=== PATIENT | female | born 2000 | race Caucasian/White ===

== ENCOUNTER 2023-03-11 11:03 | Emergency (ER) | payer OTHER, MEDICAID, SELFPAY ==
[2023-03-11 11:04] VITALS: BP 136/69; PULSE 98; RESP 18; TEMP 36.6; O2SAT 97; BMI 34.5
--- NOTE | 2023-03-11 11:38 | EX.ED.VIS.UR ---
HPI HPI - URI History of Present Illness Chief Complaint: Cough Informant: patient Narrative Narrative: 2-3 days of illness that she and her fianc? both have involving headache, sore throat mostly. Minor occasional cough. Subjective fevers present. No dyspnea. Presents with baby who has a fever this morning and decreased feeding, who is also being evaluated as a patient. Did home COVID test, both she and her fianc?, both negative. ROS ROS ED Constitutional Constitutional ED: Reports fever(s) and subjective; Denies chills ENT ENT ED: Reports sore throat; Denies ear pain, nasal congestion or rhinorrhea Cardiovascular Cardiovascular: Denies chest pain or palpitations Respiratory/Chest Respiratory/Chest: Reports cough; Denies dyspnea Gastrointestinal Gastrointestinal: Reports nausea; Denies abdominal pain, diarrhea or vomiting Genitourinary Genitourinary ED: Denies dysuria or hematuria Musculoskeletal Musculoskeletal: Denies myalgias or neck pain Integumentary Denies abscess or rash Neurologic Neurologic: Reports headache(s); Denies paresthesias or weakness Psychiatric Psychiatric: Denies depression or suicidal thoughts Endocrine Endocrinology: Denies polydipsia or polyuria PFSH PFSH Medical History no medical history Allergy/AdvReac Type Severity Reaction Status Date / Time No Known Allergies Allergy Verified 03/11/23 11:04 Social History Smoking Status: Current some day smoker tobacco type: e-cigarettes EXAM Physical Exam Const Vital Signs: 03/11/23 11:04 03/11/23 11:59 Temperature 97.8 F Temperature Source Temporal Pulse Rate 98 Respiratory Rate 18 Respiratory Effort Normal Non-Labored Respiratory Depth Normal Respiratory Pattern Normal Blood Pressure 136/69 H Blood Pressure Mean 91 Pulse Ox 97 Oxygen Delivery Method Nasal Cannula Positive well nourished and well developed General Appearance ED: well developed and NAD HEENT Reports moist mucous membranes HEENT Narrative: Soft palate and posterior oropharyngeal erythema with petechiae. No exudates. No trismus. No asymmetry. No stridor. normocephalic and atraumatic Throat: posterior oropharynx abnormal Eyes PERRL and EOMs intact bilaterally Neck no lymphadenopathy, supple and no meningeal signs Neck Narrative: No palpable lymphadenopathy but submandibular bilateral tenderness/prominence Resp normal respiratory effort and clear to auscultation bilaterally Cardio no murmurs Rate: regular rate Rhythm: regular rhythm Neuro oriented x3, CN's II-XII intact bilaterally and no sensory deficits noted Sensorium / Orientation: alert Motor Exam: strength 5/5 throughout Skin Lesions: no lesions Rashes: no rashes MDM MDM MDM Narrative Medical decision making narrative: Given the petechia in the back of her throat and minimal coughing, rapid strep was obtained and is negative. Therefore more likely to be viral, culture is sent I recommend supportive care for now unless the culture comes back positive. Performed COVID on the patient's daughter who is also hears patient simultaneously it was negative, patient did home COVID test on her and her fianc? and they are both negative I do not think those need to be repeated. Discharge Plan Triage Chief Complaint: Cough Other Complaint: Sore Throat ED Provider: Maco Brito Dx/Rx/DC Orders Clinical Impression: Acute viral pharyngitis Instructions: ED Pharyngitis, Viral Primary Care Provider: Care Physician,No Primary Referrals: Doctor,Your [Non-Staff] - 1 Week if not improving Activity Restrictions/Additional Instructions: Your strep swab was negative, culture is sent and will take a couple days to come back, if positive you will get a call from us regarding further treatment. Disposition Disposition: Home, Self Care
== END 2023-03-11 13:30 | disposition home or self-care (01) ==
PROVIDERS: Emergency Provider Emergency Medicine; Visit Provider Emergency Medicine
DX: J02.8 Acute pharyngitis due to other specified organisms (principal); R51.9 Headache, unspecified; F17.290 Nicotine dependence, other tobacco product, uncomplicated; R11.0 Nausea
CPT/HCPCS: 87880; 99283

== ENCOUNTER 2025-01-06 14:16 | Emergency (ER) | payer OTHER, MEDICAID, SELFPAY ==
[2025-01-06 14:18] VITALS: BP 144/90; PULSE 119; RESP 18; TEMP 36.8; O2SAT 98; BMI 33.5
--- NOTE | 2025-01-06 15:10 | EX.ED.VIS.PS ---
HPI <STEPHAN Park - Last Filed: 01/06/25 18:05> HPI - Psych History of Present Illness Chief Complaint: Mental Health Narrative Narrative: 24-year-old female presents for mental health evaluation. She has a history of depression. Her fianc? wanted to leave her so she acted out by cutting both her thighs. She has a history of self-harm with cutting. She states she is not suicidal or homicidal but she called her friend for help regarding the situation and they called PD so she was brought in for evaluation. She states she has not seen a counselor or been on medications for mental health for about 5 years because they did not help. PFSH <STEPHAN Park - Last Filed: 01/06/25 18:05> [facility] Medical History (Updated 01/06/25 @ 18:05 by STEPHAN Park) Anxiety Depression Home Medications ?Medication ?Instructions ?Recorded ?Last Taken ?Type NK 01/06/25 Unknown History Allergy/AdvReac Type Severity Reaction Status Date / Time peach Allergy Mild Hives Verified 01/06/25 14:18 chocolate AdvReac Mild Nausea Verified 01/06/25 14:18 Surgical History (Updated 01/06/25 @ 14:24 by Sofia Doan) Ducor teeth extracted History of bilateral fallopian tube excision Social History Smoking Status: Current every day smoker tobacco type: cigarettes ROS <STEPHAN Park - Last Filed: 01/06/25 18:05> ROS ED ROS Narrative Skin: Positive for lacerations. Musc: Negative for joint pain. Heme: Negative for easy bruising, bleeding. EXAM <STEPHAN Park - Last Filed: 01/06/25 18:05> Physical Exam Narrative Exam Narrative: CONST: Patient sitting in no acute distress. EYES: Normal inspection. NECK: Normal inspection. RESP: No respiratory distress, CTAB. CVS: Regular rate and rhythm, no murmur, no gallop. SKIN: Multiple linear lacerations on both anterior thighs, 1 on the right thigh is 12 cm in length and deep enough to the subcutaneous tissue to require sutures. EXTREMITIES: Normal appearance, 2+ PT pulses. NEURO: Alert and answering questions appropriately. PSYCH: Normal affect. Const Vital Signs: 01/06/25 14:18 01/06/25 15:17 01/06/25 16:00 Temperature 98.2 F Temperature Source Oral Pulse Rate 119 H 76 71 Respiratory Rate 18 16 16 Blood Pressure 144/90 H 133/84 H 126/81 H Blood Pressure Mean 108 100 96 Pulse Ox 98 99 98 Oxygen Delivery Method Room Air 01/06/25 17:10 Temperature 98.7 F Temperature Source Pulse Rate 75 Respiratory Rate 16 Blood Pressure 122/84 H Blood Pressure Mean 96 Pulse Ox 99 Oxygen Delivery Method <Dr. Everton Vidales MD - Last Filed: 01/06/25 16:28> Physical Exam Const Vital Signs: 01/06/25 14:18 01/06/25 15:17 01/06/25 16:00 Temperature 98.2 F Temperature Source Oral Pulse Rate 119 H 76 71 Respiratory Rate 18 16 16 Blood Pressure 144/90 H 133/84 H 126/81 H Blood Pressure Mean 108 100 96 Pulse Ox 98 99 98 Oxygen Delivery Method Room Air 01/06/25 17:10 Temperature 98.7 F Temperature Source Pulse Rate 75 Respiratory Rate 16 Blood Pressure 122/84 H Blood Pressure Mean 96 Pulse Ox 99 Oxygen Delivery Method MDM <STEPHAN Park - Last Filed: 01/06/25 18:05> [facility] Narrative Medical decision making narrative: 24-year-old female, large stress at home with her fianc? stating was break-up with her. She has a history of self-harm cutting and cut both her thighs multiple times. Most of them are superficial but there is one on the right thigh that will require suture repair. She is not suicidal or homicidal. She is calm and cooperative during the exam and her mom and multiple friends are here for support. I consulted social science instructor and after discussion with her they do not feel she needs inpatient placement. She was provided outpatient resources for counseling. I repaired 1 laceration on her right thigh, she states her tetanus is already up-to-date, and she was given wound care instructions and discharged in stable condition. Consults: Social work I have personally performed a face to face assessment of the patient and have reviewed the [facility] Note. I performed a substantive portion of the visit including all aspects of the following. My valladares findings include: History is 24-year-old female doing a lot of stress at home with her significant other. Today cut both her upper thighs multiple times. She has done cutting in the past. She denies any other suicide attempts or prior admissions. Currently is not under any psychiatric care nor medications. Exam is [well-appearing 24-year-old female. Vital signs are stable afebrile. No acute distress. H EENT exam pupils are reactive light. Moist mucous membranes. Neck nontender no lymphadenopathy. No trauma. Back nontender. Lungs clear to auscultation bilaterally. Heart regular rhythm no murmur. Rate about 70. Chest wall ribs nontender. Abdomen soft nontender. Moving all 4 extremities. Normal customer care professional strength. Normal dorsi plantarflexion. Patient has bilateral anterior thigh parallel lacerations dried blood. None are actively bleeding nor need repaired. There will be cleaned and dressed. By nursing staff. Neurologically patient is awake alert. Answering questions following commands. She will make eye contact.] Medical Decision Making [24-year-old female to cut her thighs bilaterally. Patient was evaluated by her social science instructor bill and INR patient assisted greeted patient can be treated as an outpatient for depression and she was given follow-up with the counseling center.] Other additions or changes: [None] History & Record Review Discussion w/independent historian: Family <Dr. Everton Vidales MD - Last Filed: 01/06/25 16:28> [facility] MDM Narrative Medical decision making narrative: I have personally performed a face to face assessment of the patient and have reviewed the HAYDEN Note. I performed a substantive portion of the visit including all aspects of the following. My valladares findings include: History is 24-year-old female doing a lot of stress at home with her significant other. Today cut both her upper thighs multiple times. She has done cutting in the past. She denies any other suicide attempts or prior admissions. Currently is not under any psychiatric care nor medications. Exam is [well-appearing 24-year-old female. Vital signs are stable afebrile. No acute distress. H EENT exam pupils are reactive light. Moist mucous membranes. Neck nontender no lymphadenopathy. No trauma. Back nontender. Lungs clear to auscultation bilaterally. Heart regular rhythm no murmur. Rate about 70. Chest wall ribs nontender. Abdomen soft nontender. Moving all 4 extremities. Normal customer care professional strength. Normal dorsi plantarflexion. Patient has bilateral anterior thigh parallel lacerations dried blood. None are actively bleeding nor need repaired. There will be cleaned and dressed. By nursing staff. Neurologically patient is awake alert. Answering questions following commands. She will make eye contact.] Medical Decision Making [24-year-old female to cut her thighs bilaterally. Patient was evaluated by her social science instructor she and INR patient assisted greeted patient can be treated as an outpatient for depression and she was given follow-up with the counseling center.] Other additions or changes: [None] History & Record Review Discussion w/independent historian: Patient Procedures <STEPHAN Park - Last Filed: 01/06/25 18:05> Lacerations Right anterior thigh: Length: 12 cm Depth: Sub Q Shape: Linear Prep: Sterile Conditions Laceration repair: Irrigated, Lidocaine, Local and Wound explored Suture Information: Ethilon and 5-0 Comment: 1 continuous running suture with 5-0 Ethilon approximately 22 loops. Tolerated procedure well without complication. Discharge Plan Triage Chief Complaint: Mental Health ED Midlevel Provider: Junie Briones ED Provider: Everton Vidales Dx/Rx/DC Orders Clinical Impression: Deliberate self-cutting, History of depression, Laceration of right thigh Instructions: Crisis Intervention Teams Prescriptions: No Action NK Primary Care Provider: Care Physician,No Primary Referrals: Care Physician,No Primary [Primary Care Provider] - Activity Restrictions/Additional Instructions: The social science instructor provided you with resources for counseling. I recommend you follow-up with them or with your primary care doctor. At any time if you feel your symptoms worsen or you are suicidal you can call the crisis team listed in this paperwork or you can return to the the closest ER. Print Language: Afghan Disposition Disposition: Home, Self Care Discharge Date/Time: 01/06/25 17:11
[2025-01-06 15:17] VITALS: BP 133/84; PULSE 76; RESP 16; O2SAT 99
[2025-01-06 16:00] VITALS: BP 126/81; PULSE 71; RESP 16; O2SAT 98
[2025-01-06] MEDS: Lidocaine 1% (20 ml mdv) 20 ML Vial INFILT (16:10)
[2025-01-06 17:10] VITALS: BP 122/84; PULSE 75; RESP 16; TEMP 37.1; O2SAT 99
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
--- NOTE | 2025-01-07 10:28 | CM.ED ---
Social Work SW contacted patient as a follow up from visit yesterday where a safety plan was completed. Patient stated she was doing well today and felt better than yesterday. Patient was reminded to return to the ED should her symptoms increase or if she felt unsafe. Patient voiced understanding and thanked ZACHARIAH for the call. Dian Longoria, UTILIZATION REVIEW SPECIALIST, COMPUTER NETWORK AND SYSTEMS ENGINEER
== END 2025-01-06 17:11 | disposition home or self-care (01) ==
PROVIDERS: Emergency Provider Emergency Medicine; Visit Provider Emergency Medicine
DX: S71.112A Laceration without foreign body, left thigh, initial encounter (principal); S71.111A Laceration without foreign body, right thigh, initial encounter; F17.210 Nicotine dependence, cigarettes, uncomplicated; X58.XXXA Exposure to other specified factors, initial encounter
CPT/HCPCS: 12004; 99284

== ENCOUNTER 2025-01-17 17:10 | Emergency (ER) | payer OTHER, MEDICAID, SELFPAY ==
[2025-01-17 17:12] VITALS: BP 128/70; PULSE 98; RESP 16; TEMP 36.5; O2SAT 99; BMI 34.0
--- NOTE | 2025-01-17 17:53 | ED.RN ---
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 PT INFORMED THE ER IS OPEN 24/ AND WE WOULD SEE HER AT ANY HOUR. PT LEAVES INDEPENDENTLY WITHOUT FURTHER QUESTIONS
== END 2025-01-17 17:40 | disposition left against medical advice (07) ==
LOC: ED 18:01
DX: Z48.02 Encounter for removal of sutures (principal)

== ENCOUNTER 2025-01-18 10:09 | Emergency (ER) | payer OTHER, MEDICAID, SELFPAY ==
[2025-01-18 10:10] VITALS: BP 155/89; PULSE 100; RESP 16; TEMP 36.6; O2SAT 98; BMI 33.7
--- NOTE | 2025-01-18 11:01 | EX.ED.DYSGE1 ---
HPI History of Present Illness Chief Complaint: Suture Remv Informant: patient Narrative Narrative: 24-year-old female self-inflicted laceration right thigh about 10 days ago. With suture repair at this facility. Came today to have her sutures out. She denies any redness or discharge. No discomfort. Prior similar symptoms: No Recent Illness/Hospitalization: No [facility] Medical History Anxiety Depression Home Medications ?Medication ?Instructions ?Recorded ?Last Taken ?Type NK 01/06/25 Unknown History Allergy/AdvReac Type Severity Reaction Status Date / Time peach Allergy Mild Hives Verified 01/18/25 10:11 chocolate AdvReac Mild Nausea Verified 01/18/25 10:11 Surgical History [place] teeth extracted History of bilateral fallopian tube excision Social History Smoking Status: Current every day smoker tobacco type: cigarettes ROS ROS ED ROS Narrative No recent illness. Constitutional Constitutional ED: Denies chills or fever(s) Eyes Eyes: Denies blurry vision ENT ENT ED: Denies ear pain Cardiovascular Cardiovascular: Denies chest pain Respiratory/Chest Respiratory/Chest: Denies cough Gastrointestinal Gastrointestinal: Denies abdominal pain Genitourinary Genitourinary ED: Denies dysuria Musculoskeletal Musculoskeletal: Denies arthralgias Integumentary Denies abscess Neurologic Neurologic: Denies headache(s) Psychiatric Psychiatric: Denies suicidal ideation Endocrine Endocrinology: Denies cold intolerance Hematologic/Lymphatic Hematologic/Lymphatic: Reports none Allergic/Immunologic Allergic/Immunologic ED: Denies mouth swelling, tongue swelling or urticaria EXAM Physical Exam Narrative Exam Narrative: Well-appearing 24-year-old female. Vital signs stable afebrile. HEENT exam pupils round reactive light. Moist mucous membranes. Neck nontender. Lungs clear. Heart regular rhythm rate about 95 no murmur. Chest wall ribs nontender. Abdomen soft nontender. Moving all 4 extremities. She has a well-healing right proximal anterior thigh laceration with repair we will remove the sutures. There is no signs of infection or wound separation. Right lower extremity is neurovascularly intact. She is awake alert. Answering questions following commands. Benign exam. Const Vital Signs: 01/18/25 10:10 Temperature 97.9 F Temperature Source Oral Pulse Rate 100 Respiratory Rate 16 Blood Pressure 155/89 H Blood Pressure Mean 111 Pulse Ox 98 Oxygen Delivery Method Room Air Positive well nourished and well developed; Negative for cachectic, contractures or unkempt General Appearance ED: well developed; Negative for unkempt, cachectic, contractures, cyanotic, diaphoretic or pallor Nutritional Appearance: Negative for cachectic HEENT Reports moist mucous membranes Eyes PERRL and EOMs intact bilaterally Neck no lymphadenopathy, supple and no JVD Chest Wall inspection of chest normal Resp normal respiratory effort and clear to auscultation bilaterally Cardio regular rate, regular rhythm, S1 normal heart sound, S2 normal heart sound and no murmurs GI normal to inspection, nondistended, normoactive bowel sounds, non-tender, non-distended and no masses Back/Spine no CVA tenderness Extremity normal to inspection Extremity Narrative: Well-healed right proximal anterior thigh laceration. Running suture. No infection. Sutures will be removed. General Extremety ED: Negative for edema or tenderness General Extremity: Negative for edema Neuro CN's II-XII intact bilaterally Sensorium / Orientation: alert Motor Exam: strength 5/5 throughout Psych mental status grossly normal Appearance: Negative for unkempt Skin no rashes or lesions noted, no wounds and skin turgor normal General Skin Exam: elasticity normal; Negative for jaundice or pallor Lesions: No lesion noted Rashes: No rashes noted MDM MDM MDM Narrative Medical decision making narrative: 24-year-old female self-inflicted right thigh laceration repair and return for suture removal. Wound looks good. Healing nicely. No infection. Discharge Plan Triage Chief Complaint: Suture Remv ED Provider: Everton Vidales Dx/Rx/DC Orders Clinical Impression: Visit for suture removal Instructions: Sutr or Stap Removal Prescriptions: No Action NK Primary Care Provider: Care Physician,No Primary Referrals: Care Physician,No Primary [Primary Care Provider] - Activity Restrictions/Additional Instructions: The laceration looks good. Watch for any signs of infection. If seen return. Print Language: Citizen Of [place] Disposition Disposition: Home, Self Care
[2025-01-18 12:22] VITALS: BP 140/78; PULSE 77; RESP 16; TEMP 36.3; O2SAT 100
--- NOTE | 2025-01-18 12:23 | ED.RN ---
SUTURES REMOVED, HEALING WITHIN NORMAL LIMITS
== END 2025-01-18 12:24 | disposition home or self-care (01) ==
LOC: ED 11:07
PROVIDERS: Emergency Provider Emergency Medicine; Visit Provider Emergency Medicine
DX: S71.111D Laceration without foreign body, right thigh, subsequent encounter (principal); X78.9XXD Intentional self-harm by unspecified sharp object, subsequent encounter; F17.210 Nicotine dependence, cigarettes, uncomplicated
CPT/HCPCS: 99282

== ENCOUNTER 2025-05-25 11:25 | Emergency (ER) | payer OTHER, MEDICAID, SELFPAY ==
[2025-05-25] VITALS (9 sets, daily range): BP systolic 92–142; BP diastolic 49–93; PULSE 62–137; RESP 16–24; TEMP 36.9–39.1; O2SAT 97–100; BMI 35.2
--- OUTSIDE RECORDS SUMMARY | 2025-05-25 11:52 | XMS RPT_ITS | CCD ---
Author Organization [facility] Care Team Providers Care Office Equipment Technician Name Role Phone Db, Sandhya L Unavailable Unavailable Sokari, Telemate Unavailable Unavailable Sokari, Telemate Unavailable Unavailable Db, Sandhya L Unavailable Unavailable Db, Sandhya L Unavailable Unavailable Db, Sandhya L Unavailable Unavailable Db, Sandhya L Unavailable Unavailable Michael, Loree A Unavailable Unavailable [place], Loree A Unavailable Unavailable Db, Sandhya L Unavailable Unavailable Db, Sandhya L Unavailable Unavailable Db, Sandhya L Unavailable Unavailable Db, Sandhya L Unavailable Unavailable Unavailable Unavailable Unavailable Db, Sandhya Unavailable Charles Harrison Unavailable Unavailable Maggy Sauceda Unavailable Schulte, Jenise Unavailable Unavailable Dr. Charles Harrison Attending Unava ilable Db, Mrs. Sandhya Pereira Primary Care Unavail able Schulte, Jenise Attending Unavailable Db, Mrs. Sandhya Pereira Primary Care Unavail able Schulte, Jenise Referring Unavailable Schulte, Jenise Attending Unavailable Db, Mrs. Sandhya Pereira Primary Care Unavail able Schulte, Jenise Referring Unavailable Schulte, Jenise Attending Unavailable Db, Mrs. Sandhya Pereira Primary Care Unavail able Schulte, Jenise Referring Unavailable Db, Mrs. Sandhya Pereira Primary Care Unavail able Schulte, Jenise Attending Unavailable Schulte, Jenise Admitting Unavailable Schulte, Jenise Attending Unavailable Db, Mrs. Sandhya Pereira Primary Care Unavail able Schulte, Jenise Admitting Unavailable Schulte, Jenise Attending Unavailable Db, Mrs. Sandhya Pereira Primary Care Unavail able Schulte, Jenise Admitting Unavailable Schulte, Jenise Attending Unavailable Db, Mrs. Sandhya Pereira Primary Care Unavail able Sohail, Dr. Maggy Varghese Referring Unavai lable Sohail, Dr. Maggy Varghese Attending Unavai lable Db, Mrs. Sandhya Pereira Primary Care Unavail able Mcneal, Hope Attending Unavailable Mcneal, Hope Referring Unavailable Db, Mrs. Sandhya Pereira Primary Care Unavail able Schulte, Jenise Referring Unavailable Db, Mrs. Sandhya Pereira Primary Care Unavail able Schulte, Jenise Attending Unavailable Sohail, Dr. Maggy Varghese Referring Unavai lable Sohail, Dr. Maggy Varghese Admitting Unavai lable Sohail, Dr. Maggy Varghese Attending Unavai lable Db, Mrs. Sandhya Pereira Primary Care Unavail able MD JENISE SCHULTE Attending Unava ilable SCHULTE, MD JENISE WEBSTER Referring Unava ilable Db, Mrs. Sandhya Pereira Primary Care Unavail able MD JENISE SCHULTE Attending Unava ilable SCHULTE, MD JENISE WEBSTER Referring Unava ilable Db, Mrs. Sandhya Pereira Primary Care Unavail able MD JENISE SCHULTE Attending Unava ilable SCHULTE, MD JENISE WEBSTER Referring Unava ilable Db, Mrs. Sandhya Pereira Primary Care Unavail able MD JENISE SCHULTE Attending Unava ilable SCHULTE, MD JENISE WEBSTER Referring Unava ilable Db, Mrs. Sandhya Pereira Primary Care Unavail able MD JENISE SCHULTE Attending Unava ilable SCHULTE, MD JENISE WEBSTER Referring Unava ilable Db, Mrs. Sandhya Pereira Primary Care Unavail able MD JENISE SCHULTE Attending Unava ilable LUKE, MD JENISE WEBSTER Referring Unava ilable Db, Mrs. Sandhya Pereira Primary Care Unavail able MD JENISE SCHULTE Attending Unava ilable SCHULTE, MD JENISE WEBSTER Referring Unava ilable Db, Mrs. Sandhya Pereira Primary Care Unavail able SCHULTE, MD JENISE WEBSTER Attending Unava ilable Db, Mrs. Sandhya Pereira Primary Care Unavail able MD JENISE SCHULTE Referring Unava ilable SCHULTE, MD JENISE WEBSTER Attending Unava ilable Db, Mrs. Sandhya Pereira Primary Care Unavail able SCHULTE, MD JENISE WEBSTER Referring Unava ilable SCHULTE, MD JENISE WEBSTER Attending Unava ilable Db, Mrs. Sandhya Pereira Primary Care Unavail able LUKE, MD JENISE WEBSTER Referring Unava ilable SCHULTE, MD JENISE WEBSTER Referring Unava ilable SCHULTE, MD JENISE WEBSTER Attending Unava ilable Db, Mrs. Sandhya Pereira Primary Care Unavail able Db, Mrs. Sandhya Pereira Primary Care Unavail able LUKE, MD JENISE WEBSTER Attending Unava ilable SCHULTE, MD JENISE WEBSTER Referring Unava ilable SCHULTE, MD JENISE WEBSTER Attending Unava ilable Db, Mrs. Sandhya Pereira Primary Care Unavail able LUKE, MD JENISE WEBSTER Attending Unava ilable SCHULTE, MD JENISE WEBSTER Referring Unava ilable Db, Mrs. Sandhya Pereira Primary Care Unavail able Db PRODUCT REPRESENTATIVESandhya DRUMMOND Primary Care Provider SANDHYA ACE Primary Care Unavailable SANDHYA ACE Primary Care Unavailable MAGGY SAUCEDA Referring Unavailable SANDHYA ACE Primary Care Unavailable MAGGY SAUCEDA Admitting Unavailable MAGGY SAUCEDA Attending Unavailable SANDHYA ACE Primary Care Unavailable MAGGY SAUCEDA Attending Unavailable SANDHYA ACE Primary Care Unavailable MAGGY SAUCEDA Attending Unavailable SANDHYA ACE Primary Care Unavailable MAGGY SAUCEDA Attending Unavailable SANDHYA ACE Primary Care Unavailable MAGGY SAUCEDA Attending Unavailable SANDHYA ACE Primary Care Unavailable MAGGY SAUCEDA Attending Unavailable SANDHYA ACE Primary Care Unavailable MAGGY SAUCEDA Attending Unavailable SANDHYA ACE Primary Care Unavailable Care Physician, No Primary Primary Care Provider Unavailable Dr. Everton Vidales MD Attending Provider Dr. Everton Vidales MD Emergency Provider Provider, Ed Physician Emergency Provider Everton Ferrer Attending Unavailable Care Physician, No Primary Primary Care Unava ilable Everton Vidales Attending Unavailable Care Physician, No Primary Primary Care Unava ilable Provider, Ed Physician Attending Unavailab le Care Physician, No Primary Primary Care Unava ilable Allergies Allergy Classification Reported Allergen(s) Allergy Type Date of Onset Reaction(s) Facility Chocolate (6 sources) Chocolate Food Allergy [facility] [address] Work Phone: [place]aches (6 sources) peach Food Allergy [facility] [address] Work Phone: (20 sources) Chocolate; Translations: [Chocolate] Propensity to adverse reactions (disorder) 5 Itching, Hives, Nausea [facility] Repository (20 sources) [place]; Translations: [[place]aches] Propensity to adverse reactions to drug (disorder) AOF, Itching, Hives [facility] Repository Comment on above: [place] (12 sources) chocolate allergenic extract; Translations: [COCOA] Drug Allergy 0 Diarrhea, Hives, Itching [facility] (15 sources) peach allergenic extract; Translations: [PEACH] Drug Allergy 0 Diarrhea, Hives [facility] Work Phone: Medications Current Medications Medication Drug Class(es) Dates Sig (Normalized) Sig (Original) acetaminophen 300 mg / codeine phosphate 30 mg oral tablet (3 sources) Opioid Agonist Start: 05-06-2024 take 1 tablet by mouth every six hours for pain acetaminophen-codei ne (Tylenol w/ Codeine #3) 300-30 mg tablet Indications: Encounter for female sterilization procedure Take 1 tablet by mouth every 6 hours if needed for moderate pain (4 - 6) or severe pain (7 - 10) for up to 10 doses. 10 tablet 05/06/2024 Active calcium chloride 0.0014 meq/ml / potassium chloride 0.004 meq/ml / sodium chloride 0.103 meq/ml / sodium lactate 0.028 meq/ml injectable solution (1 source) Start: 05-06-2024 End: 05-07-2024 take 100 mL intravenously every hour 100 mL/hr, intravenous, Continuous, Starting on [place] 05/06/24 at 0830, For 1 day, Recovery (only) 0.5 ml HYDROmorphone hydrochloride 1 mg/ml prefilled syringe (2 sources) Opioid Agonist Start: 05-06-2024 0.5 mg, intravenous, Every 5 min PRN, pain severe (7-10), first line, Starting on Yanira 05/06/24 at 1010, Recovery (only), Max total of 4 mg regardless of dose. Start: 05-06-2024 0.2 mg, intrav enous, Every 5 min PRN, pain moderate (4-6), first line, Starting on Yanira 05/06/24 at 1009, Recovery (only), Max total of 4 mg regardless of dose. labetalol hydrochloride 5 mg/ml injectable solution (1 source) beta-Adrenergic Sonido Start: 05-06-2024 5 mg, intravenous, Administer over 1 Minutes, Once as needed, systolic blood pressure greater than 180 mmHg, dystolic blood pressure greater than 100 mmHg and heart rate greater than 60 BPM, Starting on Yanira 05/06/24 at 1010, For 1 dose, Recovery (only) metroNIDAZOLE 500 mg oral tablet (1 source) Nitroimidazole Antimicrobial Start: 05-28-2023 End: 06-04-2023 take 1 tablet by mouth twice daily metroNIDAZOLE (Flagyl) 500 mg tablet Indications: Acute vaginitis , Bacterial vaginosis Take 1 tablet (500 mg) by mouth 2 times a day for 7 days. 14 tablet 0 05/28/2023 06/04/2023 Active 1 ml morphine sulfate 4 mg/ml prefilled syringe (2 sources) Opioid Agonist Start: 05-06-2024 4 mg, intravenous, Every 5 min PRN, pain severe (7-10), first line, Starting on Yanira 24 at 1010, Recovery (only), Max total of 20 mg regardless of dose. Start: 05-06-2024 2 mg, intraven ous, Every 5 min PRN, pain moderate (4-6), first line, Starting on Yanira 05/06/24 at 1010, Recovery (only), Max total of 20 mg regardless of dose. 2 ml ondansetron 2 mg/ml injection (2 sources) Serotonin-3 Receptor Antagonist Start: 05-06-2024 End: 05-06-2024 4 mg, intravenous, Once as needed, nausea/vomiting, first line, Starting on Yanira 05/06/24 at 1010, For 1 dose, Recovery (only), When administering via IV Push, administer over 3-5 minutes. oxyCODONE hydrochloride 5 mg oral tablet (2 sources) Opioid Agonist Start: 05-06-2024 take 1 tablet by mouth every four hours as needed 5 mg, oral, Every 4 hours PRN, pain mild (1-3), first line, Starting on Yanira 05/06/24 at 1010, Recovery (only), When able to take oral medications., If ordered PRN for pain, nurse is permitted to administer this medication for higher pain scores based on patient preference? Yes penicillin v potassium 500 mg oral tablet (1 source) Start: 06-24-2022 End: 06-30-2022 take 1 tablet by mouth four times daily 1 hour(s) after mealtime penicillin V potassium 500 mg oral tablet ; 1 tab(s) orally 4 times a day Quantity: 28 Refills: 0 Ordered: 24-Jun-2022 Charles Harrison Start: 24-Jun-2022 End: 30-Jun-2022 Generic Substitution Allowed Comments: Finish all this medication unless otherwise directed by prescriber.Take medication on an empty stomach 1 hour before or 2 to 3 hours after a meal unless otherwise directed by your doctor. Comment on above: Finish all this medi cation unless otherwise directed by prescriber.Take medication on an empty stomach 1 hour before or 2 to 3 hours after a meal unless otherwise directed by your doctor. Completed/Discontinued Medications Medication Drug Class(es) Dates Sig (Normalized) Sig (Original) acetaminophen 325 mg oral tablet (19 sources) Start: 05-06-2024 End: 05-06-2024 take 975 mg by mouth once as needed for pain 975 mg, oral, Once, On Yanira 05/06/24 at 0830, For 1 dose, Preprocedure, Administer with small amount of water preoperatively., If ordered PRN for pain, nurse is permitted to administer this medication for higher pain scores based on patient preference? Yes Tylenol TABS Aakash ntity: 0 Refills: 0 Ordered: 13-Oct-2020 DO Active Amethia 0.15-0.03 &0.01 MG Oral Tablet (1 source) Start: 11-25-2022 take 1 tablet by mouth once daily Amethia 0.15-0.03 &0.01 MG Oral Tablet TAKE 1 TABLET DAILY. Quantity: 1 Refills: 1 Ordered: 25-Nov-2022 Jenise Schulte MD Start : 25-Nov-2022 Active azithromycin 500 mg oral tablet (14 sources) Macrolide Antimicrobial Start: 01-08-2021 take 2 tablets by mouth once Azithromycin 500 MG Oral Tablet TAKE 2 TABLET ONCE Quantity: 2 Refills: 0 Ordered: 08-Jan-2021 Joesph Joe DO Start : 08-Jan-2021 Active celecoxib 200 mg oral capsule (1 source) Nonsteroidal Anti-inflammatory Drug Start: 05-06-2024 End: 05-06-2024 take 1 capsule by mouth once 400 mg, oral, Once, On Yanira 05/06/24 at 0830, For 1 dose, Preprocedure, Capsules may be opened and sprinkled on a spoonful of cold or room temperature applesauce. Start: 05-06-2024 End: 05-06-2024 take 1 capsule by mouth once 400 mg, oral, Once, On Th u 05/06/24 at 0830, For 1 dose, Preprocedure, Capsules may be opened and sprinkled on a spoonful of cold or room temperature applesauce. 1 ml dexamethasone phosphate 10 mg/ml injection (1 source) Corticosteroid Start: 05-06-2024 End: 05-06-2024 8 mg, intravenous, Once, On Yanira 05/06/24 at 0830, For 1 dose, Preprocedure Start: 05-06-2024 End: 05-06-2024 8 mg, intravenous, Once, On Yanira 05/06/24 at 0830, For 1 dose, Preprocedure ferrous sulfate 325 mg oral tablet (10 sources) Start: 07-30-2022 take 1 tablet by mouth twice daily at mealtime Ferrous Sulfate 325 (65 Fe) MG Oral Tablet TAKE 1 TABLET TWICE DAILY WITH MEALS. Quantity: 60 Refills: 11 Ordered: 30-Jul-2022 Jenise Schulte MD Start : 30-Jul-2022 Active Start: 05-20-2021 End: 06-18-2021 take 1 tablet by mouth twice daily ferrous sulfate 325 mg (65 mg elemental iron) oral tablet ; 1 tab(s) orally 2 times a day Quantity: 60 Refills: 0 Ordered: 20-May-2021 Jenise Schulte Start: 20-May-2021 End: 18-Jun-2021 Generic Substitution Allowed gabapentin 300 mg oral capsule (1 source) Anti-epileptic Agent Start: 05-06-2024 End: 05-06-2024 take 1 capsule by mouth once 600 mg, oral, Once, On Fri05/06/24 at 0830, For 1 dose, Preprocedure, Capsules may be opened and sprinkled on food (eg, applesauce, orange juice, pudding). Capsules may be opened and sprinkled on food (eg, applesauce, orange juice, pudding Start: 05-06-2024 End: 05-06-2024 take 1 capsule by mouth once 600 mg, oral, Once, On u 05/06/24 at 0830, For 1 dose, Preprocedure, Capsules may be opened and sprinkled on food (eg, applesauce, orange juice, pudding). Capsules may be opened and sprinkled on food (eg, applesauce, orange juice, pudding ibuprofen 800 mg oral tablet (1 source) Nonsteroidal Anti-inflammatory Drug Start: 05-20-2021 End: 06-02-2021 take 1 tablet by mouth every eight hours ibuprofen 800 mg oral tablet ; 1 tab(s) orally every 8 hours Quantity: 60 Refills: 0 Ordered: 20-May-2021 Jenise Schulte Start: 20-May-2021 End: 02-Jun-2021 Generic Substitution Allowed Comments: Do not take this drug if you are .It is very important that you take or use this exactly as directed. Do not skip doses or discontinue unless directed by your doctor.May cause drowsiness or dizziness.Obtain medical advice before taking any non-prescription drugs as some may affect the action of this medication.Take with food or milk. Comment on above: Do not take this flory g if you are .It is very important that you take or use this exactly as directed. Do not skip doses or discontinue unless directed by your doctor.May cause drowsiness or dizziness.Obtain medical advice before taking any non-prescription drugs as some may affect the action of this medication.Take with food or milk. magnesium oxide 400 mg oral tablet (14 sources) Start: 04-05-2022 take 1 tablet by mouth twice daily Magnesium Oxide 400 MG Oral Tablet Take 1 tablet twice daily Quantity: 60 Refills: 10 Ordered: 05-Apr-2022 Jenise Schulte MD Start : 05-Apr-2022 Active 5 ml midazolam 1 mg/ml injection (1 source) Benzodiazepine Start: 05-06-2024 End: 05-06-2024 1 mg, intravenous, Once, On Yanira 05/06/24 at 0830, For 1 dose, Preprocedure nitrofurantoin, macrocrystals 100 mg oral capsule (14 sources) Nitrofuran Antibacterial Start: 01-08-2021 take 1 capsule by mouth once daily Nitrofurantoin Macrocrystal 100 MG Oral Capsule TAKE 1 CAPSULE EVERY 12 HOURS DAILY. Quantity: 10 Refills: 0 Ordered: 08-Jan-2021 Joesph Joe DO Start : 08-Jan-2021 Active PNV Plus Multivitamin TABS (20 sources) PNV Plu s Multivitamin TABS Quantity: 0 Refills: 0 Ordered: 13-Oct-2020 DO Active Multivitamins with Folic Acid 1.25 mg oral capsule (1 source) Start: 09-17-2020 End: 10-16-2020 Multivitamins with Folic Acid 1.25 mg oral capsule ; 1 cap(s) orally once a day Quantity: 30 Refills: 0 Ordered: 17-Sep-2020 Uche Arroyo Start: 17-Sep-2020 End: 16-Oct-2020 Generic Substitution Allowed Comments: May discolor urine or feces. Comment on above: May discolor urine o r feces. promethazine (Phenergan) 6.25 mg in sodium chloride 0.9% 50 mL IV (1 source) Start: 05-06-2024 End: 05-06-2024 6.25 mg, intravenous, Administer over 15 Minutes, Once as needed, Nausea/vomiting, second line, Starting on Yanira 05/06/24 at 1010, For 1 dose, Recovery (only) NEGATED: Highlighted row has not occurred!No Current Medications (1 source) No Current Medications Problems Active Problems Problem Classification Problem Date Documented Date Episodic/Chronic Abdominal pain (10 sources) Pain in female pelvis; Translations: [Unspecified symptom associated with female genital organs] Episodic Asthma (6 sources) Unspecified asthma, uncomplicated; Translations: [Uncomplicated asthma] Onset: 10-07-2022 10-08-2022 Chronic Bacterial infection; unspecified site (20 sources) Chlamydial infection; Translations: [Unspecified chlamydial infection] Episodic Contraceptive and procreative management (6 sources) Encounter for sterilization; Translations: [Encounter for sterilization] Onset: 03-30-2024 Episodic Deficiency and other anemia (13 sources) Anemia; Translations: [Anemia, unspecified] 08-27-2022 Episodic Deficiency and other anemia (1 source) Anemia, unspecified; Translations: [Anemia, unspecified] Onset: 10-07-2022 Episodic Early or threatened labor (4 sources) False labor before 37 completed weeks of gestation, third trimester; Translations: [False labor at or after 37 completed weeks of gestation] Onset: 10-04-2022 10-08-2022 Episodic distress and abnormal forces of labor (3 sources) Abnormality of forces of labor, unspecified; Translations: [Abnormality of forces of labor] Onset: 10-07-2022 10-08-2022 Episodic Genitourinary symptoms and ill-defined conditions (1 source) Dysuria; Translations: [Dysuria] 05-28-2023 Episodic Immunizations and screening for infectious disease (20 sources) Patient encounter status; Translations: [Screening examination for venereal disease] Onset: 03-30-2024 05-28-2023 Episodic Inflammatory diseases of female pelvic organs (2 sources) Acute vaginitis; Translations: [Acute vaginitis] 05-28-2023 Episodic Menstrual disorders (2 sources) Oligomenorrhea, unspecified; Translations: [Oligomenorrhea, unspecified] Onset: 05-28-2023 Chronic OB-related trauma to perineum and vulva (1 source) First degree perineal laceration during delivery; Translations: [First degree perineal laceration during delivery] Onset: 10-10-2022 Episodic Open wounds of extremities (2 sources) Laceration of right thigh; Translations: [Laceration without foreign body, right thigh, initial encounter] 01-14-2025 Episodic Open wounds of extremities (1 source) Laceration without foreign body, left thigh, initial encounter; Translations: [Laceration without foreign body, left thigh, initial encounter] Onset: 01-11-2025 Episodic Other aftercare (1 source) Postoperative visit; Translations: [Encounter for other specified surgical aftercare] 05-21-2024 Episodic Other aftercare (1 source) Surgical follow-up; Translations: [Encounter for removal of sutures] 01-18-2025 Episodic Other aftercare (1 source) Encounter for removal of sutures; Translations: [Encounter for removal of sutures] Onset: 01-23-2025 Episodic Other complications of ; puerperium affecting management of mother (3 sources) Obesity complicating childbirth; Translations: [Obesity complicating childbirth] Onset: 10-08-2022 Chronic Other complications of ; puerperium affecting management of mother (16 sources) Large for gestation age fetus; Translations: [LGA (large for gestational age) fetus] Episodic Other complications of ; puerperium affecting management of mother (1 source) Smoking (tobacco) complicating childbirth; Translations: [Smoking (tobacco) complicating childbirth] Onset: 10-10-2022 Episodic Other complications of (1 source) Anemia complicating , third trimester; Translations: [Anemia complicating , third trimester] Onset: 10-07-2022 Chronic Other complications of (3 sources) Anemia in mother complicating , childbirth AND/OR puerperium; Translations: [Anemia complicating , third trimester] 08-27-2022 Chronic Other complications of (20 sources) RhD negative; Translations: [Other specified complications of , antepartum condition or complication] 10-08-2022 Episodic Other complications of (20 sources) Asymptomatic bacteriuria in - not delivered; Translations: [Asymptomatic bacteriuria in , antepartum condition or complication] Episodic Other complications of (1 source) Diseases of the respiratory system complicating , third trimester; Translations: [Diseases of the resp sys comp , third trimester] Onset: 10-07-2022 Episodic Other complications of (2 sources) Other specified related conditions, third trimester; Translations: [Oth related conditions, third trimester] Onset: 08-26-2022 Episodic Other complications of (1 source) Maternal care for excessive growth, third trimester, not applicable or unspecified; Translations: [Maternal care for excess growth, third trimester, unsp] Onset: 10-04-2022 Episodic Other complications of (2 sources) Finding related to ; Translations: [Other specified related conditions, third trimester] 08-27-2022 Episodic Other complications of (1 source) Disease of respiratory system complicating ; Translations: [Diseases of the respiratory system complicating , third trimester] 10-08-2022 Episodic Other female genital disorders (3 sources) Pain in female genitalia on intercourse; Translations: [Unspecified dyspareunia] 03-08-2024 Chronic Other female genital disorders (4 sources) Unspecified dyspareunia; Translations: [Unspecified dyspareunia] Onset: 03-11-2024 Chronic Other female genital disorders (2 sources) Other specified noninflammatory disorders of vagina; Translations: [Other specified noninflammatory disorders of vagina] Onset: 08-26-2022 Episodic Other female genital disorders (1 source) Noninflammatory disorder of the vagina; Translations: [Other specified noninflammatory disorders of vagina] 08-27-2022 Episodic Other female genital disorders (1 source) Vaginal discharge; Translations: [Other specified noninflammatory disorders of vagina] 03-08-2024 Episodic Other conditions (1 source) Other heavy for gestational age ; Translations: [Other heavy for gestational age ] Onset: 09-13-2022 Episodic Other and delivery including normal (20 sources) care status; Translations: [Supervision of other normal ] Onset: 05-31-2022 10-08-2022 Episodic Comment on above: 05/18/2021_39weeks 1 day_Male_7# 7oz; Other screening for suspected conditions (not mental disorders or infectious disease) (20 sources) Urine test negative; Translations: [ examination or test, negative result] Onset: 06-01-2024 Resolved: 11-25-2022 05-28-2023 Episodic Other upper respiratory infections (2 sources) Acute viral pharyngitis; Translations: [Acute pharyngitis, unspecified] 2023 Episodic Residual codes; unclassified (18 sources) Gestation period, 12 weeks; Translations: [ state, incidental] Onset: 04-05-2022 Episodic Residual codes; unclassified (1 source) Gestation period, 16 weeks; Translations: [ state, incidental] Episodic Residual codes; unclassified (3 sources) Gestation period, 20 weeks; Translations: [ state, incidental] Episodic Residual codes; unclassified (2 sources) Gestation period, 24 weeks; Translations: [ state, incidental] Episodic Residual codes; unclassified (3 sources) Gestation period, 27 weeks; Translations: [ state, incidental] Episodic Residual codes; unclassified (1 source) Gestation period, 30 weeks; Translations: [ state, incidental] Episodic Residual codes; unclassified (2 sources) Gestation period, 32 weeks; Translations: [ state, incidental] 08-27-2022 Episodic Residual codes; unclassified (1 source) Gestation period, 34 weeks; Translations: [ state, incidental] Episodic Residual codes; unclassified (8 sources) Gestation period, 36 weeks; Translations: [ state, incidental] Episodic Residual codes; unclassified (1 source) Gestation period, 37 weeks; Translations: [ state, incidental] Episodic Residual codes; unclassified (3 sources) Gestation period, 38 weeks; Translations: [ state, incidental] 10-08-2022 Episodic Residual codes; unclassified (14 sources) Gestation period, 17 weeks; Translations: [ state, incidental] Onset: 05-31-2022 Episodic Residual codes; unclassified (11 sources) Gestation period, 26 weeks; Translations: [ state, incidental] Episodic Residual codes; unclassified (2 sources) 38 weeks gestation of ; Translations: [38 weeks gestation of ] Onset: 10-04-2022 Episodic Residual codes; unclassified (1 source) Unspecified blood type, Rh negative; Translations: [Unspecified blood type, Rh negative] Onset: 10-07-2022 Episodic Residual codes; unclassified (1 source) 39 weeks gestation of ; Translations: [39 weeks gestation of ] Onset: 10-04-2022 Episodic Residual codes; unclassified (1 source) 37 weeks gestation of ; Translations: [37 weeks gestation of ] Onset: 09-13-2022 Episodic Residual codes; unclassified (1 source) 32 weeks gestation of ; Translations: [32 weeks gestation of ] Onset: 08-26-2022 Episodic Residual codes; unclassified (2 sources) Deliberate self-cutting; Translations: [Other problems related to lifestyle] 01-14-2025 Episodic Screening and history of mental health and substance abuse codes (5 sources) Personal history of nicotine dependence; Translations: [Personal history of tobacco use] Onset: 10-07-2022 10-08-2022 Episodic Unclassified (2 sources) TOOTH PAIN 06-24-2022 Comment on above: TOOTH PAIN Unclassified (1 source) BC REFILL 07-13-2021 Comment on above: BC REFILL Unclassified (1 source) 4 WK OB 05-31-2022 Comment on above: 4 WK OB Unclassified (1 source) Pain, dental 06-24-2022 Unclassified (2 sources) 39 WEEKS GESTATION OF 10-08-2022 Comment on above: 39 WEEKS GESTATION O F Unclassified (1 source) PP 10-10-2022 Comment on above: PP Unclassified (1 source) 38 weeks gestation of 10-08-2022 Unclassified (2 sources) Post-op Visit; Translations: [Post-op Visit] Onset: 05-21-2024 Unclassified (2 sources) Vaginitis/Bacterial Vaginosis; Translations: [Vaginitis/Bacterial Vaginosis] Onset: 03-08-2024 Past or Other Problems Problem Classification Problem Date Documented Da te Episodic/Chronic Disorders of teeth and jaw (4 sources) Toothache; Translations: [Unspecified disorder of the teeth and supporting structures] Onset: 06-24-2022 06-24-2022 Episodic Other complications of (2 sources) Diseases of the digestive system complicating , unspecified trimester; Translations: [Diseases of the dgstv sys comp , unsp trimester] Onset: 06-24-2022 Episodic Residual codes; unclassified (1 source) Weeks of gestation of not specified; Translations: [Weeks of gestation of not specified] Onset: 06-24-2022 Episodic Residual codes; unclassified (2 sources) 17 weeks gestation of ; Translations: [17 weeks gestation of ] Onset: 05-31-2022 Episodic Residual codes; unclassified (1 source) 20 weeks gestation of ; Translations: [20 weeks gestation of ] Onset: 05-31-2022 Episodic Residual codes; unclassified (1 source) 12 weeks gestation of ; Translations: [12 weeks gestation of ] Onset: 04-05-2022 Episodic Unclassified (20 sources) Finding of menstrual bleeding; Translations: [Menstruation] Comment on above: AGE 13; Unclassified (1 source) CONTRACTIONS 10-08-2022 Comment on above: CONTRACTIONS Results Test Name Value Interpretation Reference Range Facility Emergency Department Summary on 01-18-2025 Emergency Department Summary [facility] Medical Records Department [address] [facility] [place] [address] Emergency Department Summary 01/18/25 MR#: [id number] Acct: [id number] Name: JEFF WHITE Rep #: [id number] : 2000 24 From: Everton Vidales MD PCP: Care Physician,No Primary Status:PRE ER Location: ED HPI History of Present Illness Chief Complaint: Suture Remv Informant: patient Narrative Narrative: 24-year-old female self-inflicted laceration right thigh about 10 days ago. With suture repair at this facility. Came today to have her sutures out. She denies any redness or discharge. No discomfort. Prior similar symptoms: No Recent Illness/Hospitalization: No PFSH PFS Medical History Anxiety Depression Home Medications ???Medication ???Instructions ???Recorded ???Last Taken ???Type NK 01/06/25 Unknown History Allergy/AdvReac Type Severity Reaction Status Date / Time peach Allergy Mild Hives Verified 01/18/25 10:11 chocolate AdvReac Mild Nausea Verified 01/18/25 10:11 Surgical History Eagan teeth extracted History of bilateral fallopian tube excision Social History Smoking Status: Current every day smoker tobacco type: cigarettes ROS ROS ED ROS Narrative No recent illness. Constitutional Constitutional ED: Denies chills or fever(s) Eyes Eyes: Denies blurry vision ENT ENT ED: Denies ear pain Cardiovascular Cardiovascular: Denies chest pain Respiratory/Chest Respiratory/Chest: Denies cough Gastrointestinal Gastrointestinal: Denies abdominal pain Genitourinary Genitourinary ED: Denies dysuria Musculoskeletal Musculoskeletal: Denies arthralgias Integumentary Denies abscess Neurologic Neurologic: Denies headache(s) Psychiatric Psychiatric: Denies suicidal ideation Endocrine Endocrinology: Denies cold intolerance Hematologic/Lymphatic Hematologic/Lymphatic: Reports none Allergic/Immunologic Allergic/Immunologic ED: Denies mouth swelling, tongue swelling or urticaria EXAM Physical Exam Narrative Exam Narrative: Well-appearing 24-year-old female. Vital signs stable afebrile. HEENT exam pupils round reactive light. Moist mucous membranes. Neck nontender. Lungs clear. Heart regular rhythm rate about 95 no murmur. Chest wall ribs nontender. Abdomen soft nontender. Moving all 4 extremities. She has a well-healing right proximal anterior thigh laceration with repair we will remove the sutures. There is no signs of infection or wound separation. Right lower extremity is neurovascularly intact. She is awake alert. Answering questions following commands. Benign exam. Const Vital Signs: 01/18/25 10:10 Temperature 97.9 F Temperature Source Oral Pulse Rate 100 Respiratory Rate 16 Blood Pressure 155/89 H Blood Pressure Mean 111 Pulse Ox 98 Oxygen Delivery Method Room Air Positive well nourished and well developed; Negative for cachectic, contractures or unkempt General Appearance ED: well developed; Negative for unkempt, cachectic, contractures, cyanotic, diaphoretic or pallor Nutritional Appearance: Negative for cachectic HEENT Reports moist mucous membranes Eyes PERRL and EOMs intact bilaterally Neck no lymphadenopathy, supple and no JVD Chest Wall inspection of chest normal Resp normal respiratory effort and clear to auscultation bilaterally Cardio regular rate, regular rhythm, S1 normal heart sound, S2 normal heart sound and no murmurs GI normal to inspection, nondistended, normoactive bowel sounds, non-tender, non-distended and no masses Back/Spine no CVA tenderness Extremity normal to inspection Extremity Narrative: Well-healed right proximal anterior thigh laceration. Running suture. No infection. Sutures will be removed. General Extremety ED: Negative for edema or tenderness General Extremity: Negative for edema Neuro CN's II-XII intact bilaterally Sensorium / Orientation: alert Motor Exam: strength 5/5 throughout Psych mental status grossly normal Appearance: Negative for unkempt Skin no rashes or lesions noted, no wounds and skin turgor normal General Skin Exam: elasticity normal; Negative for jaundice or pallor Lesions: No lesion noted Rashes: No rashes noted MDM MDM MDM Narrative Medical decision making narrative: 24-year-old female self-inflicted right thigh laceration repair and return for suture removal. Wound looks good. Healing nicely. No infection. Discharge Plan Triage Chief Complaint: Suture Remv ED Provider: Everton Vidales Dx/Rx/DC Orders Clinical Impression: Visit for suture removal Instructions: Sutr or Stap Removal Prescriptions: No Action N (more content not included)... Normal [facility] Emergency Department Summary on 01-06-2025 Emergency Department Summary [facility] Medical Records Department [address] [place] [address] Emergency Department Summary 01/06/25 MR#: [id number] Acct: [id number] Name: JEFF WHITE Rep #: [id number] : 2000 24 From: Everton Vidales MD PCP: Care Physician,No Primary Status:DEP ER Location: ED HPI HPI - Psych History of Present Illness Chief Complaint: Mental Health Narrative Narrative: 24-year-old female presents for mental health evaluation. She has a history of depression. Her fianc??? wanted to leave her so she acted out by cutting both her thighs. She has a history of self- harm with cutting. She states she is not suicidal or homicidal but she called her friend for help regarding the situation and they called PD so she was brought in for evaluation. She states she has not seen a counselor or been on medications for mental health for about 5 years because they did not help. [facility] Medical History (Updated 01/06/25 @ 18:05 by STEPHAN Park) Anxiety Depression Home Medications ???Medication ???Instructions ???Recorded ???Last Taken ???Type NK 01/06/25 Unknown History Allergy/AdvReac Type Severity Reaction Status Date / Time peach Allergy Mild Hives Verified 01/06/25 14:18 chocolate AdvReac Mild Nausea Verified 01/06/25 14:18 Surgical History (Updated 01/06/25 @ 14:24 by Sofia Doan) Eagan teeth extracted History of bilateral fallopian tube excision Social History Smoking Status: Current every day smoker tobacco type: cigarettes ROS ROS ED ROS Narrative Skin: Positive for lacerations. Musc: Negative for joint pain. Heme: Negative for easy bruising, bleeding. EXAM Physical Exam Narrative Exam Narrative: CONST: Patient sitting in no acute distress. EYES: Normal inspection. NECK: Normal inspection. RESP: No respiratory distress, CTAB. CVS: Regular rate and rhythm, no murmur, no gallop. SKIN: Multiple linear lacerations on both anterior thighs, 1 on the right thigh is 12 cm in length and deep enough to the subcutaneous tissue to require sutures. EXTREMITIES: Normal appearance, 2+ PT pulses. NEURO: Alert and answering questions appropriately. PSYCH: Normal affect. Const Vital Signs: 01/06/25 14:18 01/06/25 15:17 01/06/25 16:00 Temperature 98.2 F Temperature Source Oral Pulse Rate 119 H 76 71 Respiratory Rate 18 16 16 Blood Pressure 144/90 H 133/84 H 126/81 H Blood Pressure Mean 108 100 96 Pulse Ox 98 99 98 Oxygen Delivery Method Room Air 01/06/25 17:10 Temperature 98.7 F Temperature Source Pulse Rate 75 Respiratory Rate 16 Blood Pressure 122/84 H Blood Pressure Mean 96 Pulse Ox 99 Oxygen Delivery Method Physical Exam Const Vital Signs: 01/06/25 14:18 01/06/25 15:17 01/06/25 16:00 Temperature 98.2 F Temperature Source Oral Pulse Rate 119 H 76 71 Respiratory Rate 18 16 16 Blood Pressure 144/90 H 133/84 H 126/81 H Blood Pressure Mean 108 100 96 Pulse Ox 98 99 98 Oxygen Delivery Method Room Air 01/06/25 17:10 Temperature 98.7 F Temperature Source Pulse Rate 75 Respiratory Rate 16 Blood Pressure 122/84 H Blood Pressure Mean 96 Pulse Ox 99 Oxygen Delivery Method MDM MDM MDM Narrative Medical decision making narrative: 24-year-old female, large stress at home with her fianc??? stating was break-up with her. She has a history of self-harm cutting and cut both her thighs multiple times. Most of them are superficial but there is one on the right thigh that will require suture repair. She is not suicidal or homicidal. She is calm and cooperative during the exam and her mom and multiple friends are here for support. I consulted social services technician and after discussion with her they do not feel she needs inpatient placement. She was provided outpatient resources for counseling. I repaired 1 laceration on her right thigh, she states her tetanus is already up-to-date, and she was given wound care instructions and discharged in stable condition. Consults: Social work I have personally performed a face to face assessment of the patient and have reviewed the HAYDEN Note. I performed a substantive portion of the visit including all aspects of the following. My valladares findings include: History is 24-year-old female doing a lot of stress at home with her significant other. Today cut both her upper thighs multiple times. She has done cutting in the past. She denies any other suicide attempts or prior admissions. Currently is not under any psychiatric care nor medications. Exam is [well-appearing 24-year-old female. Vital signs are stable afebrile. No acute distress. H EENT exam pupils are reactive light. Moist mucous membranes. Neck nontender no lymphade (more content not included)... Normal [facility] Cervical AND or Vaginal cyto logy studyon 06-01-2024 Cytology Cervical or vaginal smear or scraping study Pathology report.total SEE COMMENT Gynecologic Cytology Case: [id number] Authorizing Provider: Maggy Sauceda MD Collected: 06/01/2024 1102 Ordering Location: [facility] Received: 06/01/2024 1102 Office Building First Screen: ADAM Bae Specimen: ThinPrep Liquid-Based Pap-Imaging System Screen, CERVIX, SCREENING Cytology study comment SEE COMMENT A. THINPREP PAP CERVIX, SCREENING - Specimen Adequacy Satisfactory for evaluation; absence of endocervical/transformat ion zone component General Categorization Negative for intraepithelial lesion or malignancy. Descriptive Interpretation Negative for intraepithelial lesion or malignancy Specimen does not meet the requisition-stated criteria for HPV testing. See Pap test interpretation above. Laboratory comment SEE COMMENT Slide(s) initially screened by ADAM Bae at [address] [address] By the signature on this report, the individual or group listed as making the Final Interpretation/Diagnosis certifies that they have reviewed this case. This specimen has been analyzed by the ThinPrep Imaging System ([employer] an automated imaging and review system, which assists the laboratory in evaluating cells on ThinPrep Pap tests. Following automated imaging, selected sloan from every slide were reviewed by a woolen tester and/or pathologist. Cervical cytology is a screening procedure primarily for squamous cancers and precursors and has associated false-negative and false-positives results as evidenced by published data. Your patient's test should be interpreted in this context, together with the patient's history and clinical findings. Regular sampling and follow-up of unexplained clinical signs and symptoms are recommended to minimize false negative results. LAB AP HPV HR Reflex if ASCUS only LAB AP HPV GENOTYPE QUESTION Yes Date last menstrual period 04/29/2024 [facility] Ambulatory Surgical pathology studyon 1 07-07-2023 Surgical pathology study Pathology report.total SEE COMMENT Surgical Pathology Case: [id number] Authorizing Provider: Maggy Sauceda MD Collected: 05/06/2024 0934 Ordering Location: [facility] Received: 05/06/2024 1632 Center OR Pathologist: Mary Alice Gonzales MD Specimen: FALLOPIAN TUBE SALPINGECTOMY LEFT AND RIGHT, BILATERAL FALLOPIAN TUBES Path report.final diagnosis SEE COMMENT A. FALLOPIAN TUBES, SALPINGECTOMY, LEFT AND RIGHT: -- Complete cross sections of Fallopian tubes are identified. Laboratory comment By the signature on this report, the individual or group listed as making the Final Interpretation/Diagnosis certifies that they have reviewed this case. Path report.relevant Hx SEE COMMENT Pre-op diagnosis: Encounter for female sterilization procedure [Z30.2] Path report.gross observation SEE COMMENT A: Received in formalin, labeled with the patient's name and hospital number and bilateral fallopian tubes, are two unoriented fallopian tubes. Fallopian tube #1 measures 5.2 cm in length by 1.0 cm in diameter and has a pink-celaya, smooth, glistening, hyperemic serosal surface. The fimbriated end is unremarkable. The cut surface reveals a pinpoint lumen. Fallopian tube #2 measures 4.9 cm in length by 1.0 cm in diameter and has a pink-celaya, smooth, glistening, hyperemic serosal surface. The fimbriated end is unremarkable. The cut surface reveals a pinpoint lumen. Silk Spreader sections are submitted in 4 cassettes. LMP Summary of Cassettes: Specimen Label Site A 1 fallopian tube #1 (largest segment), entire fimbriated end 2 fallopian tube #1 (largest segment), outside industrial sales representative sections 3 fallopian tube #2 (smaller segment), entire fimbriated end 4 fallopian tube #2 (smaller segment), outside industrial sales representative sections. Normal [facility] Comment on above: Order Comment: Pre-o p diagnosis: Encounter for female sterilization procedure [Z30.2] CBC panel Auto (Bld)on 05-03 Erythrocyte distribution width (RBC) [Ratio] 12.3 % Normal 11.5-14.5 [facility] Comment on above: Performed By: #### 5 8410-2 #### GERRI GARRISON ([id number]) [facility] ([facility]) [address] [place] [address]076 Hematocrit (Bld) [Volume fraction] 41.1 % Normal 36.0-46.0 [facility] Comment on above: Performed By: #### 5 8410-2 #### GERRI GARRISON ([id number]) [facility] ([facility]) [address] [place] [address] 08215 Hemoglobin (Bld) [Mass/Vol] 13.8 g/dL Normal 12.0-16.0 [facility] Comment on above: Performed By: #### 5 8410-2 #### GERRI GARRISON ([id number]) [facility] ([facility]) [address] [place] [address] 97712 MCH (RBC) [Entitic mass] 29.3 pg Normal 26.0-34.0 [facility] Comment on above: Performed By: #### 5 8410-2 #### GERRI GARRISON ([id number]) [facility] ([facility]) [address] [place] [address] 10470 MCHC (RBC) [Mass/Vol] 33.6 g/dL Normal 32.0-36.0 [facility] Comment on above: Performed By: #### 5 8410-2 #### GERRI GARRISON ([id number]) [facility] ([facility]) [address] [place] [address] 76341 MCV (RBC) [Entitic vol] 87 fL Normal 80-100 [facility] Comment on above: Performed By: #### 5 8410-2 #### GERRI GARRISON ([id number]) [facility] ([facility]) [address] [place] [address] 57020 Nucleated RBC/100 WBC (Bld) [Ratio] 0.0 /100 WBCs Normal 0.0-0.0 [facility] Comment on above: Performed By: #### 5 8410-2 #### GERRI GARRISON ([id number]) [facility] ([facility]) [address] [place] [address] 01776 Platelets (Bld) [#/Vol] 262 x10*3/uL Normal 150-450 [facility] Comment on above: Performed By: #### 5 8410-2 #### GERRI GARRISON ([id number]) [facility] ([facility]) [address] [place] [address] 12351 RBC (Bld) [#/Vol] 4.71 x10*6/uL Normal 4.00-5.20 [facility] Comment on above: Performed By: #### 5 8410-2 #### GERRI GARRISON ([id number]) [facility] ([facility]) [address] [place] [address] 27237 WBC (Bld) [#/Vol] 6.3 x10*3/uL Normal 4.4-11.3 [facility] Comment on above: Performed By: #### 5 8410-2 #### GERRI GARRISON ([id number]) [facility] ([facility]) [address] [place] [address] 51462 HCG ( test) IAangelique d Ql (U)on 05-03-2024 HCG ( test) Ql (U) Negative Normal NEGATIVE [facility] Comment on above: Performed By: #### 8 0384-1 #### GERRI GARRISON ([id number]) [facility] ([facility]) [address] [place] [address] [place] [address] US PELVIS TRANSABDOMINAL WIT H TRANSVAGINALon 03-11-2024 US PELVIS TRANSABDOMINAL WITH TRANSVAGINAL Interpreted By: Concha Jimenez, STUDY: US PELVIS TRANSABDOMINAL WITH TRANSVAGINAL; 03/11/2024 9:23 am INDICATION: Dyspareunia for 1 year COMPARISON: None. ACCESSION NUMBER(S): [id number] ORDERING CLINICIAN: MAGGY SAUCEDA TECHNIQUE: Grayscale and color Doppler imaging of the pelvis were performed. Transabdominal technique was utilized as well as transvaginal ultrasound to better visualize the adnexa. FINDINGS: Uterus: Size: 10.4 cm x 3.5 cm x 5.3 cm. No uterine masses noted. Endometrial Thickness: 8 mm Ovaries: There is normal color-flow with no sign of ovarian torsion. Right ovary: 4.5 cm x 3.4 cm x 3.3 cm. There is a 2.6 x 2.6 x 2.8 cm right ovarian cyst. Right ovary volume: 26.5 ml Left ovary: 3.3 cm x 1.7 cm x 1.9 cm. Left ovary volume: 5.4 ml There is no free fluid in the pelvis. IMPRESSION: 2.6 x 2.6 x 2.8 cm right ovarian cyst. Normal uterus and left ovary. MACRO: None. Signed by: Concha Jimenez 03/12/2024 7:15 PM Dictation workstation: [id number] [facility] POCT Wet Mount manually resu ltedon 03-08-2024 POC Clue Cell Wet Prep None Seen None Seen [facility] Work Phone: POC Trichomonas Wet Prep None Seen None Seen [facility] Work Phone: POC WBC Wet Prep NONE SEEN NONE SEEN [facility] Work Phone: POC Yeast Cells Wet Prep None Seen None Seen [facility] Work Phone: [facility] Work Phone: 17-Hydroxyprogesteroneon 17-Hydroxyprogesterone [Mass/Vol] 82.68 ng/dL Normal <=206.00 [facility] Comment on above: Result Comment: INTERPRETIVE INFORMATION for 17-Hydroxyprogesterone in females: Follicular 15 to 70 ng/dL Luteal 35 to 290 ng/dL REFERENCE INTERVAL: 17-Hydroxyprogesterone Qnt, HPLC-MS/MS Access complete set of age- and/or gender-specific reference intervals for this test in the [employer] Test Directory ([employer]). This test was developed and its performance characteristics determined by [facility]. It has not been cleared or approved by the [place] Food and Drug Administration. This test was performed in a CLIA certified laboratory and is intended for clinical purposes. Performed By: [facility] [address] [place] [address] Ambulatory Care: Nilton Castañeda MD, PhD CLIA Number: [id number] Performed By: #### 1 668-3 #### [facility]) ([id number]) [address] [place] [address] Dehydroepiandrosterone sulfa lasha 05-28-2023 DHEA-S [Mass/Vol] 217 ug/dL Normal 65-395 [facility] Comment on above: Order Comment: [facility] REFERENCE RANGES: PUBERTAL (MANDO) STAGE MALE FEMALE I 5 - 265 5 - 125 II 15 - 380 15 - 150 III 60 - 505 20 - 535 IV 65 - 560 35 - 485 V 165 - 500 75 - 530 Biotin interference may cause falsely elevated results. Patients taking a Biotin dose of up to 5 mg/day should refrain from taking Biotin for 24 hours before sample collection. Providers may contact their local laboratory for further information. Performed By: #### 2 191-5 #### MICHAEL Alonso ([id number]) [facility] ([facility]) [address] [place] [address] HbA1c (Bld) [Mass fraction]o n 05-28-2023 Average glucose Estimated from glycated hemoglobin (Bld) [Mass/Vol] 91 mg/dL Normal Not Established [facility] Comment on above: Order Comment: Diagn osis of Diabetes-Adults Non-Diabetic: < or = 5.6% Increased risk for developing diabetes: 5.7-6.4% Diagnostic of diabetes: > or = 6.5% Monitoring of Diabetes Age (y)....................... Therapeutic Goal (%) Adults: >18.........................<7.0 Pediatrics: 13-18...................<7.5 Pediatrics: 7-12....................<8.0 Pediatrics: 0-6..................... 7.5-8.5 [place]. Diabetes Care 33(S1)Jun 2009 Performed By: #### 4 548-4 #### TALLEY BLADIMIR ([id number]) [facility] ([facility]) [address] [place] [address] Hemoglobin A1c/Hemoglobin.to amada 05-28-2023 HbA1c (Bld) [Mass fraction] 4.8 % Normal see below [facility] Comment on above: Order Comment: Diagn osis of Diabetes-Adults Non-Diabetic: < or = 5.6% Increased risk for developing diabetes: 5.7-6.4% Diagnostic of diabetes: > or = 6.5% Monitoring of Diabetes Age (y)....................... Therapeutic Goal (%) Adults: >18.........................<7.0 Pediatrics: 13-18...................<7.5 Pediatrics: 7-12....................<8.0 Pediatrics: 0-6..................... 7.5-8.5 [place] [employer]. Diabetes Care 33(S1), Jun 2009 Performed By: #### 4 548-4 #### GERRI GARRISON ([id number]) [facility] ([facility]) [address] [place] [address] Prolactinon 05-28-2023 Prolactin [Mass/Vol] 6.4 ug/L Normal 3.0-20.0 [facility] Comment on above: Performed By: #### 2 842-3 #### MICHAEL Alonso ([id number]) [facility] ([facility]) [id number] [place] [id number] TSH WITH REFLEX TO FREE T4 I F ABNORMALon 05-28-2023 TSH Qn 0.98 m[IU]/L Normal 0.44-3.98 [facility] Comment on above: Order Comment: TSH t esting is performed using different testing methodology at [facility] than at [facility]. Direct result comparisons should only be made within the same method. Performed By: #### T HYDS #### GERRI GARRISON ([id number]) [facility] ([facility]) [address] [place] [id number] Testosterone Free/Testostero ne.total [Mass fraction]on 05-28-2023 Testosterone [Mass/Vol] 23 ng/dL Normal 2-45 U [facility] Comment on above: Result Comment: For additional information, please refer to http://education.Cytocentrics.CAILabs/faq/ [email or web address] (This link is being provided for informational/ educational purposes only.) This test was developed and its analytical performance characteristics have been determined by [facility] [place], [place]. It has not been cleared or approved by the U.S. Food and Drug Administration. This assay has been validated pursuant to the CLIA regulations and is used for clinical purposes. Performed By: #### 1 5432-8 #### QUEST CODEY ([id number]) [address] [place], [place] Testosterone Free [Mass/Vol] 4.3 pg/mL Normal 0.1-6.4 [facility] Comment on above: Result Comment: This test was developed and its analytical performance characteristics have been determined by [employer] [facility] [place], [place]. It has not been cleared or approved by the U.S. Food and Drug Administration. This assay has been validated pursuant to the CLIA regulations and is used for clinical purposes. Performed By: #### 1 5432-8 #### ALBERTO ALEGRE ([id number]) [address] [place], [place] IO HCG, Urine Test on 11-25-2022 HCG ( test) Ql (U) Negative [facility] Work Phone: AUDIT PARTNER - Office Visiton 11-01 AUDIT PARTNER - Office Visit Diagnoses/Problems Assessed Urine test negative (V72.41) (Z32.02) Contraception management (V25.9) (Z30.9) Orders Start: Amethia 0.15-0.03 AND0.01 MG Oral Tablet; TAKE 1 TABLET DAILY Administer: Levonorgest-Eth Estrad -Day 0.15-0.03 AND0.01 MG Oral Tablet (Seasonique); TAKE 1 TABLET Oral 1 tab p.o. daily; To Be Done: 25Nov2022 IO HCG, Urine Test; Status:Resulted - Requires Verification,Retrospecti ve Authorization; Done: 25Nov2022 04:08PM Provider Impressions Chalino is a 22-year-old who comes in for 6-week visit. She is doing well. Patient has resumed sexual activities prior to being released and has not been using any form of contraception. She was advised that she needs to repeat her home test 2 weeks after the last time she had intercourse to confirm she is not . She was also advised that she should wait to start the control pills until the Friday after her next menstrual cycle otherwise we will see her back in 6 months Chief Complaint Patient here today for 6 week post visit. She states she delivered 10/09/2022 Dr Sauceda baby girl. She is bottle feeding, no signs of post depression, Has been sexually active and has not had a period. She is interested in the control pill. History of Present IllnessChalino is a 22-year-old who comes in for a 6-week visit. She is not breast-feeding. She reports that a couple of days ago she had some spotting. She has not had a full menstrual cycle. She has been sexually active without any protection the last time she had intercourse was a couple of days ago. She is concerned that she may be already. Active Problems Problems 12 weeks gestation of (V22.2) (Z3A.12) 17 weeks gestation of (V22.2) (Z3A.17) 26 weeks gestation of (V22.2) (Z3A.26) 36 weeks gestation of (V22.2) (Z3A.36) Anemia (285.9) (D64.9) Asymptomatic bacteriuria, antepartum (646.53) (O99.891,R82.71) Chlamydia (079.98) (A74.9) Encounter for immunization (V03.89) (Z23) Encounter for initial prescription of contraceptive pills (V25.01) (Z30.011) LGA (large for gestational age) fetus LGA (large for gestational age) (766.1) (P08.1) Pelvic pain in female (625.9) (R10.2) follow-up (V24.2) (Z39.2) Rh negative, maternal (646.83) (O26.899,Z67.91) Screen for STD (sexually transmitted disease) (V74.5) (Z11.3) Past Medical History Problems History of Menstruation AGE 13 History of NVD (normal vaginal delivery) (650) (O80) 05/18/2021_39weeks 1day_Male_7# 7oz History of Urine test negative (V72.41) (Z32.02) Surgical History Problems History of Tonsillectomy Family History Grandmother Family history of diabetes mellitus (V18.0) (Z83.3) Family history of malignant neoplasm of breast (V16.3) (Z80.3) Grandfather Family history of diabetes mellitus (V18.0) (Z83.3) Social History Problems Current every day smoker (305.1) (F17.200) VAPES History of marijuana use (305.23) (F12.91) Rarely consumes alcohol (V49.89) (Z78.9) Sexually active Allergies NonMedication Chocolate Recorded By: May Faith; 10/13/2020 10:43:24 AM Peaches Recorded By: May Faith; 10/13/2020 10:43:24 AM Current Meds Medication NameInstruction PNV Plus Multivitamin TABS Vitals Vital Signs Recorded: 25Nov2022 04:05PM [id number] Jcpxczksf91 Height5 ft 9 in Gwixys630 lb 4 oz BMI Ztrsxlgrsq49.74 kg/m2 BSA Calculated2.21 Physical Exam Constitutional: Healthy appearing in no distress. Head and Face: No obvious lesions. Neck: Good range of motion. Pulmonary: Breathing comfortably. External genitalia revealed no lesions the vagina appeared well estrogenized there was no evidence of any tears or any abnormal discharge Musculoskeletal: Good mobility. Psychiatric: Appropriately oriented with normal mood and affect. Results/Data IO HCG, Urine [id number] 04:08PMJenise Schulte MEDLINE LOT#[id number] EXP: Test NameResultFlagReference IO Urine hCGNegative Signatures Electronically signed by : Jenise Schulte MD; Nov 25 2022 4:20PM EST (Author) Normal Touchworks CBCon 10-10-2022 Erythrocyte distribution width (RBC) [Ratio] 18.6 % High 11.5 - 14.5 [facility] Comment on above: Performed By: #### C BC #### [address] [address] Hematocrit (Bld) [Volume fraction] 33.3 % Low 36.0 - 46.0 [facility] Comment on above: Performed By: #### C BC #### [address] [address] Hemoglobin (Bld) [Mass/Vol] 10.4 g/dL Low 12.0 - 16.0 [facility] Comment on above: Performed By: #### C BC #### [address] [address] MCHC (RBC) [Mass/Vol] 31.2 g/dL Low 32.0 - 36.0 [facility] Comment on above: Performed By: #### C BC #### [address] [address] MCV (RBC) [Entitic vol] 88 fL Normal 80 - 100 [facility] Comment on above: Performed By: #### C BC #### [address] [address] Platelets (Bld) [#/Vol] 165 10*3/uL Normal 150 - 450 [facility] Comment on above: Performed By: #### C BC #### [address] [address] RBC 3.77 x10E12/L Low 4.00 - 5.20 [facility] Comment on above: Performed By: #### C BC #### [address] [address] WBC (Bld) [#/Vol] 9.3 10*3/uL Normal 4.4 - 11.3 [facility] Comment on above: Performed By: #### C BC #### [address] [address] Daily Progress Note - OB-Pos t-partumon 10-10-2022 Daily Progress Note - ZD-Jybt-deebus Current Stage: Stage: Post- Subjective Data: Post : Ambulate: Yes Flatus: Yes Tolerate Diet: Yes : PPD #1 Resting well. Bottlefeeding. Objective Information: Objective Information: T PRBPMAPSpO2 [id number]/[id number]% Date/Time10/10 1: 1: 1: 1: 1: 1:36 Range(36.4C - 37.3C ) (71 - 106 ) (16 - 18 ) (118 - 140 )/ (55 - 74 ) (84 - 95 ) (93% - 100% ) Highest temp of 37.3 C was recorded at 10/09 3:55 Pain reported at 10/10 4:20: 0 = None Physical Exam: Constitutional: alert, oriented Obstetric: Abdomen: Soft and nontender Respiratory/Thorax: normal respiratory effort, lungs clear, no wheezes or rhonchi Cardiovascular: S1 S2 RRR, no murmurs Extremities: no calf tenderness, reflexes 2+ Recent Lab Results: Results: CBC: 10/10/2022 05:26 \ Hgb / \ 10.4 L / WBC Plt 9.3 165 / Hct \ / 33.3 L \ RBC: 3.77 L MCV: 88 Assessment and Plan: Additional Dx: First degree perineal laceration: Entered Date: 18-May-2021 16:24 Single live : Entered Date: 18-May-2021 16:24 Normal spontaneous vaginal delivery: Entered Date: 18-May-2021 16:24 39 weeks gestation of : Entered Date: 16-May-2021 07:36 Assessment: PPD #1 Progressing well. Home today. Will discuss contraception at her checkup. Electronic Signatures: Maggy Sauceda) (Signed 10-Oct-2022 06:59) Authored: Current Stage, Subjective Data, Objective Data, Assessment and Plan, Note Completion Last Updated: 10-Oct-2022 06:59 by Maggy Sauceda) [facility] Discharge [id number] 10-10- 023 Discharge Profile2 Discharge Orders: Anticipated Discharge Date: Anticipated Discharge [id number] Problem List: Additional Dx: First degree perineal laceration: Catalog Name: First degree perineal laceration during delivery Single live : Catalog Name: Single live Normal spontaneous vaginal delivery: Catalog Name: Encounter for full-term uncomplicated delivery 39 weeks gestation of : Catalog Name: 39 weeks gestation of Hospital Providers: Provider RoleProvider Name AttendingMaggy Sauceda DNAR: Code Status at Discharge: Full Code : Activity: Return to normal activity as tolerated. Patient Instructions: Pelvic Rest: DO NOT place anything in vagina until cleared by OB Provider. Diet: Regular. Follow-Up - OB Provider: Physician/Dept/ServiceVee Schulte MD Call to Schedule in6 weeks Hospital Course (Home Care/Gold Form): Hospital Course: Hospital Course: include significant abnormal lab values Patient progressed through labor well and had a normal spontaneous vaginal delivery for viable female on October 09, 2022. Patient is bottlefeeding and was discharged on day 1. Provider FINAL REVIEW of Orders: Final Review: Final Review of Medication Reconciliation and Orders Completedby Physician Reviewing ProviderMaggy Sauceda MD at 10-Oct-2022 07:01:23 Other Clinician Instructions: Other Instructions: Other Clinician InstructionsAny woman can have complications after the of a baby including a blood clot, a heart problem, hypertensive disorder/eclampsia, depression, hemorrhage, or infection. Notify all providers of your delivery date up to one year after .* Call 911 or go to nearest emergency room right away if you have: PAIN or pressure in chest; OBSTRUCTED breathing or shortness of breath; SEIZURES; THOUGHTS of hurting yourself or your baby; heart palpitations/racing; change in alertness/confusion. Call your provider if you have: BLEEDING, soaking through a pad/hour, or blood clots the size of an egg or bigger; INCISION (episiotomy stitches or site) that is not healing (increased redness, pain, drainage/pus, or separation); RED or swollen leg/calf that is painful or warm to touch, especially in one leg more than the other; TEMPERATURE of 100.4 F or higher or chills; HEADACHE that does not get better with medicine, rest or hydration, or bad headache with vision changes like spots or flashing lights; increased swelling of face, hands or legs; severe cramps or upper right belly pain; red or swollen breast that is painful or warm to touch; an unusual, foul odor from your vaginal discharge; pain, burning, or difficulty during urination; severe constipation (more than 5 days); feelings of depression (such as depressed mood, loss of interest in enjoyable things, unable to care for yourself, trouble sleeping, lack of appetite, or feeling worthless). If you cant reach your provider or symptoms worsen, call 911 or go to nearest emergency room. *Information [facility] from [facility]: [facility] Your Life: Get Care for These POST- Warning Signs. On Behalf on the [facility] Maternity Staff, Congratulations on your infant. It was our pleasure to take care of you and your infant during your stay. We hope during this stay that we have exceeded all of your expectations. We will be calling you in a few days to check up on you and your . Please allow us to speak with you and please ask questions or let us know if you have any concerns. If you need any assistance after you go home please give us a call. Also, please join our [facility] Support Group which meets the friday of every month at 10 am in the OB unit. No need to register. If you have any questions please call us at [phone]. Again, Congratulations! Warmest Regards, [facility]'s Maternity Staff. Electronic Signatures: Maggy Sauceda) (Signed 10-Oct-2022 07:01) Authored: Discharge Orders, , Hospital Course (Home Care/Gold Form), Provider FINAL REVIEW of Orders, Gold Form - Design Checker Summary Brian Bowen (RN) (Signed 10-Oct-2022 07:50) Authored: Discharge Orders, Other Clinician Instructions Last Updated: 10-Oct-2022 07:50 by Brian Bowen (RN) [facility] Order Reconciliationon 10-10 Order Reconciliation Page 1 Discharge Reconciliation Document Reconciliation Type: Discharge requested on behalf of Maggy Sauceda (Physician) done by Maggy Sauceda) Discharge - Reconciliation: 10-Oct-2022 07:02 by: Maggy Sauceda) Home Medications EnteredHOME MEDICATIONS AT DISCHARGE DateReconciliation Comment/ Additional Information ibuprofen 800 mg oral tablet 1 tab(s) orally every 8 hours 20-May-2021 11:03 Discontinued; Discontinue from ORM ibuprofen 800 mg oral tablet is not required Current OrdersDateHOME MEDICATIONS AT DISCHARGE DateReconciliation Comment/ Additional Information Acetaminophen Tablet (TYLENOL)DOSE = 975 mg Oral Every 6 HoursClinician Notes: Give with Ibuprofen. 09-Oct-2022 01:16 Acetaminophen is not required Benzocaine 20% - Menthol 0.5% Topical [place] (DERMOPLAST)DOSE = 1 application(s) Topical 4 Times a Day, PRN DiscomfortApply to Perianal Area 09-Oct-2022 01:16 Benzocaine 20% - Menthol 0.5% Topical is not required Bisacodyl Rectal Suppository (DULCOLAX)DOSE = 10 mg Rectal Daily, PRN Severe constipation 09-Oct-2022 01:16 Bisacodyl Rectal is not required Butorphanol Injectable (STADOL)DOSE = 1 mg IntraVenous Push Every 3 Hours, PRN Pain - Severe (7-10) 08-Oct-2022 22:07 Butorphanol Injectable is not required Carboprost IntraMuscular (HEMABATE)DOSE = 250 microgram(s) IntraMuscular Once, PRN post bleeding in non-asthmatic patientClinician Notes: Consult provider prior to administration. 09-Oct-2022 01:16 Carboprost IntraMuscular is not required diphenhydrAMINE Capsule (BENADRYL)DOSE = 25 mg Oral Every 6 Hours, PRN Itching 09-Oct-2022 01:16 diphenhydrAMINE is not required Enoxaparin SubCutaneous (LOVENOX)DOSE = 60 mg SubCutaneous Every 24 HoursClinician Notes: Wait 4 hours after neuraxial catheter removal AND 24 hours after placement of neuraxial catheter. BMI 40-49.9. 09-Oct-2022 01:16 Enoxaparin SubCutaneous is not required hydrALAZINE (APRESOLINE) Injectable DOSE = 5 mg IntraVenous Push Once, PRN Acute-onset, severe HTN w/out known, suspected CADClinician Notes: Consult provider prior to administration. Push over more than 2 minutes. Systolic greater than or equal to 16 09-Oct-2022 01:16 hydrALAZINE (APRESOLINE) Injectable is not required Ibuprofen Tablet (ADVIL, MOTRIN)DOSE = 600 mg Oral Every 6 HoursClinician Notes: Give with Acetaminophen. 09-Oct-2022 01:16 Ibuprofen is not required Labetalol Injectable (TRANDATE)DOSE = 20 mg IntraVenous Push Once, PRN Acute-onset, sev HTN w/o active asthma, matthew<60Clinician Notes: Consult provider prior to administration. Push over more than 2 minutes. Systolic greater than or equal to 160 OR 09-Oct-2022 01:16 Labetalol Injectable is not required Lanolin Topical Ointment (LANSINOH)DOSE = 1 application(s) Topical Every 24 Hours, PRN Dry SkinApply to NippleClinician Notes: After and PRN 09-Oct-2022 01:16 Lanolin Topical is not required Loperamide Capsule (IMODIUM)DOSE = 4 mg Oral Every 2 Hours, PRN If Carboprost given or loose stoolsClinician Notes: Max dose of 16mg / 24 hours 09-Oct-2022 01:16 Loperamide is not required Magnesium Hydroxide -Al Hydrox -Simethicone Oral Liquid (MAALOX)DOSE = 30 mL Oral Every 4 Hours, PRN Indigestion 09-Oct-2022 01:16 Magnesium Hydroxide -Al Hydrox -Simethicone Oral Liquid is not required Methylergonovine Injectable (METHERGINE)DOSE = 0.2 mg IntraMuscular Once, PRN PPH in pts w/o HTN or receiving ART for HIV mgmt.Clinician Notes: Consult provider prior to administration.Notes from Pharmacy: Reproductive Risk - Single Nitrile Glove 09-Oct-2022 01:16 Methylergonovine Injectable is not required Metoclopramide Injectable (REGLAN)DOSE = 10 mg IntraVenous Push Every 6 Hours, PRN persistent PONV if first line ineffective 09-Oct-2022 01:16 Metoclopramide Injectable is not required miSOPROStol Rectal Tablet (Cytotec)DOSE = 800 microgram(s) Rectal Once, PRN post bleedingClinician Notes: Consult provider prior to administration.Notes from Pharmacy: Reproductive Risk - Single Nitrile Glove 09-Oct-2022 01:16 miSOPROStol Rectal is not required NIFEdipine (PROCARDIA) Immediate Release CapsuleDOSE = 10 mg Oral Once, PRN Acute-onset, severe HTN w/out IV access/ pref oralClinician Notes: Consult provider prior to administration. Systolic greater than or equal to 160 OR Diastolic greater than or 09-Oct-2022 01:16 NIFEdipine (PROCARDIA) Immediate Release is not required Ondansetron Injectable (ZOFRAN)DOSE = 4 mg IntraVenous Push Every 6 Hours, PRN PONV, first line 09-Oct-2022 01:16 Ondansetron Injectable is not required Oxytocin 30 units/ NaCL 0.9% 500 mL Infusion with Bolus from Bag IntraVenous (PITOCIN)INITIAL Bolus = 600 milliunits/min infused over 30 minutesDose Rate: 60 milliunits/minAdmin Rate = 60 mL/hrStop After 1 DosesClinician Notes: C 09-Oct-2022 01:16 Oxytocin 30 units/ NaCL 0.9% 500 mL Infusion with Bolus from Bag is not required (more content not included)... Normal [facility] Daily Progress Note - OB-Pos t-partumon 10-09-2022 Daily Progress Note - HG-Kjss-ruoqeo Current Stage: Stage: Post- Subjective Data: Post : Ambulate: Yes Flatus: Yes Tolerate Diet: Yes : PPD #1/2 Resting well. Bottlefeeding. Objective Information: Objective Information: T PRBPMAPSpO2 [id number]/[id number] % Date/Time10/09 3: 3: 3: 3: 3: 3:55 Range(35.7C - 37.3C ) (75 - 155 ) (16 - 24 ) (105 - 143 )/ (52 - 91 ) (72 - 105 ) (90% - 100% ) Highest temp of 37.3 C was recorded at 10/09 3:55 Pain reported at 10/09 3:55: 0 = None Physical Exam: Constitutional: alert, oriented Obstetric: Abdomen: Soft and nontender Respiratory/Thorax: normal respiratory effort, lungs clear, no wheezes or rhonchi Cardiovascular: S1 S2 RRR, no murmurs Extremities: no calf tenderness, reflexes 2+ Recent Lab Results: Results: CBC: 10/08/2022 21:27 \ Hgb / \ 11.9 L / WBC Plt 7.8 181 / Hct \ / 36.4 \ RBC: 4.21 MCV: 87 Assessment and Plan: Additional Dx: First degree perineal laceration: Entered Date: 18-May-2021 16:24 Single live : Entered Date: 18-May-2021 16:24 Normal spontaneous vaginal delivery: Entered Date: 18-May-2021 16:24 39 weeks gestation of : Entered Date: 16-May-2021 07:36 Assessment: PPD #1/2 Progressing well. Encourage ambulation. Electronic Signatures: Maggy Sauceda) (Signed 09-Oct-2022 06:47) Authored: Current Stage, Subjective Data, Objective Data, Assessment and Plan, Note Completion Last Updated: 09-Oct-2022 06:47 by Maggy Sauceda) [facility] Delivery Recordon 10-09-2022 Delivery Record Lab Tests/Results: Labs: Labs: Blood Typed Date: 05-Apr-2022 Blood Type: O negative Blood Type Comments: Selected manually 'O negative' at 08-Oct-2022 21:40 Antibody Screen Results: negative Rhogam Comments: Selected manually 'O negative' at 08-Oct-2022 21:40 Chlamydia Date: 05-Apr-2022 Chlamydia Results: negative Gonorrhea Date: 05-Apr-2022 Gonorrhea Results: negative Group B Strep Date: 13-Sep-2022 Strep Results: negative GCT (dd-mmm-yy): 30-Jul-2022 GCT result: 173 HBsAG Date: 05-Apr-2022 HBsAG Results: negative HIV Date: 05-Apr-2022 HIV Results: negative Rubella Date: 05-Apr-2022 Rubella Results: immune Rubella Comments: Result Value POSITIVE Syphilis (mmm-dd-yyyy): 05-Apr-2022 Syphilis Results: negative Maternal Delivery Information: Vaginal Delivery Information: Counts Correctyes Delivery Information: Applications Systems Analyst Information: Baby's Post Discharge Care Provider (Provider Name, Address and Phone Number) [facility] A Delivery Information: Baby A Delivery: Rupture of Membranes date/[id number] 20:00 Amniotic Fluid Colormeconium staining Delivery Typevaginal delivery Delivery Locationlabor and delivery Delivery Date/[id number]-5663 00:51 Delivery Date/Time Verified ByTian Shields RN Length of Time of ROM (rounded down to nearest hour)4 Sexfemale Identification Band [id number] Electronic Transponder [id number] ID Bands Verified byTian Shields RN 4th ID band Jack Streeter Weight (kg)4.4 kilogram(s) Length (cm)54 centimeter(s) Head Circumference (cm)35.5 centimeter(s) Chest Circumference (cm)36 Delivery of Placenta (hh:mm)00:55 Baby A: Placenta disposaldiscarded 1 Min: Heart Rat[place] than 100 beats/min Respiratory Rategood, crying Muscle Tonewell flexed Reflex Irritabilitycough or sneeze Colorblue, pale 1 Minute Score, Baby A8 Apgars assessed byTian Shields RN 5 Min: Heart [place] than 100 beats/min Respiratory Rategood, crying Muscle Tonewell flexed Reflex Irritabilitycough or sneeze Colorbody pink, extremities blue 5 Minute Score, Baby A9 Apgars assessed byTian Shields RN Resuscitation Efforts: Vigorous at Birthyes Resuscitation Effortsnone required Baby A: Transfer Baby A: Transfer toRemains with mother Baby A: Labs sentCord Blood Workup (Type/Rh/Antibody) Delivery Team: Fly NurseTian SHIELDS RN Electronic Signatures: Valentino GoldbergRN) (Signed 09-Oct-2022 02:45) Authored: Lab Tests/Results, Maternal Delivery Information, Delivery Information Last Updated: 09-Oct-2022 02:45 by Valentino Goldberg (RN) [facility] Discharge Planning [id number] 0 10-09-2022 Discharge Planning Note2 Discharge Planning: Planned Dispositionhome AMPAC < 20no Anticipated Discharge [id number] Discharge Planning Date and Time: 10/08/22 @ 2300 Discharge Planning initiated on admission and formally reevaluated at this time. Patient independent with ambulation and ADL's prior to admission. Additional home going needs anticipated at this time: none identified Handouts given to and reviewed with patient/caregiver per unit folder standards. Patient verbalizes understanding and denies any other post-discharge needs. Plan to continue to assess home going/discharge needs. Coordinate with interdisciplinary team as needed. Signature: Esther Goldberg RN CLC Date and Time: 10-10-2022 @ 1240 According to plan, patient discharged home with and significant other Discharge instructions printed and reviewed. Teaching provided on new medications, self-care, signs and symptoms to report, and follow-up appointments. Patient verbalized understanding and denies any questions at time of discharge. Patient instructed to call provider with any additional questions after discharge. Signature: fernandez gonzalezchurn drill operator: Discharge Planning Assessment [id number] Discharge Planning Assessment Completed byCeleste Goldberg RN Lives Withdependent child(alex); significant other(1) Living Ar[place]ements[place](1) [place] Resource/Environmental Concernsnone(1) [place]ticip[place] Transition [place](1) Services Anticipated at Transitionnon(1) Equipment Needed After Dischargenone Anticipated Discharge Facility/Level of Care Needs.Home Nursing Checklist: Lines/Cathetersremoved/a ppropriate for next level of care Discharge Med Rec Reconciled with eMARyes Patient has Prescriptionsno prescriptions needed Follow up Reviewedyes Discharge Instructions Reviewed WithFamily Discharge Instructions Outcomeverbalize recall/understanding Discharge Instructions Review Completed with Patient/Family (diet, activity, pt instructions)yes Discharge Documentation: Discharge/Transfer Date/[id number]-Qrb-5256 12:40 Discharged Accompanied Bysignificant other/partner Transportation Methodprivate car Discharge Modeambulatory Code StatusCode Status order at time of discharge: Full Code Discharge Order Writtenyes [place] DNR Form Sent with Patient and/or Familyn/a Final Disposition.Home Electronic Signatures: Vandana Raya (RN) (Signed 10-Oct-2022 13:26) Authored: Discharge Planning, Nursing Checklist, Discharge Documentation Valentino Goldberg (RN) (Signed 08-Oct-2022 23:34) Authored: Discharge Planning, Assessment Last Updated: 10-Oct-2022 13:26 by Vandana Raya (RN) References: 1. Data Referenced From Patient Profile - OB v3 08-Oct-2022 20:44 Normal [facility] /MATERN SCRon 3 /MATERN SCR Canceled [facility] Comment on above: Order Comment: TEST /MATERN SCR WAS CANCELLED, 10/09/2022 15:16 Duplicate order-canceled. Performed By: #### F MS #### [place] [id number] /MATERN SCR Negative [facility] Comment on above: Performed By: #### F MS #### [place] [id number] RH IMMUNE GLOB.on 10-09-2022 RH IMMUNE GLOB. ORDER RECD [facility] Comment on above: Performed By: #### R HIG #### [address] [address] SYPHILIS SCREENING WITH REFL EXon 10-09-2022 SYPHILIS TOTAL AB Non-Reactive Normal NONREACTIVE [facility] Comment on above: Result Comment: No s erologic evidence of syphilis infection. If recent exposure is suspected, repeat syphilis testing is recommended in 2 to 4 weeks. Performed By: #### S YPHR #### [facility] [address] [place] [address] Lab Specimen Source [facility] Comment on above: Performed By: #### S YPHR #### [facility] [address] [place] [address] TYPE + SCREENon 10-09-2022 ABO TYPE O [facility] Comment on above: Performed By: #### T +S #### [place] [id number] RH TYPE Negative [facility] Comment on above: Result Comment: Revi ew your Rh Negative female patient's potential need for Rh Immune Globulin (RhIg)administration. Performed By: #### T +S #### [place] [address] Admission Risk Screen - OBon 10-08-2022 Admission Risk Screen - OB Allergies: Allergies: NKDA: Chocolate: Itching, Hives/Urticaria Peaches: Itching, Hives/Urticaria Patient Verification: New W ID Band Applied in my Departmentyes Patient Identity Verified Bypatient ID Band FULL Name, include Middle, spelling matches patient's ID used for verificationyes ID Band Matches Patient ID used for Verficationyes ID Band MRN Matches EMR MRNyes Visitor Restriction: Coronavirus Visitor Restriction: Reasonable restrictions to in-person visitors will be observed due to current coronavirus pandemic. Travel History: COVID-19 Screening Completedno exposure or symptoms Travel or Exposure Past 30 DaysNO travel to International locations in the past 30 days Advance Directive: Advance Directive/DNRno Advance Directive Information Givenpatient/family declined Jones Fall Screen: History of falling (immediate or previous)no (0) Secondary Diagnosisyes (15) Intravenous Therapy/ Heparin/Saline Lockyes (20) Gait/Transferringnormal/ bedrest/wheelchair (0) Ambulatory Aidsnone/bedrest/nurse assist (0) Mental Statusoriented to own ability (0) Score: Low risk (<25). Moderate risk (25-44). High risk (>44).35 Jones InterventionsMODERATE INTERVENTIONS: *Low Interventions Plus: * falls risk band/sticker applied to patient, *yellow non-skid footwear, *instruct to call for assistance before getting out of bed, *bed/chair/bedside commode/toilet alarms, *sensory devices/ambulatory aides available and in reach, *medications reviewed for potential side effects and care planning. Functional screen: Functional Screen: In the recent/past 2-4 weeks, patient or family have noticedno issues that require a rehabilitation consult at this time Learning Assessment (Patient): Patient is Able to be Assessed for Learningyes Factors Influencing Readiness to Learninterest in learning Factors that Impact Ability to Learnnone Devices/Methods Used to Communicatenone Learning Preferencesverbal instruction Cultural Considerationsnone Developmental Considerationsnone Tenriism Considerationsnone Learning Assessment (Other Learner): Other learner availableno Nutrition Risk Screen: Nutrition Risk Screenno indicators present Nutrition Consult needed this visitno Can Patient Participate in Room Serviceyes Pain Screen: Pain Control Method: Laborepidural Pain Control Method: Postpartumcold application; medication Pain Scalenumerical 0-10 Pain Scale Educationteaching provided Acceptable Pain Level6 = Moderate Presence of Painyes Pain Duration/Frequencyinterm ittent Factors that Affect Painctx Expression of Pain (nonverbal)anxious, crying, grimace, moaning, restless Chronic Painno Skin - Keven Scale: Keven Scale (daily): Keven: Sensory Perception (response to environment)(4) no impairment Keven: Moisture (degree skin exposed to moisture)(4) rarely moist Keven: Activity (ability to walk)(4) walks frequently Keven: Mobility (amount/control of body movement)(4) no limitation Keven: Nutrition (quality of food intake)(4) excellent Keven: Friction and Shear(3) no apparent problem Keven: Score23 Pressure Injury Present on Admissionno Spiritual Screen: Are there any cultural, spiritual, worship practices/values/needs that are important for us to knowno Depression Screen: During the past month, have you often been bothered by feeling down, depressed or hopelessyes hx depression During the past month, have you often had little interest or pleasure in doing thingsno Have you had any thoughts of harming anyone elseno Schoolcraft Suicide: Risk Screen Not Applicable/Able to Answerable to be screened In the Past Month: Have you wished you were or could go to sleep and not wake upno In the Past Month: Have you had any actual thoughts of killing yourselfno Lifetime: Have you ever done, started to do, or prepared to do anything to end your lifeno Schoolcraft Suicide Risknegative Family Violence Screen: Are you or have you been threatened or abused physically, emotionally, or sexually by anyoneno Do you feel UNSAFE going back to the place where you are livingno Clinical assessment: Are there any apparent signs of injuries/behaviors that could be related to abuse/neglectno Social Service Consult for abuse/neglect needed this visitno Vaccinations: Vaccination - Influenza Vaccination Screen: Is it flu season (between and August 30)No Vaccination - Pneumonia Vaccination Screen: Patient has received a previous pneumonia vaccine:no/unknown... Immunocompetent persons with underlying chronic conditions or reside in [place] [facility] care facilitiesnone of these conditions Persons with Functional or Anatomic Asplenianone of these conditions Immunocompromised Personsnone of these conditions Pneumonia vaccine NOT indicated due to:patient DOES NOT have a condition that indicates vaccination Vaccin (more content not included)... Normal [facility] CBCon 10-08-2022 Erythrocyte distribution width (RBC) [Ratio] 18.6 % High 11.5 - 14.5 [facility] Comment on above: Performed By: #### C BC ####[place] [address] Hematocrit (Bld) [Volume fraction] 36.4 % Normal 36.0 - 46.0 [facility] Comment on above: Performed By: #### C BC ####[place] [address] Hemoglobin (Bld) [Mass/Vol] 11.9 g/dL Low 12.0 - 16.0 [facility] Comment on above: Performed By: #### C BC ####[place] [id number] MCHC (RBC) [Mass/Vol] 32.7 g/dL Normal 32.0 - 36.0 [facility] Comment on above: Performed By: #### C BC ####[place] [id number] MCV (RBC) [Entitic vol] 87 fL Normal 80 - 100 [facility] Comment on above: Performed By: #### C BC ####[place] [id number] Platelets (Bld) [#/Vol] 181 10*3/uL Normal 150 - 450 [facility] Comment on above: Performed By: #### C BC ####[address] [address] RBC 4.21 x10E12/L Normal 4.00 - 5.20 [facility] Comment on above: Performed By: #### C BC ####[address] [address] WBC (Bld) [#/Vol] 7.8 10*3/uL Normal 4.4 - 11.3 [facility] Comment on above: Performed By: #### C BC ####[address] [address] Order Reconciliationon 10-08 Order Reconciliation Page 1 Admission Reconciliation Document Reconciliation Type: Admission requested on behalf of Maggy Sauceda (Physician) done by Maggy Sauceda) Admission - Reconciliation: 08-Oct-2022 21:31 by: Maggy Sauceda () No Current Medications. Additional Current Orders hydrALAZINE (APRESOLINE) Injectable DOSE = 5 mg IntraVenous Push Once, PRN Acute-onset, severe HTN w/out known, suspected CADClinician Notes: Consult provider prior to administration. Push over more than 2 minutes. Systolic greater than or equal to 160 OR Diastolic greater than or equal to 110. Contraindication: coronary artery disease (CAD); Caution in suspected CAD. Labetalol Injectable (TRANDATE)DOSE = 20 mg IntraVenous Push Once, PRN Acute-onset, sev HTN w/o active asthma/ matthew<60Clinician Notes: Consult provider prior to administration. Push over more than 2 minutes. Systolic greater than or equal to 160 OR Diastolic greater than or equal to 110. Contraindications: active asthma, heart disease, heart failure, maternal bradycardia < 60. Lactated Ringers Infusion IV Bag Volume = 1,000 mL Run at: 125 mL/hr IntraVenous NIFEdipine (PROCARDIA) Immediate Release CapsuleDOSE = 10 mg Oral Once, PRN Acute-onset, severe HTN w/out IV access/ pref oralClinician Notes: Consult provider prior to administration. Systolic greater than or equal to 160 OR Diastolic greater than or equal to 110. Capsules administered orally and swallowed whole; Do not puncture or crush; Do not administer sublingually. Normal [facility] Patient Profile - OB v3on Patient Profile - OB v3 Profile: Initial Info: How to be AddressedNay (1) Spoken Language PreferredEnglish (1) Source of Informationpatient Reason for admission this visitexpected delivery Wants Family/Rep Notified of Admissionn/a; family present Notify PCPdo not notify PCP Informed of Patient Visiting Rightsyes Limitations on Visitors/Phone Callsnone Temporary Family Living Arrangements (While Hospitalized)none needed Arrived Fromhome Was Admitted To in Past 90 Daysnone Patient Belongingsremains with patient Patient Belongings Remaining with Patientcell phone/electronics; clothing Home Meds have been Reviewed and Verified with Patient/Familyyes Medications Brought to Hospitalno Info: Gravida2 (1) Term Deliveries1 (1) Deliveries0 (1) Abortions0 (1) Living Children1 (1) Patient stated [id number] Calculation of EGA based on patient stated EDD38.6 Records availableyes Trimester Care Initiatedfirst Care ProviderCarmona Current Risksnone Previous live (any gestational age)yes Most Recent Live [id number] All Previous Delivery Type(s)vaginal delivery All Previous /Delivery Complicationsnone [place] Childbirth Education Classes Planned or Attendednone Contraceptionnone Baby's Post Discharge Care Provider (Provider Name, Address and Phone Number) [facility] Blood/Tissue Banking Plannednone Feedingbreastmilk Benefits of Breast Milk DiscussionThe benefits of exclusive breast milk feeding and the risk of adding formula have been discussed with patient / mother. Discussion Date / [id number] 23:30 Previous Experienceno Feeding Plan Commentlack of milk supply last pregancy General Health: Current Weight in kg125 kilogram(s) Current Weight in xfc981.5 pound(s) Weight Methodactual (measured) Scale Typestanding Pre Weight (lb)210 pound(s) Total Weight Gain (lb)65 pound(s) Height in feet5 feet Height in inches8.98 inch(es) Height in cm175.2 centimeter(s) Height Methodstated BMI (kg/m2)40.723 square meter Patient or Family Member Reaction to Anesthesiano previous reaction Blood Avoidance/Restrictionsno ne Previous Transfusion Reactionnot applicable Rsp Based Care: How would you like to participate in your careMake my own choices, be informed What is the number one concern for you during this hospitalizationwant an epidural for pain What is the most important thing we can do to support you during this hospitalizationkeep me informed and able to make my own choices Is there anything we need to know to best care for youI want an epidural Substance: Smoking Statusnever smoker Alcohol Usedenies Drug Usedenies Health Mgmt: Symptoms/Conditions Managed at Homenone Barriers to Managing Healthnone Relationship/Environ: Primary Source of Support/Comfortsignifica nt other Lives Withdependent child(alex); significant other Living Arrangementshouse Significant Exposurenone Resource/Environmental Concernsnone [facility] Anticipated at Transitionnone Additional Information: Information Review: Allergies and Significant Events have been Reviewed and Verified with Patient/Familyyes Allergy, Intolerance, Adverse Event: Allergies: NKDA: Active Chocolate: Food, Itching, Hives/Urticaria, Active Peaches: Food, Itching, Hives/Urticaria, Active Electronic Signatures: Valentino Goldberg (RAUL) (Signed 08-Oct-2022 23:55) Authored: Initial Info, Info, General Health, Rsp Based Care, Substance, Health Mgmt, Relationship/Environ, Additional Information Last Updated: 08-Oct-2022 23:55 by Valentino Goldberg (RAUL) References: 1. Data Referenced From Triage Note - OB v4 07-Oct-2022 12:22 Normal [facility] Daily Progress Note - OB-Tri ageon 10-07-2022 Daily Progress Note - OB-Triage Current Stage: Stage: Triage OB Dating: EDC/EGA: Final [id number] EGA38.5 Subjective Data: Antepartum: Vaginal Bleeding: No Movement: Good Antepartum: Patient presents to labor and delivery to rule out labor. Objective Information: Objective Information: T PRBPMAPSpO2 Value36.25020816/553420% Date/Time10/07 12:2858 12:285 12:285 12:285 12:285 12:25 Range(36.8C - 36.8C ) (96 - 108 ) (18 - 18 ) (133 - 133 )/ (66 - 66 ) (91 - 91 ) (96% - 97% ) Pain reported at 10/07 12:28: 0 = None Physical Exam: Obstetric: Vaginal exam per nurse is 4 to 5 cm dilated which is unchanged from the office visit earlier today. Noted some uterine irritability. Testing: NST Interpretation - Baby A: InterpretationReactive (2 15x15 accels) Assessment and Plan: Assessment: 1. Intrauterine at 38 weeks 5 days 2. Reactive NST 3. False labor Follow-up in 2 days for induction of labor as previously scheduled. Electronic Signatures: Maggy Sauceda) (Signed 07-Oct-2022 13:37) Authored: Current Stage, OB Dating, Subjective Data, Objective Data, Testing, Assessment and Plan, Note Completion Last Updated: 07-Oct-2022 13:37 by Maggy Sauceda) [facility] Discharge [id number] Discharge Profile2 Discharge Orders: DNAR: Code Status at Discharge: Full Code Triage OB: Activity: Return to normal activity as tolerated. Asses movements daily. Call Provider If: Contractions or cramps become more frequent than 8 in one hour or 4 in 20 minutes. Regular painful contractions every 5 minutes or less for one hour. Time your contractions from the beginning of one to the beginning of the next.. Pressure in your vagina or lower abdomen that may feel like the baby is pushing down. Period-like cramps or low dull backache that may come and go. Abdominal cramps that may be accompanied by diarrhea. Gush of fluid or blood from your vagina (it is normal to have spotting after vaginal exam or intercourse). Change in the type or amount of vaginal discharge. Your baby is not moving as much as usual. Temperature greater than 100.4(F) orally. Severe headache which is not relieved in 30 minutes after taking Tylenol (Acetaminophen). Blurry vision or spots before your eyes. Severe heartburn or pain on the upper right side of your abdomen that is not relieved by an antacid. Signs of Depression. Examples include: 1. Persistent sadness 2. Frequent crying 3. Sleep problems 4. Excessive worrying 5. Feeling unable to cope. Diet: Regular. Follow-Up - OB Provider: LocationScheduled for induction on 10/09/22 Provider FINAL REVIEW of Orders: Final Review: Final Review of Medication Reconciliation and Orders Completedby Physician Electronic Signatures: Neeta Dodd (CLIN COOR) (Signed 07-Oct-2022 13:43) Authored: Discharge Orders, Triage OB, Provider FINAL REVIEW of Orders, Gold Form - Design Checker Summary Last Updated: 07-Oct-2022 13:43 by Neeta Dodd (CLIN COOR) [facility] Risk Screen - OB Triageon Risk Screen - OB Triage Allergies: Allergies: Allergies: NKDA: Chocolate: Itching, Hives/Urticaria Peaches: Itching, Hives/Urticaria Patient Verification: Patient Verification: New W ID Band Applied in my Departmentyes Patient Identity Verified Bydriver's license/state ID; patient ID Band FULL Name, include Middle, spelling matches patient's ID used for verificationyes ID Band Matches Patient ID used for Verficationyes ID Band MRN Matches EMR MRNyes Travel History: Travel History: COVID-19 Screening Completedno exposure or symptoms Travel or Exposure Past 30 DaysNO travel to International locations in the past 30 days Advance Directives: Advance Directive: Advance Directive/DNRno Advance Directive Information Givenpatient/family declined Falls Risk: Jones Fall Screen: History of falling (immediate or previous)no (0) Secondary Diagnosisno (0) Intravenous Therapy/ Heparin/Saline Lockno (0) Gait/Transferringnormal/ bedrest/wheelchair (0) Ambulatory Aidsnone/bedrest/nurse assist (0) Mental Statusoriented to own ability (0) Score: Low risk (<25). Moderate risk (25-44). High risk (>44).0 Jones InterventionsLOW INTERVENTIONS: *patient oriented to surroundings and call system, * patient/family falls education completed and documented, *patients fall status communicated during bedside handoff, *whiteboard updated, *mode of toileting discussed with patient, *bed in low position with brakes locked, *call light in reach, * non-skid footwear Learning Assessment (Patient): Learning Assessment (Patient): Patient is Able to be Assessed for Learningyes Factors Influencing Readiness to Learninterest in learning; motivation to learn Factors that Impact Ability to Learnvisual problems, glasses/contacts Devices/Methods Used to Communicateglasses, contacts Learning Preferenceswritten material; verbal instruction; skill demonstration; individual instruction Cultural Considerationsnone Developmental Considerationsnone Tenriism Considerationsnone Learning Assessment (Other Learner): Other learner availableno Depression/Suicide: Depression Screen: During the past month, have you often been bothered by feeling down, depressed or hopelessno During the past month, have you often had little interest or pleasure in doing thingsno Have you had any thoughts of harming anyone elseno Schoolcraft Suicide: Risk Screen Not Applicable/Able to Answerable to be screened In the Past Month: Have you wished you were or could go to sleep and not wake upno In the Past Month: Have you had any actual thoughts of killing yourselfno Lifetime: Have you ever done, started to do, or prepared to do anything to end your lifeno Schoolcraft Suicide Risknegative Family Violence: Abuse Screen: Are you or have you been threatened or abused physically, emotionally, or sexually by anyoneno Do you feel UNSAFE going back to the place where you are livingno Clinical assessment: Are there any apparent signs of injuries/behaviors that could be related to abuse/neglectno Electronic Signatures: Neeta Dodd (CLIN COOR) (Signed 07-Oct-2022 12:22) Authored: Allergies, Patient Verification, Travel History, Advance Directives, Jones Fall Screen, Learning Assessment (Patient), Learning Assessment (Other Learner), Depression/Suicide, Family Violence Last Updated: 07-Oct-2022 12:22 by Neeta Dodd (CLIN COOR) [facility] Triage Note - OB v4on 2022 Triage Note - OB v4 Triage: General Info: Time of Arrival on [id number]-3208 12:09 Patient arrived viaambulatory Arrived Fromphysician office Acuity Level4 Time Acuity Level [id number]-2864 12:09 Modified Acuity Level4 Time Modified Acuity Level Ldmcyqai65-Voy-6687 12:15 Chief ComplaintR/O labor How to be AddressedNay Spoken Language PreferredEnglish (1) Source of Informationpatient; health record Weight in kg125.8 kilogram(s) Weight in jhp955.3 pound(s) Weight Methodactual (measured) Scale Typestanding Height in feet5 feet Height in inches9 inch(es) Height in cm175.2 centimeter(s) Height Methodstated BMI (kg/m2)40.983 square meter Blood Avoidance/Restrictionsno ne(1) Previous Transfusion Reactionnot applicable Patient Belongingsnone Home Meds have been Reviewed and Verified with Patient/Familyyes Info: Gravida2 Term Deliveries1 Deliveries0 Abortions0 Living Children1 Patient stated [id number] Calculation of EGA based on patient stated EDD38.5 Records availableyes Care ProviderDr. Schulte Current Risksanemia, asthma, Rh negative, Iron transfusions x3 this Substance: Smoking Statusformer smoker Alcohol Usedenies Drug Usedenies Drug 2 Usedenies Disposition/Disch: Dispositiondischarged from facility, home with own care Patient Meets Criteria for Home Blood Pressure Monitorno Admission/Observation/Di scharge/Transfer Date/Ueaa94-Vyo-6452 13:52 Discharged Accompanied Bysignificant other/partner Discharge Modeambulatory Transportation Methodprivate car Travel History: Travel or ExposureNO travel to International locations in the past 30 days Additional Information: Information Review: Allergies have been Reviewed and Verified with Patient/Familyyes Allergy, Intolerance, Adverse Event: Allergies: NKDA: Active Chocolate: Food, Itching, Hives/Urticaria, Active Peaches: Food, Itching, Hives/Urticaria, Active Electronic Signatures: Neeta Dodd (CLIN COOR) (Signed 07-Oct-2022 13:56) Authored: General Info, Info, Substance, Disposition/Disch, Travel History, Additional Information Last Updated: 07-Oct-2022 13:56 by Neeta Dodd (CLIN COOR) References: 1. Data Referenced From Triage Note - OB v4 04-Oct-2022 17:53 Normal [facility] Daily Progress Note - OB-Tri ageon 10-04-2022 Daily Progress Note - OB-Triage Current Stage: Stage: Triage OB Dating: EDC/EGA: Final [id number] EGA38.2 Subjective Data: Antepartum: Vaginal Bleeding: No Contractions/Abdominal Pain: Yes every 10 min for 2 hours Discharge/Loss of Fluid: No Movement: Good Fevers/Chills: No Preeclampsia Symptoms: No Antepartum: Patient presents for ctx. Is scheduled for IOL on 10/09. No other complaints. Objective Information: Objective Information: T PRBPMAPSpO2 [id number]/252957% Date/Time10/04 17: 17: 17: 17: 17:44 Range (106 - 106 ) (18 - 18 ) (134 - 134 )/ (70 - 70 ) (96 - 96 ) (98% - 98% ) Physical Exam: Constitutional: AOx3, NAD Head/Neck: normocephalic Respiratory/Thorax: no increased work of breathing Genitourinary: cervix: 3/50/-2 Musculoskeletal: normal ROM Extremities: no edema Psychological: appropriate affect Skin: normal, no lesions Testing: Indications: Indicationtriage, rule out labor NST Interpretation - Baby A: Baseline TEM545 Variabilitymoderate (amplitude range 6 to 25 bpm) InterpretationReactive (2 15x15 accels) Accelerationspresent Decelerationsabsent Assessment and Plan: Admitting Dx: Uterine contractions: Entered Date: 04-Oct-2022 18:00 Assessment: 22 y/o at 38w2d who presents to triage for contractions Contractions - cervix 3/50/-2, unchanged from office visit 1 week ago - ctx clinically spaced out per patient - not in labor FHT - category 1, reactive Reviewed return precautions. Advised increasing water intake. Dispo: discharge to home, f/u for office visit on 10/07 and IOL on 10/09 Chiquis Mcneal MD Electronic Signatures: Chiquis Mcneal) (Signed 04-Oct-2022 18:14) Authored: Current Stage, OB Dating, Subjective Data, Objective Data, Testing, Assessment and Plan, Note Completion Last Updated: 04-Oct-2022 18:14 by Chiquis Mcneal) [facility] Discharge [id number] Discharge Profile2 Discharge Orders: Anticipated Discharge Date: Anticipated Discharge [id number] Problem List: Admitting Dx: Uterine contractions: Catalog Name: False labor, unspecified Hospital Providers: Provider RoleProvider Name AttendingChiquis Mcneal DNAR: Code Status at Discharge: Full Code Activity: activity as tolerated. May shower. May return to school/work Instructions: May drive. Diet: Dietresume normal diet Triage OB: Call Provider If: Contractions or cramps become more frequent than 8 in one hour or 4 in 20 minutes. Regular painful contractions every 5 minutes or less for one hour. Time your contractions from the beginning of one to the beginning of the next.. Pressure in your vagina or lower abdomen that may feel like the baby is pushing down. Period-like cramps or low dull backache that may come and go. Abdominal cramps that may be accompanied by diarrhea. Gush of fluid or blood from your vagina (it is normal to have spotting after vaginal exam or intercourse). Change in the type or amount of vaginal discharge. Your baby is not moving as much as usual. Temperature greater than 100.4(F) orally. Severe headache which is not relieved in 30 minutes after taking Tylenol (Acetaminophen). Blurry vision or spots before your eyes. Severe heartburn or pain on the upper right side of your abdomen that is not relieved by an antacid. Provider FINAL REVIEW of Orders: Final Review: Final Review of Medication Reconciliation and Orders Completedby Physician Reviewing ProviderChiquis Mcneal MD at 04-Oct-2022 18:18:25 Appointments: Follow-Up Appointment 01: Physician/Dept/Faiza Schulte Reason for ReferralOB visit Scheduled Date/[id number] 11:30 Other Clinician Instructions: Other Instructions: Other Clinician InstructionsCall Provider If: Regular painful contractions every 5 min or less for one hour. Time your contractions from the beginning of one to the beginning of another. Pressure in your vagina or lower abdomen that may feel like the baby is pushing down. Gush of fluid or blood from the vagina (it is normal to have spotting after vaginal exam or intercourse). Your baby is not moving as much as usual. Electronic Signatures: Chiquis Mcneal) (Signed 04-Oct-2022 18:18) Authored: Discharge Orders, Provider FINAL REVIEW of Orders, Appointments Co-Signer: Discharge Orders, Triage OB, Other Clinician Instructions, Gold Form - Design Checker Summary Meron Pisano (RN) (Signed 04-Oct-2022 18:13) Authored: Discharge Orders, Triage OB, Other Clinician Instructions, Gold Form - Design Checker Summary Last Updated: 04-Oct-2022 18:18 by Chiquis Mcneal) [facility] No Panel Informationon 10-04 Normal [facility] [employer] [place] Work Phone: Risk Screen - OB Triageon Risk Screen - OB Triage Allergies: Allergies: Allergies: NKDA: Chocolate: Itching, Hives/Urticaria Peaches: Itching, Hives/Urticaria Patient Verification: Patient Verification: New W ID Band Applied in my Departmentyes Patient Identity Verified Bypatient ID Band FULL Name, include Middle, spelling matches patient's ID used for verificationyes ID Band Matches Patient ID used for Verficationyes ID Band MRN Matches EMR MRNyes Travel History: Travel History: COVID-19 Screening Completedno exposure or symptoms Travel or Exposure Past 30 DaysNO travel to International locations in the past 30 days Advance Directives: Advance Directive: Advance Directive/DNRno Advance Directive Information Givenpatient/family declined Falls Risk: Jones Fall Screen: History of falling (immediate or previous)no (0) Secondary Diagnosisno (0) Intravenous Therapy/ Heparin/Saline Lockno (0) Gait/Transferringnormal/ bedrest/wheelchair (0) Ambulatory Aidsnone/bedrest/nurse assist (0) Mental Statusoriented to own ability (0) Score: Low risk (<25). Moderate risk (25-44). High risk (>44).0 Jones InterventionsLOW INTERVENTIONS: *patient oriented to surroundings and call system, * patient/family falls education completed and documented, *patients fall status communicated during bedside handoff, *whiteboard updated, *mode of toileting discussed with patient, *bed in low position with brakes locked, *call light in reach, * non-skid footwear Learning Assessment (Patient): Learning Assessment (Patient): Patient is Able to be Assessed for Learningyes Factors Influencing Readiness to Learnfatigue; pain Factors that Impact Ability to Learnnone Devices/Methods Used to Communicatenone Learning Preferencesskill demonstration; verbal instruction; written material Cultural Considerationsnone Developmental Considerationsnone Tenriism Considerationsnone Learning Assessment (Other Learner): Other learner availableyes... Learnersignificant other Factors Influencing Readiness to Learnanxiety Factors that Impact Ability to Learnnone Devices/Methods Used to Communicatenone Learning Preferencesskill demonstration, verbal instruction, written material Cultural Considerationsnone Developmental Considerationsnone Tenriism Considerationsnone Depression/Suicide: Depression Screen: During the past month, have you often been bothered by feeling down, depressed or hopelessyes During the past month, have you often had little interest or pleasure in doing thingsno Have you had any thoughts of harming anyone elseno School[place] Suicide: Risk Screen Not Applicable/Able to Answerable to be screened In the Past Month: Have you wished you were or could go to sleep and not wake upno In the Past Month: Have you had any actual thoughts of killing yourselfno Lifetime: Have you ever done, started to do, or prepared to do anything to end your lifeno Schoolcraft Suicide Risknegative Family Violence: Abuse Screen: Are you or have you been threatened or abused physically, emotionally, or sexually by anyoneno Do you feel UNSAFE going back to the place where you are livingno Clinical assessment: Are there any apparent signs of injuries/behaviors that could be related to abuse/neglectno Electronic Signatures: Meron Pisano (RAUL) (Signed 04-Oct-2022 17:53) Authored: Allergies, Patient Verification, Travel History, Advance Directives, Jones Fall Screen, Learning Assessment (Patient), Learning Assessment (Other Learner), Depression/Suicide, Family Violence Last Updated: 04-Oct-2022 17:53 by Meron Pisano (RAUL) [facility] US AGE FOL-UP PER FETU Son 10-04-2022 US AGE FOL-UP PER FETUS Patient Name: JEFF WHITE STUDY: US AGE FOL-UP PER FETUS 10/04/2022 3:22 pm INDICATION: Large for gestational age. COMPARISON: None. ACCESSION NUMBER(S): [id number] ORDERING CLINICIAN: JENISE SCHULTE TECHNIQUE: Routine ultrasound of the pelvis was performed. Evaluation of the female pelvis was performed by transabdominal technique. FINDINGS: There is a single live intrauterine gestation in vertex position. BPD 96mm, 39 weeks, 0 days HC 343mm, 39 weeks, 4 days AC 363mm, 40 weeks, 2 days FL 78mm, 39 weeks, 6 days This results in a composite gestational age of 39 weeks, 5 days, + / -19 days. The estimated date of delivery by ultrasound is 10/06/2022. By dates the fetus should be 38 weeks, 2 days, which is concordant with the ultrasound dating. There is an estimated weight of 3929 g + / -589 g (94th percentile). heart rate measures 142 beats per minute. Evaluation of anatomy is limited as the study was done for the evaluation of growth. The placenta is and anterior position. No evidence of placenta previa is seen. The amniotic fluid volume is within normal limits, with the amniotic fluid index measuring at up to 14.8 cm. Maternal anatomy: The cervix is not well visualized. IMPRESSION: Single live intrauterine gestation corresponding to 39 weeks, 5 days, + / -19 days. Evaluation of anatomy was not performed. Recommend continued routine follow-up imaging evaluation. Electronically signed by: ИВАН CORBETT MD [facility] Note - Intakeon 09-20 Clinic Note - Intake Patient Visit Information: Visit TypeFollow Up Visit, iron Source of Informationpatient Admission Information: Admission Since Last VisitNo Vital Signs: Temp (degrees C)36.9 degrees C Temperatureskin Heart Rate (beats/min)93 beats per minute Respiration (breaths/min)16 breath per minute BP Systolic (mm Hg)116 mmHg BP Diastolic (mm Hg)72 mmHg BP Mean (mm Hg)86 mmHg Height in cm175.3 centimeter(s) Weight in kg123.2 kilogram(s) Weightstanding BMI (kg/m2)40 kg/M2 BSA (m2)2.44 M2 SpO2 (%)98 % SpO2 Patient Onroom air Pain Screening: Patient States Painno (0) Allergies: NKDA: Active Chocolate: Food, Itching, Hives/Urticaria, Active Peaches: Food, Itching, Hives/Urticaria, Active Outpatient Medication Profile: * Patient Currently Takes Medications as of 25-Aug-2022 20:53 documented in Structured Notes ferrous sulfate 325 mg (65 mg elemental iron) oral tablet: 1 tab(s) orally 2 times a day, Start Date: 20-May-2021 Notification: NotificationsAll annual screens currently due. Travel History: COVID-19 Screening Completedno exposure or symptoms Travel or ExposureNO travel to International locations in the past 30 days Falls: Have you fallen in the last 6 monthsno Do you have a fear of fallingno Do you feel you need assistanceno Is the patient using an assistive deviceno Not a falls riskimplement environmental risk factors interventions Electronic Signatures: Anita Nielsen (JOSE ZAIDI) (Signed 20-Sep-2022 10:55) Authored: Patient Visit Information, Vital Signs, Allergies, Outpatient Medication Profile, Notification, Travel History, Falls Last Updated: 20-Sep-2022 10:55 by Anita Nielsen (JOSE ZAIDI) [facility] Note - Intakeon 09-13 Clinic Note - Intake Patient Visit Information: Visit TypeFollow Up Visit Source of Informationpatient Accompanied bysignificant other Vital Signs: Temp (degrees C)36.4 degrees C Heart Rate (beats/min)107 beats per minute Respiration (breaths/min)16 breath per minute BP Systolic (mm Hg)140 mmHg BP Diastolic (mm Hg)78 mmHg BP Mean (mm Hg)98 mmHg Height in cm175.3 centimeter(s) Weight in kg120.8 kilogram(s) Weightstanding BMI (kg/m2)39.3 kg/M2 BSA (m2)2.42 M2 SpO2 (%)96 % SpO2 Patient Onroom air Pain Screening: Patient States Painno (0) Allergies: NKDA: Active Chocolate: Food, Itching, Hives/Urticaria, Active Peaches: Food, Itching, Hives/Urticaria, Active Outpatient Medication Profile: * Patient Currently Takes Medications as of 25-Aug-2022 20:53 documented in Structured Notes ferrous sulfate 325 mg (65 mg elemental iron) oral tablet: 1 tab(s) orally 2 times a day, Start Date: 20-May-2021 Notification: NotificationsAll annual screens currently due. Travel History: COVID-19 Screening Completedno exposure or symptoms Travel or ExposureNO travel to International locations in the past 30 days Falls: Have you fallen in the last 6 monthsno Do you have a fear of fallingno Do you feel you need assistanceno Is the patient using an assistive deviceno Spiritual/Procedural: Spiritual/cultural/relig ious practices important for us to knowno Electronic Signatures: Olimpia Acosta) (Signed 13-Sep-2022 11:04) Authored: Patient Visit Information, Vital Signs, Allergies, Outpatient Medication Profile, Notification, Travel History, Falls, Spiritual/Procedural Last Updated: 13-Sep-2022 11:04 by Olimpia Acosta (RN) Normal [facility] GROUP B STREP SCREENon 09-13 GROUP B STREP SCREEN PAT[place]: Narda WHITE [place] [facility] [id number] : [birth year] AGE: SEX: F ORDERED BY: JENISE SCHULTE SOURCE: VAGINAL COLLECTED: 09/13/22 14:34 ANTIBIOTICS AT ESME.: RECEIVED : 09/14/22 01:01 SITE: R E S U L T S GROUP B STREP SCREEN FINAL 09/16/22 11:48 NEGATIVE FOR GROUP B BETA STREP. Normal [facility] Comment on above: Performed By: #### H IV #### [facility] [address] [place] [address] Laboratory - Microbiology an d Antimicrobial susceptibilityon 09-13-2022 Bacteria identified Aer cx Nom (Genital specimen) [facility] Work Phone: No Panel Informationon 09-13 Normal [facility] Work Phone: Clinic Note - Intakeon 09-06 Clinic Note - Intake Patient Visit Information: Visit TypeNew Visit, iron Source of Informationpatient Vital Signs: Temp (degrees C)36.7 degrees C Temperatureskin Heart Rate (beats/min)104 beats per minute Respiration (breaths/min)16 breath per minute BP Systolic (mm Hg)118 mmHg BP Diastolic (mm Hg)69 mmHg BP Mean (mm Hg)85 mmHg Height in cm175.3 centimeter(s) Weight in kg119.1 kilogram(s) Weightstanding BMI (kg/m2)38.7 kg/M2 BSA (m2)2.4 M2 SpO2 (%)97 % SpO2 Patient Onroom air Pain Screening: Patient States Painyes Current Pain Score (0-10)3 Pain Description/Locationleft hip Pain Scale UsedNumeric (0-10) Allergies: NKDA: Active Chocolate: Food, Itching, Hives/Urticaria, Active Peaches: Food, Itching, Hives/Urticaria, Active Outpatient Medication Profile: * Patient Currently Takes Medications as of 25-Aug-2022 20:53 documented in Structured Notes ferrous sulfate 325 mg (65 mg elemental iron) oral tablet: 1 tab(s) orally 2 times a day, Start Date: 20-May-2021 Notification: NotificationsAll annual screens currently due. Travel History: COVID-19 Screening Completedno exposure or symptoms Travel or ExposureNO travel to International locations in the past 30 days Falls: Have you fallen in the last 6 monthsno Do you have a fear of fallingno Do you feel you need assistanceno Is the patient using an assistive deviceno Not a falls riskimplement environmental risk factors interventions Electronic Signatures: Anita Nielsen (JOSE II) (Signed 06-Sep-2022 10:58) Authored: Patient Visit Information, Vital Signs, Allergies, Outpatient Medication Profile, Notification, Travel History, Falls Last Updated: 06-Sep-2022 10:58 by Anita Nielsen (JOSE II) Normal [facility] FERRITIN, PREGNANCYon 2022 FERRITIN, 22 ug/L Normal > 15 [facility] Comment on above: Performed By: #### F ERRP #### [facility] [address] [place] [address] FOLATE, SERUM, PREGNANCYon 0 08-28-2022 FOLATE, SERUM, 14.7 ng/mL Normal >5.0 [facility] Comment on above: Result Comment: Low <3.4 Borderline 3.4-5.0 Normal >5.0 . Biotin interference may cause falsely elevated results. Patients taking a Biotin dose of up to 5 mg/day should refrain from taking Biotin for 24 hours before sample collection. Providers may contact their local laboratory for further information. Performed By: #### F OLPR #### [facility] [address] [place] [address] IRON + TIBC PREGNANCYon 03- % SATURATION, 65 % Normal [facility] Comment on above: Result Comment: . Non- 25 - 45 % First Trimester 7 - 57 % Second Trimester 10 - 44 % Third Trimester 5 - 37 % Please note results will not flag based on reference ranges above. Performed By: #### I RNPR #### [facility] [address] [place] [address] IRON, 338 ug/dL Normal [facility] Comment on above: Result Comment: . Non- Female 14-17y 28 - 175 ug/dL Non- Female >=18y 35 - 150 ug/dL . First Trimester 72 - 143 ug/dL Second Trimester 44 - 178 ug/dL Third Trimester 30 - 193 ug/dL Please note results will not flag based on reference ranges above. Performed By: #### I RNPR #### [facility] [address] [place] [address] TIBC, 522 ug/dL Normal [facility] Comment on above: Result Comment: . Non- 240 - 445 ug/dL First Trimester 278 - 403 ug/dL Second Trimester 325 - 514 ug/dL Third Trimester 359 - 609 ug/dL Please note results will not flag based on reference ranges above. Performed By: #### I RNPR #### [facility] [address] [place] [address] VITAMIN B12, PREGNANCYon Cobalamin (Vitamin B12) [Mass/Vol] 245 pg/mL Normal [facility] Comment on above: Result Comment: Non- 211 - 911 pg/mL First Trimester >=118 pg/mL Second Trimester >=130 pg/mL Third Trimester >= 99 pg/mL Please note results will not flag based on reference ranges above. Performed By: #### V 12PR #### [facility] [address] [place] [address] CBC ANEMIA PANEL WITH REFLEX ,PREGNANCYon 08-27-2022 Erythrocyte distribution width (RBC) [Ratio] 15.0 % High 11.5 - 14.5 [facility] Comment on above: Performed By: #### A NEMI #### [address] [address] Hematocrit (Bld) [Volume fraction] 32.6 % Low 36.0 - 46.0 [facility] Comment on above: Performed By: #### A NEMI #### [address] [address] Hemoglobin (Bld) [Mass/Vol] 10.3 g/dL Low 12.0 - 16.0 [facility] Comment on above: Performed By: #### A NEMI #### [address] [address] MCHC (RBC) [Mass/Vol] 31.6 g/dL Low 32.0 - 36.0 [facility] Comment on above: Performed By: #### A NEMI #### [address] [address] MCV (RBC) [Entitic vol] 85 fL Normal 80 - 100 U [facility] Comment on above: Performed By: #### A NEMI #### [address] [address] Platelets (Bld) [#/Vol] 195 10*3/uL Normal 150 - 450 [facility] Comment on above: Performed By: #### A NEMI #### [address] [address] RBC 3.83 x10E12/L Low 4.00 - 5.20 [facility] Comment on above: Performed By: #### A NEMI #### [address] [address] REFLEX ADDED, ANEMIA PANEL FERRITIN,VTB12,FOLATE,IR ON+TIBC Normal [facility] Comment on above: Performed By: #### A NEMI #### [address] [address] WBC (Bld) [#/Vol] 8.7 10*3/uL Normal 4.4 - 11.3 [facility] Comment on above: Performed By: #### A NEMI #### [address] [address] IRON + TIBC PREGNANCYon - IRON + TIBC 65 % [employer] Work Phone: Comment on above: .Non- 25 - 45 %First Trimester 7 - 57 %Second Trimester 10 - 44 %Third Trimester 5 - 37 %Please note results will not flag based on reference ranges above. IRON + TIBC 522 ug/dL [facility] Work Phone: Comment on above: .Non- 240 - 445 ug/dLFirst Trimester 278 - 403 ug/dLSecond Trimester 325 - 514 ug/dLThird Trimester 359 - 609 ug/dLPlease note results will not flag based on reference ranges above. IRON + TIBC 338 ug/dL [facility] Work Phone: Comment on above: .Non- Femal e 14-17y 28 - 175 ug/dLNon- Female >=18y 35 - 150 ug/dL.First Trimester 72 - 143 ug/dLSecond Trimester 44 - 178 ug/dLThird Trimester 30 - 193 ug/dLPlease note results will not flag based on reference ranges above. Laboratory - Hematology and Cell countson 08-27-2022 Erythrocyte distribution width (RBC) [Ratio] 15.0 % above high threshold See Below [employer] Work Phone: Comment on above: Reference Range: 11. 5 - 14.5 Hematocrit (Bld) [Volume fraction] 32.6 % below low threshold See Below [employer] Work Phone: Comment on above: Reference Range: 36. 0 - 46.0 Hemoglobin (Bld) [Mass/Vol] 10.3 g/dL below low threshold See Below [employer] Phone: Comment on above: Reference Range: 12. 0 - 16.0 MCHC (RBC) [Mass/Vol] 31.6 g/dL below low threshold See Below [employer] Work Phone: Comment on above: Reference Range: 32. 0 - 36.0 MCV (RBC) [Entitic vol] 85 fL 80 - 100 [address] [employer] Work Phone: Platelets (Bld) [#/Vol] 195 10*3/uL 150 - 450 [employer] Work Phone: RBC (Bld) [#/Vol] 3.83 {x10E12/L} below low threshold See Below [employer] Work Phone: Comment on above: Reference Range: 4.0 0 - 5.20 WBC (Bld) [#/Vol] 8.7 10*3/uL 4.4 - 11.3 [facility] [employer] [place] Work Phone: No Panel Informationon 08-27 FERRITIN,VTB12,FOLAT E,IR ON+TIBC [facility] Work Phone: 245 pg/mL [facility] [place] Work Phone: Comment on above: Non- 211 - 911 pg/mLFirst Trimester >=118 pg/mLSecond Trimester >=130 pg/mLThird Trimester >= 99 pg/mLPlease note results will not flag based on reference ranges above. 14.7 ng/mL >5.0 [facility] Work Phone: Comment on above: Low <3.4Borderline 3 .4-5.0Normal >5.0. Biotin interference may cause falsely elevated results. Patients taking a Biotin dose of up to 5 mg/day should refrain from taking Biotin for 24 hours before sample collection. Providers may contact their local laboratory for further information. 22 ug/L > 15 [employer] Work Phone: Daily Progress Note - OB-Tri ageon 08-26-2022 Daily Progress Note - OB-Triage Current Stage: Stage: Triage Subjective Data: Antepartum: Vaginal Bleeding: No Contractions/Abdominal Pain: No Discharge/Loss of Fluid: Yes Movement: Good Fevers/Chills: No Preeclampsia Symptoms: No Antepartum: Patient presented at 32+ weeks gestation concerned about ruptured membranes. She she had no additional complaints Objective Information: Objective Information: T PRBPMAPSpO2 [id number]% Date/Time08/25 20: 22: 20: 22: 22:383/26 22:37 Range(36.7C - 36.7C ) (93 - 126 ) (16 - 16 ) (130 - 134 )/ (73 - 81 ) (94 - 99 ) (92% - 99% ) Recent Lab Results: Results: I have reviewed these laboratory results: Premature Rupture of Membrane 25-Aug-2022 21:04:00 ResultValue Premature Rupture of Membrane NEGATIVE Testing: NST Interpretation - Baby A: Baseline [id number] Variabilitymoderate (amplitude range 6 to 25 bpm) InterpretationReactive (2 15x15 accels) Assessment and Plan: Assessment: Patient presented at 32+ weeks gestation concerned about ruptured membranes. Actin PROM was negative tracing reassuring patient discharged home Electronic Signatures: Jenise Schulte) (Signed 26-Aug-2022 08:43) Authored: Current Stage, Subjective Data, Objective Data, Testing, Assessment and Plan, Note Completion Last Updated: 26-Aug-2022 08:43 by Jenise Schulte) Normal [facility] DOTTY RUPTURE OF MEMBR DATA C ONVERSIONon 08-25-2022 Insulin-like growth factor binding protein 1 Ql (Vag fld) Negative Negative [facility] DOTTY.RUPTURE OF MEMB.on 08-01 DOTTY.RUPTURE OF MEMB. Negative Normal Negative [facility] Comment on above: Performed By: #### P ROM1 #### [place] [id number] PREMATURE RUPTURE OF MEMBRAN Moses 08-25-2022 PREMATURE RUPTURE [facility]BRANE Negative [facility] [address] Work Phone: Risk Screen - OB Triageon Risk Screen - OB Triage Allergies: Allergies: Allergies: NKDA: Chocolate: Itching, Hives/Urticaria Peaches: Itching, Hives/Urticaria Patient Verification: Patient Verification: New W ID Band Applied in my Departmentyes Patient Identity Verified Bypatient ID Band FULL Name, include Middle, spelling matches patient's ID used for verificationyes ID Band Matches Patient ID used for Verficationyes ID Band MRN Matches EMR MRNyes Travel History: Travel History: COVID-19 Screening Completedno exposure or symptoms Travel or Exposure Past 30 DaysNO travel to International locations in the past 30 days Advance Directives: Advance Directive: Advance Directive/DNRno Advance Directive Information Givenpatient/family declined Falls Risk: Jones Fall Screen: History of falling (immediate or previous)no (0) Secondary Diagnosisno (0) Intravenous Therapy/ Heparin/Saline Lockno (0) Gait/Transferringnormal/ bedrest/wheelchair (0) Ambulatory Aidsnone/bedrest/nurse assist (0) Mental Statusoriented to own ability (0) Score: Low risk (<25). Moderate risk (25-44). High risk (>44).0 Jones InterventionsLOW INTERVENTIONS: *patient oriented to surroundings and call system, * patient/family falls education completed and documented, *patients fall status communicated during bedside handoff, *whiteboard updated, *mode of toileting discussed with patient, *bed in low position with brakes locked, *call light in reach, * non-skid footwear Learning Assessment (Patient): Learning Assessment (Patient): Patient is Able to be Assessed for Learningyes Factors Influencing Readiness to Learnanxiety; depression Factors that Impact Ability to Learnnone Devices/Methods Used to Communicatenone Learning Preferencesverbal instruction Cultural Considerationsnone Developmental Considerationsnone Tenriism Considerationsnone Learning Assessment (Other Learner): Other learner availableyes... Learnersignificant other Factors Influencing Readiness to Learnanxiety Factors that Impact Ability to Learnnone Devices/Methods Used to Communicatenone Learning Preferencesverbal instruction Cultural Considerationsnone Developmental Considerationsnone Tenriism Considerationsnone Depression/Suicide: Depression Screen: During the past month, have you often been bothered by feeling down, depressed or hopelessno During the past month, have you often had little interest or pleasure in doing thingsno Have you had any thoughts of harming anyone elseno [place] Suicide: Risk Screen Not Applicable/Able to Answerable to be screened In the Past Month: Have you wished you were or could go to sleep and not wake upno In the Past Month: Have you had any actual thoughts of killing yourselfno Lifetime: Have you ever done, started to do, or prepared to do anything to end your lifeno [place] Suicide Risknegative Family Violence: Abuse Screen: Are you or have you been threatened or abused physically, emotionally, or sexually by anyoneno Has anyone ever threatened to hurt your family or your petsno Does anyone try to keep you from having/contacting other friends or doing things outside your homeno Do you feel UNSAFE going back to the place where you are livingno Do you feel anyone has exploited or taken advantage of you financially or of your personal propertyno Clinical assessment: Are there any apparent signs of injuries/behaviors that could be related to abuse/neglectno Electronic Signatures: Radha Gutiérrez (RN) (Signed 25-Aug-2022 20:56) Authored: Allergies, Patient Verification, Travel History, Advance Directives, Jones Fall Screen, Learning Assessment (Patient), Learning Assessment (Other Learner), Depression/Suicide, Family Violence Last Updated: 25-Aug-2022 20:56 by Radha Gutiérrez (RN) [facility] FOLATE, SERUM, PREGNANCYon 0 07-31-2022 FOLATE, SERUM, >24.0 Normal >5.0 [facility] Comment on above: Result Comment: Low <3.4 Borderline 3.4-5.0 Normal >5.0 . Biotin interference may cause falsely elevated results. Patients taking a Biotin dose of up to 5 mg/day should refrain from taking Biotin for 24 hours before sample collection. Providers may contact their local laboratory for further information. Performed By: #### H IV #### [facility] [address] [place] [address] GLUCOSE ANA LUISA,3HR PREGNANCYon 07-31-2022 Glucose [Mass/Vol] 103 mg/dL Normal <140 [facility] Comment on above: Performed By: #### H IV #### [facility] [address] [place] [address] Glucose [Mass/Vol] 123 mg/dL Normal <155 [facility] Comment on above: Performed By: #### H IV #### [facility] [address] [place] [address] Glucose [Mass/Vol] 127 mg/dL Normal <180 [facility] Comment on above: Performed By: #### H IV #### [facility] [address] [place] [address] Glucose [Mass/Vol] 69 mg/dL Normal <95 [facility] Comment on above: Performed By: #### H IV #### [facility] [address] [place] [address] INTERPRETATION SEE BELOW Normal [facility] Comment on above: Result Comment: Diag nostics with glucose loading dose of 100 g. Reference values from [place] [employer]. Diabetes Care 2015;38(Suppl.1):S8-S16. Performed By: #### H IV #### [facility] [address] [place] [address] No Panel Informationon 07-31 SEE BELOW [facility] Work Phone: Comment on above: Diagnostics with glu cose loading dose of 100 g. Reference values from [place] [employer]. Diabetes Care 2015;38(Suppl.1):S8-S16. 103 mg/dL <140 [facility] Work Phone: 123 mg/dL <155 [facility] Work Phone: 127 mg/dL <180 [facility] Work Phone: 69 mg/dL <95 [facility] Work Phone: VITAMIN B12, PREGNANCYon Cobalamin (Vitamin B12) [Mass/Vol] 256 pg/mL Normal [facility] Comment on above: Result Comment: Non- 211 - 911 pg/mL First Trimester >=118 pg/mL Second Trimester >=130 pg/mL Third Trimester >= 99 pg/mL Please note results will not flag based on reference ranges above. Performed By: #### V 12PR #### [facility] [address] [place] [address] CBC ANEMIA PANEL WITH REFLEX ,PREGNANCYon 07-30-2022 RBC 3.75 x10E12/L Low 4.00 - 5.20 [facility] Comment on above: Performed By: #### A NEMI #### [place] [address] REFLEX ADDED, ANEMIA PANEL FERRITIN,VTB12,FOLATE,IR ON+TIBC Normal [facility] Comment on above: Performed By: #### A NEMI #### [address] [address] Erythrocyte distribution width (RBC) [Ratio] 14.0 % Normal 11.5 - 14.5 [place] [address] [employer] Work Phone: [phone] Comment on above: Reference Range: 11. 5 - 14.5 Performed By: #### A NEMI #### [address] [address] Hematocrit (Bld) [Volume fraction] 32.4 % Low 36.0 - 46.0 [place] [address] [employer] Work Phone: [phone] Comment on above: Reference Range: 36. 0 - 46.0 Performed By: #### A NEMI #### [address] [address] Hemoglobin (Bld) [Mass/Vol] 10.4 g/dL Low 12.0 - 16.0 [place] [address] [employer] Work Phone: [phone] Comment on above: Reference Range: 12. 0 - 16.0 Performed By: #### A NEMI #### [address] [address] MCHC (RBC) [Mass/Vol] 32.1 g/dL Normal 32.0 - 36.0 [place] [address] [employer] Work Phone: [phone] Comment on above: Reference Range: 32. 0 - 36.0 Performed By: #### A NEMI #### [address] [address] MCV (RBC) [Entitic vol] 86 fL Normal 80 - 100 [place] [address] [employer] Work Phone: Comment on above: Performed By: #### A NEMI #### [address] [address] Platelets (Bld) [#/Vol] 221 10*3/uL Normal 150 - 450 [place] [address] [employer] Work Phone: Comment on above: Performed By: #### A NEMI #### [address] [address] WBC (Bld) [#/Vol] 9.0 10*3/uL Normal 4.4 - 11.3 [place] [address] [employer] Work Phone: Comment on above: Performed By: #### A NEMI #### [address] [address] Cult, Urineon 07-30-2022 Bacteria identified Cx Nom (U) [place] [address] [employer] Work Phone: FERRITIN, PREGNANCYon 2022 FERRITIN, 13 ug/L Abnormal > 15 [facility] Comment on above: Performed By: #### H IV #### [facility] [address] [place] [address] GLUCOSE,1 HR SCREEN, PREGon 07-30-2022 Glucose [Mass/Vol] 173 mg/dL Abnormal <135 [facility] Comment on above: Result Comment: Diag nostic value with glucose loading dose of 50 g. Reference values from [place] [employer]. Diabetes Care 2015;38(Suppl.1):S8-S16 Performed By: #### A NEMI #### [address] [address] Glucose, 1 Hour Screen, Preg nancyon 07-30-2022 Glucose 1 Hr post 50 g glucose PO [Mass/Vol] 173 mg/dL Abnormal <135 [place] [address] [employer] Work Phone: Comment on above: Diagnostic value wit h glucose loading dose of 50 g. Reference values from [place] [employer]. Diabetes Care 2015;38(Suppl.1):S8-S16 IRON + TIBC PREGNANCYon 07-04 % SATURATION, NOT CALC. Normal [facility] Comment on above: Result Comment: . Non- 25 - 45 % First Trimester 7 - 57 % Second Trimester 10 - 44 % Third Trimester 5 - 37 % Please note results will not flag based on reference ranges above. One or more analytes used in this calculation is outside of the analytical measurement range. Calculation cannot be performed. Performed By: #### A NEMI #### [address] [address] IRON, 44 ug/dL Normal [facility] Comment on above: Result Comment: . Non- Female 14-17y 28 - 175 ug/dL Non- Female >=18y 35 - 150 ug/dL . First Trimester 72 - 143 ug/dL Second Trimester 44 - 178 ug/dL Third Trimester 30 - 193 ug/dL Please note results will not flag based on reference ranges above. Performed By: #### A NEMI #### [address] [address] TIBC, >494 Abnormal [facility] Comment on above: Result Comment: . Non- 240 - 445 ug/dL First Trimester 278 - 403 ug/dL Second Trimester 325 - 514 ug/dL Third Trimester 359 - 609 ug/dL Please note results will not flag based on reference ranges above. Interpret results with caution. One or more analytes used in this calculation is outside of the analytical measurement range. Performed By: #### A NEMI #### [address] [address] IRON + TIBC NOT CALC. [facility] Work Phone: Comment on above: .Non- 25 - 45 %First Trimester 7 - 57 %Second Trimester 10 - 44 %Third Trimester 5 - 37 %Please note results will not flag based on reference ranges above.One or more analytes used in this calculation is outside of the analytical measurement range.Calculation cannot be performed. IRON + TIBC >494 Abnormal [facility] Work Phone: Comment on above: .Non- 240 - 445 ug/dLFirst Trimester 278 - 403 ug/dLSecond Trimester 325 - 514 ug/dLThird Trimester 359 - 609 ug/dLPlease note results will not flag based on reference ranges above.Interpret results with caution.One or more analytes used in this calculation is outside of the analytical measurement range. IRON + TIBC 44 ug/dL [facility] Work Phone: Comment on above: .Non- Femal e 14-17y 28 - 175 ug/dLNon- Female >=18y 35 - 150 ug/dL.First Trimester 72 - 143 ug/dLSecond Trimester 44 - 178 ug/dLThird Trimester 30 - 193 ug/dLPlease note results will not flag based on reference ranges above. Laboratory - Blood bankon ABO group Nom (Bld) O [employer] [facility] Work Phone: Blood group antibody screen Ql Negative [employer] [facility] Work Phone: Rh immune globulin screen (Bld) [Interp] Negative [employer] [facility] Work Phone: Comment on above: Review your Rh Negat cece female patient's potential need for Rh Immune Globulin (RhIg)administration. Laboratory - Chemistry and C hemistry - challengeon 07-30-2022 Cobalamin (Vitamin B12) [Mass/Vol] 256 pg/mL [facility] Work Phone: Comment on above: Non- 211 - 911 pg/mLFirst Trimester >=118 pg/mLSecond Trimester >=130 pg/mLThird Trimester >= 99 pg/mLPlease note results will not flag based on reference ranges above. Laboratory - Hematology and Cell countson 07-30-2022 RBC (Bld) [#/Vol] 3.75 {x10E12/L} below low threshold See Below [employer] [facility] Work Phone: Comment on above: Reference Range: 4.0 0 - 5.20 No Panel Informationon 07-30 >24.0 >5.0 [employer] [facility] Work Phone: Comment on above: Low <3.4Borderline 3 .4-5.0Normal >5.0. Biotin interference may cause falsely elevated results. Patients taking a Biotin dose of up to 5 mg/day should refrain from taking Biotin for 24 hours before sample collection. Providers may contact their local laboratory for further information. 13 ug/L Abnormal > 15 [facility] [employer] Work Phone: FERRITIN,VTB12,FOLAT E,IR ON+TIBC [facility] [address] [employer] Work Phone: TYPE + SCREENon 07-30-2022 ABO TYPE O Normal [facility] Comment on above: Performed By: #### T +S #### [facility] [address] [place] [id number] RH TYPE Negative Normal [facility] Comment on above: Result Comment: Revi ew your Rh Negative female patient's potential need for Rh Immune Globulin (RhIg)administration. Performed By: #### T +S #### [facility] [address] [place] [id number] URINE CULTURE,BACTERIALon URINE CULTURE,BACTERIAL PATIENT: JEFF WHTIE LOCATION: [address]#: [id number] : [birth year] AGE: SEX: F ORDERED BY: JENISE SCHULTE SOURCE: URINE COLLECTED: 07/30/22 12:18 ANTIBIOTICS AT ESME.: RECEIVED : 07/30/22 23:33 SITE: Clean Catch/Voided R E S U L T S URINE CULTURE,BACTERIAL FINAL 08/01/22 08:01 MIXED URETHRAL GILBERTO. Normal [facility] Comment on above: Performed By: #### U [facility] #### [facility] [address] [place] [id number] Provider Note - ED v3on 06-03 Provider Note - ED v3 Provider Note: Chart Review: ED NOTES ED NOTES: Chief complaint: Dental pain History of chief complaint: Patient presents secondary to a right upper tooth ache. This has been present for months if not longer but has recently been progressively worse. She presents now to be further evaluated. No history of dental trauma. She does have a dentist but has not yet gotten in touch with her dentist. She is known to be . Describes the pain as aching and throbbing, localized, 10 out of 10 in intensity, and nonradiating. Allergies: Reviewed Home medications: Reviewed Medical history: Reviewed Surgical history: Reviewed Family history: Reviewed Social history: Reviewed Review of systems: I have reviewed constitutional HEENT cardiovascular pulmonary gastrointestinal genitourinary dermatologic psychiatric musculoskeletal neurologic and except where mentioned above all other systems are noted to be unremarkable. Nursing notes have been reviewed Physical examination: General appearance: Patient is sitting up in bed and appears well. Not toxic in appearance. Resting comfortably. HEENT: Normocephalic and atraumatic. Tooth #1, which is the right upper posterior most molar, is approximately 40% eroded away by decay. There is no fluctuant dental abscess. There is no facial swelling. Posterior oropharynx is clear and patent. Neck: Trachea is midline. No palpable lymphadenopathy Musculoskeletal: No gross bony deformity identified Neurologic: Moving all 4 extremities independently Dermatologic: No jaundice or pallor. No facial edema Psychiatric: Awake, alert, and oriented Medical decision making: Given the history and physical exam findings I feel the patient is appropriate for outpatient follow-up Assessment: #1 dental caries #2 dental pain #3 Plan: Patient will be discharged with a prescription for Pen-Vee K and instructed to take Tylenol for pain. Instructed to follow-up with her established dentist and call today for an appointment. Return if worse. HISTORY OF PRESENTING ILLNESS JEFF is a 22 year old Female and was seen by me at 24-Jun-2022 09:30 for a chief complaint of dental pain/injury (Amb to ER with c/o dental pain since Friday--right upper molar--states she needs a crown but doesn't have the money--taking Tylenol as she is 6 months )(1). Triage Information: Most recent Vital Sign Value Date Temp (F): 97.4 06-24-2022 09:37 Temp (C): 36.3 06-24-2022 09:37 Heart Rate (beats/min): 95 06-24-2022 09:37 Respirations (breaths/min): 17 06-24-2022 09:37 SpO2 (%): 98 06-24-2022 09:37 BP Systolic (mm Hg): 130 06-24-2022 09:37 BP Diastolic (mm Hg): 82 06-24-2022 09:37 PAST MEDICAL HISTORY ALLERGIES/INTOLERANCES: Allergy Allergen: NKDA Type: Reaction: Allergen: Chocolate Type: Food Reaction: Itching Hives/Urticaria Allergen: Peaches Type: Food Reaction: Itching Hives/Urticaria HEALTH HISTORY: No documented data. OUTPATIENT MEDICATIONS: Home Medications Review Status for Reconciliation: N/A Med Status: Patient Currently Takes Medications Drug Name: Multivitamins with Folic Acid 1.25 mg oral capsule Instructions: 1 cap(s) orally once a day Drug Name: ferrous sulfate 325 mg (65 mg elemental iron) oral tablet Instructions: 1 tab(s) orally 2 times a day Drug Name: ibuprofen 800 mg oral tablet Instructions: 1 tab(s) orally every 8 hours SIGNIFICANT EVENTS: Immunizations Description:.Influenza- Influenza Virus Description:Tdap Social/Behavioral Description:anxiety Description:depression DISPOSITION Diagnosis/Annotation: ED Dx Name:Pain, dental Code:K08.89 Disposition: discharged Type: home CONSULT CRITICAL CARE TIME Is this a critically ill patient: no Electronic Signatures: Charles Harrison) (Signed 24-Jun-2022 10:05) Authored: ED Notes, HPI, PMH, Clinical Impression, Attestation, Chart Review, Scores Last Updated: 24-Jun-2022 10:05 by Charles Harrison () References: 1. Data Referenced From Triage - ED 24-Jun-2022 09:37 Normal [facility] Risk Screen - Adult Emergenc yon 06-24-2022 Risk Screen - Adult Emergency Preferred Language: Preferred Language: Preferred Language for Discussing Health Care (patient/designee)Vivian palacio Patient Preferred Pharmacy: Patient Preferred Pharmacy Statement: I have reviewed and updated the patient's preferred pharmacy selection for today's visit. Advanced Directives: Advance Directive/DNRno Family Violence Adult: Abuse Screen: Are you or have you been threatened or abused physically, emotionally, or sexually by anyoneno Learning Assessment (Patient): Learning Assessment (Patient): Patient is Able to be Assessed for Learningyes Factors Influencing Readiness to Learnacuteness of illness Factors that Impact Ability to Learnnone Devices/Methods Used to Communicatenone Learning Preferencesverbal instruction; written material Cultural Considerationsnone Developmental Considerationsnone Tenriism Considerationsnone Learning Assessment (Other Learner): Learning Assessment (Other Learner): Other learner availableno Pressure Injury/TB/Substance: Pressure Injury: Pressure Injury Present on Admissionno Do you have a coughno Smoking Statusnever smoker Alcohol Usedenies Drug Usedenies Drug 2 Usedenies Admission Risk Screen: Significant IndicatorsComplete CAGE: CAGE: Is this an injured patient at a Trauma Center ([facility]/[place] /[place]): no Electronic Signatures: Loree Mayberry (RN) (Signed 24-Jun-2022 09:42) Authored: Preferred Language, Patient Preferred Pharmacy, Advanced Directives, Family Violence Adult, Learning Assessment (Patient), Learning Assessment (Other Learner), Pressure Injury/TB/Substance, Pressure Injury, CAGE Last Updated: 24-Jun-2022 09:42 by Loree Mayberry (RN) [facility] Triage - EDon 06-24-2022 Triage - ED Quick Triage: Are You yes Have You Given In The Last 6 Weeksno Are You Currently Breastfeedingno Chart Review: PRIMARY ASSESSMENT ABCD Normal Findings: airway open and patent, breathing normal, circulation normal and alert and oriented ARRIVAL INFORMATION Mode of Arrival: private vehicle CHIEF COMPLAINT JEFF WHITE is a Female patient with a chief complaint of dental pain/injury (Amb to ER with c/o dental pain since Friday--right upper molar--states she needs a crown but doesn't have the money--taking Tylenol as she is 6 months ). Triage Date/Time: 24-Jun-2022 09:37 VANESA: 4 Pain Rating (0-10): 7 = Severe Pain location: dental pain Vital Signs: Temperature: 97.4F ( 36.3C) taken forehead Blood Pressure: 130/82 Mean: Heart Rate: 95 Respiratory Rate: 17 Pulse Oximetry: 98% on room air, no respiratory support. Height: 5 feet 9.00 inches. 175.2 CM Weight: 231.4 pounds. Calculated 105.0 kg. (stated) Calculated BMI (kg/m2): 34.207 Calculated BSA (m2) 2.26 [place] Coma Scale: Best Eye Response: (E4) spontaneous Best Motor Response: (M6) obeys commands Best Verbal Response: (V5) oriented [place] Score: 15 Cough lasting greater than 3 weeks: no Allergies: yes Mask applied: yes AUDIT PARTNER History: Patient has homicidal thoughts: no Symptoms Are POSITIVE For: pain (describe) and toothache. Symptoms Are Negative For: bleeding, earache, fever, headache, mouth sores and tooth loss. Risk Screens Suicide Risk Screen In the Past Month: Have you wished you were or wished you could go to sleep and not wake up no In the Past Month: Have you had any actual thoughts of killing yourself no In Your Lifetime: Have you ever done anything, started to do anything, or prepared to do anything to end your life no Interventions: Jones Fall Interventions: LOW INTERVENTIONS: *patient oriented to surroundings and call system, * patient/family falls education completed and documented, *patients fall status communicated during bedside handoff, *whiteboard updated, *mode of toileting discussed with patient, *bed in low position with brakes locked, *call light in reach, * non-skid footwear TRAVEL HISTORY Travel History Coronavirus Screening: no exposure or symptoms Travel Exposure History: NO travel to International locations in the past 30 days PAIN Pain Scale Used: KENDELL Pain Rating (0-10): 7 = Severe Past Medical History: Past Medical History Reviewedyes Electronic Signatures: Loree Mayberry (RAUL) (Signed 24-Jun-2022 09:41) Entered: Risk Screens, Pain, ABCD, Travel History, Chart Review, Scores, Past Medical History Authored: Quick Triage, Risk Screens, Pain, ABCD, Travel History, Chart Review, Scores, Past Medical History Last Updated: 24-Jun-2022 09:41 by Loree Mayberry (RAUL) [facility] No Panel Informationon 05-31 Please click on the link to view the study images Normal [facility] Work Phone: Laboratory - Chemistry and C hemistry - challengeon 05-03-2022 Second trimester quad maternal screen panel SEE BELOW [facility] Work Phone: Comment on above: Genetics test res ults are available electronically in the AE under Diagnostic Testing-> Genetics.Results will be sent on a separate report. QUADCHECK-TRIPLE CHECK WITH INHIBINon 05-03-2022 QUADCHECK INTERPRETATION, SEE BELOW Normal [facility] Comment on above: Result Comment: G enetics test results are available electronically in the A[facility] under Diagnostic Testing-> Genetics. Results will be sent on a separate report. Performed By: #### A NEMI #### [address] [address] GC + CHLAMYDIA BY AMPLIFIED DETECTIONon 04-06-2022 CHLAMYDIA TRACH.,AMPLIFIED Negative Normal Negative [facility] Comment on above: Result Comment: The APTIMA Combo 2 assay is FDA-approved for Chlamydia trachomatis and Neisseria gonorrhoeae testing on female endocervical and vaginal swabs, ThinPrep liquid pap samples, male urine samples and urethral swabs. Performance characteristics for Chlamydia trachomatis and Neisseria gonorrhoeae testing on specific jvi-FUN-vmbmuvox sample types (female urine samples) have been validated by [facility]. This laboratory is certified by CLIA to perform high complexity testing. Samples from all other sites are not validated for this method. Performed By: #### A NEMI #### [address] [address] N.GONORRHEA,AMPLIFIED Negative Normal Negative [facility] Comment on above: Result Comment: The APTIMA Combo 2 assay is FDA-approved for Chlamydia trachomatis and Neisseria gonorrhoeae testing on female endocervical and vaginal swabs, ThinPrep liquid pap samples, male urine samples and urethral swabs. Performance characteristics for Chlamydia trachomatis and Neisseria gonorrhoeae testing on specific shg-CQJ-pnzvbzel sample types (female urine samples) have been validated by [facility]. This laboratory is certified by CLIA to perform high complexity testing. Samples from all other sites are not validated for this method. Performed By: #### A NEMI #### [address] [address] HEPATITIS B SURFACE AGon HEP.B SURFACE AG Non-Reactive Normal NONREACTIVE [facility] Comment on above: Result Comment: Biot in interference may cause falsely decreased results. Patients taking a Biotin dose of up to 5 mg/day should refrain from taking Biotin for 24 hours before sample collection. Providers may contact their local laboratory for further information. Performed By: #### H IV #### [facility] [address] [place] [address] CBC AND DIFFERENTIALon 04-05 % AUTOMATED IMMATURE GRAN 0.2 % Normal 0.0 - 0.9 [facility] Comment on above: Result Comment: Teresa ture Granulocyte Count (IG) includes promyelocytes, myelocytes and metamyelocytes but does not include bands. Percent differential counts (%) should be interpreted in the context of the absolute cell counts (cells/L). Performed By: #### H IV #### [facility] [address] [place] [address] Basophils (Bld) [#/Vol] 0.04 10*3/uL Normal 0.00 - 0.1 0 [facility] Comment on above: Performed By: #### H IV #### [facility] [address] [place] [address] Basophils/100 WBC (Bld) 0.5 % Normal 0.0 - 2.0 [facility] [facility] Comment on above: Performed By: #### H IV #### [facility] [address] [place] [address] Eosinophils (Bld) [#/Vol] 0.12 10*3/uL Normal 0.00 - 0.70 [facility] Comment on above: Performed By: #### H IV #### [facility] [address] [place] [address] Eosinophils/100 WBC (Bld) 1.4 % Normal 0.0 - 6.0 [facility] Comment on above: Performed By: #### H IV #### [facility] [address] [place] [address] Erythrocyte distribution width (RBC) [Ratio] 13.1 % Normal 11.5 - 14.5 [facility] Comment on above: Performed By: #### H IV #### [facility] [address] [place] [address] Hematocrit (Bld) [Volume fraction] 38.8 % Normal 36.0 - 46.0 [facility] Comment on above: Performed By: #### H IV #### [facility] [address] [place] [address] Hemoglobin (Bld) [Mass/Vol] 13.1 g/dL Normal 12.0 - 16.0 [facility] Comment on above: Performed By: #### H IV #### [facility] [address] [place] [address] Lymphocytes (Bld) [#/Vol] 1.66 10*3/uL Normal 1.20 - 4.80 [facility] Comment on above: Performed By: #### H IV #### [facility] [address] [place] [address] Lymphocytes/100 WBC (Bld) 18.9 % Normal 13.0 - 44.0 [facility] Comment on above: Performed By: #### H IV #### [facility] [address] [place] [address] MCHC (RBC) [Mass/Vol] 33.8 g/dL Normal 32.0 - 36.0 [facility] Comment on above: Performed By: #### H IV #### [facility] [address] [place] [address] MCV (RBC) [Entitic vol] 85 fL Normal 80 - 100 [facility] Comment on above: Performed By: #### H IV #### [facility] [address] [place] [address] Monocytes (Bld) [#/Vol] 0.39 10*3/uL Normal 0.10 - 1.0 0 [facility] Comment on above: Performed By: #### H IV #### [facility] [address] [place] [address] Monocytes/100 WBC (Bld) 4.4 % Normal 2.0 - 10.0 [facility] Comment on above: Performed By: #### H IV #### [facility] [address] [place] [address] Neutrophils (Bld) [#/Vol] 6.54 10*3/uL Normal 1.20 - 7.70 [facility] Comment on above: Result Comment: Perc ent differential counts (%) should be interpreted in the context of the absolute cell counts (cells/L). Performed By: #### H IV #### [facility] [address] [place] [address] Neutrophils/100 WBC (Bld) 74.6 % Normal 40.0 - 80.0 [facility] Comment on above: Performed By: #### H IV #### [facility] [address] [place] [address] Platelets (Bld) [#/Vol] 271 10*3/uL Normal 150 - 450 [facility] Comment on above: Performed By: #### H IV #### [facility] [address] [place] [address] RBC 4.59 x10E12/L Normal 4.00 - 5.20 [facility] Comment on above: Performed By: #### H IV #### [facility] [address] [place] [address] WBC (Bld) [#/Vol] 8.8 10*3/uL Normal 4.4 - 11.3 [facility] Comment on above: Performed By: #### H IV #### [facility] [address] [place] [address] Complete Blood Count + Diffe micaela 04-05-2022 Basophils/100 WBC (Bld) 0.5 % 0.0 - 2.0 [facility] Work Phone: Erythrocyte distribution width (RBC) [Ratio] 13.1 % See Below [employer] Work Phone: Comment on above: Reference Range: 11. 5 - 14.5 Hematocrit (Bld) [Volume fraction] 38.8 % See Below [employer] Work Phone: Comment on above: Reference Range: 36. 0 - 46.0 Hemoglobin (Bld) [Mass/Vol] 13.1 g/dL See Below [employer] Work Phone: Comment on above: Reference Range: 12. 0 - 16.0 Lymphocytes/100 WBC (Bld) 18.9 % See Below [employer] Work Phone: Comment on above: Reference Range: 13. 0 - 44.0 MCHC (RBC) [Mass/Vol] 33.8 g/dL See Below [facility] [employer] Work Phone: Comment on above: Reference Range: 32. 0 - 36.0 MCV (RBC) [Entitic vol] 85 fL 80 - 100 [facility] [employer] Work Phone: [phone] Monocytes/100 WBC (Bld) 4.4 % 2.0 - 10.0 [facility] [employer] Work Phone: Neutrophils/100 WBC (Bld) 74.6 % See Below [facility] [employer] Work Phone: Comment on above: Reference Range: 40. 0 - 80.0 Platelets (Bld) [#/Vol] 271 10*3/uL 150 - 450 [facility] [employer] Work Phone: RBC (Bld) [#/Vol] 4.59 {x10E12/L} See Below [facility] [employer] Work Phone: Comment on above: Reference Range: 4.0 0 - 5.20 WBC (Bld) [#/Vol] 8.8 10*3/uL 4.4 - 11.3 [facility] [employer] Work Phone: Complete Blood Count + Differential 0.04 {x10E9/L} See Below [facility] [employer] Work Phone: Comment on above: Reference Range: 0.0 0 - 0.10 Complete Blood Count + Differential 0.12 {x10E9/L} See Below [facility] [employer] Work Phone: Comment on above: Reference Range: 0.0 0 - 0.70 Complete Blood Count + Differential 0.39 {x10E9/L} See Below [facility] [employer] Work Phone: Comment on above: Reference Range: 0.1 0 - 1.00 Complete Blood Count + Differential 1.66 {x10E9/L} See Below [facility] Hospital[facility]goliaStephan[place] [address] [employer] Work Phone: Comment on above: Reference Range: 1.2 0 - 4.80 Complete Blood Count + Differential 6.54 {x10E9/L} See Below [place] [address] [place] Work Phone: Comment on above: Reference Range: 1.2 0 - 7.70 Percent differential counts (%) should be interpreted in the context of the absolute cell counts (cells/L). Complete Blood Count + Differential 1.4 % 0.0 - 6.0 [place] [address] [employer] Work Phone: Complete Blood Count + Differential 0.2 % 0.0 - 0.9 [place] [address] [employer] Work Phone: Comment on above: Immature Granulocyte Count (IG) includes promyelocytes, myelocytes and metamyelocytes but does not include bands. Percent differential counts (%) should be interpreted in the context of the absolute cell counts (cells/L). Cult, Urineon 04-05-2022 Bacteria identified Cx Nom (U) [place] [address] [employer] Work Phone: GC + CHLAMYDIA BY AMPLIFIED DETECTIONon 04-05-2022 Lab Specimen Source Urine Normal [facility] Comment on above: Performed By: #### A NEMI #### [place] [address] GC + Chlamydia By Amplified Detectionon 04-05-2022 C. trachomatis rRNA ANTOINETTE+probe Ql (Unsp spec) Negative Negative [place] [address] [place] Work Phone: Comment on above: The APTIMA Combo 2 a ssay is FDA-approved for Chlamydia trachomatis and Neisseria gonorrhoeae testing on female endocervical and vaginal swabs, ThinPrep liquid pap samples, male urine samples and urethral swabs. Performance characteristics for Chlamydia trachomatis and Neisseria gonorrhoeae testing on specific yfm-WWO-nylhjfti sample types (female urine samples) have been validated by [facility]. This laboratory is certified by CLIA to perform high complexity testing. Samples from all other sites are not validated for this method. N. gonorrhoeae rRNA ANTOINETTE+probe Ql (Unsp spec) Negative Negative [place] [address] [employer] Work Phone: Comment on above: SOURCE: Urine The AP PATRICK Combo 2 assay is FDA-approved for Chlamydia trachomatis and Neisseria gonorrhoeae testing on female endocervical and vaginal swabs, ThinPrep liquid pap samples, male urine samples and urethral swabs. Performance characteristics for Chlamydia trachomatis and Neisseria gonorrhoeae testing on specific nqm-AXJ-uajhgpmm sample types (female urine samples) have been validated by [facility]. This laboratory is certified by CLIA to perform high complexity testing. Samples from all other sites are not validated for this method. HIV 1/2 ANTIGEN/ANTIBODY SCR EEN WITH REFLEX TO CONFIRMATIONon 04-05-2022 HIV 1/2 AG/AB SCREEN Non-Reactive Normal NONREACTIVE [facility] Comment on above: Result Comment: HIV Ag/Ab screen is performed using the [employer] HIV Ag/Ab Combo assay which detects the presence of HIV p24 antigen as well as antibodies to HIV-1 (Group M and O) and HIV-2. . No laboratory evidence of HIV infection. If acute HIV infection is suspected, consider testing for HIV RNA by PCR (viral load). Performed By: #### H IV #### [facility] [address] [place] [address] Lab Specimen Source Normal [facility] Comment on above: Performed By: #### H IV #### [facility] [address] [place] [id number] HIV 1+2 Ab Qn (S) Non-Reactive See Below [facility] [place] [address] [place] Work Phone: Comment on above: SOURCE: Reference Ra nge: NONREACTIVE HIV Ag/Ab screen is performed using the [employer] HIV Ag/Ab Combo assay which detects the presence of HIV p24 antigen as well as antibodies to HIV-1 (Group M and O) and HIV-2..No laboratory evidence of HIV infection. If acute HIV infection is suspected, consider testing for HIV RNA by PCR (viral load). Hepatitis B Surface Antigeno n 04-05-2022 Hepatitis B Surface Antigen Non-Reactive See Below [facility] Work Phone: Comment on above: SOURCE: Chelsey baeza: NONREACTIVE Biotin interference may cause falsely decreased results. Patients taking a Biotin dose of up to 5 mg/day should refrain from taking Biotin for 24 hours before sample collection. Providers may contact their local laboratory for further information. Laboratory - Blood bankon ABO group Nom (Bld) O [facility] Work Phone: Blood group antibody screen Ql Negative [facility] [employer] Work Phone: Rh immune globulin screen (Bld) [Interp] Negative [facility] [employer] Work Phone: Comment on above: Review your Rh Negat cece female patient's potential need for Rh Immune Globulin (RhIg)administration. ABO group Nom (Bld) Canceled [facility] [employer] Work Phone: Blood group antibody screen Ql Canceled [facility] Work Phone: Rh immune globulin screen (Bld) [Interp] Canceled [facility] M[facility] Work Phone: RUBELLA IGG ABon 04-05-2022 RUBELLA IGG AB Positive Normal [facility] Comment on above: Result Comment: INTE RPRETATIVE COMMENT NEGATIVE: No IgG antibodies specific to Rubella detected. It is likely that the patient has not had a previous exposure to Rubella through infection or vaccination. Alternatively, the patient may have been exposed to Rubella but a failure to respond may indicate immunodeficiency. EQUIVOCAL:Equivocal results; obtain additional sample for retesting. POSITIVE: IgG antibody to Rubella detected. This may indicate that the patient was exposed to Rubella through infection or vaccination. The interpretation of serological tests should take into account the immunological status of the patient. Test results for patients, including immunocompromised patients, neonates, and pediatric patients, reflect their capacity to respond immunologically to the virus as well as their exposure to the pathogen. Patients treated with IVIG may demonstrate altered results in serological assays. Performed By: #### H IV #### [facility] [address] [place] [address] Rubella IgG Antibodyon 04-05 Rubella virus IgG IA Ql Positive W [facility] [employer] Work Phone: Comment on above: INTERPRETATIVE COMME NT NEGATIVE: No IgG antibodies specific to Rubella detected. It is likely that the patient has not had a previous exposure to Rubella through infection or vaccination. Alternatively, the patient may have been exposed to Rubella but a failure to respond may indicate immunodeficiency. EQUIVOCAL:Equivocal results; obtain additional sample for retesting. POSITIVE: IgG antibody to Rubella detected. This may indicate that the patient was exposed to Rubella through infection or vaccination.The interpretation of serological tests should take into accountthe immunological status of the patient. Test results forpatients, including immunocompromised patients, neonates, andpediatric patients, reflect their capacity to respondimmunologically to the virus as well as their exposure to thepathogen. Patients treated with IVIG may demonstrate alteredresults in serological assays. SYPHILIS SCREENING WITH REFL EXon 04-05-2022 SYPHILIS TOTAL AB Non-Reactive Normal NONREACTIVE [facility] Comment on above: Result Comment: No s ignificant level of Treponema pallidum antibody detected. Repeat testing in 2 to 4 weeks may be considered if early infection or incubating syphilis infection is suspected. Performed By: #### H IV #### [facility] [address] [place] [address] T. pallidum IgG+IgM IA Ql (S) Non-Reactive See Below [facility] [employer] Work Phone: Comment on above: Reference Range: NON REACTIVENo significant level of Treponema pallidum antibody detected. Repeat testing in 2 to 4 weeks may be considered if early infection or incubating syphilis infection is suspected. TYPE + SCREENon 04-05-2022 ABO TYPE O [facility] Comment on above: Performed By: #### T +S #### [facility] [address] [place] [address] RH TYPE Negative [facility] Comment on above: Result Comment: Revi ew your Rh Negative female patient's potential need for Rh Immune Globulin (RhIg)administration. Performed By: #### T +S #### [facility] [address] [place] [address] ABO TYPE Canceled Normal [facility] Comment on above: Order Comment: TEST TYPE + SCREEN WAS CANCELLED, 04/05/2022 11:59 [facility]BANK. Performed By: #### H IV #### [facility] [address] [place] [address] RH TYPE Canceled Normal [facility] Comment on above: Order Comment: TEST TYPE + SCREEN WAS CANCELLED, 04/05/2022 11:59 UBANK. Performed By: #### H IV #### [facility] [address] [place] [address] URINE CULTURE,BACTERIALon URINE CULTURE,BACTERIAL PATIENT: JEFF WHITE [place] [id number] : 4 AGE: SEX: F ORDERED BY: JENISE SCHULTE SOURCE: URINE COLLECTED: 04/05/22 11:06 ANTIBIOTICS AT ESME.: RECEIVED : 04/05/22 18:05 SITE: Clean Catch/Voided R E S U L T S URINE CULTURE,BACTERIAL FINAL 04/06/22 14:52 NO GROWTH Normal [facility] Comment on above: Performed By: #### H IV #### [facility] [address] [place] [address] IO HCG, Urine Test on 03-08-2022 HCG ( test) Ql (U) Positive [employer] Work Phone: LMPon 03-08-2022 Last menstrual period start date 09Jan2022 [employer] Work Phone: AUDIT [employer]NER - Office Visiton [employer]NER - Office Visit Provider Kristopher woodard Patient is a 21-year-old who comes in for confirmation of the patient is 8 weeks and 2 days. Viability confirmed we will follow-up for new OB in 4 weeks Chief Complaint Patient here today for amenorrhea. She states her LMP: 01/09/2022. She has nausea, breast tenderness, and cramping daily and some bleeding in the beginning of . She is taking prenatals. History of Present IllnessPatient is a 21-year-old who comes in for confirmation of . The patient reports that she found out she was 4 weeks ago. Overall she feels well reports some mild cramping and some mild nausea but overall is feeling fine. Patient is taking vitamins already. Patient takes no medications. Patient reports her last was uncomplicated. Active Problems Problems Asymptomatic bacteriuria, antepartum (646.53) (O99.891,R82.71) Chlamydia (079.98) (A74.9) Encounter for initial prescription of contraceptive pills (V25.01) (Z30.011) follow-up (V24.2) (Z39.2) Rh negative, maternal (646.83) (O26.899,Z67.91) Screen for STD (sexually transmitted disease) (V74.5) (Z11.3) Past Medical History Problems History of Menstruation AGE 13 History of NVD (normal vaginal delivery) (650) (O80) 05/18/2021_39weeks 1day_Male_7# 7oz Surgical History Problems History of Tonsillectomy Family History Grandmother Family history of diabetes mellitus (V18.0) (Z83.3) Family history of malignant neoplasm of breast (V16.3) (Z80.3) Grandfather Family history of diabetes mellitus (V18.0) (Z83.3) Social History Problems Current every day smoker (305.1) (F17.200) VAPES History of marijuana use (305.23) (F12.91) Rarely consumes alcohol (V49.89) (Z78.9) Sexually active Allergies NonMedication Chocolate Recorded By: May Faith; 10/13/2020 10:43:24 AM Peaches Recorded By: May Faith; 10/13/2020 10:43:24 AM Current Meds Medication NameInstruction PNV Plus Multivitamin TABS Vitals Vital Signs Recorded: 08Mar2022 11:27AM Gnbmfvga794 Tfdyiabis31 Height5 ft 9 in 2-20 Stature Czkeeejgvy73 % Xahezu276 lb 6 oz 2-20 Weight Urorowudaq62 % BMI Yudxxpzhjc45.4 kg/m2 BMI Nbadsunfkc74 % BSA Calculated2.15 [id number] Physical Exam Constitutional: Healthy-appearing woman in no distress. Head and Face: No obvious lesions. Neck: Good range of motion. Pulmonary: Breathing comfortably. External genitalia revealed no lesions Musculoskeletal: Good mobility of her extremities. Psychiatric: Appropriately oriented with normal mood and affect. Transvaginal ultrasound revealed an 8-week intrauterine with a heart rate of 167 final EDC is Oct 16 2022 consistent with her last menstrual period Signatures Electronically signed by : Jenise Schulte DO; Mar 08 2022 11:42AM EST (Author) Normal [facility] Coronavirus 2019 RNA by PCR, Screening Asymptomticon 05-16-2021 Coronavirus 2019 RNA by PCR, Screening Asymptomtic Not detected Normal See Below [facility] josee [employer] Work Phone: Comment on above: SOURCE: Nasal, Nasop haryngealReference Range: Not Detected.This assay is designed to detect the N, ORF1ab and/or S genes of SARS-CoV-2 via nucleic acid amplification. A Negative (NOT DETECTED) result does not preclude 2019-nCoV infection since the adequacy of sample collection and/or low viral burden may result in presence of viral nucleic acids below the clinical sensitivity of this test method. Negative (NOT DETECTED) result should not be used as the sole basis for treatment or other patient management decisions. Rather negative results should be combined with clinical observations, patient history, and epidemiological information to make patient management decisions.Fact sheet for providers: https://www.fda.gov/media/845308/downloadFact sheet for patients: https://www.fda.gov/media/111557/downloadThis test has received FDA Emergency Use Authorization (EUA) and has been verified by [facility] ([facility]). This test is only authorized for the duration of time that circumstances exist to justify the authorization of the emergency use of in vitro diagnostic tests for the detection of SARS-CoV-2 virus and/or diagnosis of COVID-19 infection under section 564(b)(1) of the Act, 21 U.S.C. 360bbb-3(b)(1), unless the authorization is terminated or revoked sooner. [facility] is certified under CLIA-88 as qualified to perform high complexity testing. Testing is performed in the [facility] laboratories located at [address] [place] [address]. No Panel Informationon 05-[address] [facility] [employer] Work Phone: Laboratory - Microbiology an d Antimicrobial susceptibilityon 04-30-2021 Bacteria identified Aer cx Nom (Genital specimen) [facility] [employer] Work Phone: Glucose, 1 Hour Screen, Preg nancyon 02-23-2021 Glucose 1 Hr post 50 g glucose PO [Mass/Vol] 115 mg/dL <135 [facility] [employer] Work Phone: Comment on above: Diagnostic value wit h glucose loading dose of 50 g. Reference values from [place] [employer]. Diabetes Care 2015;38(Suppl.1):S8-S16 IRON + TIBC PREGNANCYon 02-01 IRON + TIBC 10 % [facility] [employer] Work Phone: Comment on above: .Non- 25 - 45 %First Trimester 7 - 57 %Second Trimester 10 - 44 %Third Trimester 5 - 37 %Please note results will not flag based on reference ranges above. IRON + TIBC 470 ug/dL [facility] [employer] M[employer] Work Phone: Comment on above: .Non- 240 - 445 ug/dLFirst Trimester 278 - 403 ug/dLSecond Trimester 325 - 514 ug/dLThird Trimester 359 - 609 ug/dLPlease note results will not flag based on reference ranges above. IRON + TIBC 45 ug/dL Wo [employer] Mad Mimi Work Phone: Comment on above: .Non- Femal e 14-17y 28 - 175 ug/dLNon- Female >=18y 35 - 150 ug/dL.First Trimester 72 - 143 ug/dLSecond Trimester 44 - 178 ug/dLThird Trimester 30 - 193 ug/dLPlease note results will not flag based on reference ranges above. Laboratory - Blood bankon Blood group antibody screen Ql Negative [employer] Work Phone: Laboratory - Chemistry and C hemistry - challengeon 02-23-2021 Glucose [Mass/Vol] 69 mg/dL below low threshold 74 - 99 [employer] [facility] [employer] Work Phone: Laboratory - Hematology and Cell countson 02-23-2021 Erythrocyte distribution width (RBC) [Ratio] 13.4 % See Below [facility] [employer] Work Phone: Comment on above: Reference Range: 11. 5 - 14.5 Hematocrit (Bld) [Volume fraction] 32.3 % below low threshold See Below [employer] [facility] [employer] Work Phone: Comment on above: Reference Range: 36. 0 - 46.0 Hemoglobin (Bld) [Mass/Vol] 10.7 g/dL below low threshold See Below [employer] [facility] [employer] Work Phone: Comment on above: Reference Range: 12. 0 - 16.0 MCHC (RBC) [Mass/Vol] 33.1 g/dL See Below [facility] Hospital[facility] Work Phone: Comment on above: Reference Range: 32. 0 - 36.0 MCV (RBC) [Entitic vol] 89 fL 80 - 100 W [facility] hospitalAlgoliaSc[facility] HospitalMicro[facility] [employer] Work Phone: Platelets (Bld) [#/Vol] 249 10*3/uL 150 - 450 [employer] [facility] [employer] Work Phone: RBC (Bld) [#/Vol] 3.64 {x10E12/L} below low threshold See Below [employer] [facility] [employer] Work Phone: Comment on above: Reference Range: 4.0 0 - 5.20 WBC (Bld) [#/Vol] 11.6 10*3/uL above high threshold 4.4 - 11.3 [place] [address] [employer] Work Phone: No Panel Informationon 02-23 FERRITIN,VTB12,FOLAT E,IR ON+TIBC [place] [address] [place] Work Phone: 11 ug/L Abnormal > 15 [place] [address] [place] Work Phone: 274 pg/mL [place] [address] [place] Work Phone: Comment on above: Non- 211 - 911 pg/mLFirst Trimester >=118 pg/mLSecond Trimester >=130 pg/mLThird Trimester >= 99 pg/mLPlease note results will not flag based on reference ranges above. 19.4 ng/mL >5.0 [facility] Hospital[facility]goliaStephan[facility] [place] [address] [employer] Work Phone: Comment on above: Low <3.4Borderline 3 .4-5.0Normal >5.0. Biotin interference may cause falsely elevated results. Patients taking a Biotin dose of up to 5 mg/day should refrain from taking Biotin for 24 hours before sample collection. Providers may contact their local laboratory for further information. [employer] 02-23-2021 Rhogam ORDER RECD [place] [address] [employer] Work Phone: [employer] ORDER RECD [place] [address] [employer] Work Phone: Cult, Urineon 01-05-2021 Bacteria identified Cx Nom (U) Abnormal [place] [address] [place] Work Phone: GC + Chlamydia By Amplified Detectionon 01-05-2021 C. trachomatis rRNA ANTOINETTE+probe Ql (Unsp spec) Positive Abnormal Negative [place] [address] [place] Work Phone: Comment on above: The APTIMA Combo 2 a ssay is FDA-approved for Chlamydia trachomatis and Neisseria gonorrhoeae testing on female endocervical and vaginal swabs, ThinPrep liquid pap samples, male urine samples and urethral swabs. Performance characteristics for Chlamydia trachomatis and Neisseria gonorrhoeae testing on specific ugz-XNT-zdyyygng sample types (female urine samples) have been validated by [facility]. This laboratory is certified by CLIA to perform high complexity testing. Samples from all other sites are not validated for this method. N. gonorrhoeae rRNA ANTOINETTE+probe Ql (Unsp spec) Negative Negative [address] Work Phone: Comment on above: SOURCE: Urine The AP PATRICK Combo 2 assay is FDA-approved for Chlamydia trachomatis and Neisseria gonorrhoeae testing on female endocervical and vaginal swabs, ThinPrep liquid pap samples, male urine samples and urethral swabs. Performance characteristics for Chlamydia trachomatis and Neisseria gonorrhoeae testing on specific lvo-OFH-eyencffp sample types (female urine samples) have been validated by [facility]. This laboratory is certified by CLIA to perform high complexity testing. Samples from all other sites are not validated for this method. No Panel Informationon 01-04 Normal [place] [address] [employer] Work Phone: Please click on the link to view the study images Normal [address] Work Phone: HIV 1/2 ANTIGEN/ANTIBODY SCR EEN WITH REFLEX TO CONFIRMATIONon 11-10-2020 HIV 1+2 Ab Qn (S) Non-Reactive See Below [place] [address] [employer] Work Phone: Comment on above: SOURCE: Reference Ra nge: NONREACTIVE HIV Ag/Ab screen is performed using the Siemens Virtual Command HIV Ag/Ab Combo assay which detects the presence of HIV p24 antigen as well as antibodies to HIV-1 (Group M and O) and HIV-2..No laboratory evidence of HIV infection. If acute HIV infection is suspected, consider testing for HIV RNA by PCR (viral load). Hepatitis B Surface Antigeno n 11-10-2020 Hepatitis B Surface Antigen Non-Reactive See Below [place] [address] [employer] Work Phone: Comment on above: SOURCE: Reference Ra nge: NONREACTIVE Biotin interference may cause falsely decreased results. Patients taking a Biotin dose of up to 5 mg/day should refrain from taking Biotin for 24 hours before sample collection. Providers may contact their local laboratory for further information. SOURCE: Reference Ra nge: NONREACTIVE Results from patients taking biotin supplements or receiving high-dose biotin therapy should be interpreted with caution due to possible interference with this test. Providers may contact their local laboratory for further information. Laboratory - Blood bankon ABO group Nom (Bld) [facility] Work Phone: Blood group antibody screen Ql Negative [facility] [employer] Work Phone: [phone] Rh immune globulin screen (Bld) [Interp] Negative [facility] [employer] Work Phone: Comment on above: Review your Rh Negat cece female patient's potential need for Rh Immune Globulin (RhIg)administration. Laboratory - Hematology and Cell countson 11-10-2020 Erythrocyte distribution width (RBC) [Ratio] 12.4 % See Below [facility] [employer] Work Phone: Comment on above: Reference Range: 11. 5 - 14.5 Hematocrit (Bld) [Volume fraction] 38.0 % See Below [facility] [employer] Work Phone: Comment on above: Reference Range: 36. 0 - 46.0 Hemoglobin (Bld) [Mass/Vol] 12.9 g/dL See Below [facility] [employer] Work Phone: Comment on above: Reference Range: 12. 0 - 16.0 MCHC (RBC) [Mass/Vol] 33.8 g/dL See Below [facility] Work Phone: Comment on above: Reference Range: 32. 0 - 36.0 MCV (RBC) [Entitic vol] 89 fL 80 - 100 [facility] [employer] Work Phone: [phone] Platelets (Bld) [#/Vol] 252 10*3/uL 150 - 450 [facility] [employer] Work Phone: [phone] RBC (Bld) [#/Vol] 4.28 {x10E12/L} See Below [facility] Work Phone: Comment on above: Reference Range: 4.0 0 - 5.20 WBC (Bld) [#/Vol] 9.4 10*3/uL 4.4 - 11.3 [facility] Work Phone: No Panel Informationon 11-10 NONE [facility] Work Phone: Rubella IgG Antibodyon 11-10 Rubella virus IgG IA Ql Positive [facility] Work Phone: Comment on above: SOURCE: INTERPRETATI VE COMMENT NEGATIVE: No IgG antibodies specific to Rubella detected. It is likely that the patient has not had a previous exposure to Rubella through infection or vaccination. Alternatively, the patient may have been exposed to Rubella but a failure to respond may indicate immunodeficiency. EQUIVOCAL:Equivocal results; obtain additional sample for retesting. POSITIVE: IgG antibody to Rubella detected. This may indicate that the patient was exposed to Rubella through infection or vaccination.The interpretation of serological tests should take into accountthe immunological status of the patient. Test results forpatients, including immunocompromised patients, neonates, andpediatric patients, reflect their capacity to respondimmunologically to the virus as well as their exposure to thepathogen. Patients treated with IVIG may demonstrate alteredresults in serological assays. SYPHILIS SCREENING WITH REFL EXon 11-10-2020 T. pallidum IgG+IgM IA Ql (S) Non-Reactive See Below [facility] [employer] Work Phone: Comment on above: SOURCE: Reference Ra nge: NONREACTIVENo significant level of Treponema pallidum antibody detected. Repeat testing in 2 to 4 weeks may be considered if early infection or incubating syphilis infection is suspected. IO HCG, Urine Test on 10-13-2020 HCG ( test) Ql (U) Positive [facility] Work Phone: Tobacco Screening.on Last menstrual period start date 17Aug2020 [facility] [employer] Work Phone: Tobacco use status CPHS a) Yes [facility] [employer] Work Phone: COS[facility] SARS-CoV-2 (COVID-19) RT-PCR, Qualitativeon 03-02-2020 SARS-CoV-2 (COVID-19) RT-PCR, Qualitative [id number] [facility] Comment on above: Order Comment: Is th is a pre-procedure screening test?->No Is this specimen being sent to an external lab?->No [id number]&Nasopharyngeal^\S\^Nasal Septum&Nasal Septum Performed By: #### E LRG2 #### [place] [address] [facility] SARS-CoV-2 (COVID-19) RT-PCR, Qualitativeon 02-29-2020 Date of Symptom Onset [id number] [facility] Comment on above: Order Comment: Is th is a pre-procedure screening test?->No Is this specimen being sent to an external lab?->No [id number]&Nasopharyngeal^\S\^Nasal Septum&Nasal Septum Performed By: #### E LRG2 #### [place] [address] Employed in Healthcare setting? No [facility] Comment on above: Order Comment: Is th is a pre-procedure screening test?->No Is this specimen being sent to an external lab?->No 20638&Nasopharyngeal^\S\^Nasal Septum&Nasal Septum Performed By: #### E LRG2 #### [place] [address] First COVID-19 test? Yes [facility] Comment on above: Order Comment: Is th is a pre-procedure screening test?->No Is this specimen being sent to an external lab?->No [id number]&Nasopharyngeal^\S\^Nasal Septum&Nasal Septum Performed By: #### E LRG2 #### [address] [address] Hospitalized? No Normal [facility] Comment on above: Order Comment: Is th is a pre-procedure screening test?->No Is this specimen being sent to an external lab?->No [id number]&Nasopharyngeal^\S\^Nasal Septum&Nasal Septum Performed By: #### E LRG2 #### [address] [address] ICU? No Normal [facility] Comment on above: Order Comment: Is th is a pre-procedure screening test?->No Is this specimen being sent to an external lab?->No [id number]&Nasopharyngeal^\S\^Nasal Septum&Nasal Septum Performed By: #### E LRG2 #### [place] [address] ? Unknown Normal [facility] Comment on above: Order Comment: Is th is a pre-procedure screening test?->No Is this specimen being sent to an external lab?->No [id number]&Nasopharyngeal^\S\^Nasal Septum&Nasal Septum Performed By: #### E LRG2 #### [place] [address] Resident in [facility] care setting? No Normal [facility] Comment on above: Order Comment: Is th is a pre-procedure screening test?->No Is this specimen being sent to an external lab?->No 40578&Nasopharyngeal^\S\^Nasal Septum&Nasal Septum Performed By: #### E LRG2 #### [address] [address] Symptomatic as defined by [facility]? Yes Normal [facility] Comment on above: Order Comment: Is th is a pre-procedure screening test?->No Is this specimen being sent to an external lab?->No 37771&Nasopharyngeal^\S\^Nasal Septum&Nasal Septum Performed By: #### E LRG2 #### [address] [address] [facility] SARS-CoV-2 (COVID-19) RT-PCR, Qualitative Is this a pre-procedure screening test?->No Is this specimen being sent to an external lab?->No 76946&Nasopharyngeal^^^N ranjit Septum&Nasal Septum SARS-CoV-2 (COVID-19) RT-PCR, Qualitative: RESULT: NEGATIVE Source: [facility] Collected: 02/29/20 16:43 Site: Received : 02/29/20 23:16 SARS-CoV-2 (COVID-19) RT-PCR, QualitFINAL 03/02/20 08:44 RESULT: NEGATIVE - SARS-CoV-2 RNA was NOT detected Lineage B-betacoronavirus RNA was NOT detected. - INTERPRETATION: A negative result indicates severe acute respiratory syndrome coronavirus 2 (SARS-CoV-2) RNA was not detected. A negative result means that SARS-CoV-2 RNA was not present in the specimen above the limit of detection. Negative results do not preclude SARS-CoV-2 (COVID19) infection and should not be used as the sole basis for patient management decisions. SARS-CoV-2 is a lineage B-betacoronavirus. Lineage B-betacoronavirus was not detected. Negative results must be combined with clinical observations, patient history, and epidemio- logical information. Optimum specimen types and timing for peak viral levels during infections caused by SARS-CoV-2 have not been determined. Collection of multiple specimens from the same patient may be necessary to detect the virus. The possibility of a false negative result should especially be considered if the patient's recent exposures or clinical presentation suggest that SARS-CoV-2 infection is possible, and diagnostic tests for other causes of illness e.g., other respiratory illness, are negative. If SARS-CoV-2 infection is still suspected, re-testing should be considered in consultation with public health. - METHOD: Real-time reverse transcriptase PCR amplification for the qualitative detection and differentiation of lineage B-betacoronavirus (target E gene) and severe acute respiratory syndrome coronavirus 2 (SARS-CoV-2) (target S gene) specific RNA using the RealStar SARS-CoV-2 RT-PCR Kit 1.0 from [employer]. - COMMENT: This test has been validated as a laboratory developed test in accordance with Guidance Documents issued by the FDA pertaining to Coronavirus Disease-2019 Tests during the Public Health Emergency. FDAs independent review of the validation under the FDAs Emergency Use Authorization (EUA) authority is pending and will be performed according to current guidance requirements. - This test was developed and its performance determined by [facility]. It has not been cleared or approved by the U.S. Food and Drug Administration. Results should be used in conjunction with clinical findings, and should not form the sole basis for a diagnosis or treatment decision. Reviewed by: Jluis Chaparro [facility] Comment on above: Order Comment: Is th is a pre-procedure screening test?->No Is this specimen being sent to an external lab?->No 61853&Nasopharyngeal^\S\^Nasal Septum&Nasal Septum Performed By: #### E LRG2 #### [place] [address] Progress Noteon 02-29-2020 Ic [employer] Engineer Authentication Interface Message Text Patient ID: Jeff White is a 19 y.o. female. Her chief complaint(s) include: Fever (102.5 cough,sinus pressure,chest tightness) Assessment 1. Suspected COVID-19 virus infection 2. Cough 3. Fever, unspecified 4. Viral infection of lower respiratory system 5. Wheezing Plan Jeff was seen today for fever. Diagnoses and all orders for this visit: Suspected COVID-19 virus infection - SARS-CoV-2 (COVID-19) RT-PCR, Qual. Cough Fever, unspecified Viral infection of lower respiratory system Wheezing - Aerosol Treatment/Nebulization - albuterol (VENTOLIN) 0.083% nebulizer solution 2.5 mg - albuterol 108 (90 Base) MCG/ACT inhaler; Inhale 2 Puffs into the lungs every 4 hours as needed for Wheezing, Shortness of Breath or Cough Use with spacer. - Pulse Ox, Multiple Return for Well Visit and as needed. Subjective She is unaccompanied. Fever The onset has been acute. The duration has been 5 days. The pattern is persistent. The course is gradually worsening. The patient's symptoms have included fatigue, malaise, decreased appetite, sore throat, congestion, rhinorrhea, moist cough, shortness of breath, wheezing, difficulty breathing and headaches. The patient's symptoms have included no decreased fluid intake, no difficulty sleeping, no bilateral eye discharge, no eye redness, no eye watering, no itchy eyes, no sneezing, no trouble swallowing, no bilateral ear pain, no abdominal pain, no diarrhea, no rash and no vomiting. The patient has had a maximum temperature of 102.5 degrees. The temperature was taken by temporal artery thermometer. The patient has been exposed to sick contacts with cough at home (Boyfriend). The patient's home management has included acetaminophen. Review of Systems Constitutional: Positive for fever. Objective Vital Signs 02/29/20 1608 Temp: 36.4 C (97.5 F) TempSrc: Temporal Weight: 82.8 kg There is no height or weight on file to calculate BMI. Physical Exam Constitutional: She is active. Non-toxic appearance. She appears ill. No distress. HENT: Head: Atraumatic. Ears: Right Ear: Tympanic membrane normal. Tympanic membrane is not erythematous. No purulent effusion and no serous effusion is present. Left Ear: Tympanic membrane normal. Tympanic membrane is not erythematous. No purulent effusion and no serous effusion. Nose: Nasal discharge present. Mouth/Throat: Mucous membranes are moist. No pharynx erythema. Eyes: Conjunctivae are normal. Cardiovascular: Normal rate and regular rhythm. Heart murmur not heard. Pulmonary/Chest: Effort normal. No stridor. No respiratory distress. Decreased air movement (throughout) is present. She has decreased breath sounds. She has wheezes (throughout). She has rhonchi (throughout). Exhibits no retraction. After albuterol increased breath sounds slightly coarse throughout. Wheezing and rhonchi resolved. Abdominal: Soft. Bowel sounds are normal. There is no abdominal tenderness. Lymphadenopathy: No right anterior and posterior cervical adenopathy present. No left anterior and posterior cervical adenopathy present. Neurological: She is alert. Normal [facility] HIV 1 AND 2 Antibody Screeno n 06-16-2019 HIV 1 AND 2 Antibody Screen Negative Normal Negative [facility] Comment on above: Order Comment: Is th is specimen being sent to an external lab?->No Result Comment: Nega tive result does not rule out HIV infection. If exposure to HIV infection occurred <14 days ago, contact the laboratory to request addition of HIV-1 RNA detection / quantification test (HIVQN). Test Performed by: [facility] [address], [place] [address] Greenhouse Specialist: Salvador Patel M.D. Ph.D.; CLIA# [id number] Performed By: #### H IV12 #### [address] [address] Rapid Plasma Reaginon 2019 Rapid Plasma Reagin Nonreactive Normal [facility] Comment on above: Order Comment: Is th is specimen being sent to an external lab?->No Result Comment: REFE RENCE RANGE: Nonreactive A reactive RPR should be verified by an FTA to confirm active infection. Performed By: #### R NV #### [address] [address] C. trachomatis/GC PCR Panel on GeneXperton 06-14-2019 C. trachomatis/GC PCR Panel on GeneXpert Is this specimen being sent to an external lab?->No C. trachomatis PCR on GeneXpert: NEGATIVE-Chlamydia trachomatis DNA: NOT DETECTED. Source: [facility] Collected: 06/14/19 11:16 Site: Urine Received : 06/14/19 13:01 C. trachomatis PCR on GeneXpert FINAL 06/15/19 10:26 NEGATIVE-Chlamydia trachomatis DNA: NOT DETECTED. - GC PCR on GeneXpert FINAL 06/15/19 10:26 NEGATIVE-Neisseria gonorrhea DNA: NOT DETECTED. - Method: DNA detection by RT PCR on a GeneXpert analyzer. - NOTE: This Amplified DNA Assay should not be used for the evaluation of suspected sexual abuse or for other medico-legal indications. - Screening urine specimens for Chlamydia trachomatis and Neisseria gonorrhoeae using nucleic acid amplification is an accurate and sensitive method compared to standard techniques of detection of these pathogens. Because the pathogen is diluted in urine, it is somewhat less sensitive than a direct swab specimen evaluated by nucleic acid amplification techniques. Normal [facility] Comment on above: Performed By: #### C TNG #### [address] [address] HSV PCRon 06-14-2019 HSV PCR Is this specimen yu ng sent to an external lab?->No HSV PCR: NEGATIVE. No Herpes simplex virus type 1 or type 2 DNA Source: [facility] Collected: 06/14/19 11:17 Site: Received : 06/14/19 12:55 HSV PCR FINAL 06/15/19 15:04 NEGATIVE. No Herpes simplex virus type 1 or type 2 DNA detected. - Method: PCR amplification with fluorescent probe detection using Mirifice ASR HSV reagents from [employer]. The sensitivity is 5 copies/uL for HSV1 and 5 copies/uL for HSV2. - Comment: This test was developed and its performance determined by [facility]. It has not been cleared or approved by the U.S. Food and Drug Administration. The FDA has determined that such clearance or approval is not necessary. This test is used for clinical purposes. It should not be regarded as investigational or for research. Pursuant to the requirements of CLIA'88, this laboratory has established and verified the test's accuracy and precision. - Reviewed by: Vinita Bass [facility] Comment on above: Performed By: #### H [facility] #### [place] [address] Progress Noteon 06-14-2019 Ic Design Engineer Authentication Interface Message Text Patient ID: Jeff White is a 19 y.o. female. Her chief complaint(s) include: Sexually Transmitted Diseases Assessment 1. Exposure to sexually transmitted disease (STD) Plan Jeff was seen today for sexually transmitted diseases. Diagnoses and all orders for this visit: Exposure to sexually transmitted disease (STD) - C.trachomatis/GC PCR Panel - HIV-1&2 Antibody Screen - HSV PCR - Rapid Plasma Reagin - Venipuncture - POCT urine HCG Return if symptoms worsen or fail to improve. Call results to patient phone [phone] (pt cell) okay to call mom with results if unable to reach patient. Subjective HPI Comments: Jeff currently has no symptoms. No vaginal itching, no vaginal discharge, no rash or lesions. However, she reports her boyfriend told her he hast several red spots on his genitals which were increasing in number. He also reported to her that he had redness of urethra and dysuria. She is here to be checked for an STD since she thinks she may have been exposed. She reports boyfriend has not been tested. She reports that she has had cold sores in the past. She is unaccompanied. No educational sign language interpreter was used. Exposure to STD This problem is new. The patient's symptoms have included no fever, no congestion, no rhinorrhea, no sore throat, no cough, no bilateral ear pain, no abdominal pain, no diarrhea, no rash and no vomiting. Primary Care Review of Systems Objective Vital Signs 06/14/19 1034 BP: 106/47 Pulse: 80 Temp: 36.8 C (98.2 F) Weight: 73.1 kg There is no height or weight on file to calculate BMI. Physical Exam Constitutional: She appears well. She is active. No distress. HENT: Head: Atraumatic. Right Ear: Tympanic membrane normal. Left Ear: Tympanic membrane normal. Mouth/Throat: Mucous membranes are moist. Eyes: Conjunctivae are normal. Cardiovascular: Normal rate and regular rhythm. Heart murmur not heard. Pulmonary/Chest: Breath sounds normal. There is normal air entry. Abdominal: Soft. Bowel sounds are normal. There is no tenderness. Neurological: She is alert. Normal [facility] US Abdomen Completeon 2017 US Abdomen Complete Exam Date/Time: 018 08:32 EDTReason for Exam:ABD CRAMPING/PAIN LEFT UPPER QUADReportSTUDY:US Abdomen Complete; 11/04/2017 8:32 amINDICATION:17 y/o F with ABD CRAMPING/PAIN LEFT UPPER QUAD.COMPARISON:None.[facility] ESSION NUMBER(S):[id number] 20ORDERING CLINICIAN:Sandhya Orta:Routine ultrasound of the abdomen was performed. Static images were obtained for remote interpretation.FINDINGS: LIVER:Craniocaudal length: 16.4 cm, mildly enlarged for ageEchogenicity: Normal.Mass: None seenBILE DUCTS:Intrahepatic ducts: NondilatedCommon bile duct diameter: 2 mmGALLBLADDER:Gallbladde r: Normal.Gallstones: None.Gallbladder sludge: None.Gallbladder wall thickening: None.Pericholecystic fluid: None.PANCREAS:Visualized portions are unremarkable.SPLEEN:Cran iocaudal length: 10.3 cm, within normal limits of size for age.No focal splenic lesion.RIGHT KIDNEY:Craniocaudal length: 10.2 cm, within normal limits of size for age.No hydronephrosis, hydroureter or focal renal lesion.Exam Date/Time:11/04/2017 08:32 EDTReportLEFT KIDNEY:Craniocaudal length: 11.0 cm, within normal limits of size for age.No hydronephrosis, hydroureter or focal renal lesion.ABDOMINAL AORTA AND IVC:Visualized portions are unremarkable.PERITONEAL FLUID:None.Urinary bladder is only mildly distended.IMPRESSION:Mil d hepatomegaly.Otherwise, unremarkable ultrasound of the abdomen. FINAL REPORT Dictated: 11/04/2017 9:34 am Jamie SCHERER, AllisonbenSigned (Electronic Signature): 11/04/2017 9:34 amSigned by: Tammi Ayala MD Technologist: [facility] US Pelvis Non-OB Completeon 11-04-2017 US Pelvis Non-OB Complete Exam Date/Time:11/04/2017 12:17 EDTReason for Exam:ABD CRAMPING/PAIN LEFT UPPER QUADReportSTUDY:US Pelvis Non-OB Complete; 11/04/2017 12:17 pmINDICATION:ABD CRAMPING/PAIN LEFT UPPER QUAD.COMPARISON:None.[facility] ESSION NUMBER(S):[id number] 27ORDERING CLINICIAN:Sandhya CosmeleTECHNIQUE:Multipl e multiplanar static corrales scale, color and spectral waveform sonographic images of the pelvis were obtained. Transabdominal ultrasound was performed.FINDINGS:UTERU S:The uterus is grossly unremarkable in appearance.The uterus measures at 8.4 cm in length and 2.8 x 3.9 cm in AP and transverse diameters.ENDOMETRIUM:Th e endometrium measures a thickness of 2 mm, which is normal.RIGHT ADNEXA:The right ovary measures at 3.1 x 1.4 x 1.2 cm.Normal-appearing color Doppler flow is seen in the right ovary.No right adnexal mass is identified.LEFT ADNEXA:The left ovary measures at 3.4 x 2.0 x 1.3 cm.Normal-appearing color Doppler flow is seen in the left ovary.No left adnexal masses identified.CUL DE SAC:No free fluid is identified.IMPRESSION:Ex am Date/Time:11/04/2017 12:17 EDTReport1. Unremarkable ultrasound appearance of the pelvis. FINAL REPORT Dictated: 11/04/2017 1:26 pm Иван Corbett MD CSigned (Electronic Signature): 11/04/2017 1:26 pmSigned by: Иван Corbett MD Technologist: LUCIANA Normal [facility] C Genitalon 10-04-2017 C Genital Final Report: Rare Normal vaginal gilberto isolated Normal [facility] Comment on above: Performed By: #### 2 [id number] ####[address] [place] [address] Chlamydia GC by PCRon 2017 Chlamydia by PCR. Detected Abnormal Not Detected [facility] Comment on above: Result Comment: Xper t CT/NG Assay performance has not been evaluated in patients less than 14 years of age. Performed By: #### 2 [id number] ####L[address]I ChengG[address] [place] [address] Gonorrhoeae by PCR Not Detected Normal Not Detected [facility] Comment on above: Result Comment: Xper t CT/NG Assay performance has not been evaluated in patients less than 14 years of age. Performed By: #### 2 [id number] ####LORI ChengKdjIhpm9201 [place] [address] U BhCG Qlton 10-02-2017 HCG.beta subunit Qn Negative Normal Neg [facility] Comment on above: Performed By: #### 2 [id number] ####LORI Urinalysis Manual Btrkslvrso1030 [place] [address] UA Completeon 10-02-2017 UA Blood Negative Normal Negative [facility] Comment on above: Performed By: #### 2 [id number] ####LORI NcjUjox8675 [place] [address] UA Clarity SltCloudy Abnormal Clear [facility] Comment on above: Performed By: #### 2 [id number] ####LORI ChengNraMyhf4928 [place] [address] UA Leuk Est 2+ Abnormal Negative [facility] Comment on above: Performed By: #### 2 642675 ####LORI Betancourto1025 [place] [address] UA Mucous Trace Abnormal Trace [facility] Comment on above: Performed By: #### 2 [id number] ####LORI Betancourto1025 [place] [address] UA Nitrite Negative Normal Negative [facility] Comment on above: Performed By: #### 2 347476 ####LORI ChengUbxHebo7832 [place] [address] UA pH 6.0 Normal 4.6-8.0 [facility] Comment on above: Performed By: #### 2 775062 ####LORI Betancourto1025 [place] [address] UA Protein Negative Normal Negative [facility] Comment on above: Performed By: #### 2 457498 ####LORI Betancourto1025 [place] [address] UA Spec Grav 1.023 Normal 1.003-1.030 [facility] Comment on above: Performed By: #### 2 365552 ####LORI ChengTlvYqzw1727 [place] [address] UA Squam Epithelial 0-5 Normal 0-5 [facility] Comment on above: Performed By: #### 2 106726 ####LORI Betancourto1025 [place] [address] UA Urobilinogen 4.0 mg/dL Abnormal [facility] Comment on above: Performed By: #### 2 829428 ####LORI ChengDxmKipp8100 [place] [address] UA WBC 5-10 Abnormal 0-5 [facility] Comment on above: Performed By: #### 2 417086 ####LORI Betancourto1025 [place] [address] Urine, color Yellow Normal Yellow [facility] Comment on above: Performed By: #### 2 891867 ####LORI ZoqHbzo7195 [place] [address] Urine, glucose Negative Normal Negative [facility] Comment on above: Performed By: #### 2 223550 ####LORI Betancourto1025 [place] [address] Urine, ketones presence Negative Normal Negative [facility] Comment on above: Performed By: #### 2 960254 ####LORI ChengYfcXrtb6119 [place] [address] Urine, urobilinogen Negative Normal Negative [facility] Comment on above: Performed By: #### 2 698182 ####LORI ChengIysJupx2618 [place] [address] Wet Mount/Trich & Yeaston Trich & Yeast None Detected Normal None Detected [facility] Comment on above: Performed By: #### 2 833655 ####LORI ChengLjrDcqg7999 [place] [address] Acetamnphn Lvlon 03-26-2017 Acetaminophen mass conc <10 Normal 0-15 [facility] Comment on above: Result Comment: Tyle nol - Therapeutic 10-30 ug/ml Toxic 4 hr. Post ingestion >150 ug/ml Toxic 8hr Post ingestion >75 ug/ml Toxic 12hr. Post ingestion >40 ug/ml Performed By: #### 2 497161 ####LORI ChengWorTeve1360 [place] [address] Auto Diffon 03-26-2017 Basophils Auto #/vol (Bld) 0.1 E3/mcL Normal 0.0-0.2 [facility] Comment on above: Order Comment: Order Added by Discern Expert. Performed By: #### 2 897880 ####LORI ChengVvhMpwd7577 [place] [address] Basophils/100 WBC Auto (Bld) 0.9 % Normal 0.0-2.0 [facility] Comment on above: Order Comment: Order Added by Discern Expert. Performed By: #### 2 926931 ####LORI ChengHgiHoax8931 [place] [address] Eos Absolute 0.1 E3/mcL Normal 0.0-0.7 [facility] Comment on above: Order Comment: Order Added by Discern Expert. Performed By: #### 2 332841 ####LORI ChengMzfKhsn3031 [place] [address] Eosinophils/100 leukocytes 1.1 % Normal 0.0-11.0 [facility] Comment on above: Order Comment: Order Added by Discern Expert. Performed By: #### 2 050379 ####LORI ChengHtjDtzc2933 [place] [address] Lymphocytes 2.6 E3/mcL Normal 1.2-3.4 [facility] Comment on above: Order Comment: Order Added by Discern Expert. Performed By: #### 2 082492 ####LORI ChengTolOktk9313 [place] [address] Lymphocytes/100 leukocytes 28.9 % Normal 20.0-55.0 [facility] Comment on above: Order Comment: Order Added by Discern Expert. Performed By: #### 2 301892 ####LORI ChengUruJvgw4606 [place] [address] Irion Absolute 0.7 E3/mcL Normal 0.0-0.7 [facility] Comment on above: Order Comment: Order Added by Discern Expert. Performed By: #### 2 767709 ####LORI ChengPejGfwg0277 [place] [address] Monocytes/100 leukocytes 7.6 % Normal 0.0-10.0 [facility] Comment on above: Order Comment: Order Added by Discern Expert. Performed By: #### 2 301159 ####LORI ChengHtbKbwo4540 [place] [address] Neutro Absolute 5.4 E3/mcL Normal 1.4-6.5 [facility] Comment on above: Order Comment: Order Added by Discern Expert. Performed By: #### 2 310382 ####LORI ChengPsdUsdk7302 [place] [address] Neutro Auto 61.5 % Normal 37.0-75.0 [facility] Comment on above: Order Comment: Order Added by Discern Expert. Performed By: #### 2 581974 ####LORI ChengZjkNglp5354 [place] [address] BMPon 03-26-2017 BUN/Creatinine Ratio 16.2 ratio Normal 5.4-30.0 [facility] Comment on above: Performed By: #### 2 717343 ####LORI KoxSfek3368 [place] [address] Creatinine 0.8 mg/dL Normal 0.6-1.3 [facility] Comment on above: Performed By: #### 2 057596 ####LORI DyiVtwm1591 [place] [address] Urea nitrogen 13 mg/dL Normal 7-18 [facility] Comment on above: Performed By: #### 2 847666 ####LORI ZppRqpd9193 [place] [address] Calcium 9.3 mg/dL Normal 8.4-10.2 [facility] Comment on above: Performed By: #### 2 345948 ####LORI IorCcom2301 [place] [address] Chloride 108 mmol/L High 98-107 [facility] Comment on above: Performed By: #### 2 122068 ####LORI FyjXxnz2097 [place] [address] CO2 23.8 mmol/L Low 24.0-30.0 [facility] Comment on above: Performed By: #### 2 954769 ####LORI UegKnep0519 [place] [address] Glucose mass conc 137 mg/dL High 70-99 [facility] Comment on above: Performed By: #### 2 830032 ####LORI PpxEpnl4665 [place] [address] Potassium molar conc 3.7 mmol/L Normal 3.5-5.1 [facility] Comment on above: Performed By: #### 2 899642 ####LORI OksMpxw4426 [place] [address] Sodium 138 mmol/L Normal 136-145 [facility] Comment on above: Performed By: #### 2 160591 ####LORI HjyLgep0240 [place] [address] CBC w/ Auto Diffon 7 Erythrocyte distribution width Auto Ratio (RBC) 13.1 % Normal 11.5-14.5 [facility] Comment on above: Performed By: #### 2 788990 ####LORI ChengMcnXaob9064 [place] [address] Erythrocytes (RBC) 4.35 E6/mcL Normal 3.90-5.30 [facility] Comment on above: Performed By: #### 2 564882 ####LORI ChengQorHcsi1624 [place] [address] Hematocrit (HCT) 38.2 % Normal 35.0-45.0 [facility] Comment on above: Performed By: #### 2 054534 ####LORI ChengRcqRglj7476 [place] [address] Hemoglobin mass conc (Bld) 12.8 g/dL Normal 12.0-15.0 [facility] Comment on above: Performed By: #### 2 863599 ####LORI Betancourto1025 [place] [address] MCH 29.4 pg Normal 26.0-32.0 [facility] Comment on above: Performed By: #### 2 446637 ####LORI ChengZyqTwze1482 [place] [address] MCHC mass conc (RBC) 33.6 g/dL Normal 33.0-37.0 [facility] Comment on above: Performed By: #### 2 086457 ####LORI ChengVflBrop7955 [place] [address] MCV 87.7 fL Normal 78.0-95.0 [facility] Comment on above: Performed By: #### 2 659765 ####LORI ChengGtdLhiu2042 [place] [address] Platelet mean volume (PMV) 9.7 fL Normal 7.4-11.0 [facility] Comment on above: Performed By: #### 2 738622 ####LORI ChengZguPweo1859 [place] [address] Platelets 218 E3/mcL Normal 130-400 [facility] Comment on above: Performed By: #### 2 078975 ####LORI ChengWrlFlpa0005 [place] [address] WBC (Leukocytes) 8.8 E3/mcL Normal 3.6-11.0 [facility] Comment on above: Performed By: #### 2 958825 ####LORI ChengWfnMvfz8355 [place] [address] Ethanolon 03-26-2017 Ethanol Lvl <5 Normal 0-15 [facility] Comment on above: Result Comment: SAMP LES WITH CONCENTRATIONS <15 MG/DL SHOULD BEINTERPRETED NEGATIVE. FOR MEDICAL USE ONLY Performed By: #### 2 482155 ####LORI Girard1025 [place] [address] Hep Func Panelon 03-26-2017 Alanine aminotransferase (ALT) 12 Int._Unit/L Normal 10-40 [facility] Comment on above: Performed By: #### 2 201994 ####LORI Girard1025 [place] [address] Albumin 3.9 g/dL Normal 3.2-5.0 [facility] Comment on above: Performed By: #### 2 015141 ####LORI OxuBcar6110 [place] [address] Albumin/Globulin Ratio 1.2 {ratio} Normal 1.1-1.9 [facility] Comment on above: Performed By: #### 2 412812 ####LORI UpvKrqz7921 [place] [address] Alk Phos 53 Int._Unit/L Normal 42-121 [facility] Comment on above: Performed By: #### 2 806734 ####LORI BhjCyhn2970 [place] [address] Aspartate aminotransferase (AST) 17 Int._Unit/L Normal 10-42 [facility] Comment on above: Performed By: #### 2 858200 ####LORI YleGnzt9232 [place] [address] Bili Direct <.10 Normal .00-.20 [facility] Comment on above: Performed By: #### 2 846158 ####LORI Girard1025 [place] [address] Bili Indirect >0.4 Normal [facility] Comment on above: Result Comment: No e stablished ranges available for the Indirect Biliruben. Performed By: #### 2 424820 ####LORI Girard1025 [place] [address] Bili Total 0.5 mg/dL Normal 0.2-1.0 [facility] Comment on above: Performed By: #### 2 301583 ####LORI Girard1025 [place] [address] Globulin 3.2 g/dL Normal 2.0-4.0 [facility] Comment on above: Performed By: #### 2 664535 ####LORI SsaKjst1857 [place] [address] Protein 7.1 g/dL Normal 6.4-8.3 [facility] Comment on above: Performed By: #### 2 467732 ####LORI Girard1025 [place] [address] Salicylateon 03-26-2017 Salicylate Lvl <4 Low 15-30 [facility] Comment on above: Performed By: #### 2 654214 ####LORI ChengLweJxyq5314 [place] [address] U Drug Screenon 03-26-2017 U Amph Scr Negative Normal [facility] Comment on above: Result Comment: Resu lts for medical use only. Confirmation of positive results will be done when requested. Specimens are kept for one week. Performed By: #### 2 636284 ####LORI ExiMgyn0117 [place] [address] U Sharon Scr Negative Normal [facility] Comment on above: Performed By: #### 2 612074 ####LORI KttWwje4236 [place] [address] U Benzodia Scr Negative Normal [facility] Comment on above: Performed By: #### 2 086188 ####LORI TntJybk8301 [place] [address] U Cannab Scr Negative Normal [facility] Comment on above: Performed By: #### 2 638566 ####LORI ChengFpuXgra4954 [place] [address] U Cocaine Scr Negative Normal [facility] Comment on above: Performed By: #### 2 648166 ####LORIAnjali GirardMuxChom1380 [place] [address] U Opiate Scr Negative Normal [facility] Comment on above: Performed By: #### 2 248279 ####LORI PmkQjzm7845 [place] [address] U PCP Scr Negative Normal [facility] Comment on above: Performed By: #### 2 768142 ####LORI CqwIfje5606 [place] [address] UA Completeon 03-26-2017 UA Blood 2+ Abnormal Negative [facility] Comment on above: Performed By: #### 8 [id number] ####LORI Urinalysis Automated Wdiuovirry8358 [place] [address] UA Bacteria Trace Abnormal None [facility] Comment on above: Performed By: #### 8 [id number] ####LORI Urinalysis Automated Fpcfmmgajo4837 [place] [address] UA Clarity Clear Normal Clear [facility] Comment on above: Performed By: #### 8 [id number] ####LORI Urinalysis Automated [address] [place] [address] UA Leuk Est Negative Normal Negative [facility] Comment on above: Performed By: #### 8 [id number] ####LORI Urinalysis Automated Fkjeamzycg4838 [place] [address] UA Mucous Trace Abnormal Trace [facility] Comment on above: Performed By: #### 8 [id number] ####LORI Urinalysis Automated Hopycndlpp3304 [place] [address] UA Nitrite Negative Normal Negative [facility] Comment on above: Performed By: #### 8 [id number] ####LORI Urinalysis Automated Xcjdhwptbs3896 [place] [address] UA pH 6.0 Normal 4.6-8.0 [facility] Comment on above: Performed By: #### 8 [id number] ####LORI Urinalysis Automated Yfzklbdgkr7270 [place] [address] UA Protein Negative Normal Negative [facility] Comment on above: Performed By: #### 8 [id number] ####LORI Urinalysis Automated Jwdhfqedmn9295 [place] [address] UA Spec Grav 1.006 Normal 1.003-1.030 [facility] Comment on above: Performed By: #### 8 [id number] ####LORI Urinalysis Automated Xjvfjaedeo0222 [place] [address] UA Squam Epithelial 0-5 Normal 0-5 [facility] Comment on above: Performed By: #### 8 [id number] ####LORI Urinalysis Automated Ouqmmczwje4635 [place] [address] UA Urobilinogen Negative Normal [facility] Comment on above: Performed By: #### 8 [id number] ####LORI Urinalysis Automated Tencyvbvou6421 [place] [address] UA WBC 0-5 Normal 0-5 [facility] Comment on above: Performed By: #### 8 [id number] ####LORI Urinalysis Automated Aoqsvsgtfp8911 [place] [address] Urine, color Straw Normal Yellow [facility] Comment on above: Performed By: #### 8 [id number] ####LORI Urinalysis Automated Kdflnxsbpm2771 [place] [address] Urine, erythrocytes 3-5 Abnormal 0-3 [facility] Comment on above: Performed By: #### 8 [id number] ####LORI Urinalysis Automated Ksmxdxrepo8017 [place] [address] Urine, glucose Negative Normal Negative [facility] Comment on above: Performed By: #### 8 [id number] ####LORI Urinalysis Automated Orkrvvirhz0480 [place] [address] Urine, ketones presence Negative Normal Negative [facility] Comment on above: Performed By: #### 8 [id number] ####LORI Urinalysis Automated Tbalbaafsk2294 [place] [address] Urine, urobilinogen Negative Normal Negative [facility] Comment on above: Performed By: #### 8 [id number] ####LORI Urinalysis Automated Kvtbyghgep1648 [place] [address] Vital Signs Date Time Vital Sign Value Performing Clinician Facility 01-18-2025 12:22-0400 Body temperature 97.3 [degF] No Primary Care Physician [facility] 01-18-2025 12:22-0400 Diastolic blood pressure 78 mm[Hg] No Primary Care Physician [facility] 01-18-2025 12:22-0400 Heart rate 77 /min No Primary Care Physician [facility] 01-18-2025 12:22-0400 Respiratory rate 16 /min No Primary Care Physician [facility] 01-18-2025 12:22-0400 SaO2% (BldA) [Mass fraction] 100 % No Primary Care Physician [facility] 01-18-2025 12:22-0400 Systolic blood pressure 140 mm[Hg] No Primary Care Physician [facility] 01-18-2025 10:10-0400 Body height 175.26 cm No Primary Care Physician [facility] 01-18-2025 10:10-0400 Body mass index (BMI) [Ratio] 33.7 kg/m2 No Primary Care Physician [facility] 01-18-2025 10:10-0400 Body weight 103.5 kg No Primary Care Physician [facility] 01-17-2025 17:12-0400 Body height 175.26 cm No Primary Care Physician [facility] 01-17-2025 17:12-0400 Body mass index (BMI) [Ratio] 34 kg/m2 No Primary Care Physician [facility] 01-17-2025 17:12-0400 Body temperature 97.7 [degF] No Primary Care Physician [facility] 01-17-2025 17:12-0400 Body weight 104.32 kg No Primary Care Physician [facility] 01-17-2025 17:12-0400 Diastolic blood pressure 70 mm[Hg] No Primary Care Physician [facility] 01-17-2025 17:12-0400 Heart rate 98 /min No Primary Care Physician [facility] 01-17-2025 17:12-0400 Respiratory rate 16 /min No Primary Care Physician [facility] 01-17-2025 17:12-0400 SaO2% (BldA) [Mass fraction] 99 % No Primary Care Physician [facility] 01-17-2025 17:12-0400 Systolic blood pressure 128 mm[Hg] No Primary Care Physician [facility] 01-06-2025 17:10-0400 Body temperature 98.7 [degF] No Primary Care Physician [facility] 01-06-2025 17:10-0400 Diastolic blood pressure 84 mm[Hg] No Primary Care Physician [facility] 01-06-2025 17:10-0400 Heart rate 75 /min No Primary Care Physician [facility] 01-06-2025 17:10-0400 Respiratory rate 16 /min No Primary Care Physician [facility] 01-06-2025 17:10-0400 SaO2% (BldA) [Mass fraction] 99 % No Primary Care Physician [facility] 01-06-2025 17:10-0400 Systolic blood pressure 122 mm[Hg] No Primary Care Physician [facility] 01-06-2025 14:18-0400 Body mass index (BMI) [Ratio] 33.5 kg/m2 No Primary Care Physician [facility] 01-06-2025 14:18-0400 Body weight 102.9 kg No Primary Care Physician [facility] 05-21-2024 10:53-0500 Body height 175.3 cm Maggy Sauceda MD Work Phone: [facility] 05-21-2024 10:53-0500 Body mass index (BMI) [Ratio] 34.14 kg/m2 Maggy Sauceda MD Work Phone: [facility] 05-21-2024 10:53-0500 Body weight 104.87 kg Maggy Sauceda MD Work Phone: [facility] 05-21-2024 10:53-0500 Diastolic blood pressure 60 mm[Hg] Maggy Sauceda MD Work Phone: [facility] 05-21-2024 10:53-0500 Systolic blood pressure 108 mm[Hg] Maggy Sauceda MD Work Phone: [facility] 05-06-2024 12:30-0500 Diastolic blood pressure 59 mm[Hg] Maggy Sauceda MD Work Phone: [facility] 05-06-2024 12:30-0500 Heart rate 62 /min Maggy Sauceda MD Work Phone: [facility] 05-06-2024 12:30-0500 Respiratory rate 18 /min Maggy Sauceda MD Work Phone: [facility] 05-06-2024 12:30-0500 SaO2% (BldA) [Mass fraction] 94 % Maggy Sauceda MD Work Phone: [facility] 05-06-2024 12:30-0500 Systolic blood pressure 109 mm[Hg] Maggy Sauceda MD Work Phone: [facility] 05-06-2024 11:05-0500 Body temperature 97.39 [degF] Maggy Sauceda MD Work Phone: [facility] 05-06-2024 08:11-0500 Body mass index (BMI) [Ratio] 34.71 kg/m2 Maggy Sauceda MD Work Phone: [facility] 05-06-2024 08:110500 Body weight 106.6 kg Maggy Sauceda MD Work Phone: [facility] 04-21-2024 10:11-0500 Body height 175.3 cm Maggy Sauceda MD Work Phone: [facility] 04-21-2024 10:11-0500 Body mass index (BMI) [Ratio] 35.24 kg/m2 Maggy Sauceda MD Work Phone: [facility] 04-21-2024 10:11-0500 Body weight 108.23 kg Maggy Sauceda MD Work Phone: [facility] 04-21-2024 10:11-0500 Diastolic blood pressure 64 mm[Hg] Maggy Sauceda MD Work Phone: [facility] 04-21-2024 10:11-0500 Systolic blood pressure 118 mm[Hg] Maggy Sauceda MD Work Phone: [facility] 03-30-2024 10:02-0400 Body height 175.3 cm Maggy Sauceda MD Work Phone: [facility] 03-30-2024 10:02-0400 Body mass index (BMI) [Ratio] 35.29 kg/m2 Maggy Sauceda MD Work Phone: [facility] 03-30-2024 10:02-0400 Body weight 108.41 kg Maggy Sauceda MD Work Phone: [facility] 03-30-2024 10:02-0400 Diastolic blood pressure 62 mm[Hg] Maggy Sauceda MD Work Phone: [facility] 03-30-2024 10:02-0400 Systolic blood pressure 116 mm[Hg] Maggy Sauceda MD Work Phone: [facility] 03-16-2024 11:14-0400 Body height 175.3 cm Maggy Sauceda MD Work Phone: [facility] 03-16-2024 11:14-0400 Body mass index (BMI) [Ratio] 35.94 kg/m2 Maggy Sauceda MD Work Phone: [facility] 03-16-2024 11:14-0400 Body weight 110.41 kg Maggy Sauceda MD Work Phone: [facility] 03-16-2024 11:14-0400 Diastolic blood pressure 68 mm[Hg] Maggy Sauceda MD Work Phone: [facility] 03-16-2024 11:14-0400 Systolic blood pressure 120 mm[Hg] Maggy Sauceda MD Work Phone: [facility] 03-08-2024 10:08-0400 Body height 175.3 cm Maggy Sauceda MD Work Phone: [facility] 03-08-2024 10:08-0400 Body mass index (BMI) [Ratio] 36.09 kg/m2 Maggy Sauceda MD Work Phone: [facility] 03-08-2024 10:08-0400 Body weight 110.86 kg Maggy Sauceda MD Work Phone: [facility] 03-08-2024 10:08-0400 Diastolic blood pressure 68 mm[Hg] Maggy Sauceda MD Work Phone: [facility] 03-08-2024 10:08-0400 Systolic blood pressure 124 mm[Hg] Maggy Sauceda MD Work Phone: [facility] 05-28-2023 15:33-0500 Body height 175.3 cm Jenise Schulte MD Work Phone: [facility] 05-28-2023 15:33-0500 Body mass index (BMI) [Ratio] 35.26 kg/m2 Jenise Schulte MD Work Phone: [facility] 05-28-2023 15:33-0500 Body weight 108.32 kg Jenise Schulte MD Work Phone: [facility] 05-28-2023 15:33-0500 Diastolic blood pressure 70 mm[Hg] Jenise Schulte MD Work Phone: [facility] 05-28-2023 15:33-0500 Systolic blood pressure 122 mm[Hg] Jenise Shculte MD Work Phone: [facility] 11-25-2022 16:05-0400 Body height 175.26 cm Sandhya L Db Work Phone: [place] [address] [place] Work Phone: 11-25-2022 16:05-0400 Body mass index (BMI) [Ratio] 34.74 kg/m2 Sandhya L Db Work Phone: [place] [address] [place] Work Phone: 11-25-2022 16:05-0400 Body surface area Derived from formula 2.21 m2 Sandhya L Db Work Phone: [facility] [address] [place] Work Phone: 11-25-2022 16:05-0400 Body weight 106.71 kg Sandhya L Db Work Phone: [place] [address] [place] Work Phone: 11-25-2022 16:05-0400 Diastolic blood pressure 62 mm[Hg] Sandhya L Db Work Phone: [place] [address] [employer] Work Phone: 11-25-2022 16:05-0400 Systolic blood pressure 112 mm[Hg] Sandhya L Db Work Phone: [place] [address] [employer] Work Phone: 10-10-2022 14:28-0400 Body temperature 98.06 [degF] Sandhya Db Other Phone: [facility] 10-10-2022 14:28-0400 Diastolic blood pressure 64 mm[Hg] Sandhya Db Other Phone: [facility] 10-10-2022 14:28-0400 Heart rate 80 /min Sandhya Db Other Phone: [facility] 10-10-2022 14:28-0400 Respiratory rate 16 /min Sandhya Db Other Phone: [facility] 10-10-2022 14:28-0400 SaO2% (BldA) [Mass fraction] 99 % Sandhya Db Other Phone: [facility] 10-10-2022 14:28-0400 Systolic blood pressure 124 mm[Hg] Sandhya Db Other Phone: [facility] 10-07-2022 12:22-0400 Body height 175.2 cm Maggy Sauceda MD Work Phone: [facility] 10-07-2022 12:22-0400 Body mass index (BMI) [Ratio] 40.98 kg/m2 Maggy Sauceda MD Work Phone: [facility] 10-07-2022 12:22-0400 Body weight 125.8 kg Maggy Sauceda MD Work Phone: [facility] 10-07-2022 11:38-0400 Body height 175.26 cm Sandhya L Db Work Phone: [place] [address] [place] Work Phone: 10-07-2022 11:38-0400 Body mass index (BMI) [Ratio] 40.98 kg/m2 Sandhya L Db Work Phone: [place] [address] [place] Work Phone: 10-07-2022 11:38-0400 Body surface area Derived from formula 2.37 m2 Sandhya L Db Work Phone: [place] [address] [place] Work Phone: 10-07-2022 11:38-0400 Body weight 125.87 kg Sanhdya L Db Work Phone: [place] [address] [place] Work Phone: 10-07-2022 11:38-0400 Diastolic blood pressure 68 mm[Hg] Sandhya L Db Work Phone: [place] [address] [place] Work Phone: 10-07-2022 11:38-0400 Systolic blood pressure 118 mm[Hg] Sandhya L Db Work Phone: [place] [address] [place] Work Phone: 10-04-2022 17:53-0400 Body height 175.2 cm Chiquis Mcneal MD Work Phone: [facility] 10-04-2022 17:53-0400 Body mass index (BMI) [Ratio] 40.04 kg/m2 Chiquis Mcneal MD Work Phone: [facility] 10-04-2022 17:53-0400 Body weight 122.9 kg Chiquis Mcneal MD Work Phone: [facility] 09-27-2022 13:13-0400 Body height 175.26 cm Sandhya L Db Work Phone: [place] [address] [place] Work Phone: 09-27-2022 13:13-0400 Body mass index (BMI) [Ratio] 40.67 kg/m2 Sandhya L Db Work Phone: [place] [address] [place] Work Phone: 09-27-2022 13:13-0400 Body surface area Derived from formula 2.37 m2 Sandhya L Db Work Phone: [place] [address] [place] Work Phone: 09-27-2022 13:13-0400 Body weight 124.91 kg Sandhya L Db Work Phone: [place] [address] [place] Work Phone: 09-27-2022 13:13-0400 Diastolic blood pressure 70 mm[Hg] Sandhya L Db Work Phone: [place] [address] [place] Work Phone: 09-27-2022 13:13-0400 Systolic blood pressure 116 mm[Hg] Sandhya L Db Work Phone: [place] [address] [place] Work Phone: 09-20-2022 13:25-0400 Body height 175.26 cm Sandhya L Db Work Phone: [place] [address] [place] Work Phone: 09-20-2022 13:25-0400 Body mass index (BMI) [Ratio] 40.24 kg/m2 Sandhya L Db Work Phone: [place] [address] [place] Work Phone: 09-20-2022 13:25-0400 Body surface area Derived from formula 2.36 m2 Sandhya L Db Work Phone: [place] [address] [place] Work Phone: 09-20-2022 13:25-0400 Body weight 123.61 kg Sandhya L Db Work Phone: [place] [address] [place] Work Phone: 09-20-2022 13:25-0400 Diastolic blood pressure 72 mm[Hg] Sandhya L Db Work Phone: [place] [address] [place] Work Phone: 09-20-2022 13:25-0400 Systolic blood pressure 118 mm[Hg] Sandhya L Db Work Phone: [place] [address] [place] Work Phone: 09-13-2022 14:28-0400 Body height 175.26 cm Sandhya L Db Work Phone: [place] [address] [place] Work Phone: 09-13-2022 14:28-0400 Body mass index (BMI) [Ratio] 39.5 kg/m2 Sandhya L Db Work Phone: [place] [address] [place] Work Phone: 09-13-2022 14:28-0400 Body surface area Derived from formula 2.34 m2 Sandhya L Db Work Phone: [place] [address] [place] Work Phone: 09-13-2022 14:28-0400 Body weight 121.34 kg Sandhya L Db Work Phone: [place] [address] [place] Work Phone: 09-13-2022 14:28-0400 Diastolic blood pressure 72 mm[Hg] Sandhya L Db Work Phone: [place] [address] [place] Work Phone: 09-13-2022 14:28-0400 Systolic blood pressure 118 mm[Hg] Sandhya L Db Work Phone: [address] Work Phone: 08-27-2022 13:05-0400 Body height 175.26 cm Sandhya L Db Work Phone: [place] [address] [place] Work Phone: 08-27-2022 13:05-0400 Body mass index (BMI) [Ratio] 38.11 kg/m2 Sandhya L Db Work Phone: [place] [address] [place] Work Phone: 08-27-2022 13:05-0400 Body surface area Derived from formula 2.3 m2 Sandhya L Db Work Phone: [place] [address] [place] Work Phone: 08-27-2022 13:05-0400 Body weight 117.05 kg Sandhya L Db Work Phone: [place] [address] [place] Work Phone: 08-27-2022 13:05-0400 Diastolic blood pressure 64 mm[Hg] Sandhya L Db Work Phone: [place] [address] [place] Work Phone: 08-27-2022 13:05-0400 Systolic blood pressure 118 mm[Hg] Sandhya L Db Work Phone: [address] Work Phone: 08-25-2022 20:51-0400 Body height 175.2 cm Jenise Schulte MD Work Phone: [facility] 08-25-2022 20:51-0400 Body mass index (BMI) [Ratio] 38.51 kg/m2 Jenise Schulte MD Work Phone: [facility] 08-25-2022 20:51-0400 Body weight 118.2 kg Jenise Schulte MD Work Phone: [facility] 07-30-2022 11:47-0500 Body height 175.26 cm Sandhya L Db Work Phone: [facility] [address] [place] Work Phone: 07-30-2022 11:47-0500 Body mass index (BMI) [Ratio] 37.73 kg/m2 Sandhya L Db Work Phone: [place] [address] [place] Work Phone: 07-30-2022 11:47-0500 Body weight 115.89 kg Sandhya L Db Work Phone: [facility] [address] [place] Work Phone: 07-30-2022 11:47-0500 Diastolic blood pressure 72 mm[Hg] Sandhya L Db Work Phone: [place] [address] [place] Work Phone: 07-30-2022 11:47-0500 Systolic blood pressure 118 mm[Hg] Sandhya L Db Work Phone: [place] [address] [place] Work Phone: 07-02-2022 13:06-0500 Body height 175.26 cm Sandhya L Db Work Phone: [place] [address] [place] Work Phone: 07-02-2022 13:06-0500 Body mass index (BMI) [Ratio] 36.35 kg/m2 Sandhya L Db Work Phone: [place] [address] [place] Work Phone: 07-02-2022 13:06-0500 Body surface area Derived from formula 2.26 m2 Sandhya L Db Work Phone: [facility] [address] [place] Work Phone: 07-02-2022 13:06-0500 Body weight 111.64 kg Sandhya L Db Work Phone: [facility] [place] [address] [address] Work Phone: 07-02-2022 13:06-0500 Diastolic blood pressure 64 mm[Hg] Sandhya L Db Work Phone: [facility] [address] [address] Work Phone: 07-02-2022 13:06-0500 Systolic blood pressure 118 mm[Hg] Sandhya L Db Work Phone: [place] [address] [address] Work Phone: 06-24-2022 11:37-0500 Body height 175.2 cm Sandhya Db Other Phone: [facility] 06-24-2022 11:37-0500 Body temperature 97.34 [degF] Sandhya Db Other Phone: [facility] 06-24-2022 11:37-0500 Body weight 105 kg Sandhya Db Other Phone: [facility] 06-24-2022 11:37-0500 Diastolic blood pressure 82 mm[Hg] Sandhya bD Other Phone: [facility] 06-24-2022 11:37-0500 Heart rate 95 /min Sandhya Db Other Phone: [facility] 06-24-2022 11:37-0500 Respiratory rate 17 /min Sandhya Db Other Phone: [facility] 06-24-2022 11:37-0500 SaO2% (BldA) [Mass fraction] 98 % Sandhya Db Other Phone: [facility] 06-24-2022 11:37-0500 Systolic blood pressure 130 mm[Hg] Sandhya Db Other Phone: [facility] 05-31-2022 14:46-0500 Body height 175.26 cm Sandhya L Db Work Phone: [place] [address] [place] Work Phone: 05-31-2022 14:46-0500 Body mass index (BMI) [Ratio] 35.31 kg/m2 Asndhya L Db Work Phone: [place] [address] [place] Work Phone: 05-31-2022 14:46-0500 Body surface area Derived from formula 2.23 m2 Sandhya L Db Work Phone: [place] [address] [place] Work Phone: 05-31-2022 14:46-0500 Body weight 108.47 kg Sandhya L Db Work Phone: [place] [address] [place] Work Phone: 05-31-2022 14:46-0500 Diastolic blood pressure 72 mm[Hg] Sandhya L Db Work Phone: [place] [address] [place] Work Phone: 05-31-2022 14:46-0500 Systolic blood pressure 118 mm[Hg] Sandhya L Db Work Phone: [place] [address] [place] Work Phone: 05-03-2022 10:12-0500 Body height 175.26 cm Sandhya L Db Work Phone: [place] [address] [place] Work Phone: 05-03-2022 10:12-0500 Body mass index (BMI) [Ratio] 34.3 kg/m2 Sandhya L Db Work Phone: [place] [address] [place] Work Phone: 05-03-2022 10:12-0500 Body surface area Derived from formula 2.2 m2 Sandhya L Db Work Phone: [place] [address] [place] Work Phone: 05-03-2022 10:12-0500 Body weight 105.35 kg Sandhya L Db Work Phone: [place] [address] [place] Work Phone: 05-03-2022 10:12-0500 Diastolic blood pressure 72 mm[Hg] Sandhya L Db Work Phone: [place] [address] [place] Work Phone: 05-03-2022 10:12-0500 Systolic blood pressure 118 mm[Hg] Sandhya L Db Work Phone: [place] [address] [address] Work Phone: 04-05-2022 11:04-0400 Body height 175.26 cm Sandhya L Db Work Phone: [place] [address] [address] Work Phone: 04-05-2022 11:04-0400 Body mass index (BMI) [Ratio] 33.13 kg/m2 Sandhya L Db Work Phone: [place] [address] [place] Work Phone: 04-05-2022 11:04-0400 Body surface area Derived from formula 2.17 m2 Sandhya L Db Work Phone: [place] [address] [address] Work Phone: 04-05-2022 11:04-0400 Body weight 101.78 kg Sandhya L Db Work Phone: [place] [address] [place] Work Phone: 04-05-2022 11:04-0400 Diastolic blood pressure 78 mm[Hg] Sandhya L Db Work Phone: [place] [address] [place] Work Phone: 04-05-2022 11:04-0400 Systolic blood pressure 118 mm[Hg] Sandhya L Db Work Phone: [place] [address] [place] Work Phone: 03-08-2022 11:27-0400 Body height 175.26 cm Sandhya L Db Work Phone: [facility] [address] [place] Work Phone: 03-08-2022 11:27-0400 Body mass index (BMI) [Ratio] 32.4 kg/m2 Sandhya L Db Work Phone: [place] [address] [place] Work Phone: 03-08-2022 11:27-0400 Body surface area Derived from formula 2.15 m2 Sandhya L Db Work Phone: [facility] hospitalAl[facility]oliaJ[place] [address] [place] Work Phone: 03-08-2022 11:27-0400 Body weight 99.51 kg Sandhya Celeste BurrisDb Work Phone: [place] [address] [place] Work Phone: 03-08-2022 11:27-0400 Diastolic blood pressure 72 mm[Hg] Sandhya L Db Work Phone: [facility] [place] [address] [place] Work Phone: 03-08-2022 11:27-0400 Systolic blood pressure 118 mm[Hg] Sandhya L Db Work Phone: [facility] [place] [address] [place] Work Phone: 03-08-2022 11:27-0400 97 1 Sandhya L Db Work Phone: [facility] [address] [place] Work Phone: Comment on above: 2-_[facility] 03-08-2022 11:27-0400 99 1 Sandhya L Db Work Phone: [facility] [address] [place] Work Phone: Comment on above: 2-20_WPerc 03-08-2022 11:27-0400 95 1 Sandhya L Db Work Phone: [place] [address] [place] Work Phone: Comment on above: BMIPerc 05-15-2021 14:02-0500 Body height 175.26 cm Sandhya L Db Work Phone: [facility] [place] [address] [place] Work Phone: 05-15-2021 14:02-0500 Body mass index (BMI) [Ratio] 37.6 kg/m2 Sandhya L Db Work Phone: [facility]rapeut[facility] [place] [address] [place] Work Phone: 05-15-2021 14:02-0500 Body surface area Derived from formula 2.29 m2 Sandhya L Db Work Phone: [facility] [place] [address] [place] Work Phone: 05-15-2021 14:02-0500 Body temperature 97.7 [degF] Sandhya L Db Work Phone: [facility] [place] [address] [place] Work Phone: 05-15-2021 14:02-0500 Body weight 115.5 kg Sandhya L Db Work Phone: [place] [address] [place] Work Phone: 05-15-2021 14:02-0500 Diastolic blood pressure 64 mm[Hg] Sandhya L Db Work Phone: [place] [address] [place] Work Phone: 05-15-2021 14:02-0500 Systolic blood pressure 116 mm[Hg] Sandhya L Db Work Phone: [place] [address] [place] Work Phone: 05-15-2021 14:02-0500 97 1 Sandhya L Db Work Phone: [employer] Work Phone: Comment on above: 2-20_SPerc 05-15-2021 14:02-0500 99 1 Sandhya L Db Work Phone: [facility] Work Phone: Comment on above: 2-20_WPerc BMIPerc 05-08-2021 13:08-0500 Body height 175.26 cm Sandhya L Db Work Phone: [facility] Work Phone: 05-08-2021 13:08-0500 Body mass index (BMI) [Ratio] 37.6 kg/m2 Sandhya L Db Work Phone: [facility] Work Phone: 05-08-2021 13:08-0500 Body surface area Derived from formula 2.29 m2 Sandhya L Db Work Phone: [facility] Work Phone: 05-08-2021 13:08-0500 Body temperature 97.3 [degF] Sandhya L Db Work Phone: [facility] Work Phone: 05-08-2021 13:08-0500 Body weight 115.5 kg Sandhya L Db Work Phone: [facility] Work Phone: 05-08-2021 13:08-0500 Diastolic blood pressure 72 mm[Hg] Sandhya L Db Work Phone: [employer] [place] Work Phone: 05-08-2021 13:08-0500 Systolic blood pressure 118 mm[Hg] Sandhya L Db Work Phone: [place] [address] [place] Work Phone: 05-08-2021 13:08-0500 97 1 Sandhya Burrisrdle Work Phone: [place] [address] [place] Work Phone: Comment on above: 2-20_SPerc 05-08-2021 13:08-0500 99 1 Sandhya Burrisrdle Work Phone: [place] [address] [place] Work Phone: Comment on above: 2-20_WPerc BMIPerc 04-17-2021 15:57-0500 Body height 175.26 cm Sandhya Celeste BurrisDb Work Phone: [place] [address] [address] Work Phone: 04-17-2021 15:57-0500 Body mass index (BMI) [Ratio] 37.6 kg/m2 Sandhya Burrisrdle Work Phone: [place] [address] [place] Work Phone: 04-17-2021 15:57-0500 Body surface area Derived from formula 2.29 m2 Sandhya Burrisrdle Work Phone: [facility] hospitalAl[facility]oliaJ[place] [address] [employer] Work Phone: 04-17-2021 15:57-0500 Body temperature 98.7 [degF] Sandhya Burrisrdle Work Phone: [place] [address] [place] Work Phone: 04-17-2021 15:57-0500 Body weight 115.5 kg Sandhya Celeste BurrisDb Work Phone: [place] [address] [place] Work Phone: 04-17-2021 15:57-0500 Diastolic blood pressure 64 mm[Hg] Sandhya L Db Work Phone: [place] [address] [place] Work Phone: 04-17-2021 15:57-0500 Systolic blood pressure 110 mm[Hg] Sandhya L Db Work Phone: [facility]rapeut[facility] LimitedJ[place] [address] [place] Work Phone: 04-17-2021 15:57-0500 97 1 Sandhya L Db Work Phone: [place] [address] [place] Work Phone: Comment on above: 2-20_SPerc 04-17-2021 15:57-0500 99 1 Sandhya L Db Work Phone: [place] [address] [employer] Work Phone: Comment on above: 2-20_WPerc BMIPerc 04-02-2021 16:01-0400 Body height 175.26 cm Sandhya L Db Work Phone: [place] [address] [place] Work Phone: 04-02-2021 16:01-0400 Body mass index (BMI) [Ratio] 37.57 kg/m2 Sandhya L Db Work Phone: [place] [address] [place] Work Phone: 04-02-2021 16:01-0400 Body surface area Derived from formula 2.29 m2 Sandhya L Db Work Phone: [place] [address] [place] Work Phone: 04-02-2021 16:01-0400 Body temperature 98.2 [degF] Sandhya L Db Work Phone: [place] [address] [place] Work Phone: 04-02-2021 16:01-0400 Body weight 115.4 kg Sandhya L Db Work Phone: [place] [address] [place] Work Phone: 04-02-2021 16:01-0400 Diastolic blood pressure 62 mm[Hg] Sandhya L Db Work Phone: [facility] Work Phone: 04-02-2021 16:01-0400 Systolic blood pressure 104 mm[Hg] Asndhya L Db Work Phone: [place] Work Phone: 04-02-2021 16:010400 97 1 Sandhya L Db Work Phone: [place] [address] [place] Work Phone: Comment on above: 2-20_SPerc 04-02-2021 16:010400 99 1 Sandhya L Db Work Phone: [place] [address] [place] Work Phone: Comment on above: 2-20_WPerc BMIPerc 2021 15:45-0400 Body height 175.26 cm Sandhya L Db Work Phone: [place] Work Phone: 2021 15:45-0400 Body mass index (BMI) [Ratio] 37.41 kg/m2 Sandhya L Db Work Phone: [place] [address] [place] Work Phone: 2021 15:45-0400 Body surface area Derived from formula 2.28 m2 Sandhya L Db Work Phone: [facility] Work Phone: 2021 15:45-0400 Body temperature 99.3 [degF] Sandhya L Db Work Phone: [place] Work Phone: 2021 15:45-0400 Body weight 114.9 kg Sandhya L Db Work Phone: [place] [address] [place] Work Phone: 2021 15:45-0400 Diastolic blood pressure 64 mm[Hg] Sandhyalexa Burrisrdle Work Phone: [place] [address] [place] Work Phone: 2021 15:45-0400 Systolic blood pressure 112 mm[Hg] Sandhya Burrisrdle Work Phone: [place] [address] [place] Work Phone: 2021 15:45-0400 97 1 Sandhya Cosmele Work Phone: [facility] LimitedJ[place] [address] [place] Work Phone: Comment on above: 2-20_SPerc 2021 15:45-0400 99 1 Sandhya Cosmele Work Phone: [facility] [place] [address] [place] Work Phone: Comment on above: 2-20_WPerc BMIPerc 02-23-2021 11:03-0400 Body height 175.26 cm Sandhya Cosmele Work Phone: [place] [address] [place] Work Phone: 02-23-2021 11:03-0400 Body mass index (BMI) [Ratio] 37.24 kg/m2 Sandhya Cosmele Work Phone: [place] [address] [place] Work Phone: 02-23-2021 11:03-0400 Body surface area Derived from formula 2.28 m2 Sandhya Celeste Cosmele Work Phone: [place] [address] [place] Work Phone: 02-23-2021 11:03-0400 Body temperature 98.2 [degF] Sandhya Celeste BurrisDb Work Phone: [facility] hospitalD[facility] [place] [address] [place] Work Phone: 02-23-2021 11:03-0400 Body weight 114.4 kg Sandhya L Db Work Phone: [place] [address] [place] Work Phone: 02-23-2021 11:03-0400 Diastolic blood pressure 64 mm[Hg] Sandhya L Db Work Phone: [place] [address] [place] Work Phone: 02-23-2021 11:03-0400 Systolic blood pressure 124 mm[Hg] Sandhya L Db Work Phone: [place] [address] [place] Work Phone: 02-23-2021 11:03-0400 97 1 Sandhya L Db Work Phone: [place] [address] [place] Work Phone: Comment on above: 2-20_SPerc 02-23-2021 11:03-0400 99 1 Sandhya L Db Work Phone: [place] [address] [place] Work Phone: Comment on above: 2-20_WPerc BMIPerc 02-02-2021 11:02-0400 Body height 175.26 cm Sandhya L Db Work Phone: [place] [address] [place] Work Phone: 02-02-2021 11:02-0400 Body mass index (BMI) [Ratio] 36.92 kg/m2 Sandhya L Db Work Phone: [place] [address] [place] Work Phone: 02-02-2021 11:02-0400 Body surface area Derived from formula 2.27 m2 Sandhya L Db Work Phone: [place] [address] [place] Work Phone: 02-02-2021 11:02-0400 Body temperature 98.2 [degF] Sandhya L Db Work Phone: [place] [address] [place] Work Phone: 02-02-2021 11:02-0400 Body weight 113.4 kg Sandhya L Db Work Phone: [facility] hospitalAl[facility]oliaJ[place] [address] [place] Work Phone: 02-02-2021 11:02-0400 Diastolic blood pressure 80 mm[Hg] Sandhya L Db Work Phone: [place] [address] [place] Work Phone: 02-02-2021 11:02-0400 Systolic blood pressure 120 mm[Hg] Sandhya L Db Work Phone: [facility] hospitalAl[facility]oliaJ[place] [address] [place] Work Phone: 02-02-2021 11:02-0400 97 1 Sandhya L Db Work Phone: [place] [address] [place] Work Phone: Comment on above: 2-20_SPerc 02-02-2021 11:02-0400 99 1 Sandhya L Db Work Phone: [facility] hospitalAl[facility]oliaJ[place] [address] [place] Work Phone: Comment on above: 2-20_WPerc BMIPerc 01-05-2021 11:05-0400 Body height 175.26 cm Sandhya L Db Work Phone: [place] [address] [place] Work Phone: 01-05-2021 11:05-0400 Body mass index (BMI) [Ratio] 35.94 kg/m2 Sandhya L Db Work Phone: [facility] hospitalAl[facility]oliaJ[place] [address] [place] Work Phone: 01-05-2021 11:05-0400 Body surface area Derived from formula 2.25 m2 Sandhya L Db Work Phone: [place] [address] [place] Work Phone: 01-05-2021 11:05-0400 Body temperature 97.5 [degF] Sandhya Celeste Db Work Phone: [place] [address] [place] Work Phone: 01-05-2021 11:05-0400 Body weight 110.4 kg Sandhya L Db Work Phone: [place] [address] [place] Work Phone: 01-05-2021 11:05-0400 Diastolic blood pressure 72 mm[Hg] Sandhya L Db Work Phone: [place] [address] [place] Work Phone: 01-05-2021 11:05-0400 Systolic blood pressure 122 mm[Hg] Sandhya Celeste Db Work Phone: [address] Work Phone: 01-05-2021 11:05-0400 97 1 Sandhya Celeste BurrisDb Work Phone: [address] Work Phone: Comment on above: 2-20_SPerc 01-05-2021 11:05-0400 99 1 Sandhya Celeste Db Work Phone: [address] Work Phone: Comment on above: 2-20_WPerc 01-05-2021 11:05-0400 98 1 Sandhya L Db Work Phone: [address] Work Phone: Comment on above: BMIPerc 12-08-2020 09:01-0400 Body height 175.26 cm Sandhya L Db Work Phone: [address] Work Phone: 12-08-2020 09:01-0400 Body mass index (BMI) [Ratio] 33.92 kg/m2 Sandhya L Db Work Phone: [facility] Work Phone: 12-08-2020 09:01-0400 Body surface area Derived from formula 2.19 m2 Sandhya L Db Work Phone: [facility] [place] [address] [place] Work Phone: 12-08-2020 09:01-0400 Body temperature 98.7 [degF] Sandhya L Db Work Phone: [facility] [address] [place] Work Phone: 12-08-2020 09:01-0400 Body weight 104.2 kg Sandhya L Db Work Phone: [place] [address] [place] Work Phone: 12-08-2020 09:01-0400 Diastolic blood pressure 68 mm[Hg] Sandhya L Db Work Phone: [place] [address] [place] Work Phone: 12-08-2020 09:01-0400 Systolic blood pressure 108 mm[Hg] Sandhya L Db Work Phone: [place] [address] [place] Work Phone: 12-08-2020 09:01-0400 97 1 Sandhya L Db Work Phone: [place] [address] [place] Work Phone: Comment on above: 2-20_SPerc BMIPerc 12-08-2020 09:01-0400 99 1 Sandhya L Db Work Phone: [place] [address] [place] Work Phone: Comment on above: 2-20_WPerc 11-10-2020 10:48-0400 Body height 175.26 cm Sandhya L Db Work Phone: [place] [address] [place] Work Phone: 11-10-2020 10:48-0400 Body mass index (BMI) [Ratio] 33.08 kg/m2 Sandhya L Db Work Phone: [place] [address] [place] Work Phone: 11-10-2020 10:48-0400 Body surface area Derived from formula 2.17 m2 Sandhya L Db Work Phone: [place] [address] [place] Work Phone: 11-10-2020 10:48-0400 Body temperature 98.2 [degF] Sandhya L Db Work Phone: [place] [address] [place] Work Phone: 11-10-2020 10:48-0400 Body weight 101.6 kg Sandhya Celeste BurrisDb Work Phone: [place] [address] [place] Work Phone: 11-10-2020 10:48-0400 Diastolic blood pressure 72 mm[Hg] Sandhya L Db Work Phone: [place] [address] [place] Work Phone: 11-10-2020 10:48-0400 Systolic blood pressure 118 mm[Hg] Sandhya L Db Work Phone: [facility] [place] [address] [place] Work Phone: 11-10-2020 10:48-0400 99 1 Sandhya L Db Work Phone: [facility] [place] [address] [place] Work Phone: Comment on above: 2-20_WPerc 11-10-2020 10:48-0400 97 1 Sandhya L Db Work Phone: [facility]Al[facility]oliaLa [facility] [address] [place] Work Phone: Comment on above: 2-20_SPerc BMIPerc 10-13-2020 10:54-0400 Body temperature 97.3 [degF] Sandhya Cosmele Work Phone: [employer] [facility] [employer] Work Phone: 10-13-2020 10:54-0400 Body weight 44.54 kg Sandhya Burrisrdle Work Phone: [employer] Work Phone: 10-13-2020 10:54-0400 Diastolic blood pressure 82 mm[Hg] Sandhya Burrisrdle Work Phone: [employer] Work Phone: 10-13-2020 10:54-0400 Systolic blood pressure 120 mm[Hg] Sandhya Burrisrdle Work Phone: [place] [address] [employer] Work Phone: 10-13-2020 10:54-0400 3 1 Sandhya Cosmele Work Phone: [place] [address] [employer] Work Phone: Comment on above: 2-20_WPerc Encounters Encounter Date Encounter Type Care Provider Facility Start: 01-18-2025 End: 01-18-2025 Emergency department patient visit No Primary Care Physician -Emergency Department Work Phone: Start: 01-17-2025 End: 01-17-2025 Emergency department patient visit No Primary Care Physician -Emergency Department Work Phone: Start: 01-06-2025 End: 01-06-2025 Emergency department patient visit Dr. Everton Vidales MD -Emergency Department Work Phone: Start: 06-01-2024 End: 06-01-2024 Patient encounter status Maggy Sauceda MD Work Phone: [facility] Work Phone: Start: 06-01-2024 End: 06-01-2024 Periodic preventive med est patient 18-39 yrs Maggy Sauceda MD Work Phone: [facility] Comment on above: Cervical cancer scre ening; Encounter for gynecological examination without abnormal finding Start: 06-01-2024 End: 06-01-2024 ambulatory [facility] Start: 06-01-2024 End: 06-01-2024 Encounter for gynecological examination (general) (routine) without abnormal findings [facility] Start: 05-21-2024 End: 05-21-2024 ambulatory [facility] Start: 05-21-2024 End: 05-21-2024 Postop follow up visit related to original px Maggy Sauceda MD Work Phone: [facility] Comment on above: Postoperative visit (Primary Dx) Start: 05-06-2024 End: 05-06-2024 Subsequent hospital visit by physician Maggy Sauceda MD Work Phone: [facility] [place] Comment on above: Encounter for female sterilization procedure Start: 05-03-2024 ambulatory [facility] Start: 04-21-2024 End: 04-21-2024 Office outpatient visit 15 minutes Maggy Sauceda MD Work Phone: [facility] Comment on above: Encounter for female sterilization procedure (Primary Dx) Start: 04-21-2024 End: 04-21-2024 ambulatory [facility] Start: 03-30-2024 End: 03-30-2024 Office outpatient visit 15 minutes Maggy Sauceda MD Work Phone: [facility] Comment on above: Encounter for female sterilization procedure (Primary Dx) Start: 03-30-2024 End: 03-30-2024 ambulatory [facility] Start: 03-16-2024 End: 03-16-2024 Office outpatient visit 15 minutes Maggy Sauceda MD Work Phone: [facility] Comment on above: Dyspareunia in femal e (Primary Dx) Start: 03-16-2024 End: 03-16-2024 ambulatory [facility] Start: 03-11-2024 End: 03-11-2024 Subsequent hospital visit by physician Reji Lisa [address] [place] [address] Comment on above: Dyspareunia in femal e Start: 03-11-2024 End: 03-11-2024 ambulatory [facility] Start: 03-08-2024 End: 03-08-2024 Office outpatient visit 15 minutes Maggy Sauceda MD Work Phone: [facility] Office Building Comment on above: Dyspareunia in femal e (Primary Dx); Vaginal discharge Start: 03-08-2024 End: 03-08-2024 ambulatory [facility] Start: 05-28-2023 End: 05-28-2023 ambulatory SANDHYA ACE [facility] Start: 05-28-2023 End: 05-28-2023 Office outpatient visit 15 minutes Jenise Schulte MD Work Phone: [facility] Office Building Comment on above: Screen for STD (sexu ally transmitted disease) (Primary Dx); Acute vaginitis; Dysuria; Cervical cancer screening; Bacterial vaginosis Start: 11-25-2022 Patient encounter procedure Sandhya Ace Work Phone: [address] Work Phone: Start: 11-25-2022 ambulatory MD JENISE SCHULTE Facility:[id number] Start: 11-20-[address] Arthur Ruby Ace Facility:[id number] Start: 10-08-2022 End: 10-10-2022 Evaluation and management of inpatient Maggy Sauceda [facility] L[facility]D 404 Start: 10-07-2022 Office outpatient vi sit 15 minutes Sandhya Ace Work Phone: [employer] Work Phone: Start: 10-07-2022 End: 10-07-[address] Maggy Sauceda Facility:[id number] Start: 10-07-2022 End: 10-07-2022 Subsequent hospital visit by physician Maggy Sauceda MD Work Phone: [facility] Comment on above: False labor before 3 7 completed weeks of gestation, third trimester; Anemia complicating , third trimester; Anemia, unspecified; Diseases of the respiratory system complicating , third trimester; Unspecified asthma, uncomplicated; Other specified related conditions, third trimester; Unspecified blood type, rh negative; 38 weeks gestation of ; Personal history of nicotine dependence; Abnormality of forces of labor, unspecified Start: 10-04-2022 End: 10-04-2022 ambulatory Chiquis Mcneal Facility:[id number] Start: 10-04-2022 End: 10-04-2022 Subsequent hospital visit by physician Chiquis Mcneal MD Work Phone: [facility] Comment on above: False labor at or af ter 37 completed weeks of gestation; Anemia complicating , third trimester; Anemia, unspecified; 38 weeks gestation of ; Personal history of nicotine dependence; Abnormality of forces of labor, unspecified Start: 10-04-2022 ambulatory Jenise Schulte Facility: [id number] Start: 09-27-2022 Office outpatient vi sit 15 minutes Sandhya Ace Work Phone: [place] [address] [employer] Work Phone: Start: 09-27-2022 ambulatory MD JENISE SCHULTE Facility:[id number] Start: 09-20-2022 ambulatory MD JENISE SCHULTE Facility:[id number] Start: 09-20-2022 Office outpatient vi sit 15 minutes Sandhya Ace Work Phone: [place] [address] [place] Work Phone: Start: 09-20-2022 ambulatory Jenise Schulte Facility: [id number] Start: 09-16-2022 Chart Update Sandhya Summers e Work Phone: [place] [address] [employer] Work Phone: Start: 09-13-2022 Chart Update Sandhya Summers e Work Phone: [place] [address] [employer] Work Phone: Start: 09-13-2022 ambulatory Jenise Schulte Facility: [id number] Start: 09-13-2022 ambulatory Jenise Schulte Facility: [id number] Start: 09-06-2022 ambulatory Jenise Schulte Facility: [id number] Start: 08-28-2022 Chart Update Sandhya Summers e Work Phone: [place] [address] [employer] Work Phone: Start: 08-27-2022 Office outpatient vi sit 25 minutes Sandhyalexa Burrisrdle Work Phone: [place] [address] [employer] Work Phone: Start: 08-27-2022 ambulatory MD JENISE SCHULTE Facility:[id number] Start: 08-25-2022 End: 08-26-2022 ambulatory Jenise Schulte Facility:[id number] Start: 08-25-2022 End: 08-25-2022 Subsequent hospital visit by physician Jenise Schulte MD Work Phone: [facility] Comment on above: Other specified preg kamaljit related conditions, third trimester; Other specified noninflammatory disorders of vagina; Anemia complicating , third trimester; Anemia, unspecified; 32 weeks gestation of Start: 08-13-2022 ambulatory MD JENISE SCHULTE Facility:[id number] Start: 08-01-2022 Chart Update Sandhya Summers e Work Phone: [place] [address] [place] Work Phone: Start: 07-31-2022 Chart Update Sandhya Summers e Work Phone: [place] [address] [place] Work Phone: Start: 07-30-2022 ambulatory MD JENISE SCHULTE Facility:[id number] Start: 07-02-2022 Office outpatient vi sit 15 minutes Sandhya Cosmele Work Phone: [place] [address] [place] Work Phone: Start: 07-02-2022 ambulatory MD JENISE SCHULTE Facility:[id number] Start: 06-24-2022 End: 06-24-2022 Emergency department patient visit Charles Howell Harrison [facility] Emergency 16 Start: 05-31-2022 Office outpatient vi sit 15 minutes Sandhya L Db Work Phone: [facility] [address] [place] Work Phone: Start: 05-31-2022 ambulatory Jenise Schulte Facility: [id number] Start: 05-03-2022 Office outpatient vi sit 15 minutes Sandhya L Db Work Phone: [facility] [address] [place] Work Phone: Start: 05-03-2022 ambulatory MD JENISE SCHULTE Facility:[id number] Start: 04-08-2022 Chart Update Sandhya L McArdl e Work Phone: [facility] [address] [place] Work Phone: Start: 04-05-2022 ambulatory Jenise Schulte Facility: [id number] Start: 04-05-2022 ambulatory MD JENISE SCHULTE Facility:[id number] Start: 04-05-2022 Office outpatient ne w 20 minutes Sandhya L Db Work Phone: [facility] [address] [place] Work Phone: Start: 03-08-2022 Office outpatient vi sit 15 minutes Sandhya L Db Work Phone: [facility] [address] [place] Work Phone: Start: 03-08-2022 ambulatory MD JENISE SCHULTE Facility:[id number] Start: 05-17-2021 Chart Update Sandhya L McArdl e Work Phone: [facility] [address] [place] Work Phone: Start: 05-08-2021 Chart Update Sandhya L McArdl e Work Phone: [facility] [address] [place] Work Phone: Start: 05-04-2021 Chart Update Sandhya L McArdl e Work Phone: [address] Work Phone: Start: 04-30-2021 Office outpatient vi sit 15 minutes Sandhya L Db Work Phone: [address] Work Phone: Start: 04-17-2021 Office outpatient vi sit 15 minutes Sandhya L Db Work Phone: [address] Work Phone: Start: 04-02-2021 Office outpatient vi sit 15 minutes Sandhya L Db Work Phone: [address] Work Phone: Start: 2021 Office outpatient vi sit 15 minutes Sandhya L Db Work Phone: [address] Work Phone: Start: 02-24-2021 Chart Update Sandhya L McArdl e Work Phone: [address] Work Phone: Start: 02-23-2021 Chart Update Sandhya L McArdl e Work Phone: [address] Work Phone: Start: 02-23-2021 Office outpatient vi sit 15 minutes Sandhya L Db Work Phone: [address] Work Phone: Start: 02-02-2021 EPVOB, Provider: Maggy Sauceda, Status: Pen, Time: 11:15 AM Sandhya L Db Work Phone: [address] Work Phone: Start: 02-02-2021 Office outpatient vi sit 15 minutes Sandhya L Db Work Phone: [facility] [address] [place] Work Phone: Start: 02-01-2021 AUDIT Sandhya L McArdl e Work Phone: [facility] [address] [place] Work Phone: Start: 01-08-2021 Chart Update Sandhya L McArdl e Work Phone: [facility] [address] [place] Work Phone: Start: 01-08-2021 AUDIT Sandhya L McArdl e Work Phone: [facility] Work Phone: Start: 01-05-2021 EPVOB, Provider: Maggy Sauceda, Status: Pen, Time: 11:15 AM Sandhya L Db Work Phone: [address] Work Phone: Start: 01-04-2021 AUDIT Sandhya L McArdl e Work Phone: [address] Work Phone: Start: 12-08-2020 EPVOB, Provider: Maggy Sauceda, Status: Pen, Time: 9:15 AM Sandhya L Db Work Phone: [address] Work Phone: Start: 12-07-2020 AUDIT Sandhya L McArdl e Work Phone: [facility] [address] [place] Work Phone: Start: 11-13-2020 Chart Update Sandhya L McArdl e Work Phone: [facility] [address] [place] Work Phone: Start: 11-10-2020 Chart Update Sandhya L McArdl e Work Phone: [facility] Work Phone: Start: 11-04-2017 End: 11-05-2017 Ambulatory Sandhya Ace Facility:[facility] Start: 10-02-2017 End: 10-02-2017 Emergency department patient visit Sandhya Ace Facility:[facility] Start: 10-01-2017 Ambulatory Sandhya Ace Facilit y:[facility] Start: 03-26-2017 End: 03-26-2017 Emergency department patient visit Sandhya Ace Facility:[facility] Procedures Date Procedure Procedure Detail Performing Clinician Start: 05-06-2024 PULSE OXIMETRY, CONTINUOUS Vance Pisano MD Work Phone: Start: 03-08-2024 Smr prim src wet radha nt nfct agt Maggy Sauceda MD Work Phone: Start: 05-28-2023 17-HYDROXYPROGESTERONE SANDHYA DB Start: 05-28-2023 DHEA-SULFATE SANDHYA MCAR DLE Start: 05-28-2023 Hemoglobin A1c/Hemoglobin.total in Blood SANDHYA DB Start: 05-28-2023 PROLACTIN SANDHYA MCAR DLE Start: 05-28-2023 TESTOSTERONE,FREE AND TOTAL SANDHYA COSMELE Start: 05-28-2023 TSH WITH REFLEX TO F REE T4 IF ABNORMAL SANDHYA COSMELE Start: 05-28-2023 Microscopic observat ion [Identifier] in Cervix by Cyto stain Maggy Sauceda MD Work Phone: Start: 10-09-2022 Hemoglobin F [Presen ce] in Blood Maggy Sauceda Start: 10-09-2022 Rhogam Maggy Rutledge Start: 10-09-[address] Grullon Comment on above: Performed By: #### T +S #### [facility] [address] [place] [address] Start: 08-25-2022 DOTTY RUPTURE OF MEMB R DATA CONVERSION Jenise Schulte MD Work Phone: Start: 07-30-2022 Antibody screen MD AVIS SCHULTE Comment on above: Performed By: #### T +S #### [facility] [address] [place] [address] Start: 04-05-[address] Grullon Comment on above: Performed By: #### T +S #### [facility] [address] [place] [address] Start: 04-05-2022 Antibody screen MD AVIS SCHULTE Comment on above: Order Comment: TEST TYPE + SCREEN WAS CANCELLED, 04/05/2022 11:59 [employer]ANK. Performed By: #### H IV #### [facility] [address] [place] [address] Tonsillectomy Sandhya pastor Work Phone: Plan of Treatment Date Care Activity Detail Author Start: 2052 Zoster Vaccines (1 of 2) Zoster Vaccines (1 of 2) [facility] Start: 07-30-2032 DTaP/Tdap/Td Vaccines (9 - Td or Tdap) DTaP/Tdap/Td Vaccines (9 - Td or Tdap) [facility] Start: 02-23-2031 DTaP/Tdap/Td Vaccines (8 - Td or Tdap) DTaP/Tdap/Td Vaccines (8 - Td or Tdap) [facility] Start: 05-28-2028 Screening for malignant neoplasm of cervix HPV/Cotest [facility] Start: 05-28-2026 Screening for malignant neoplasm of cervix [facility] Start: 06-06-2025 End: 06-06-2025 Patient encounter procedure 06/06/2025 10:30 AM EST Office Visit [facility] [address] [place] [address] Maggy Sauceda MD [address] [facility], [address] [id number] [facility] Start: 01-18-2025 End: 01-18-2025 [facility] Start: 01-06-2025 [facility] Start: 01-06-2025 Simple rpr scalp/neck/ax/genit/trunk 7.6-12.5cm RPR S/N/AX/GEN/TRK7.6-12.5C M [facility] Start: 06-01-2024 End: 06-01-2025 Cytology Cervical or vaginal smear or scraping study [facility] Service Area Work Phone: Comment on above: Expected: 06/01/2024 (Approximate), Expi res: 06/01/2025 Start: 06-01-2024 End: 06-01-2024 Patient encounter procedure 06/01/2024 11:00 AM EST Office Visit [facility] [address] [place] [phone] Maggy Sauceda MD [address] [facility], [facility] [address] [place], [place] [id number] [facility] Medical Office [facility] Start: 05-28-2024 End: 05-28-2024 Patient encounter procedure 05/28/2024 3:30 PM EST Office Visit [facility] [address] [place] [phone] Maggy Sauceda MD [address] [facility], [facility] [place], [place] [phone] [facility] Office [facility] Start: 05-28-2024 Screening for Chlamydia trachomatis Chlamydia and Gonorrhea Screening [facility] Start: 05-21-2024 End: 05-21-2024 Patient encounter procedure 05/21/2024 10:45 AM EST Office Visit [facility] [address] [place] [phone] Maggy Sauceda MD [address] [facility] [address] [address] [place], [place] [phone] [facility] Start: 05-06-2024 End: 05-06-2024 Admission to same day surgery center 05/06/2024 9:35 AM EST - 05/06/2024 11:40 AM EST Surgery [facility] [address] [place] [address] Maggy Sauceda MD [address] [facility], [address] [place] [address] Laparoscopic tubal sterilization, Bilateral Salpingectomy [96770 (CPT )] [facility] [place] Comment on above: Laparoscopic tubal sterilization, Bilate ral Salpingectomy [54037 (CPT )] Start: 05-06-2024 End: 05-06-2024 Laparoscopy w/rmvl adnexal structures [facility] Start: 05-06-2024 Subsequent hospital visit by physician [facility] Start: 04-21-2024 End: 04-21-2024 Patient encounter procedure 04/21/2024 10:15 AM EST Office Visit [facility] [address] [place] [address] Maggy Sauceda MD [address] [facility], [address] [place] [address] [facility] Start: 03-30-2024 End: 03-30-2025 CBC panel - Blood by Automated count CBC Lab Routine Encounter for female sterilization procedure Expected: 03/30/2024 (Approximate), Expires: 03/30/2025 [facility] Service Area Work Phone: Comment on above: Expected: 03/30/2024 (Approximate), Expi res: 03/30/2025 Start: 03-30-2024 End: 03-30-2025 Choriogonadotropin ( test) [Presence] in Urine hCG, Urine, Qualitative Lab Routine Encounter for female sterilization procedure Expected: 03/30/2024 (Approximate), Expires: 03/30/2025 [facility] Work Phone: Comment on above: Expected: 03/30/2024 (Approximate), Expi res: 03/30/2025 Start: 03-30-2024 End: 03-30-2024 Patient encounter procedure 03/30/2024 10:00 AM EDT Office Visit [facility] [address] [place] [phone] Maggy Sauceda MD [address] [place] [facility], [address] [address] [facility] Office [facility] Start: 03-16-2024 End: 03-16-2024 Patient encounter procedure 03/16/2024 11:15 AM EDT Office Visit [facility] [address] [place] [address] Maggy Sauceda MD [address] [place] [facility], [address] [address] [facility] Office [facility] Start: 03-11-2024 End: 03-11-2024 Patient encounter procedure 03/11/2024 8:30 AM EDT Appointment [address] [phone] [facility] Start: 03-08-2024 End: 03-08-2025 US Pelvis transvaginal US PELVIS TRANSABDOMINAL WITH TRANSVAGINAL Imaging Routine Dyspareunia in female Expected: 03/08/2024, Expires: 03/08/2025 [facility] Service Area Work Phone: Comment on above: Expected: 03/08/2024, Expires: Start: 02-01-2024 COVID-19 Vaccine ( season) COVID-19 Vaccine ( season) [facility] Start: 02-01-2024 COVID-19 Vaccine ( season) COVID-19 Vaccine ( season) [facility] Start: 02-01-2024 Influenza vaccination Influenza Vaccine (#1) [facility] Start: 05-28-2023 Patient encounter procedure ANNUAL, Provider: Jenise Schulte, Status: Pen, Time: 3:30 PM [facility] Work Phone: Start: 05-28-2023 End: 05-28-2023 Patient encounter procedure 05/28/2023 3:30 PM EST Office Visit [facility] [address] [place] [address] [address] [place] [address] Jenise Schulte MD [address] [facility], [address] [address] [facility] Start: 05-28-2023 End: 06-04-2023 Bacteria identified in Genital specimen by Aerobe culture Genital Culture Microbiology Routine Acute vaginitis Expected: 05/28/2023 (Approximate), Expires: 06/04/2023 [facility] Work Phone: Comment on above: Expected: 05/28/2023 (Approximate), Expi res: 06/04/2023 Start: 05-28-2023 End: 06-04-2023 Bacteria identified in Urine by Culture Urine Culture Microbiology Routine Dysuria Expected: 05/28/2023 (Approximate), Expires: 06/04/2023 [facility] Work Phone: Comment on above: Expected: 05/28/2023 (Approximate), Expi res: 06/04/2023 Start: 05-28-2023 End: 05-28-2024 Chlamydia trachomatis and Neisseria gonorrhoeae DNA [Identifier] in Unspecified specimen by ANTOINETTE with probe detection C. Trachomatis / N. Gonorrhoeae, Amplified Detection Lab Routine Screen for STD (sexually transmitted disease) Expected: 05/28/2023 (Approximate), Expires: 05/28/2024 [facility] Service Area Work Phone: Comment on above: Expected: 05/28/2023 (Approximate), Expi res: 05/28/2024 Start: 05-28-2023 End: 05-28-2024 Cytology Cervical or vaginal smear or scraping study THINPREP PAP TEST Pathology and Cytology Routine Cervical cancer screening Expected: 05/28/2023, Expires: 05/28/2024 [facility] Work Phone: Comment on above: Expected: 05/28/2023, Expires: Start: 05-28-2023 End: 05-28-2024 Trichomonas vaginalis rRNA [Presence] in Unspecified specimen by ANTOINETTE with probe detection Trichomonas vaginalis, Nucleic Acid Detection Lab Routine Acute vaginitis Expected: 05/28/2023 (Approximate), Expires: 05/28/2024 [facility] Work Phone: Comment on above: Expected: 05/28/2023 (Approximate), Expi res: 05/28/2024 Start: 2023 Screening for malignant neoplasm of cervix [facility] Start: 01-31-2023 Influenza vaccination Influenza Vaccine (#1) [facility] Start: 11-20-2022 Patient encounter procedure [facility] Start: 10-09-2022 End: 10-10-2023 [facility] Comment on above: Consult provider prior to administration . Push over more than 2 minutes. Systolic greater than or equal to 160 OR Diastolic greater than or equal to 110. Contraindications: active asthma, heart disease, heart failure, maternal bradycardia < 60. Consult provider colleen or to administration. Push over more than 2 minutes. Systolic greater than or equal to 160 OR Diastolic greater than or equal to 110. Contraindication: coronary artery disease (CAD); Caution in suspected CAD. Consult provider colleen or to administration. Systolic greater than or equal to 160 OR Diastolic greater than or equal to 110. Capsules administered orally and swallowed whole; Do not puncture or crush; Do not administer sublingually. May self-administer after voiding After and PRN Consult provider colleen or to administration. Conditional order. C onsult Provider prior to administration. Max dose of 16mg / 2 4 hours Conditional order. 6 00 milliunits/min x 30 mins., then 60 milliunits/min for the remainder of the bag. Consult Provider prior to administration. Start: 10-09-2022 End: 10-09-2023 Butorphanol Injectable 1 mg IntraVenous Push Every 4 Hours ; (STADOL)DOSE = 1 mg IntraVenous Push Every 3 Hours, PRN Pain - Severe (7-10) Start: 08-Oct-2022 End: 08-Oct-2023 Ordered: 08-Oct-2022 Maggy Sauceda [facility] Start: 10-04-2022 EPVOB, Provider: Jenise Schulte, Status: Pen, Time: 3:00 PM EPVOB, Provider: Jenise Schulte, Status: Pen, Time: 3:00 PM [facility] [address] [place] Work Phone: Start: 10-04-2022 EPVOB, Provider: Jenise Schulte, Status: Pen, Time: 1:00 PM EPVOB, Provider: Jenise Schulte, Status: Pen, Time: 1:00 PM [facility] [address] [place] Work Phone: Start: 09-27-2022 EPVOB, Provider: Jenise Schulte, Status: Pen, Time: 1:00 PM EPVOB, Provider: Jenise Schulte, Status: Pen, Time: 1:00 PM [facility] [address] [place] Work Phone: Start: 09-20-2022 EPVOB, Provider: Jenise Schulte, Status: Pen, Time: 1:00 PM EPVOB, Provider: Jenise Schulte, Status: Pen, Time: 1:00 PM [facility] [address] [place] Work Phone: Start: 09-13-2022 EPVOB, Provider: Jenise Schulte, Status: Pen, Time: 2:45 PM EPVOB, Provider: Jenise Schulte, Status: Pen, Time: 2:45 PM [facility] [address] [place] Work Phone: Start: 08-13-2022 EPVOB, Provider: Jenise Schulte, Status: Pen, Time: 1:15 PM EPVOB, Provider: Jenise Schulte, Status: Pen, Time: 1:15 PM [facility] [address] [place] Work Phone: Start: 07-30-2022 EPVOB, Provider: Jenise Schulte, Status: Pen, Time: 11:30 AM EPVOB, Provider: Jenise Schulte, Status: Pen, Time: 11:30 AM [place] [address] [address] Work Phone: Start: 07-12-2022 Patient encounter procedure [facility] Start: 06-28-2022 EPVOB, Provider: Jenise Schulte, Status: Pen, Time: 1:30 PM EPVOB, Provider: Jenise Schulte, Status: Pen, Time: 1:30 PM [facility] [address] [address] Work Phone: Start: 06-28-2022 Patient encounter procedure [facility] Start: 05-31-2022 EPVOB, Provider: Jenise Schulte, Status: Pen, Time: 2:30 PM EPVOB, Provider: Jenise Schulte, Status: Pen, Time: 2:30 PM [place] [place] [address] [facility] Work Phone: Start: 05-03-2022 EPVOB, Provider: Jenise Schulte, Status: Pen, Time: 10:00 AM EPVOB, Provider: Jenise Schulte, Status: Pen, Time: 10:00 AM [facility] [place] [address] [place] Work Phone: Start: 04-05-2022 EPVOB, Provider: Jenise Schulte, Status: Pen, Time: 10:45 AM EPVOB, Provider: Jenise Schulte, Status: Pen, Time: 10:45 AM [facility] [place] [address] [employer] Work Phone: Start: 06-15-2021 PPV, Provider: Maggy Sauceda, Status: Pen, Time: 1:15 PM PPV, Provider: Maggy Sauceda, Status: Pen, Time: 1:15 PM [facility] [place] [address] [employer] Work Phone: Start: 05-15-2021 EPVOB, Provider: Maggy Sauceda, Status: Pen, Time: 2:15 PM EPVOB, Provider: Maggy Sauceda, Status: Pen, Time: 2:15 PM [facility] Work Phone: Start: 05-08-2021 EPVOB, Provider: Maggy Sauceda, Status: Pen, Time: 1:45 PM EPVOB, Provider: Maggy Sauceda, Status: Pen, Time: 1:45 PM [facility] Work Phone: Start: 04-24-2021 EPVOB, Provider: Maggy Sauceda, Status: Pen, Time: 3:30 PM EPVOB, Provider: Maggy Sauceda, Status: Pen, Time: 3:30 PM [facility] Work Phone: Start: 04-17-2021 EPVOB, Provider: Maggy Sauceda, Status: Pen, Time: 3:45 PM EPVOB, Provider: Maggy Sauceda, Status: Pen, Time: 3:45 PM [facility] Work Phone: Start: 04-02-2021 EPVOB, Provider: Maggy Sauceda, Status: Pen, Time: 3:45 PM EPVOB, Provider: Maggy Sauceda, Status: Pen, Time: 3:45 PM [facility]: Start: 03-23-2021 DTaP/Tdap/Td Vaccines (2 - Td or Tdap) DTaP/Tdap/Td Vaccines (2 - Td or Tdap) [facility] Start: 2021 Pneumococcal Vaccine: Pediatrics and At-Risk Adult Patients (1 of 2 - PCV) Pneumococcal Vaccine: Pediatrics and At-Risk Adult Patients (1 of 2 - PCV) [facility] Start: 03-09-2021 EPVOB, Provider: Maggy Sauceda, Status: Pen, Time: 3:45 PM EPVOB, Provider: Maggy Sauceda, Status: Pen, Time: 3:45 PM [facility] Work Phone: Start: 02-23-2021 EPVOB, Provider: Maggy Sauceda, Status: Pen, Time: 11:00 AM EPVOB, Provider: Maggy Sauceda, Status: Pen, Time: 11:00 AM [employer] Work Phone: Start: 02-02-2021 EPVOB, Provider: Maggy Sauceda, Status: Pen, Time: 11:15 AM EPVOB, Provider: Maggy Sauceda, Status: Pen, Time: 11:15 AM [employer] Work Phone: Start: 12-08-2020 EPVOB, Provider: Maggy Saucead, Status: Pen, Time: 9:15 AM EPVOB, Provider: Maggy Sauceda, Status: Pen, Time: 9:15 AM [employer] Work Phone: Start: 08-28-2019 Meningococcal B Vaccine (2 of 2 - Bexsero SCDM 2-dose series) Meningococcal B Vaccine (2 of 2 - Bexsero SCDM 2-dose series) [facility] Start: 2013 HPV Vaccines (1 - 2-dose series) HPV Vaccines (1 - 2-dose series) [facility] Start: 2008 Pneumococcal Vaccine: Pediatrics (0 to 5 Years) and At-Risk Patients (6 to 64 Years) (1 of 2 - PCV) Pneumococcal Vaccine: Pediatrics (0 to 5 Years) and At-Risk Patients (6 to 64 Years) (1 of 2 - PCV) [facility] Start: 2006 Hearing Screening (#1) Hearing Screening (#1) [facility] Start: 2005 Well Child Visit (WCV) - Annual Well Child Visit (WCV) - Annual [facility] Start: 2003 MMR Vaccines (1 of 1 - Standard series) MMR Vaccines (1 of 1 - Standard series) [facility] Start: 2003 Varicella vaccination Varicella Vaccines (1 of 2 - 2-dose childhood series) [facility] Start: 2002 COVID-19 Vaccine (#1) COVID-19 Vaccine (#1) [facility] Start: 2002 Hearing Screening (#1) Hearing Screening (#1) [facility] Start: 2002 Hepatitis B Vaccines (1 of 3 - 3-dose series) Hepatitis B Vaccines (1 of 3 - 3-dose series) [facility] Start: 2002 Lipid panel Lipid Panel [facility] Start: 2002 Yearly Adult Physical Yearly Adult Physical [facility] Laparoscopy w/rmvl a dnexal structures Salpingectomy Laparoscopy Encounter for female sterilization procedure Virtual [facility] OR Patient Education [facility] Work Phone: Surgical pathology study Surgica l Pathology Exam Pathology and Cytology Timed Encounter for female sterilization procedure Release Upon Ordering for 1 Occurrences starting 05/06/2024 [facility] Service Area Work Phone: Comment on above: Release Upon Ordering for 1 Occurrences starting 05/06/2024 End: 03-11-2024 US Pelvis transvaginal [facility] Service Area Work Phone: Comment on above: Once for 1 Occurrences starting 03/11/20 until 03/11/2024 Immunizations Immunization Date Immunization Notes Care Provider Fa [facility] 07-30-2022 diphtheria, tetanus toxoids and acellular pertussis vaccine; Translations: [DTaP] Sandhya Ace Work Phone: [address] Work Phone: Comment on above: Series: 02-23-2021 influenza virus vaccine, unspecified formulation Jenise Schulte MD Work Phone: [facility] Work Phone: Payers Date Payer Category Payer Self-pay 2022 Managed Care (Private) [facility] [id number] 2022 Medicaid (Managed Care) [facility] PL[facility] [id number] 2022 Private Health Insurance [id number] 2019 Unknown 2019 Unknown [id number] 2017 Private Health Insurance 2002 Unknown [id number] 2.16.840.1.642900.3.579.2. 1069 2002 Unknown [id number] 2.16.840.1.241733.3.579.2. 106 2002 Unknown [id number] 2.16.840.1.435133.3.579.2. 1069 2002 Unknown [id number] 2.16.840.1.000563.3.579.2. 1069 2002 Unknown [id number] 2.16.840.1.205024.3.579.2. 1069 2002 Unknown [id number] 2.16.840.1.685316.3.579.2. 106 2002 Unknown [id number] 2.16.840.1.841085.3.579.2. 1069 2002 Unknown [id number] 2.16.840.1.550795.3.579.2. 1069 2002 Unknown [id number] 2.16.840.1.278068.3.579.2. 1069 2002 Unknown [id number] 2.16.840.1.271375.3.579.2. 1069 2002 Unknown [id number] 2.16.840.1.646923.3.579.2. 1069 2002 Unknown [id number] 2.16.840.1.586271.3.579.2. 1069 2002 Unknown [id number] 2.16.840.1.339501.3.579.2. 356 2002 Unknown [id number] 2.16.840.1.540243.3.579.2. 356 2002 Unknown [id number] 2.16.840.1.229642.3.579.2. 356 2002 Unknown [id number] 2.16.840.1.264632.3.579.2. 356 2002 Unknown [id number] 2.16.840.1.164184.3.579.2. 356 2002 Unknown [id number] 2.16.840.1.690709.3.579.2. 356 2002 Unknown [id number] 2.16.840.1.616457.3.579.2. 356 2002 Unknown [id number] 2.16.840.1.706475.3.579.2. 356 2002 Unknown [id number] 2.16.840.1.438013.3.579.2. 356 2002 Unknown [id number] 2.16.840.1.852359.3.579.2. 356 2002 Unknown [id number] 2.16.840.1.981568.3.579.2. 356 2002 Unknown [id number] 2.16.840.1.224788.3.579.2. 356 2002 Unknown [id number] 2.16.840.1.505334.3.579.2. 356 2002 Unknown [id number] 2.16.840.1.773176.3.579.2. 356 2002 Unknown [id number] 2.16.840.1.164176.3.579.2. 1245 2002 Unknown [id number] 2.16.840.1.549661.3.579.2. 1245 2002 Unknown [id number] 2.16.840.1.064851.3.579.2. 1243 2002 Unknown [id number] 2.16.840.1.953819.3.579.2. 1243 2002 Unknown [id number] 2.16.840.1.577666.3.579.2. 1244 2002 Unknown [id number] 2.16.840.1.672455.3.579.2. 1244 2002 Unknown [id number] 2.16.840.1.195398.3.579.2. 1244 2002 Unknown [id number] 2.16.840.1.022066.3.579.2. 1244 2002 Unknown [id number] 2.16.840.1.663486.3.579.2. 1244 2002 Unknown [id number] 2.16.840.1.540217.3.579.2. 1244 Private Health Insurance [id number] Unknown [id number] 2.16.840.1.258558.3.579.2. 462 Unknown [id number] 2.16.840.1.378806.3.579.2. 462 Unknown [id number] 2.16840.1.049971.3.579.2. 462 Social History Date Type Detail Facility Start: 05-28-2023 End: 06-01-2024 Sexually active Sexually active [place] [address] [employer] Work Phone: Comment on above: VAPES; Tobacco smoking consumption unknown [facility] Start: 2002 [facility] Start: 05-28-2023 End: 06-01-2024 Gender identity Not on file [facility] Work Phone: Start: 05-28-2023 Tobacco smoking status NHIS Never smoked tobacco [facility] Work Phone: Start: 05-28-2023 Tobacco use and exposure Smokeless tobacco non-user [facility] Work Phone: Start: 05-28-2023 End: 06-01-2024 Alcohol intake Lifetime non-drinker (finding) [facility] Work Phone: Start: 05-18-2023 End: 06-01-2024 Exposure to SARS-CoV-2 (event) Not sure [facility] Start: 01-06-2025 End: 01-18-2025 Tobacco smoking status NHIS Smokes tobacco daily (finding) [facility] Start: 2002 Sex Assigned At Female [facility] Functional Status Date Assessment Result Facility Functional observable [facility] Mental Status Date Assessment Result Facility 10-10-2022 Cognitive functions 0237:00 [facility] Clinical Notes 02-08-2022 to 01-18-2025 Maggy Sauceda MD - 06/01/2024 11:00 AM Edie Sauceda MD - 05/21/2024 10:45 AM ESTPre-Procedure Note - Vance Pisano MD - 05/06/2024 11:16 AM Edie Sauceda MD - 05/06/2024 8:40 AM EST Note Date & Type Note Facility 01-18-2025 Discharge summary [facility] 06-01-2024 History of Present illness Narrative Jeff White is a 24 y.o. female who is here for a routine exam. 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 Patient does not do regular self breast exams and has no concerns at this time. LMP: 04/29/24 Presents for annual exam. She voices no complaints and is doing well. Denies any bowel or bladder problems. Denies any breast problems. Had previous tubal sterilization. OB History 2 Para 2 Term 2 0 AB 0 Living 2 SAB 0 IAB 0 Ectopic 0 Multiple 0 Live Births 2 Social History Substance and Sexual Activity Sexual Activity Yes Current contraception: Tubal Sterilization Past Medical History: Diagnosis Date Asthma Encounter for full-term uncomplicated delivery NVD (normal vaginal delivery) Other conditions influencing health status Menstruation Past Surgical History: Procedure Laterality Date OTHER SURGICAL HISTORY 10/13/2020 Tonsillectomy Past med hx and past surg hx reviewed and notable for: none Review of Systems: Constitutional: No fever or chills Respiratory: No shortness of breath, or cough Cardiovascular: No chest pain or syncope Breasts: No breast pain, no masses, no nipple discharge Gastrointestinal: No nausea, vomiting, or diarrhea, no abdominal pain Genitourinary: No dysuria or frequency Gynecology: Negative except as noted in history of present illness All other: All other systems reviewed and negative for complaint Objective LMP 04/29/2024 Comment: HCG negative 05/03/24 PHYSICAL EXAMINATION: Knockdown Man present for exam: Tri Beverly MA ([place]) Well-developed, well nourished, in no acute distress, alert and oriented x three, is pleasant and cooperative. HEENT: Clear. Pupils equal, round and reactive to light and accommodation. Extraocular muscles are intact. Oral mucosa pink without exudate. NECK: No lymphadenopathy, no thyromegaly. BREASTS: Symmetric, no palpable masses. No nipple discharge or retraction. LUNGS: Clear bilaterally. HEART: Regular rate and rhythm without murmurs. ABDOMEN: Normoactive bowel sounds, soft and nontender, no guarding or rebound tenderness, no CVA tenderness. EXTREMITIES: No clubbing, cyanosis or edema. NEUROLOGIC: Cranial nerves II-XII grossly intact. : Normal external female genitalia, normal vulva, normal vagina. Normal urethral meatus, urethra and bladder. Normal appearing cervix. Normal-sized uterus, no adnexal masses or tenderness. Pap smear performed today. Actions performed during this visit include: - Clinical breast exam - Clinical pelvic exam - No orders of the defined types were placed in this encounter. Problem List Items Addressed This Visit None Visit Diagnoses Cervical cancer screening Relevant Orders THINPREP PAP Encounter for gynecological examination without abnormal finding Relevant Orders THINPREP PAP Provider Impression: 1. Annual Thank you for coming to your annual exam. Your findings during the exam were normal. Please return for your next visit in 1 year. documented in this encounter [facility] Work Phone: 05-21-2024 History of Present illness Narrative Jeff White is a 24 y.o. year old female patient. PCP = JAZMINE Sherman Chief Complaint Patient presents with Post-op Visit Patient is here for her post op tubal. Patient has no concerns at this time and states she is doing well. HPI Presents for postop visit following laparoscopic bilateral salpingectomy. She voices no complaints and is doing well. OB History 2 Para 2 Term 2 0 AB 0 Living 2 SAB 0 IAB 0 Ectopic 0 Multiple 0 Live Births 2 Past Medical History: Diagnosis Date Asthma Encounter for full-term uncomplicated delivery NVD (normal vaginal delivery) Other conditions influencing health status Menstruation Past Surgical History: Procedure Laterality Date OTHER SURGICAL HISTORY 10/13/2020 Tonsillectomy Review of Systems: Constitutional: No fever or chills Respiratory: No shortness of breath, or cough Cardiovascular: No chest pain or syncope Breasts: No breast pain, no masses, no nipple discharge Gastrointestinal: No nausea, vomiting, or diarrhea, no abdominal pain Genitourinary: No dysuria or frequency Gynecology: Negative except as noted in history of present illness All other: All other systems reviewed and negative for complaint Medication Documentation Review Audit Reviewed by Maggy Sauceda MD (Physician) on 05/21/24 at 1104 Medication Order Taking? Sig Documenting Provider Last Dose Status acetaminophen-codeine (Tylenol w/ Codeine #3) 300-30 mg tablet [id number] Take 1 tablet by mouth every 6 hours if needed for moderate pain (4 - 6) or severe pain (7 - 10) for up to 10 doses. Maggy Sauceda MD Active BP 108/60 Ht 1.753 m (5' 9) Wt 105 kg (231 lb 3.2 oz) LMP 04/29/2024 Comment: HCG negative 05/03/24 BMI 34.14 kg/m PHYSICAL EXAMINATION: Well-developed, well nourished, in no acute distress, alert and oriented x three, is pleasant and cooperative. HEENT: Clear. Pupils equal, round and reactive to light and accommodation. Extraocular muscles are intact. Oral mucosa pink without exudate. NECK: No lymphadenopathy, no thyromegaly. LUNGS: Clear bilaterally. HEART: Regular rate and rhythm without murmurs. ABDOMEN: Normoactive bowel sounds, soft and nontender, no guarding or rebound tenderness, no CVA tenderness. The subumbilical, right and left lower quadrant incision sites are healing well, well-approximated, no erythema or drainage. EXTREMITIES: No clubbing, cyanosis or edema. NEUROLOGIC: Cranial nerves II-XII grossly intact. Case Report Surgical Pathology Case: [id number] Authorizing Provider: Maggy Sauceda MD Collected: 05/06/2024 0934 Ordering Location: [facility] Received: 05/06/2024 1632 Center OR Pathologist: Mary Alice Gonzales MD Specimen: FALLOPIAN TUBE SALPINGECTOMY LEFT AND RIGHT, BILATERAL FALLOPIAN TUBES FINAL DIAGNOSIS A. FALLOPIAN TUBES, SALPINGECTOMY, LEFT AND RIGHT: -- Complete cross sections of Fallopian tubes are identified. at 1436 By the signature on this report, the individual or group listed as making the Final Interpretation/Diagnosis certifies that they have reviewed this case. Problem List Items Addressed This Visit None Visit Diagnoses Postoperative visit - Primary Provider Impression: 1. Postop checkup Patient was shown pictures from surgery. Personally reviewed the path report showing normal fallopian tubes bilaterally. Patient to follow-up in several weeks for her annual exam. documented in this encounter [facility] Work Phone: 05-06-2024 Miscellaneous Notes Patient: Jeff White Procedure Summary Date: 05/06/24 Room / Location: [facility] OR 01 / Virtual [facility] OR Anesthesia Start: 901 Anesthesia Stop: 1000 Procedure: Laparoscopic tubal sterilization, Bilateral Salpingectomy (Bilateral) Diagnosis: Encounter for female sterilization procedure (Encounter for female sterilization procedure [Z30.2]) Surgeons: Maggy Sauceda MD Responsible Provider: Vance Pisano MD Anesthesia Type: general ASA Status: 2 Anesthesia Type: general Vitals Value Taken Time BP 117/64 05/06/24 1105 Temp 36.3 C (97.4 F) 05/06/24 1105 Pulse 96 05/06/24 1105 Resp 12 05/06/24 1105 SpO2 100 % 05/06/24 1105 Anesthesia Post Evaluation No notable events documented. Patient: Jeff White Vitals Value Taken Time BP 117/64 05/06/24 1105 Temp 36.3 C (97.4 F) 05/06/24 1105 Pulse 96 05/06/24 1105 Resp 12 05/06/24 1105 SpO2 100 % 05/06/24 1105 @ANPOSTEVAL@ Laparoscopic tubal sterilization, Bilateral Salpingectomy (B) Operative Note Date: 05/06/2024 OR Location: [facility] OR Name: Jeff White, : 2000, Age: 24 y.o., , Sex: female Diagnosis Pre-op Diagnosis * Encounter for female sterilization procedure [Z30.2] Post-op Diagnosis * Encounter for female sterilization procedure [Z30.2] Procedures Laparoscopic tubal sterilization, Bilateral Salpingectomy 13806 - [place] LAPAROSCOPY W/RMVL ADNEXAL STRUCTURES Surgeons * Maggy Sauceda - Primary Resident/Fellow/Other Battery Vent Plug Inserter: Surgeons and Role: * No surgeons found with a matching role * Staff: Undercar Specialist: Liliana Naqviub Person: Edyta Naqviub Person: Angela Anesthesia Staff: Anesthesiologist: Vance Pisano MD Procedure Summary Anesthesia: General ASA: II Estimated Blood Loss: 2mL Intra-op Medications: Administrations occurring from 0935 to 1140 on 05/06/24: * No intraprocedure medications in log * Anesthesia Record Intraprocedure I/O Totals Intake Ketamine 0.00 mL The total shown is the total volume documented since Anesthesia Start was filed. Total Intake 0 mL Specimen: ID Type Source Tests Collected by Time 1 : BILATERAL FALLOPIAN TUBES Tissue FALLOPIAN TUBE SALPINGECTOMY LEFT AND RIGHT SURGICAL PATHOLOGY EXAM Angela Reynolds RN 05/06/2024 0934 Drains and/or Catheters: * None in log * Tourniquet Times: Implants: Findings: Size anteverted uterus. Both ovaries and tubes appeared normal bilaterally. Normal anterior and posterior cul-de-sacs. No evidence of adhesions or endometriosis in the pelvis. Dome of the diaphragm and liver edge appeared normal. Indications: Jeff White is an 24 y.o. female who is having surgery for Encounter for female sterilization procedure [Z30.2]. The patient was seen in the preoperative area. The risks, benefits, complications, treatment options, non-operative alternatives, expected recovery and outcomes were discussed with the patient. The possibilities of reaction to medication, pulmonary aspiration, injury to surrounding structures, bleeding, recurrent infection, the need for additional procedures, failure to diagnose a condition, and creating a complication requiring transfusion or operation were discussed with the patient. The patient concurred with the proposed plan, giving informed consent. The site of surgery was properly noted/marked if necessary per policy. The patient has been actively warmed in preoperative area. Preoperative antibiotics are not indicated. Venous thrombosis prophylaxis have been ordered including bilateral sequential compression devices Procedure Details: Procedure: Patient brought into the operating room and placed in the supine position. She had the sequential compression device on the lower extremities placed preoperatively. After an adequate level of general anesthesia, she was then placed in the low lithotomy position. The abdomen, perineum and vagina were prepped and draped in the usual sterile fashion. Bimanual exam was performed revealing a normal sized uterus. No evidence of adnexal masses. The urinary bladder was drained using a Red Alaniz catheter. A weighted speculum was placed in the vagina. The anterior vaginal wall was elevated. The anterior lip of the cervix was grasped with an Allis clamp. The uterus was sounded to 8 cm. The cervix was gradually dilated with the Mark dilators. Then the uterine manipulator was placed through the cervix into the uterine cavity. The Allis clamp and weighted speculum were removed. Attention was then brought to the abdomen, a 5mm sub-umbilical incision was made in the skin. The abdomen was lifted with towel clips that were placed on each side of the umbilicus. Veress needle was directed into the abdominal cavity and presence was confirmed by saline drop test. Pneumoperitoneum was obtained with CO2. The 5mm direct view trocar with the 5mm laparoscope was placed through the incision and directed into the abdominal cavity without complication. The towel clips were then removed. The abdomen was inspected and the uterus, both ovaries and tubes, anterior and posterior cul-de-sacs appeared normal. No evidence of adhesions or endometriosis. The dome of the diaphragm appeared normal. The 5 mm internal medicine physician assistant ports were placed in the left and right lower quadrants under direct visualization without complication. At this point the right fallopian tube was identified and elevated. The LigaSure device was then utilized to coagulate and cut underneath the fallopian tube to the cornual region. The tube was then coagulated across the cornual region, cut and removed out through the internal medicine physician assistant port. Attention was turned to the patients left fallopian tube which was identified and elevated. LigaSure device was then utilized to coagulate and cut underneath the fallopian tube to the cornual region. The tube was then coagulated across the cornual region, cut and removed through the internal medicine physician assistant port. All surgical sites in the abdominal cavity were hemostatic. The CO2 was expressed through the trocar sleeves and the umbilical, right and left internal medicine physician assistant trocar sleeves were removed. The umbilical, right and left lower abdominal incisions were closed with 4-O Monocryl in an interrupted subcuticular fashion and Dermabond. The uterine manipulator was removed. The procedure was ended. Sponge and needle counts were correct x 2. The right and left fallopian tubes sent to pathology for evaluation. The patient tolerated the procedure well and was taken to PACU in good condition. Patient to receive Tylenol #3 one tablet po every 4 hours PRN (10). Patient to follow-up in office in 2 weeks. Edyta participated throughout the entirety of the case due to the complexity of the surgical case in order to complete the case. Complications: None; patient tolerated the procedure well. Disposition: PACU - hemodynamically stable. Condition: stable Additional Details: none Attending Attestation: Maggy Sauceda No outpatient medications have been marked as taking for the 05/06/24 encounter (Hospital Encounter). NPO Instructions: Do not eat any food after midnight the night before your surgery/procedure. You may have clear liquids until TWO hours before surgery/procedure. This includes water, black tea/coffee, (no milk or cream) apple juice and electrolyte drinks (Gatorade). Additional Instructions: Will need seasonal delivery driver home, will receive call day before surgery with arrival time documented in this encounter [facility] Work Phone: 05-06-2024 Note Formatting of this n ote is different from the original. Patient: Jeff White Procedure Summary Date: 05/06/24 Room / Location: [facility] OR [facility] OR Anesthesia Start: 901 Anesthesia Stop: 999 Procedure: Laparoscopic tubal sterilization, Bilateral Salpingectomy (Bilateral) Diagnosis: Encounter for female sterilization procedure (Encounter for female sterilization procedure [Z30.2]) Surgeons: Maggy Sauceda MD Responsible Provider: Vance Pisano MD Anesthesia Type: general ASA Status: 2 Anesthesia Type: general Vitals Value Taken Time BP 117/64 05/06/24 1105 Temp 36.3 C (97.4 F) 05/06/24 1105 Pulse 96 05/06/24 1105 Resp 12 05/06/24 1105 SpO2 100 % 05/06/24 1105 Anesthesia Post Evaluation No notable events documented. [facility] Work Phone: 05-06-2024 Note Formatting of this n ote is different from the original. Patient: Jeff White Vitals Value Taken Time BP 117/64 05/06/24 1105 Temp 36.3 C (97.4 F) 05/06/24 1105 Pulse 96 05/06/24 1105 Resp 12 05/06/24 1105 SpO2 100 % 05/06/24 1105 @ANPOSTEVAL@ [facility] [facility] Work Phone: 05-06-2024 Note Formatting of this n ote is different from the original. Laparoscopic tubal sterilization, Bilateral Salpingectomy (B) Operative Note Date: 05/06/2024 OR Location: [facility] OR Name: Jeff White, : 2000, Age: 24 y.o., , Sex: female Diagnosis Pre-op Diagnosis * Encounter for female sterilization procedure [Z30.2] Post-op Diagnosis * Encounter for female sterilization procedure [Z30.2] Procedures Laparoscopic tubal sterilization, Bilateral Salpingectomy [address]86 - NV LAPAROSCOPY W/RMVL ADNEXAL STRUCTURES Surgeons * Maggy Sauceda - Primary Resident/Fellow/Other Battery Vent Plug Inserter: Surgeons and Role: * No surgeons found with a matching role * Staff: Undercar Specialist: Liliana Scrub Person: Edyta Scrub Person: Angela Anesthesia Staff: Anesthesiologist: Vance Pisano MD Procedure Summary Anesthesia: General ASA: II Estimated Blood Loss: 2mL Intra-op Medications: Administrations occurring from 0935 to 1140 on 05/06/24: * No intraprocedure medications in log * Anesthesia Record Intraprocedure I/O Totals Intake Ketamine 0.00 mL The total shown is the total volume documented since Anesthesia Start was filed. Total Intake 0 mL Specimen: ID Type Source Tests Collected by Time 1 : BILATERAL FALLOPIAN TUBES Tissue FALLOPIAN TUBE SALPINGECTOMY LEFT AND RIGHT SURGICAL PATHOLOGY EXAM Angela Reynolds RN 05/06/2024 0934 Drains and/or Catheters: * None in log * Tourniquet Times: Implants: Findings: Size anteverted uterus. Both ovaries and tubes appeared normal bilaterally. Normal anterior and posterior cul-de-sacs. No evidence of adhesions or endometriosis in the pelvis. Dome of the diaphragm and liver edge appeared normal. Indications: Jeff White is an 24 y.o. female who is having surgery for Encounter for female sterilization procedure [Z30.2]. The patient was seen in the preoperative area. The risks, benefits, complications, treatment options, non-operative alternatives, expected recovery and outcomes were discussed with the patient. The possibilities of reaction to medication, pulmonary aspiration, injury to surrounding structures, bleeding, recurrent infection, the need for additional procedures, failure to diagnose a condition, and creating a complication requiring transfusion or operation were discussed with the patient. The patient concurred with the proposed plan, giving informed consent. The site of surgery was properly noted/marked if necessary per policy. The patient has been actively warmed in preoperative area. Preoperative antibiotics are not indicated. Venous thrombosis prophylaxis have been ordered including bilateral sequential compression devices Procedure Details: Procedure: Patient brought into the operating room and placed in the supine position. She had the sequential compression device on the lower extremities placed preoperatively. After an adequate level of general anesthesia, she was then placed in the low lithotomy position. The abdomen, perineum and vagina were prepped and draped in the usual sterile fashion. Bimanual exam was performed revealing a normal sized uterus. No evidence of adnexal masses. The urinary bladder was drained using a Red Alaniz catheter. A weighted speculum was placed in the vagina. The anterior vaginal wall was elevated. The anterior lip of the cervix was grasped with an Allis clamp. The uterus was sounded to 8 cm. The cervix was gradually dilated with the Mark dilators. Then the uterine manipulator was placed through the cervix into the uterine cavity. The Allis clamp and weighted speculum were removed. Attention was then brought to the abdomen, a 5mm sub-umbilical incision was made in the skin. The abdomen was lifted with towel clips that were placed on each side of the umbilicus. Veress needle was directed into the abdominal cavity and presence was confirmed by saline drop test. Pneumoperitoneum was obtained with CO2. The 5mm direct view trocar with the 5mm laparoscope was placed through the incision and directed into the abdominal cavity without complication. The towel clips were then removed. The abdomen was inspected and the uterus, both ovaries and tubes, anterior and posterior cul-de-sacs appeared normal. No evidence of adhesions or endometriosis. The dome of the diaphragm appeared normal. The 5 mm internal medicine physician assistant ports were placed in the left and right lower quadrants under direct visualization without complication. At this point the right fallopian tube was identified and elevated. The LigaSure device was then utilized to coagulate and cut underneath the fallopian tube to the cornual region. The tube was then coagulated across the cornual region, cut and removed out through the internal medicine physician assistant port. Attention was turned to the patients left fallopian tube which was identified and elevated. LigaSure device was then utilized to coagulate and cut underneath the fallopian tube to the cornual region. The tube was then coagulated across the cornual region, cut and removed through the internal medicine physician assistant port. All surgical sites in the abdominal cavity were hemostatic. The CO2 was expressed through the trocar sleeves and the umbilical, right and left internal medicine physician assistant trocar sleeves were removed. The umbilical, right and left lower abdominal incisions were closed with 4-O Monocryl in an interrupted subcuticular fashion and Dermabond. The uterine manipulator was removed. The procedure was ended. Sponge and needle counts were correct x 2. The right and left fallopian tubes sent to pathology for evaluation. The patient tolerated the procedure well and was taken to PACU in good condition. Patient to receive Tylenol #3 one tablet po every 4 hours PRN (10). Patient to follow-up in office in 2 weeks. Edyta participated throughout the entirety of the case due to the complexity of the surgical case in order to complete the case. Complications: None; patient tolerated the procedure well. Disposition: PACU - hemodynamically stable. Condition: stable Additional Details: none Attending Attestation: Maggy Sauceda [facility] Work Phone: 05-06-2024 Attending History and physical note H&P reviewed. The patient was examined and there are no changes to the H&P. LMP 04-29-2024. Source Note - Maggy Sauceda MD - 04/21/2024 10:15 AM EST Jeff White is a 24 y.o. year old female patient. PCP = Sandhya Ace APRN-RADIATOR CORE TESTER Chief Complaint Patient presents with Pre-op Visit Patient is here for her pre-op tubal sterilization visit. Patient has no concerns at this time. LMP: 03/25/24. HPI Presents for preop visit in anticipation of tubal sterilization scheduled for May 06. She is currently using condoms for contraception. She again states that she has completed her childbearing and desires no further children and therefore requests tubal sterilization. OB History 2 Para 2 Term 2 0 AB 0 Living 2 SAB 0 IAB 0 Ectopic 0 Multiple 0 Live Births 2 Past Medical History: Diagnosis Date Encounter for full-term uncomplicated delivery NVD (normal vaginal delivery) Other conditions influencing health status Menstruation Past Surgical History: Procedure Laterality Date OTHER SURGICAL HISTORY 10/13/2020 Tonsillectomy Review of Systems: Constitutional: No fever or chills Respiratory: No shortness of breath, or cough Cardiovascular: No chest pain or syncope Breasts: No breast pain, no masses, no nipple discharge Gastrointestinal: No nausea, vomiting, or diarrhea, no abdominal pain Genitourinary: No dysuria or frequency Gynecology: Negative except as noted in history of present illness All other: All other systems reviewed and negative for complaint Medication Documentation Review Audit Reviewed by Maggy Sauceda MD (Physician) on 04/21/24 at 1018 Medication Order Taking? Sig Documenting Provider Last Dose Status No Medications to Display BP 118/64 Ht 1.753 m (5' 9) Wt 108 kg (238 lb 9.6 oz) LMP 03/25/2024 (Approximate) BMI 35.24 kg/m PHYSICAL EXAMINATION: General: No acute distress Eye: Intraocular movements are intact HEENT: Normocephalic Respiratory: Respirations are nonlabored Gastrointestinal: Nondistended Musculoskeletal: Normal range of motion Neurologic: Alert and oriented x3 Psychiatric: Cooperative, appropriate mood and affect. Problem List Items Addressed This Visit Encounter for female sterilization procedure - Primary Provider Impression: 1. Contraceptive counseling Explained the permanent nature of laparoscopic tubal sterilization and the risk of failure and ectopic rate being 3-5 per 1000. Discussed removal of the entire fallopian tube in order to reduce the risk of ovarian cancer. She understands that a reversal is not possible and of the risk of regret in performing the procedure. Informed of the risks of surgery including risk of anesthesia, infection, bleeding, injury to bowel, bladder, ureter or uterine perforation. Her questions were answered to her satisfaction and she agrees to undergo laparoscopic tubal sterilization with bilateral salpingectomy. Plan for surgery on May 06. [facility] Work Phone: 05-06-2024 History and physical note H&P reviewed. The patient was examined and there are no changes to the H&P. LMP 04-29-2024. Source Note - Maggy Sauceda MD - 04/21/2024 10:15 AM EST Jeff White is a 24 y.o. year old female patient. PCP = Sandhya Ace, PRODUCT REPRESENTATIVE-RADIATOR CORE TESTER Chief Complaint Patient presents with Pre-op Visit Patient is here for her pre-op tubal sterilization visit. Patient has no concerns at this time. LMP: 03/25/24. HPI Presents for preop visit in anticipation of tubal sterilization scheduled for May 06. She is currently using condoms for contraception. She again states that she has completed her childbearing and desires no further children and therefore requests tubal sterilization. OB History 2 Para 2 Term 2 0 AB 0 Living 2 SAB 0 IAB 0 Ectopic 0 Multiple 0 Live Births 2 Past Medical History: Diagnosis Date Encounter for full-term uncomplicated delivery NVD (normal vaginal delivery) Other conditions influencing health status Menstruation Past Surgical History: Procedure Laterality Date OTHER SURGICAL HISTORY 10/13/2020 Tonsillectomy Review of Systems: Constitutional: No fever or chills Respiratory: No shortness of breath, or cough Cardiovascular: No chest pain or syncope Breasts: No breast pain, no masses, no nipple discharge Gastrointestinal: No nausea, vomiting, or diarrhea, no abdominal pain Genitourinary: No dysuria or frequency Gynecology: Negative except as noted in history of present illness All other: All other systems reviewed and negative for complaint Medication Documentation Review Audit Reviewed by Maggy Sauceda MD (Physician) on 04/21/24 at 1018 Medication Order Taking? Sig Documenting Provider Last Dose Status No Medications to Display BP 118/64 Ht 1.753 m (5' 9) Wt 108 kg (238 lb 9.6 oz) LMP 03/25/2024 (Approximate) BMI 35.24 kg/m PHYSICAL EXAMINATION: General: No acute distress Eye: Intraocular movements are intact HEENT: Normocephalic Respiratory: Respirations are nonlabored Gastrointestinal: Nondistended Musculoskeletal: Normal range of motion Neurologic: Alert and oriented x3 Psychiatric: Cooperative, appropriate mood and affect. Problem List Items Addressed This Visit Encounter for female sterilization procedure - Primary Provider Impression: 1. Contraceptive counseling Explained the permanent nature of laparoscopic tubal sterilization and the risk of failure and ectopic rate being 3-5 per 1000. Discussed removal of the entire fallopian tube in order to reduce the risk of ovarian cancer. She understands that a reversal is not possible and of the risk of regret in performing the procedure. Informed of the risks of surgery including risk of anesthesia, infection, bleeding, injury to bowel, bladder, ureter or uterine perforation. Her questions were answered to her satisfaction and she agrees to undergo laparoscopic tubal sterilization with bilateral salpingectomy. Plan for surgery on May 06. documented in this encounter [facility] Work Phone: 05-04-2024 Note Formatting of this n ote is different from the original. No outpatient medications have been marked as taking for the 05/06/24 encounter (Hospital Encounter). NPO Instructions: Do not eat any food after midnight the night before your surgery/procedure. You may have clear liquids until TWO hours before surgery/procedure. This includes water, black tea/coffee, (no milk or cream) apple juice and electrolyte drinks (Gatorade). Additional Instructions: Will need seasonal delivery driver home, will receive call day before surgery with arrival time [facility] 04-21-2024 History of Present illness Narrative Jeff White is a 24 y.o. year old female patient. PCP = Sandhya Ace, PRODUCT REPRESENTATIVE-RADIATOR CORE TESTER Chief Complaint Patient presents with Pre-op Visit Patient is here for her pre-op tubal sterilization visit. Patient has no concerns at this time. LMP: 03/25/24. HPI Presents for preop visit in anticipation of tubal sterilization scheduled for May 06. She is currently using condoms for contraception. She again states that she has completed her childbearing and desires no further children and therefore requests tubal sterilization. OB History 2 Para 2 Term 2 0 AB 0 Living 2 SAB 0 IAB 0 Ectopic 0 Multiple 0 Live Births 2 Past Medical History: Diagnosis Date Encounter for full-term uncomplicated delivery NVD (normal vaginal delivery) Other conditions influencing health status Menstruation Past Surgical History: Procedure Laterality Date OTHER SURGICAL HISTORY 10/13/2020 Tonsillectomy Review of Systems: Constitutional: No fever or chills Respiratory: No shortness of breath, or cough Cardiovascular: No chest pain or syncope Breasts: No breast pain, no masses, no nipple discharge Gastrointestinal: No nausea, vomiting, or diarrhea, no abdominal pain Genitourinary: No dysuria or frequency Gynecology: Negative except as noted in history of present illness All other: All other systems reviewed and negative for complaint Medication Documentation Review Audit Reviewed by Maggy Sauceda MD (Physician) on 04/21/24 at 1018 Medication Order Taking? Sig Documenting Provider Last Dose Status No Medications to Display BP 118/64 Ht 1.753 m (5' 9) Wt 108 kg (238 lb 9.6 oz) LMP 03/25/2024 (Approximate) BMI 35.24 kg/m PHYSICAL EXAMINATION: General: No acute distress Eye: Intraocular movements are intact HEENT: Normocephalic Respiratory: Respirations are nonlabored Gastrointestinal: Nondistended Musculoskeletal: Normal range of motion Neurologic: Alert and oriented x3 Psychiatric: Cooperative, appropriate mood and affect. Problem List Items Addressed This Visit Encounter for female sterilization procedure - Primary Provider Impression: 1. Contraceptive counseling Explained the permanent nature of laparoscopic tubal sterilization and the risk of failure and ectopic rate being 3-5 per 1000. Discussed removal of the entire fallopian tube in order to reduce the risk of ovarian cancer. She understands that a reversal is not possible and of the risk of regret in performing the procedure. Informed of the risks of surgery including risk of anesthesia, infection, bleeding, injury to bowel, bladder, ureter or uterine perforation. Her questions were answered to her satisfaction and she agrees to undergo laparoscopic tubal sterilization with bilateral salpingectomy. Plan for surgery on May 06. documented in this encounter [facility] Work Phone: 03-30-2024 History of Present illness Narrative Jeff R White is a 24 y.o. year old female patient. PCP = Sandhya Ace, PRODUCT REPRESENTATIVE-RADIATOR CORE TESTER Chief Complaint Patient presents with Contraception Patient is here to discuss tubal sterilization. LMP: 03/25/24. HPI Presents stating that she has completed her childbearing and desires no further children and therefore requests tubal sterilization. She is using condoms for contraception. OB History 2 Para 2 Term 2 0 AB 0 Living 2 SAB 0 IAB 0 Ectopic 0 Multiple 0 Live Births 2 Past Medical History: Diagnosis Date Encounter for full-term uncomplicated delivery NVD (normal vaginal delivery) Other conditions influencing health status Menstruation Past Surgical History: Procedure Laterality Date OTHER SURGICAL HISTORY 10/13/2020 Tonsillectomy Review of Systems: Constitutional: No fever or chills Respiratory: No shortness of breath, or cough Cardiovascular: No chest pain or syncope Breasts: No breast pain, no masses, no nipple discharge Gastrointestinal: No nausea, vomiting, or diarrhea, no abdominal pain Genitourinary: No dysuria or frequency Gynecology: Negative except as noted in history of present illness All other: All other systems reviewed and negative for complaint Medication Documentation Review Audit Reviewed by Maggy Sauceda MD (Physician) on 03/30/24 at 1005 Medication Order Taking? Sig Documenting Provider Last Dose Status No Medications to Display BP 116/62 Ht 1.753 m (5' 9) Wt 108 kg (239 lb) LMP 03/25/2024 (Approximate) BMI 35.29 kg/m PHYSICAL EXAMINATION: General: No acute distress Eye: Intraocular movements are intact HEENT: Normocephalic Respiratory: Respirations are nonlabored Gastrointestinal: Nondistended Musculoskeletal: Normal range of motion Neurologic: Alert and oriented x3 Psychiatric: Cooperative, appropriate mood and affect. Problem List Items Addressed This Visit Encounter for female sterilization procedure - Primary Relevant Orders Case Request Operating Room: Laparoscopic tubal sterilization, Bilateral Salpingectomy (Completed) CBC hCG, Urine, Qualitative Provider Impression: 1. Contraceptive counseling Explained the permanent nature of laparoscopic tubal sterilization and the risk of failure and ectopic rate being 3-5 per 1000. Discussed removal of the entire fallopian tube in order to reduce the risk of ovarian cancer. She understands that a reversal is not possible and of the risk of regret in performing the procedure. Informed of the risks of surgery including risk of anesthesia, infection, bleeding, injury to bowel, bladder, ureter or uterine perforation. Her questions were answered to her satisfaction and she agrees to undergo laparoscopic tubal sterilization with bilateral salpingectomy. Plan for surgery for May 06. Patient to return in April for her preop visit. documented in this encounter [facility] Work Phone: 03-16-2024 History of Present illness Narrative Jeff White is a 23 y.o. year old female patient. PCP = Sandhya Ace APRN-DALIA Chief Complaint Patient presents with Results Patient is here to review ultrasound results. HPI Presents review recent pelvic ultrasound due to having pain associated with intercourse over the last year. Patient states that she had a vaginal delivery of a 9 pound 11 ounce infant on October 09, 2022. OB History 2 Para 2 Term 2 0 AB 0 Living 2 SAB 0 IAB 0 Ectopic 0 Multiple 0 Live Births 2 Past Medical History: Diagnosis Date Encounter for full-term uncomplicated delivery NVD (normal vaginal delivery) Other conditions influencing health status Menstruation Past Surgical History: Procedure Laterality Date OTHER SURGICAL HISTORY 10/13/2020 Tonsillectomy Review of Systems: Constitutional: No fever or chills Respiratory: No shortness of breath, or cough Cardiovascular: No chest pain or syncope Breasts: No breast pain, no masses, no nipple discharge Gastrointestinal: No nausea, vomiting, or diarrhea, no abdominal pain Genitourinary: No dysuria or frequency Gynecology: Negative except as noted in history of present illness All other: All other systems reviewed and negative for complaint Medication Documentation Review Audit Reviewed by Mgagy Sauceda MD (Physician) on 03/16/24 at 1124 Medication Order Taking? Sig Documenting Provider Last Dose Status No Medications to Display BP 120/68 Ht 1.753 m (5' 9) Wt 110 kg (243 lb 6.4 oz) LMP 02/12/2024 (Approximate) BMI 35.94 kg/m PHYSICAL EXAMINATION: General: No acute distress Eye: Intraocular movements are intact HEENT: Normocephalic Respiratory: Respirations are nonlabored Gastrointestinal: Nondistended Musculoskeletal: Normal range of motion Neurologic: Alert and oriented x3 Psychiatric: Cooperative, appropriate mood and affect. Interpreted By: Concha Jimenez, STUDY: US PELVIS TRANSABDOMINAL WITH TRANSVAGINAL; 03/11/2024 9:23 am INDICATION: Dyspareunia for 1 year COMPARISON: None. ACCESSION NUMBER(S): [id number] ORDERING CLINICIAN: MAGGY SAUCEDA TECHNIQUE: Grayscale and color Doppler imaging of the pelvis were performed. Transabdominal technique was utilized as well as transvaginal ultrasound to better visualize the adnexa. FINDINGS: Uterus: Size: 10.4 cm x 3.5 cm x 5.3 cm. No uterine masses noted. Endometrial Thickness: 8 mm Ovaries: There is normal color-flow with no sign of ovarian torsion. Right ovary: 4.5 cm x 3.4 cm x 3.3 cm. There is a 2.6 x 2.6 x 2.8 cm right ovarian cyst. Right ovary volume: 26.5 ml Left ovary: 3.3 cm x 1.7 cm x 1.9 cm. Left ovary volume: 5.4 ml There is no free fluid in the pelvis. IMPRESSION: 2.6 x 2.6 x 2.8 cm right ovarian cyst. Normal uterus and left ovary. MACRO: None. Signed by: Concha Jimenez 03/12/2024 7:15 PM Dictation workstation: [id number] Problem List Items Addressed This Visit None Visit Diagnoses Dyspareunia in female - Primary Provider Impression: 1. Dyspareunia Personally reviewed the pelvic ultrasound which shows normal size uterus. There is noticed a right follicular cyst. No evidence of any pelvic masses. Patient informed that the etiology for her pain associated with intercourse is uncertain at this time. Patient to follow-up for annual exam or as needed. documented in this encounter [facility] Work Phone: 03-08-2024 History of Present illness Narrative Jeff White is a 23 y.o. year old female patient. 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 HPI Presents stating that she has noticed intermittent vaginal discharge over the last year. She also will have low abdominal discomfort associated with intercourse. She does not think that the discomfort with intercourse is associated with her partner hitting something internally. She has adequate lubrication. Denies any recent antibiotic use. No changes in sexual partner. Last menstrual period February 17, 2024. OB History 2 Para 2 Term 2 0 AB 0 Living 2 SAB 0 IAB 0 Ectopic 0 Multiple 0 Live Births 2 Past Medical History: Diagnosis Date Encounter for full-term uncomplicated delivery NVD (normal vaginal delivery) Other conditions influencing health status Menstruation Past Surgical History: Procedure Laterality Date OTHER SURGICAL HISTORY 10/13/2020 Tonsillectomy Review of Systems: Constitutional: No fever or chills Respiratory: No shortness of breath, or cough Cardiovascular: No chest pain or syncope Breasts: No breast pain, no masses, no nipple discharge Gastrointestinal: No nausea, vomiting, or diarrhea, no abdominal pain Genitourinary: No dysuria or frequency Gynecology: Negative except as noted in history of present illness All other: All other systems reviewed and negative for complaint Medication Documentation Review Audit Reviewed by Maggy Sauceda MD (Physician) on 03/08/24 at 1019 Medication Order Taking? Sig Documenting Provider Last Dose Status No Medications to Display BP 124/68 Ht 1.753 m (5' 9) Wt 111 kg (244 lb 6.4 oz) LMP 02/12/2024 (Approximate) BMI 36.09 kg/m PHYSICAL EXAMINATION: Knockdown Man present for exam: Marisa Desai LPN Well-developed, well nourished, in no acute distress, alert and oriented x three, is pleasant and cooperative. HEENT: Clear. Pupils equal, round and reactive to light and accommodation. Extraocular muscles are intact. Oral mucosa pink without exudate. NECK: No lymphadenopathy, no thyromegaly. LUNGS: Clear bilaterally. HEART: Regular rate and rhythm without murmurs. ABDOMEN: Normoactive bowel sounds, soft and nontender, no guarding or rebound tenderness, no CVA tenderness. EXTREMITIES: No clubbing, cyanosis or edema. NEUROLOGIC: Cranial nerves II-XII grossly intact. : Normal external female genitalia, normal vulva, normal vagina. Normal urethral meatus, urethra and bladder. No evidence of vaginal discharge on today's exam. Normal appearing cervix. Normal-sized uterus, no adnexal masses or tenderness. Wet prep is negative for bacterial vaginosis, trichomonas or yeast. Problem List Items Addressed This Visit None Visit Diagnoses Dyspareunia in female - Primary Relevant Orders US PELVIS TRANSABDOMINAL WITH TRANSVAGINAL Vaginal discharge Relevant Orders POCT Wet Mount manually resulted (Completed) Provider Impression: 1. Vaginal discharge 2. Dyspareunia Patient informed that the wet prep is negative for bacterial vaginosis, trichomonas or yeast. She denies any changes in sexual partner. Will obtain a pelvic ultrasound regarding pain with intercourse. Follow-up in 1 to 2 weeks to review ultrasound results. documented in this encounter [facility] Work Phone: 05-28-2023 History of Present illness Narrative Chalino is a 23-year-old who comes in for routine [employer] exam. Previously she was on Seasonique control pill and reports that she was experiencing extreme changes in her mood and depression and discontinued the medication and immediately the symptoms resolved. She reports that previously she had been on Seasonique and had not had this experience. Currently she uses nothing for contraception and tries to be minimally sexually active. Additionally she reports a discharge and itching. Review of systems denies any new health issues or concerns Respiratory denies any shortness of breath Cardiovascular denies any chest pain or palpitations GI denies any changes in bowel habits or abdominal pain [employer]TER Per HPI Musculoskeletal denies any changes in her mobility Psych Per HPI related to taking control pills Healthy in no acute distress Lungs clear to auscultation Head and neck supple without adenopathy or masses Heart regular rate and rhythm Breast symmetrical no masses discharge retraction or skin changes Abdomen soft nontender External genitalia revealed no lesions the vagina was well estrogenized the cervix had a mucousy discharge with scant discharge in the vagina uterus and adnexa were normal size nontender Extremities good mobility Psych appropriately oriented with normal mood and affect Wet mount positive clue cells negative trichomoniasis negative yeast Jeff is here for routine [employer] exam Pap smear was done. Vaginitis and leukorrhea consistent with bacterial vaginosis we will send a prescription for Flagyl to her pharmacy and cultures were also sent. Patient at this point is undecided about contraception since the progesterone and the Seasonique caused significant alterations in her mood recommended her considering a progesterone IUD and patient undecided will think about it documented in this encounter [facility] Work Phone: 11-24-2022 History of Present illness Narrative Chalino is a 22-year-old who comes in for a 6-week visit. She is not breast-feeding. She reports that a couple of days ago she had some spotting. She has not had a full menstrual cycle. She has been sexually active without any protection the last time she had intercourse was a couple of days ago. She is concerned that she may be already. [address] Work Phone: 10-10-2022 Note Send Summary: Discharge Summary Providers: Provider RoleProvider Name AttendingMaggy Sauceda Note Recipients: none Discharge: Summary: Admission Date: .08-Oct-2022 20:32:00 Discharge Date: 10-Oct-2022 Attending Physician at Discharge: Maggy Sauceda Admission Reason: Term in labor Final Discharge Diagnoses: Single live Procedures: Normal spontaneous vaginal delivery Condition at Discharge: Satisfactory Disposition at Discharge: .Home Vital Signs: T PRBPMAPSpO2 [id number]/543511% Date/Time10/10 1:365 1: 1: 1: 1:365 1:36 Range(36.4C - 37.3C ) (71 - 106 ) (16 - 18 ) (118 - 140 )/ (55 - 74 ) (84 - 95 ) (93% - 100% ) Highest temp of 37.3 C was recorded at 10/09 3:55 Date: Weight/Scale Type:Height: 08-Oct-2022 20:56507 kg / ddpffjeg407.2 cm Physical Exam: Lungs: Clear bilaterally Heart: Regular rate and rhythm Abdomen: Soft and nontender Hospital Course: Patient progressed through labor well and had a normal spontaneous vaginal delivery for viable female on October 09, 2022. Patient is bottlefeeding and was discharged on day 1. Immunizations: Immunizations: 23-Feb-2021 Tdap: Immunizations, 24-Sep-2021 24-Sep-2021 .Influenza- Influenza Virus: Immunizations, 23-Feb-2021 Discharge Information: and Continuing Care: Lab Results - Pending: None Radiology Results - Pending: None School[place] Suicide Risk: negative Discharge Instructions: Activity: Return to normal activity as tolerated Nutrition/Diet: Regular Follow Up Appointments: Follow-Up - OB Provider: Physician/Dept/Service: Jenise Schulte MD Call to Schedule in: 6 weeks Discharge Medications: Use [id number] Tylenol and Motrin DNR Status: Code StatusCode Status order at time of discharge: Full Code Electronic Signatures: Maggy Sauceda) (Signed 10-Oct-2022 07:04) Authored: Send Summary, Summary Content, Immunizations, Ongoing Care, DNR Status, Note Completion Last Updated: 10-Oct-2022 07:04 by Maggy Sauceda) [facility] 10-09-2022 Note Provider Information : Maternal Delivery Information: Delivery Type: vaginal delivery Did this pt receive corticosteroids at any time during this : No Was intraamniotic infection diagnosed during this labor: no What antibiotic(s) were administered during labor and/or pre-incision: none Rupture of Membranes: spontaneous Spontaneous Labor: yes Augmentation: no Vaginal Delivery Type: spontaneous Vaginal Delivery Complications: none Delivery Anesthesia: epidural Presentation/Lie: vertex Vertex Presentation: Left: occiput anterior Other Laceration: bilateral labial laceration repaired with 3-O Chromic QBL (mL): 216 mL Blood Products Transfused during Delivery (indicate number of units given): none Placenta: spontaneous Choose Baby: A Cord Characteristics: no anomalies noted Delayed Cord Clamping (equal to or greater than 30 seconds): yes Day of Delivery (Baby A): 09-Oct-2022 Gestational Age at Delivery (wk.days): 39 Term: term 37.0 to 41.6 weeks Live : yes Vaginal Delivery Provider: Maggy Sauceda MD Dictation: no Hemorrhage Risk Screen: Hemorrhage Medium Risk Factors (T&S) (2 or more medium risks Go to High Risk section & obtain T&C)BMI > 35(1) Hemorrhage Risk Assessmenthemorrhage risks reviewed and additional factors added if applicable Hemorrhage Risk Score MediumPatient is at Medium Risk for an OB hemorrhage. Order Type & Screen. Score Calculation - IT Use Only1 Electronic Signatures: Maggy Sauceda) (Signed 09-Oct-2022 01:18) Authored: Provider Information, Hemorrhage Risk, Note Completion Last Updated: 09-Oct-2022 01:18 by Maggy Sauceda) References: 1. Data Referenced From History and Physical - OB 08-Oct-2022 21:34 [facility] 10-08-2022 Note HPI/OB History: Care Provider: Jenise Schulte MD HPI Descriptive Info: HPI Patient is a 22-year-old white female 2 para 1, EDC October 16, 2022. Patient presents to labor and delivery complaining of spontaneous rupture membranes at 8 PM tonight with contractions every 2 to 3 minutes. 10-04-2022 U/S@ 39w5d, ATU=0918y (8 11oz). Past medical history: Status post tonsillectomy. Term vaginal delivery in 2020. Family history: Noncontributory Social history: Smokes half a pack a day, denies ethanol consumption. Review of Systems: Constitutional: No fever or chills Respiratory: No shortness of breath, or cough Cardiovascular: No chest pain or syncope Breasts: No breast pain, no masses, no nipple discharge Gastrointestinal: No nausea, vomiting, or diarrhea, no abdominal pain Genitourinary: No dysuria or frequency Gynecology: Negative except as noted in history of present illness All other: All other systems reviewed and negative for complaint PHYSICAL EXAMINATION: Well-developed, well nourished, in no acute distress, alert and oriented x three, is pleasant and cooperative. HEENT: Clear. Pupils equal, round and reactive to light and accommodation. Extraocular muscles are intact. Oral mucosa pink without exudate. NECK: No lymphadenopathy, no thyromegaly. LUNGS: Clear bilaterally. HEART: Regular rate and rhythm without murmurs. ABDOMEN: Normoactive bowel sounds, soft and nontender, no guarding or rebound tenderness, no CVA tenderness.Limited bedside ultrasound confirms vertex presentation. EXTREMITIES: No clubbing, cyanosis or edema. NEUROLOGIC: Cranial nerves II-XII grossly intact. : Normal external female genitalia, normal vulva, normal vagina. Normal urethral meatus, urethra and bladder. Initial vaginal exam reveals cervix to be 5 cm dilated, vertex. Labs: Labs: Labs: Blood Typed Date: 05-Apr-2022 Blood Type: O negative Blood Type Comments: Selected manually 'O negative' at 08-Oct-2022 21:40 Antibody Screen Results: negative Rhogam Comments: Selected manually 'O negative' at 08-Oct-2022 21:40 Chlamydia Date: 05-Apr-2022 Chlamydia Results: negative Gonorrhea Date: 05-Apr-2022 Gonorrhea Results: negative Group B Strep Date: 13-Sep-2022 Strep Results: negative GCT (dd-mmm-yy): 30-Jul-2022 GCT result: 173 HBsAG Date: 05-Apr-2022 HBsAG Results: negative HIV Date: 05-Apr-2022 HIV Results: negative Rubella Date: 05-Apr-2022 Rubella Results: immune Rubella Comments: Result Value POSITIVE Syphilis (mmm-dd-yyyy): 05-Apr-2022 Syphilis Results: negative Antepartum/: Antepartum/PP: Final [id number] Current EGA:38.6 Patient is > or = 35.0 wks EGAyes Determined byPrabha EFW (kg)3.969 kilogram(s) EFW (lb)8 pound(s) EFW (oz)12 ounce(s) Presentationcephalic presentation verified bybedside ultrasound, cervical exam Hemorrhage Medium Risk Factors (T&S) (2 or more medium risks Go to High Risk section & obtain T&C)BMI > 35 Hemorrhage Risk Assessmenthemorrhage risk completed on admission Hemorrhage Risk ScorePatient is at Medium Risk for an OB hemorrhage. Order Type & Screen. Score Calculation - IT Use Only1 TOLSusu Social History: Social History: Smoking Statusnever smoker (1) Alcohol Usedenies(1) Drug Usedenies (1) Drug 2 Usedenies (2) Allergies: NKDA: Chocolate: Itching, Hives/Urticaria Peaches: Itching, Hives/Urticaria Medications Prior to Admission: The patient does not take any medications at home. Objective: Objective Information: T PRBPMAPSpO2 Rozno32662/465538% Date/Time10/08 21:305 21:005 21:005 21:30 Range (83 - 104 ) (143 - 143 )/ (72 - 72 ) (98 - 98 ) (98% - 100% ) Recent Lab Results: Results: CBC: 08/27/2022 13:45 \ Hgb / \ 10.3 L / WBC Plt 8.7 195 / Hct \ / 32.6 L \ RBC: 3.83 L MCV: 85 Neutrophil %: 74.6 Assessment and Plan: Problem List: Additional Dx: 38 weeks gestation of : Assessment: 1. Term in labor 2. Anticipate normal spontaneous vaginal delivery Electronic Signatures: Maggy Sauceda) (Signed 08-Oct-2022 21:44) Authored: HPI/OB History, Labs, Antepartum/PP, Social History, Allergies, Medications Prior to Admission, Objective, Assessment and Plan, Note Completion Last Updated: 08-Oct-2022 21:44 by Maggy Sauceda) References: 1. Data Referenced From Patient Profile - OB v3 08-Oct-2022 20:44 2. Data Referenced From Triage Note - OB v4 07-Oct-2022 12:22 [facility] 10-07-2022 History of Present illness Narrative Current Stage: Stage: Triage OB Dating: EDC/EGA: Final [place] 16-Oct-2022 EGA 38.5 Subjective Data: Antepartum: Vaginal Bleeding: No Movement: Good Antepartum: Patient presents to labor and delivery to rule out labor. Objective Information: Objective Information: T P R BP MAP SpO2 Value 36.8 96 18 133/66 91 97% Date/Time 10/07 12:28 10/07 12:28 10/07 12:28 10/07 12:28 10/07 12:28 10/07 12:25 Range (36.8C - 36.8C ) (96 - 108 ) (18 - 18 ) (133 - 133 )/ (66 - 66 ) (91 - 91 ) (96% - 97% ) Pain reported at 10/07 12:28: 0 = None Physical Exam: Obstetric: Vaginal exam per nurse is 4 to 5 cm dilated which is unchanged from the office visit earlier today. Noted some uterine irritability. Testing: NST Interpretation - Baby A: Interpretation Reactive (2 15x15 accels) Assessment and Plan: Assessment: 1. Intrauterine at 38 weeks 5 days 2. Reactive NST 3. False labor Follow-up in 2 days for induction of labor as previously scheduled. Electronic Signatures: Maggy Sauceda) (Signed 07-Oct-2022 13:37) Authored: Current Stage, OB Dating, Subjective Data, Objective Data, Testing, Assessment and Plan, Note Completion Last Updated: 07-Oct-2022 13:37 by Maggy Sauceda) documented in this encounter [facility] Work Phone: 10-04-2022 History of Present illness Narrative Current Stage: Stage: Triage OB Dating: EDC/EGA: Final [place] 16-Oct-2022 EGA 38.2 Subjective Data: Antepartum: Vaginal Bleeding: No Contractions/Abdominal Pain: Yes every 10 min for 2 hours Discharge/Loss of Fluid: No Movement: Good Fevers/Chills: No Preeclampsia Symptoms: No Antepartum: Patient presents for ctx. Is scheduled for IOL on 10/09. No other complaints. Objective Information: Objective Information: T P R BP MAP SpO2 Value 106 18 134/70 96 98% Date/Time 10/04 17:44 10/04 17:44 10/04 17:44 10/04 17:44 10/04 17:44 Range (106 - 106 ) (18 - 18 ) (134 - 134 )/ (70 - 70 ) (96 - 96 ) (98% - 98% ) Physical Exam: Constitutional: AOx3, NAD Head/Neck: normocephalic Respiratory/Thorax: no increased work of breathing Genitourinary: cervix: 3/50/-2 Musculoskeletal: normal ROM Extremities: no edema Psychological: appropriate affect Skin: normal, no lesions Testing: Indications: Indication triage, rule out labor NST Interpretation - Baby A: Baseline FHR 135 Variability moderate (amplitude range 6 to 25 bpm) Interpretation Reactive (2 15x15 accels) Accelerations present Decelerations absent Assessment and Plan: Admitting Dx: Uterine contractions: Entered Date: 04-Oct-2022 18:00 Assessment: 22 y/o at 38w2d who presents to triage for contractions Contractions - cervix 50/-2, unchanged from office visit 1 week ago - ctx clinically spaced out per patient - not in labor FHT - category 1, reactive Reviewed return precautions. Advised increasing water intake. Dispo: discharge to home, f/u for office visit on 10/07 and IOL on 10/09 Chiquis Mcneal MD Electronic Signatures: Chiquis Mcneal) (Signed 04-Oct-2022 18:14) Authored: Current Stage, OB Dating, Subjective Data, Objective Data, Testing, Assessment and Plan, Note Completion Last Updated: 04-Oct-2022 18:14 by Chiquis Mcneal) documented in this encounter [facility] Work Phone: 08-25-2022 History of Present illness Narrative Current Stage: Stage: Triage Subjective Data: Antepartum: Vaginal Bleeding: No Contractions/Abdominal Pain: No Discharge/Loss of Fluid: Yes Movement: Good Fevers/Chills: No Preeclampsia Symptoms: No Antepartum: Patient presented at 32+ weeks gestation concerned about ruptured membranes. She she had no additional complaints Objective Information: Objective Information: T P R BP MAP SpO2 Value 36.7 93 16 134/81 99 92% Date/Time 08/25 20:57 08/25 22:38 08/25 20:57 08/25 22:38 08/25 22:38 08/25 22:37 Range (36.7C - 36.7C ) (93 - 126 ) (16 - 16 ) (130 - 134 )/ (73 - 81 ) (94 - 99 ) (92% - 99% ) Recent Lab Results: Results: I have reviewed these laboratory results: Premature Rupture of Membrane 25-Aug-2022 21:04:00 Result Value Premature Rupture of Membrane NEGATIVE Testing: NST Interpretation - Baby A: Baseline FHR 140 Variability moderate (amplitude range 6 to 25 bpm) Interpretation Reactive (2 15x15 accels) Assessment and Plan: Assessment: Patient presented at 32+ weeks gestation concerned about ruptured membranes. Actin PROM was negative tracing reassuring patient discharged home Electronic Signatures: Jenise Schulte) (Signed 26-Aug-2022 08:43) Authored: Current Stage, Subjective Data, Objective Data, Testing, Assessment and Plan, Note Completion Last Updated: 26-Aug-2022 08:43 by Jenise Schulte) documented in this encounter [facility] Work Phone: 02-08-2022 History of Present illness Narrative Patient is a 21-year-old who comes in for confirmation of . The patient reports that she found out she was 4 weeks ago. Overall she feels well reports some mild cramping and some mild nausea but overall is feeling fine. Patient is taking vitamins already. Patient takes no medications. Patient reports her last was uncomplicated. [address] Work Phone: Discharge summary Note Date/Time January 18, 2025 11:03am [facility] Medical Records Department [address] [place] [id number] Emergency Department Summary 01/18/25 MR#: [id number] Acct: [id number] Name: JEFF WHITE Rep #:[id number] : 2000 24 From: Everton Vidales MD PCP: Care Physician,No Primary Status :PRE ER Location: ED HPI History of Present Illness Chief Complaint: Suture Remv Informant: patient Narrative Narrative: 24-year-old female self-inflicted laceration right thigh about 10 days ago. With suture repair at this facility. Came today to have her sutures out. She denies any redness or discharge. No discomfort. Prior similar symptoms: No Recent Illness/Hospitalization: No PFSH PFSH Medical History Anxiety Depression Home Medications ?Medication ?Instructions ?Recorded ?Last Taken ?Type NK 01/06/25 Unknown History Allergy/AdvReac Type Severity Reaction Status Date / Time peach Allergy Mild Hives Verified 01/18/25 10:11 chocolate AdvReac Mild Nausea Verified 01/18/25 10:11 Surgical History [place] teeth extracted History of bilateral fallopian tube excision Social History Smoking Status: Current every day smoker tobacco type: cigarettes ROS ROS ED ROS Narrative No recent illness. Constitutional Constitutional ED: Denies chills or fever(s) Eyes Eyes: Denies blurry vision ENT ENT ED: Denies ear pain Cardiovascular Cardiovascular: Denies chest pain Respiratory/Chest Respiratory/Chest: Denies cough Gastrointestinal Gastrointestinal: Denies abdominal pain Genitourinary Genitourinary ED: Denies dysuria Musculoskeletal Musculoskeletal: Denies arthralgias Integumentary Denies abscess Neurologic Neurologic: Denies headache(s) Psychiatric Psychiatric: Denies suicidal ideation Endocrine Endocrinology: Denies cold intolerance Hematologic/Lymphatic Hematologic/Lymphatic: Reports none Allergic/Immunologic Allergic/Immunologic ED: Denies mouth swelling, tongue swelling or urticaria EXAM Physical Exam Narrative Exam Narrative: Well-appearing 24-year-old female. Vital signs stable afebrile. HEENT exam pupils round reactive light. Moist mucous membranes. Neck nontender. Lungs clear. Heart regular rhythm rate about 95 no murmur. Chest wall ribs nontender. Abdomen soft nontender. Moving all 4 extremities. She has a well-healing right proximal anterior thigh laceration with repair we will remove the sutures. There is no signs of infection or wound separation. Right lower extremity is neurovascularly intact. She is awake alert. Answering questions following commands. Benign exam. Const Vital Signs: 01/18/25 10:10 Temperature 97.9 F Temperature Source Oral Pulse Rate 100 Respiratory Rate 16 Blood Pressure 155/89 H Blood Pressure Mean 111 Pulse Ox 98 Oxygen Delivery Method Room Air Positive well nourished and well developed; Negative for cachectic, contracturesor unkempt General Appearance ED: well developed; Negative for unkempt, cachectic, contractures, cyanotic, diaphoretic or pallor Nutritional Appearance: Negative for cachectic HEENT Reports moist mucous membranes Eyes PERRL and EOMs intact bilaterally Neck no lymphadenopathy, supple and no JVD Chest Wall inspection of chest normal Resp normal respiratory effort and clear to auscultation bilaterally Cardio regular rate, regular rhythm, S1 normal heart sound, S2 normal heart sound and no murmurs GI normal to inspection, nondistended, normoactive bowel sounds, non-tender, non-distended and no masses Back/Spine no CVA tenderness Extremity normal to inspection Extremity Narrative: Well-healed right proximal anterior thigh laceration. Running suture. No infection. Sutures will be removed. General Extremety ED: Negative for edema or tenderness General Extremity: Negative for edema Neuro CN's II-XII intact bilaterally Sensorium / Orientation: alert Motor Exam: strength 5/5 throughout Psych mental status grossly normal Appearance: Negative for unkempt Skin no rashes or lesions noted, no wounds and skin turgor normal General Skin Exam: elasticity normal; Negative for jaundice or pallor Lesions: No lesion noted Rashes: No rashes noted MDM MDM MDM Narrative Medical decision making narrative: 24-year-old female self-inflicted right thigh laceration repair and return for suture removal. Wound looks good. Healing nicely. No infection. Discharge Plan Triage Chief Complaint: Suture Remv ED Provider: Everton Vidales Dx/Rx/DC Orders Clinical Impression: Visit for suture removal Instructions: Sutr or Stap Removal Prescriptions: No Action NK Primary Care Provider: Care Physician,No Primary Referrals: Care Physician,No Primary [Primary Care Provider] - Activity Restrictions/Additional Instructions: The laceration looks good. Watch for any signs of infection. If seen return. Print Language: Chadian Disposition Disposition: Home, Self Care What to do if you have Problems For any increased pain, shortness of breath, bleeding, nausea or vomiting, chestpain, or any unexpected problems, contact your Primary Care Provider. Call [facility] ([phone]) or report to the closest Emergency Room. Call 911 if necessary. 01/18/25 1103 <Electronically signed by Everton Vidales MD> Cosigner Signature (if applicable): CC: No Primary Care Physician ~ Signed [facility] Work Phone: Evaluation note* Extremities: no calf tenderness, reflexes 2+Cardiovascular: S1 S2 RRR, no murmursConstitutional: alert, orientedRespiratory/Thorax: normal respiratory effort, lungs clear, no wheezes or rhonchi [facility] Diagnosis Other specified related conditions, third trimester Other specified noninflammatory disorders of vagina Anemia complicating , third trimester Anemia, unspecified 32 weeks gestation of documented in this encounter [facility] Work Phone: Evaluation note* Diagnosis False labor before 37 completed weeks of gestation, third trimester Anemia complicating , third trimester Anemia, unspecified Diseases of the respiratory system complicating , third trimester Unspecified asthma, uncomplicated Other specified related conditions, third trimester Unspecified blood type, rh negative 38 weeks gestation of Personal history of nicotine dependence Abnormality of forces of labor, unspecified documented in this encounter [facility] Work Phone: [phone] note* Diagnosis False labor at or after 37 completed weeks of gestation Anemia complicating , third trimester Anemia, unspecified 38 weeks gestation of Personal history of nicotine dependence Abnormality of forces of labor, unspecified documented in this encounter [facility] Work Phone: [phone] note* Diagnosis Screen for STD (sexually transmitted disease)- Primary Screening examination for venereal disease Acute vaginitis Unspecified vaginitis and vulvovaginitis Dysuria Cervical cancer screening Screening for malignant neoplasm of the cervix Bacterial vaginosis Unspecified vaginitis and vulvovaginitis documented in this encounter [facility] Work Phone: [phone] note* Diagnosis Dyspareunia in female- Primary Vaginal discharge Leukorrhea, not specified as infective documented in this encounter [facility] Work Phone: [phone] note* Diagnosis Dyspareunia in female documented in this encounter [facility] Work Phone: [phone] note* Diagnosis Dyspareunia in female- Primary documented in this encounter [facility] Work Phone: [phone] note* Diagnosis Encounter for female sterilization procedure- Primary Encounter for female sterilization procedure- Primary documented in this encounter [facility] Work Phone: [phone] note* Diagnosis Encounter for female sterilization procedure- Primary Encounter for female sterilization procedure- Primary Encounter for female sterilization procedure documented in this encounter [facility] Work Phone: [phone] note* Diagnosis Encounter for female sterilization procedure- Primary Asthma Unspecified asthma documented in this encounter [facility] Work Phone: [phone] note* Diagnosis Postoperative visit- Primary documented in this encounter [facility] Work Phone: Evaluation note* Diagnosis Cervical cancer screening Screening for malignant neoplasm of the cervix Encounter for gynecological examination without abnormal finding documented in this encounter [facility] Work Phone: Evaluation noteNo assessment information available [facility] Work Phone: Hospital Discharge instructions* Activity:Return to normal activity as tolerated. * Patient Instructions:Pelvic Rest: DO NOT place anything in vagina until cleared by OB Provider. * Follow-Up - OB Provider:Physician/Dept/Service: Gustavo Huff to Schedule in: 6 weeks * Gold Form - Other Clinicians:Other Clinician Instructions: Any woman can have complications after the of a baby including a blood clot, a heart problem, hypertensive disorder/eclampsia, depression, hemorrhage, or infection. Notify all providers of your delivery date up to one year after .* Call 911 or go to nearest emergency room right away if you have: PAIN or pressure in chest; OBSTRUCTED breathing or shortness of breath; SEIZURES; THOUGHTS of hurting yourself or your baby; heart palpitations/racing; change in alertness/confusion.Call your provider if you have: BLEEDING, soaking t hrough a pad/hour, or blood clots the size of an egg or bigger; INCISION (episiotomy stitches or site) that is not healing (increased redness, pain, drainage/pus, or separation); RED or swollen leg/calf that is painful or warm to touch, especially in one leg more than the other; TEMPERATURE of 100.4 F or higher or chills; HEADACHE that does not get better with medicine, rest or hydration, or bad headache with vision changes like spots or flashing lights; increased swelling of face, hands or legs; severe cramps or upper right belly pain; red or swollen breast that is painful or warm to touch; an unusual, foul odor from your vaginal discharge; pain, burning, or difficulty during urination; severe constipation (more than 5 days); feelings of depression (such as depressed mood, lossof interest in enjoyable things, unable to care for yourself, trouble sleeping, lack of appetite, or feeling worthless). If you can t reach your provider or symptoms worsen, call 911 or [facility]. *Information obtained from JAMAR s: Save Your Life: Get Care for These POST- Warning Signs.On Behalf on the [facility] Maternity Staff, Congratulations on your infant. It was our pleasure to take care of you and your infant during your stay. We hope during this stay that we have exceeded all of your expectations. We will be calling you in a few days to check up on you and your infant. Please allow us to speak with you and please ask questions or let us know if you have any concerns. If you need any assistance after you go home please give us a call. Also,please join our [facility] Support Group which meets the friday of every month at 10 am in the OB unit. No need to register. If you have any questions please call us at [phone]. Again, Congratulations! Warmest Regards,[facility] Maternity Staff. [facility] Instructions The laceration looks good. Watch for any signs of infection. If seen return. [facility] Work Phone: Rexojs for referral (narrative)No reason for referral information availableWHolmes [facility] Work Phone: Resqti for visit Narrative* Auth/Cert Specialty Diagnoses / Procedures Referred By Durga t Referred To Contact Diagnoses Encounter for female sterilization procedure Encounter for female sterilization procedure [Z30.2] Procedures NV LAPAROSCOPY W/RMVL ADNEXAL STRUCTURES Laparoscopic tubal sterilization, Bilateral Salpingectomy Maggy Sauceda MD [address] [place] [address] [facility], [address] [address] Phone: tel: fax: [facility] [place] [address] [place] [phone] fax: Referral ID Status Reason Start Date Expiration Date Visits Re quested Visits Authorized [id number] [facility] Work Phone: Summary Purpose Family History No Family History Records FoundUnknown Family Member Name Dates Details Family history of diabetes m ellitus: Grandmother, Grandfather(V18.0, Z83.3) Status:Active Family history of malignant neoplasm of breast: Grandmother(V16.3, Z80.3) Status:Active Unknown Family Member Name Dates Details Family history of diabetes m ellitus: Grandmother, Grandfather(V18.0, Z83.3) Status:Active Family history of malignant neoplasm of breast: Grandmother(V16.3, Z80.3) Status:Active Unknown Family Member Name Dates Details Family history of diabetes m ellitus: Grandmother, Grandfather(V18.0, Z83.3) Status:Active Family history of malignant neoplasm of breast: Grandmother(V16.3, Z80.3) Status:Active Unknown Family Member Name Dates Details Family history of diabetes m ellitus: Grandmother, Grandfather(V18.0, Z83.3) Status:Active Family history of malignant neoplasm of breast: Grandmother(V16.3, Z80.3) Status:Active Unknown Family Member Name Dates Details Family history of diabetes m ellitus: Grandmother, Grandfather(V18.0, Z83.3) Status:Active Family history of malignant neoplasm of breast: Grandmother(V16.3, Z80.3) Status:Active Unknown Family Member Name Dates Details Family history of diabetes m ellitus: Grandmother, Grandfather(V18.0, Z83.3) Status:Active Family history of malignant neoplasm of breast: Grandmother(V16.3, Z80.3) Status:Active Unknown Family Member Name Dates Details Family history of diabetes m ellitus: Grandmother, Grandfather(V18.0, Z83.3) Status:Active Family history of malignant neoplasm of breast: Grandmother(V16.3, Z80.3) Status:Active Unknown Family Member Name Dates Details Family history of diabetes m ellitus: Grandmother, Grandfather(V18.0, Z83.3) Status:Active Family history of malignant neoplasm of breast: Grandmother(V16.3, Z80.3) Status:Active Unknown Family Member Name Dates Details Family history of diabetes m ellitus: Grandmother, Grandfather(V18.0, Z83.3) Status:Active Family history of malignant neoplasm of breast: Grandmother(V16.3, Z80.3) Status:Active Unknown Family Member Name Dates Details Family history of diabetes m ellitus: Grandmother, Grandfather(V18.0, Z83.3) Status:Active Family history of malignant neoplasm of breast: Grandmother(V16.3, Z80.3) Status:Active Unknown Family Member Name Dates Details Family history of diabetes m ellitus: Grandmother, Grandfather(V18.0, Z83.3) Status:Active Family history of malignant neoplasm of breast: Grandmother(V16.3, Z80.3) Status:Active Unknown Family Member Name Dates Details Family history of diabetes m ellitus: Grandmother, Grandfather(V18.0, Z83.3) Status:Active Family history of malignant neoplasm of breast: Grandmother(V16.3, Z80.3) Status:Active Unknown Family Member Name Dates Details Family history of diabetes m ellitus: Grandmother, Grandfather(V18.0, Z83.3) Status:Active Family history of malignant neoplasm of breast: Grandmother(V16.3, Z80.3) Status:Active Unknown Family Member Name Dates Details Family history of diabetes m ellitus: Grandmother, Grandfather(V18.0, Z83.3) Status:Active Family history of malignant neoplasm of breast: Grandmother(V16.3, Z80.3) Status:Active Unknown Family Member Name Dates Details Family history of diabetes m ellitus: Grandmother, Grandfather(V18.0, Z83.3) Status:Active Family history of malignant neoplasm of breast: Grandmother(V16.3, Z80.3) Status:Active Unknown Family Member Name Dates Details Family history of malignant neoplasm of breast: Grandmother(V16.3, Z80.3) Status:Active Family history of diabetes m ellitus: Grandmother, Grandfather(V18.0, Z83.3) Status:Active Unknown Family Member Name Dates Details Family history of malignant neoplasm of breast: Grandmother(V16.3, Z80.3) Status:Active Family history of diabetes m ellitus: Grandmother, Grandfather(V18.0, Z83.3) Status:Active Unknown Family Member Name Dates Details Family history of malignant neoplasm of breast: Grandmother(V16.3, Z80.3) Status:Active Family history of diabetes m ellitus: Grandmother, Grandfather(V18.0, Z83.3) Status:Active Unknown Family Member Name Dates Details Family history of diabetes m ellitus: Grandmother, Grandfather(V18.0, Z83.3) Status:Active Family history of malignant neoplasm of breast: Grandmother(V16.3, Z80.3) Status:Active Unknown Family Member Name Dates Details Family history of diabetes m ellitus: Grandmother, Grandfather(V18.0, Z83.3) Status:Active Family history of malignant neoplasm of breast: Grandmother(V16.3, Z80.3) Status:Active Unknown Family Member Name Dates Details Family history of diabetes m ellitus: Grandmother, Grandfather(V18.0, Z83.3) Status:Active Family history of malignant neoplasm of breast: Grandmother(V16.3, Z80.3) Status:Active Unknown Family Member Name Dates Details Family history of diabetes m ellitus: Grandmother, Grandfather(V18.0, Z83.3) Status:Active Family history of malignant neoplasm of breast: Grandmother(V16.3, Z80.3) Status:Active Unknown Family Member Name Dates Details Family history of diabetes m ellitus: Grandmother, Grandfather(V18.0, Z83.3) Status:Active Family history of malignant neoplasm of breast: Grandmother(V16.3, Z80.3) Status:Active Unknown Family Member Name Dates Details Family history of diabetes m ellitus: Grandmother, Grandfather(V18.0, Z83.3) Status:Active Family history of malignant neoplasm of breast: Grandmother(V16.3, Z80.3) Status:Active Unknown Family Member Name Dates Details Family history of diabetes m ellitus: Grandmother, Grandfather(V18.0, Z83.3) Status:Active Family history of malignant neoplasm of breast: Grandmother(V16.3, Z80.3) Status:Active Unknown Family Member Name Dates Details Family history of diabetes m ellitus: Grandmother, Grandfather(V18.0, Z83.3) Status:Active Family history of malignant neoplasm of breast: Grandmother(V16.3, Z80.3) Status:Active Unknown Family Member Name Dates Details Family history of diabetes m ellitus: Grandmother, Grandfather(V18.0, Z83.3) Status:Active Family history of malignant neoplasm of breast: Grandmother(V16.3, Z80.3) Status:Active Unknown Family Member Name Dates Details Family history of diabetes m ellitus: Grandmother, Grandfather(V18.0, Z83.3) Status:Active Family history of malignant neoplasm of breast: Grandmother(V16.3, Z80.3) Status:Active Unknown Family Member Name Dates Details Family history of diabetes m ellitus: Grandmother, Grandfather(V18.0, Z83.3) Status:Active Family history of malignant neoplasm of breast: Grandmother(V16.3, Z80.3) Status:Active Unknown Family Member Name Dates Details Family history of diabetes m ellitus: Grandmother, Grandfather(V18.0, Z83.3) Status:Active Family history of malignant neoplasm of breast: Grandmother(V16.3, Z80.3) Status:Active Unknown Family Member Name Dates Details Family history of diabetes m ellitus: Grandmother, Grandfather(V18.0, Z83.3) Status:Active Family history of malignant neoplasm of breast: Grandmother(V16.3, Z80.3) Status:Active Unknown Family Member Name Dates Details Family history of diabetes m ellitus: Grandmother, Grandfather(V18.0, Z83.3) Status:Active Family history of malignant neoplasm of breast: Grandmother(V16.3, Z80.3) Status:Active Unknown Family Member Name Dates Details Family history of diabetes m ellitus: Grandmother, Grandfather(V18.0, Z83.3) Status:Active Family history of malignant neoplasm of breast: Grandmother(V16.3, Z80.3) Status:Active Unknown Family Member Name Dates Details Family history of malignant neoplasm of breast: Grandmother(V16.3, Z80.3) Status:Active Family history of diabetes caitlin lopez: Grandmother, Grandfather(V18.0, Z83.3) Status:Active Advance Directives No Advanced Directives Records Found Date Activated Date Inactivated Comments 05/06/2024 8:01 AM Question Answer Comments Plan of Care: Code Status Discussion Completed Decision Maker: Patient Date Activated Date Inactivated Comments 05/06/2024 8:01 AM Question Answer Comments Plan of Care: Code Status Discussion Completed Decision Maker: Patient Advance Directive Response Recorded Date/ Time Do you have a Healthcare Power of Workcell Operator? No January 06, 2025 2:17pm Advance Directive Response Recorded Date/ Time Do you have a Healthcare Power of Workcell Operator? No January 06, 2025 2:17pm Do you have a Healthcare Power of Workcell Operator? No January 18, 2025 12:22pm Chief Complaint Patient here today for amenorrhea. She states her LMP: 01/09/2022. She has nausea, breast tenderness, and cramping daily and some bleeding in the beginning of . She is taking prenatals.Patient here today for 6 week post visit. She states she delivered 10/09/2022 Dr Sauceda babygirl. She is bottle feeding, no signs of post depression, Has been sexually active and has no t had a period. She is interested in the control pill. Reason for Referral Specialty Diagnoses / Procedures Referred By Durga chaves Referred To Contact Radiology Diagnoses Dyspareunia in female Procedures US PELVIS TRANSABDOMINAL WITH TRANSVAGINAL Maggy Sauceda MD [address] [facility], [place] [address] Referral ID Status Reason Start Date Expiration Date Visits Requested Visits Authorized [id number] Authorized Perform Procedure 03/08/2024 03/08/2025 1 1 Chief Complaint and Reason for Visit Chief Complaint Admit Date mental health January 06, 2025 2:1 6pm SUTURE REMOVAL January 17, 2025 5: 10pm Chief Complaint Admit Date mental health January 06, 2025 2:1 6pm SUTURE REMOVAL January 17, 2025 5: 10pm SUTURE REMOVAL January 18, 2025 10 :09am Additional Source Comments INFORMATION SOURCE (unrecogn ized section and content) DATE CREATED AUTHOR 11/18/2017 [facility] DATE CREATED AUTHOR AUTHOR'S ORGANIZ ATION 03/02/2020 [facility] DATE CREATED AUTHOR AUTHOR'S ORGANIZ ATION 11/16/2022 [facility] DATE CREATED AUTHOR AUTHOR'S ORGANIZ ATION 11/26/2022 [facility] DATE CREATED AUTHOR AUTHOR'S ORGANIZ ATION 11/26/2022 [facility] DATE CREATED AUTHOR AUTHOR'S ORGANIZ ATION 05/04/2024 [facility] DATE CREATED AUTHOR AUTHOR'S ORGANIZ ATION 05/17/2024 [facility] DATE CREATED AUTHOR AUTHOR'S ORGANIZ ATION 06/15/2024 [facility] DATE CREATED AUTHOR AUTHOR'S ORGANIZ ATION 01/23/2025 [facility] <item><item> Privacy Markings (unrecogniz ed section and content) Section Author: [place] PROHIBITION ON REDISCLOSURE OF CONFIDENTIAL INFORMATION This notice accompanies a disclosure of information concerning a client made to you with the consent of such client. Section Author: [place] PROHIBITION ON REDISCLOSURE OF CONFIDENTIAL INFORMATION This notice accompanies a disclosure of information concerning a client made to you with the consent of such client. Reason for Visit (unrecogniz ed section and content) Reason Comments Other POSSIBLE SROM Reason Comments Other Labor Reason Comments Other contractions Reason Comments Gynecologic Exam Patient is here for a yearly exam. Patient has concerns of an infection. LMP 05/02/2023. Reason Comments Vaginitis/Bacterial Vaginosis Patient st ates she has had vaginal discharge off and on for the last year with bilateral lower pelvic pain. Specialty Diagnoses / Procedures Referred By Durga chaves Referred To Contact Radiology Diagnoses Dyspareunia in female Procedures US PELVIS TRANSABDOMINAL WITH TRANSVAGINAL Maggy Sauceda MD [address] [facility], [address] [place] [address] Referral ID Status Reason Start Date Expiration Date Visits Requested Visits Authorized [id number] Authorized Perform Procedure 03/08/2024 03/08/2025 1 1 Reason Comments Results Patient is here to r gregoriow ultrasound results. Reason Comments Contraception Patient is here to d iscuss tubal sterilization. LMP: 03/25/24. Reason Comments Pre-op Visit Patient is here for her pre-op tubal sterilization visit. Patient has no concerns at this time. LMP: 03/25/24. Reason Comments Post-op Visit Patient is here for her post op tubal. Patient has no concerns at this time and states she is doing well. Reason Comments Gynecologic Exam Patient is here for yearly exam and pap test. Patient does not do regular self breast exams and has no concerns at this time. LMP: 04/29/24 Care Teams (unrecognized sec tion and content) Office Equipment Technician Relationship Specialty Start Date End Date Sandhya Ace APRN-DALIA [address] [place] [address] PCP - General 03/14/19 Office Equipment Technician Relationship Specialty Start Date End Date Sandhya Ace APRN-RADIATOR CORE TESTER [address] [place] [id number] PCP - General 03/14/19 Office Equipment Technician Relationship Specialty Start Date End Date Sandhya Ace APRN-RADIATOR CORE TESTER [address] [place] [address] PCP - General 03/14/19 Office Equipment Technician Relationship Specialty Start Date End Date Sandhya Ace PRODUCT REPRESENTATIVE-RADIATOR CORE TESTER [address] [place] [address] PCP - General 03/14/19 Office Equipment Technician Relationship Specialty Start Date End Date Sandhya Ace PRODUCT REPRESENTATIVE-RADIATOR CORE TESTER [address] [place] [address] PCP - General 03/14/19 Office Equipment Technician Relationship Specialty Start Date End Date Sandhya Ace PRODUCT REPRESENTATIVE-RADIATOR CORE TESTER [address] [place] [address] PCP - General 03/14/19 Office Equipment Technician Relationship Specialty Start Date End Date Sandhya Ace PRODUCT REPRESENTATIVE-RADIATOR CORE TESTER [address] [place] [address] PCP - General 03/14/19 Office Equipment Technician Relationship Specialty Start Date End Date Sandhya Ace PRODUCT REPRESENTATIVE-RADIATOR CORE TESTER [address] [place] [address] PCP - General 03/14/19 Office Equipment Technician Relationship Specialty Start Date End Date Sandhya Ace PRODUCT REPRESENTATIVE-RADIATOR CORE TESTER [address] [place] [address] PCP - General 03/14/19 Office Equipment Technician Relationship Specialty Start Date End Date Sandhya Ace PRODUCT REPRESENTATIVE-RADIATOR CORE TESTER [address] [place] [address] PCP - General 03/14/19 Office Equipment Technician Relationship Specialty Start Date End Date Sandhya Ace Celeste, PRODUCT REPRESENTATIVE-RADIATOR CORE TESTER [address] [place] [address] PCP - General 03/14/19 Team Status: Active Member Role/Relationship Status Dates No Primary Care Physician Primary Care Provider Active Team Status: Inactive Member Role/Relationship Status Dates No Primary Care Physician Primary Care Provider Active Start: January 06, 2025 End: January 06, 2025 Dr. Everton Vidales MD Attending Provider Active S tart: January 06, 2025 End: January 06, 2025 Dr. Everton Vidales MD Emergency Provider Active S tart: January 06, 2025 End: January 06, 2025 Team Status: Inactive Member Role/Relationship Status Dates No Primary Care Physician Primary Care Provider Active Start: January 17, 2025 End: January 17, 2025 Ed Physician Provider Emergency Provider Active Start: January 17, 2025 End: January 17, 2025 Team Status: Inactive Member Role/Relationship Status Dates No Primary Care Physician Primary Care Provider Active Start: January 18, 2025 End: January 18, 2025 Dr. Everton Vidales MD Emergency Provider Active S tart: January 18, 2025 End: January 18, 2025 Scheduled Active and Recently Administ ered Medications (unrecognized section and content) Medication Order 05/04/2024 05/05/2024 05/06/2024 acetaminophen (Tylenol) tablet 975 mg (COMPLETED) 975 mg, oral, Once, On Yanira 05/06/24 at 0830, For 1 dose, Preprocedure, Administer with small amount of water preoperatively., If ordered PRN for pain, nurse is permitted to administer this medication for higher pain scores based on patient preference? Yes 823 (Given - Provid er: Josefina Hyde RN) celecoxib (CeleBREX) capsule 400 mg (COMPLETED) 400 mg, oral, Once, On Yanira 05/06/24 at 0830, For 1 dose, Preprocedure, Capsules may be opened and sprinkled on a spoonful of cold or room temperature applesauce. 823 (Given - Provid er: Josefina Hyde RN) dexAMETHasone (PF) (Decadron) injection 8 mg (COMPLETED) 8 mg, intravenous, Once, On Yanira 05/06/24 at 0830, For 1 dose, Preprocedure 0824 (Given - Provid er: Josefina Hyde RN) gabapentin (Neurontin) capsule 600 mg (COMPLETED) 600 mg, oral, Once, On Yanira 05/06/24 at 0830, For 1 dose, Preprocedure, Capsules may be opened and sprinkled on food (eg, applesauce, orange juice, pudding). Capsules may be opened and sprinkled on food (eg, applesauce, orange juice, pudding 0824 (Given - Provid er: Josefina Hyde RN) midazolam (Versed) injection 1 mg (COMPLETED) 1 mg, intravenous, Once, On Yanira 05/06/24 at 0830, For 1 dose, Preprocedure 0850 (Given - Provid er: Josefina Hyde RN) ondansetron (Zofran) injection 4 mg (COMPLETED) 4 mg, intravenous, Once, On Yanira 05/06/24 at 0830, For 1 dose, Preprocedure, When administering via IV Push, administer over 3-5 minutes. 0824 (Given - Provid er: Josefina Hyde RN) Continuous Medication Order 05/04/2024 05/05/2024 05/06/2024 lactated Ringer's infusion 100 mL/hr, intravenous, Continuous, Starting on Yanira 05/06/24 at 0830, For 1 day, Recovery (only) 0823 (New Bag - Prov ider: Josefina Hyde RN) PRN Medication Order 05/04/2024 05/05/2024 05/06/2024 HYDROmorphone (Dilaudid) injection 0.2 mg 0.2 mg, intravenous, Every 5 min PRN, pain moderate (4-6), first line, Starting on Yanira 05/06/24 at 1009, Recovery (only), Max total of 4 mg regardless of dose. HYDROmorphone (Dilaudid) injection 0.5 mg 0.5 mg, intravenous, Every 5 min PRN, pain severe (7-10), first line, Starting on Yanira 05/06/24 at 1010, Recovery (only), Max total of 4 mg regardless of dose. 1018 (Given - Provid er: Lisa Rodrgiuez RN)1035 (Given - Provider: Lisa Rodriguez RN)1044 (Given - Provider: Lisa Rodriguez RN) labetaloL (Normodyne,Trandate) injection 5 mg 5 mg, intravenous, Administer over 1 Minutes, Once as needed, systolic blood pressure greater than 180 mmHg, dystolic blood pressure greater than 100 mmHg and heart rate greater than 60 BPM, Starting on Yanira 12/10/23 at 1010, For 1 dose, Recovery (only) morphine injection 2 mg 2 mg, intravenous, Every 5 min PRN, pain moderate (4-6), first line, Starting on Yanira 12/10/23 at 1010, Recovery (only), Max total of 20 mg regardless of dose. morphine injection 4 mg 4 mg, intravenous, Every 5 min PRN, pain severe (7-10), first line, Starting on Yanira 12/10/23 at 1010, Recovery (only), Max total of 20 mg regardless of dose. ondansetron (Zofran) injection 4 mg 4 mg, intravenous, Once as needed, nausea/vomiting, first line, Starting on Yanira 12/10/23 at 1010, For 1 dose, Recovery (only), When administering via IV Push, administer over 3-5 minutes. oxyCODONE (Roxicodone) immediate release tablet 5 mg 5 mg, oral, Every 4 hours PRN, pain mild (1-3), first line, Starting on Yanira 12/10/23 at 1010, Recovery (only), When able to take oral medications., If ordered PRN for pain, nurse is permitted to administer this medication for higher pain scores based on patient preference? Yes oxyCODONE (Roxicodone) immediate release tablet 5 mg 5 mg, oral, Every 4 hours PRN, pain mild (1-3), first line, Starting on Yanira 12/10/23 at 1009, Recovery (only), When able to take oral medications., If ordered PRN for pain, nurse is permitted to administer this medication for higher pain scores based on patient preference? Yes promethazine (Phenergan) 6.25 mg in sodium chloride 0.9% 50 mL IV (COMPLETED) 6.25 mg, intravenous, Administer over 15 Minutes, Once as needed, Nausea/vomiting, second line, Starting on Yanira 05/06/24 at 1010, For 1 dose, Recovery (only) 1106 (New Bag - Prov ider: Lisa Rodriguez, RAUL)1121 (Due: Stopped - Provider: Lisa Rodriguez RN) Goals (unrecognized section and content) Goals may be documented in a n alternate sectionGoals may be documented in an alternate section FOR RECORDS PERTAINING TO PATIENTS WHO ARE OR HAVE BEEN ENROLLED IN A CHEMICAL DEPENDENCY/SUBSTANCEABUSE PROGRAM, SOME INFORMATION MAY BE OMITTED. This clinical summary was aggregated from multiple sources. Caution should be exercised in using it in the provision of clinical care. This summary normalizes information from multiple sources, and as a consequence, information in this document may materially change the coding, format and clinical context of patient data. In addition, data may be omitted in some cases. CLINICAL DECISIONS SHOULD BE BASED ON THE PRIMARY CLINICAL RECORDS. [facility] [employer] [facility]. provides no warranty or guarantee of the accuracy or completeness of information in this document.
--- NOTE | 2025-05-25 11:59 | EKG12_ITS ---
Test Reason : Blood Pressure : */* mmHG Vent. Rate : 117 BPM Atrial Rate : 117 BPM P-R Int : 148 ms QRS Dur : 88 ms QT Int : 320 ms P-R-T Axes : 53 -16 35 degrees QTcB Int : 446 ms Sinus tachycardia Otherwise normal ECG Confirmed by Hosea Mata ([id number]), editor at large ANDREW TRAYLOR ([id number]) on 05/27/2025 8:03:04 AM Referred By: Confirmed By: Hosea Mata
--- NOTE | 2025-05-25 11:59 | RAD_ITS ---
PROCEDURE: CHEST PA AND LATERAL 05/25/2025 REASON FOR EXAM: COUGH TECHNIQUE: Procedure Code: RADCXR Modality: DX Procedure: CHEST PA AND LATERAL COMPARISON: None. FINDINGS: Hardware: None. Heart: No cardiomegaly. Mediastinum: Unremarkable. Lungs: Interstitial densities in the lower lungs may represent pneumonia. No pleural effusion or pneumothorax. Bones: No acute bony abnormalities. RAD/Chest PA and Lateral IMPRESSION: Interstitial densities in the lower lungs consistent with pneumonia. Reading Location: [id number]
[2025-05-25] MEDS: 0.9% Normal Saline (1000mL) 1,000 ML 1000 ML IV (12:20)
[2025-05-25] MEDS: Albuterol 2.5 MG/3 ML VIAL.NEB. INHALATION (12:20)
[2025-05-25 12:35] LABS: Hematocrit 41.3 % (37-47); Hemoglobin 14.4 g/dL (12.0-15.0); Immature Granulocytes Count 0.020 X10^3/uL (0.0-0.0); Mean Corp Hgb Conc 34.9 g/dL (32-36); Mean Corpuscular Volume 85.7 fL (81-99); Mean Platelet Vol. 11.0 fl (6.2-12.0); NRBC Flagged by Analyzer 0 % (0-5); POSITIVE DIFFERENTIAL YES; Platelet Count 191 K/mm3 (150-450); RBC Distribution Width CV 11.9 % (11.6-14.6); RBC Distribution Width SD 37.2 fl (35.1-43.9); Red Blood Count 4.82 M/mm3 (4.2-5.4); White Blood Count 6.0 K/mm3 (4.4-11.0)
[2025-05-25 13:00] LABS: AST(SGOT) 21 U/L (<=31); Alanine Aminotransfer ALT/SGPT 17 U/L (<=34); Albumin, Serum 4.3 g/dL (3.5-5.0); Alkaline Phosphatase 92 U/L (35-104); Anion Gap 14 (7-18); BUN 11 mg/dL (4-19); BUN/Creat Ratio 12.0 RATIO (10-20); Calcium,Total 9.3 mg/dL (7.6-11.0); Carbon Dioxide 21.2 mmol/L (20.0-29.0); Chloride 104 mmol/L (96-106); Estimated Creatinine Clearance 130.40 ml/min (50-250); Globulin 3.1 g/dL (2.2-4.2); Glucose 102 mg/dL (70-99); Lipase 16 U/L (13-75); Potassium 4.0 mmol/L (3.5-5.1)
--- NOTE | 2025-05-25 14:07 | EX.ED.DYSGE1 ---
HPI <Dr. Lizzy Fontaine DO - Last Filed: 05/25/25 16:17> History of Present Illness Chief Complaint: Cold Sx Informant: patient Narrative Narrative: Patient is a 25-year-old female with past medical history of asthma presenting with fever, cough, vomiting and shortness of breath. She states last night she was up all night vomiting. She has had cough, feels short of breath and having a hard time taking deep breath. States he is having some midthoracic back pain. Feels that she is wheezing a little bit. Had a temperature of 106.3 temp orally prior to coming in. Last had Tylenol last night. States the last time she felt like that she had COVID. Came in for further evaluation. Denies any diarrhea. Nu[place] any urinary symptoms. Denies any concern for . No other complaints or concerns reported at this time. No sick contacts reported. PFSH <Dr. Lizzy Fontaine DO - Last Filed: 05/25/25 16:17> [facility] Medical History Anxiety Depression Home Medications ?Medication ?Instructions ?Recorded ?Last Taken ?Type albuterol sulfate 90 mcg/actuation 1 - 2 puff inhalation Q4H PRN PRN 05/25/25 Unknown Rx aerosol inhaler (Ventolin HFA) Wheezing #1 inh amoxicillin 875 mg-potassium 1 tab PO Q12H #10 tabs 05/25/25 Unknown Rx clavulanate 125 mg tablet ondansetron 4 mg disintegrating 4 mg PO Q8H PRN PRN Nausea #10 tabs 05/25/25 Unknown Rx tablet Allergy/AdvReac Type Severity Reaction Status Date / Time peach Allergy Mild Hives Verified 05/25/25 11:27 chocolate AdvReac Mild Nausea Verified 05/25/25 11:27 Surgical History [place] teeth extracted History of bilateral fallopian tube excision Social History Smoking Status: Current every day smoker tobacco type: cigarettes ROS <Dr. Lizzy Fontaine DO - Last Filed: 05/25/25 16:17> ROS ED Constitutional Constitutional ED: Reports chills and fever(s) Eyes Eyes: Denies blurry vision ENT ENT ED: Denies sore throat Cardiovascular Cardiovascular: Reports chest pain Respiratory/Chest Respiratory/Chest: Reports cough and dyspnea Gastrointestinal Gastrointestinal: Reports nausea and vomiting; Denies abdominal pain or diarrhea Genitourinary Genitourinary ED: Denies dysuria or hematuria Musculoskeletal Musculoskeletal: Reports arthralgias and myalgias Integumentary Denies rash Neurologic Neurologic: Reports headache(s) and weakness Psychiatric Psychiatric: Reports anxiety EXAM <Dr. Lizzy Fontaine, DO - Last Filed: 05/25/25 16:17> Physical Exam Const Vital Signs: 05/25/25 11:26 05/25/25 11:32 05/25/25 12:28 Temperature 98.8 F 102.4 F H Temperature Source Oral Oral Pulse Rate 137 H 123 H Respiratory Rate 18 24 H Respiratory Pattern Normal Blood Pressure 142/93 H 110/53 L Blood Pressure Mean 109 72 Pulse Ox 99 99 Oxygen Delivery Method Room Air Room Air 05/25/25 13:25 05/25/25 13:31 05/25/25 15:00 Temperature Temperature Source Pulse Rate 122 H 62 110 H Respiratory Rate 16 18 16 Respiratory Pattern Normal Blood Pressure 92/49 L 98/50 L Blood Pressure Mean 63 66 Pulse Ox 98 98 Oxygen Delivery Method 05/25/25 17:00 05/25/25 17:09 05/25/25 17:10 Temperature 98.4 F 98.4 F Temperature Source Pulse Rate 65 112 H 112 H Respiratory Rate 20 H 18 18 Respiratory Pattern Blood Pressure 124/89 H 130/68 H 130/68 H Blood Pressure Mean 100 88 88 Pulse Ox 100 97 97 Oxygen Delivery Method Room Air Positive well nourished and well developed Constitutional Narrative: Patient looks nontoxic but like she does not feel good General Appearance ED: well developed HEENT Reports TM's clear and dry mucous membranes Tympanic Membrane ED: Yes TM's clear Mouth ED: Yes dry mucous membranes Mouth: dry mucous membranes Eyes PERRL Neck supple and no JVD Neck Narrative: No meningeal signs Resp Resp Narrative: Mildly tachypneic. Clear breath sounds throughout. No wheezing or rhonchi appreciated. Cardio regular rhythm and no murmurs Rate: tachycardic GI normal to inspection, nondistended, normoactive bowel sounds and non-tender Extremity normal to inspection General Extremety ED: Negative for edema General Extremity: Negative for edema Neuro oriented x3 Sensorium / Orientation: alert Motor Exam: Negative for general weakness Psych mental status grossly normal Skin no rashes or lesions noted and no wounds <Dr. Abhinav Hua, DO - Last Filed: 05/25/25 18:04> Physical Exam Const Vital Signs: 05/25/25 11:26 05/25/25 11:32 05/25/25 12:28 Temperature 98.8 F 102.4 F H Temperature Source Oral Oral Pulse Rate 137 H 123 H Respiratory Rate 18 24 H Respiratory Pattern Normal Blood Pressure 142/93 H 110/53 L Blood Pressure Mean 109 72 Pulse Ox 99 99 Oxygen Delivery Method Room Air Room Air 05/25/25 13:25 05/25/25 13:31 05/25/25 15:00 Temperature Temperature Source Pulse Rate 122 H 62 110 H Respiratory Rate 16 18 16 Respiratory Pattern Normal Blood Pressure 92/49 L 98/50 L Blood Pressure Mean 63 66 Pulse Ox 98 98 Oxygen Delivery Method 05/25/25 17:00 05/25/25 17:09 05/25/25 17:10 Temperature 98.4 F 98.4 F Temperature Source Pulse Rate 65 112 H 112 H Respiratory Rate 20 H 18 18 Respiratory Pattern Blood Pressure 124/89 H 130/68 H 130/68 H Blood Pressure Mean 100 88 88 Pulse Ox 100 97 97 Oxygen Delivery Method Room Air MDM <Dr. Lizzy Fontaine, DO - Last Filed: 05/25/25 16:17> MDM MDM Narrative Medical decision making narrative: Patient evaluated for vomiting and flulike symptoms. She appears mildly ill but nontoxic. Vital signs initially significant for tachycardia and she is febrile and repeat temperature. Patient given IV fluids, DuoNeb and Toradol as well as Zofran. Workup is significant for into a but lab work otherwise normal. Urinalysis still pending but will give another liter of fluid as I suspect she is more dehydrated. Given her tachycardia is improving with fever control and fluids low suspicion for pericarditis/myocarditis. EKG is not consistent with this either. She is not hypoxic and has acute influenza lower suspicion for pulmonary emboli or other cause of her symptoms. Chest x-ray did interpret her x-ray it is interstitial densities a lower lung consistent with pneumonia however on my review it seems more consistent with a viral pattern. She does not have a leukocytosis. Will discuss with patient risk versus benefits of antibiotic treatment. Patient states has had pneumonia in the past and would like treatment.. She is not hypoxic but continues to have some tachycardia and heart rate as she goes up to 130. Because of this we will add on a high-sensitivity troponin to rule out myocarditis. Anticipate this is negative and patient is comfortable can still be discharged home. Lab Data Attestation: I reviewed the patient's lab results. Labs: Laboratory Results - last 24 hr 05/25/25 05/25/25 12:27 15:18 WBC 6.0 RBC 4.82 Hgb 14.4 Hct 41.3 MCV 85.7 MCH 29.9 MCHC 34.9 RDW Std Deviation 37.2 RDW Coeff of Nelson 11.9 Plt Count 191 MPV 11.0 Immature Gran % (Auto) 0.300 Neut % (Auto) 83.7 H Lymph % (Auto) 5.9 L [place] % (Auto) 8.9 Eos % (Auto) 0.5 Baso % (Auto) 0.7 Absolute Neuts (auto) 5.0 Absolute Lymphs (auto) 0.35 L Nucleated RBC % 0 Sodium 138 Potassium 4.0 Chloride 104 Carbon Dioxide 21.2 Anion Gap 14 BUN 11 Creatinine 0.88 Estim Creat Clear Calc 130.40 Est GFR (MDRD) Non-Af 94 BUN/Creatinine Ratio 12.0 Glucose 102 H Calcium 9.3 Total Bilirubin 0.75 AST 21 ALT 17 Alkaline Phosphatase 92 Troponin T High Sens < 6 Total Protein 7.4 Albumin 4.3 Globulin 3.1 Albumin/Globulin Ratio 1.4 Lipase 16 Urine Test Negative Radiography Diagnostic Testing: Clinical Impression(s) from Imaging Studies Chest X-Ray 05/25/25 11:59 IMPRESSION: Interstitial densities in the lower lungs consistent with pneumonia. Reading Location: [facility] Rhythm Strip Rhythm Strip: Sinus Tach Rate: 117 Ectopy: None EKG Initial EKG: Attestation: I personally reviewed and interpreted this EKG as follows: Interpretation: Sinus Tachycardia Comments: Sinus tachycardia rate 170 bpm Normal axis Normal intervals Normal ST segment <Dr. Abhinav Hua, DO - Last Filed: 05/25/25 18:04> MDM MDM Narrative Medical decision making narrative: Patient evaluated for vomiting and flulike symptoms. She appears mildly ill but nontoxic. Vital signs initially significant for tachycardia and she is febrile and repeat temperature. Patient given IV fluids, DuoNeb and Toradol as well as Zofran. Workup is significant for into a but lab work otherwise normal. U Preg still pending but will give another liter of fluid as I suspect she is more dehydrated. Given her tachycardia is improving with fever control and fluids low suspicion for pericarditis/myocarditis. EKG is not consistent with this either. She is not hypoxic and has acute influenza lower suspicion for pulmonary emboli or other cause of her symptoms. Chest x-ray did interpret her x-ray it is interstitial densities a lower lung consistent with pneumonia however on my review it seems more consistent with a viral pattern. She does not have a leukocytosis. Will discuss with patient risk versus benefits of antibiotic treatment. Patient states has had pneumonia in the past and would like treatment.. She is not hypoxic but continues to have some tachycardia and heart rate as she goes up to 130. Because of this we will add on a high-sensitivity troponin to rule out myocarditis. Anticipate this is negative and patient is comfortable can still be discharged home. Patient was turned over to me by Dr. Fontaine @1600 Brief history: As above. The patient denies recent surgery in the last 4 weeks or immobilization in the last 3 days, denies previous diagnosis of DVT or PE, hemoptysis, unilateral leg swelling or malignancy with treatment the last 6 months or palliative. No estrogen use noted. Physical exam: Patient appeared like she was suffering from a viral URI, lungs otherwise were clear, no stigmata of VTE on exam. No murmurs, gallops or rubs. Labs and images reviewed (if obtained): CBC without leukocytosis, severe anemia, no thrombocytopenia. BMP without evidence of significant electrolyte abnormalities, no anion gap, no acute kidney injury. LFTs show no evidence of hepatobiliary pathology. The patient's chest x-ray was read reviewed personally so showed no evidence of cardiomegaly, pulmonary edema, questionable infiltrates in right lower lobe. High-sensitivity troponin is negative, no evidence of myocardial ischemia Lipase is wnl indicating no pancreatic inflammation. Urine test was negative EKG without signs of right heart strain, STEMI or pericarditis MDM/plan: The synthesis of the patient's history, physical exam, labs images suggest likely Influenza as a cause of her symptoms. No sign of pulm embolism. In fact low risk well score suggest less than 1% risk of PE. No sign of [place] myocarditis with negative troponin and no signs on EKG. Discussed the patient ongoing elevated heart rate which I suspect is related to relative dehydration, insensible losses, influenza infection and fever. Discussed ongoing ED evaluation, possible admission and additional testing however the patient noted she would prefer to go home. She is comfortable to diagnosis fluid like to take Tylenol ibuprofen, PO antibiotic as prescribed by Dr. Fontaine at home as well as increase her fluids. Strict return precautions were discussed. Lab Data Labs: Laboratory Results - last 24 hr 05/25/25 05/25/25 12:27 15:18 WBC 6.0 RBC 4.82 Hgb 14.4 Hct 41.3 MCV 85.7 MCH 29.9 MCHC 34.9 RDW Std Deviation 37.2 RDW Coeff of Nelson 11.9 Plt Count 191 MPV 11.0 Immature Gran % (Auto) 0.300 Neut % (Auto) 83.7 H Lymph % (Auto) 5.9 L [place] % (Auto) 8.9 Eos % (Auto) 0.5 Baso % (Auto) 0.7 Absolute Neuts (auto) 5.0 Absolute Lymphs (auto) 0.35 L Nucleated RBC % 0 Sodium 138 Potassium 4.0 Chloride 104 Carbon Dioxide 21.2 Anion Gap 14 BUN 11 Creatinine 0.88 Estim Creat Clear Calc 130.40 Est GFR (MDRD) Non-Af 94 BUN/Creatinine Ratio 12.0 Glucose 102 H Calcium 9.3 Total Bilirubin 0.75 AST 21 ALT 17 Alkaline Phosphatase 92 Troponin T High Sens < 6 Total Protein 7.4 Albumin 4.3 Globulin 3.1 Albumin/Globulin Ratio 1.4 Lipase 16 Urine Test Negative Radiography Diagnostic Testing: Clinical Impression(s) from Imaging Studies Chest X-Ray 05/25/25 11:59 IMPRESSION: Interstitial densities in the lower lungs consistent with pneumonia. Reading Location: [facility] Discharge Plan Triage Chief Complaint: Cold Sx ED Provider: Lizzy Fontaine Dx/Rx/DC Orders Clinical Impression: Influenza A, Tachycardia Instructions: ED Influenza (Adult) Prescriptions: New amoxicillin-pot clavulanate 875-125 mg tablet 1 tab PO Q12H Qty: 10 0RF albuterol sulfate [Ventolin HFA] 90 mcg/actuation HFA aerosol inhaler 1 - 2 puff inhalation Q4H PRN PRN (Reason: Wheezing) Qty: 1 0RF ondansetron 4 mg tablet,disintegrating 4 mg PO Q8H PRN PRN (Reason: Nausea) Qty: 10 0RF Stand Alone Forms: ED Work / School Excuse Primary Care Provider: Care Physician,No Primary Referrals: [facility] [Outside] Care Physician,No Primary [Primary Care Provider, Medical] Activity Restrictions/Additional Instructions: Your flu test was positive today. Likely this is the cause of all your symptoms. Your heart rate was elevated you were given IV fluids as well as fever medication in the ER. Please follow-up with family medicine. Do not have anything given information for referral to the [facility] clinic. Alternate ibuprofen or Tylenol for fever and pain control. Print Language: Malay Disposition Disposition: Home, Self Care Discharge Date/Time: 05/25/25 17:11
[2025-05-25] MEDS: 0.9% Normal Saline (1000mL) 1,000 ML 999 ML IV (14:23)
[2025-05-25 15:43] LABS: Internal QC Validated? YES +Cl - CLEAR BKGD; Pregnancy, Urine Negative Negative
[2025-05-25 16:31] LABS: Troponin T High Sensitivity < 6 ng/L (<=14)
--- NOTE | 2025-05-25 16:59 | CM.ED ---
Social Work Reason for visit: No PCP Patient confirmed that she does not currently have a PCP. [facility] provider list along with [facility] brochure. No further needs at this time.. 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
== END 2025-05-25 17:11 | disposition home or self-care (01) ==
PROVIDERS: Emergency Provider Emergency Medicine; Visit Provider Emergency Medicine
DX: J10.1 Influenza due to other identified influenza virus with other respiratory manifestations (principal); R00.0 Tachycardia, unspecified; F17.210 Nicotine dependence, cigarettes, uncomplicated
CPT/HCPCS: 71046; 80053; 81025; 83690; 84484; 85025; 87631; 93005; 94640; 96361; 96374; 96375; 99284; A4216; J2405